=== PATIENT | male | born 1955 | race Caucasian/White ===

== ENCOUNTER 2018-11-26 15:02 | Day surgery (SDC) | payer OTHER ==
[2018-11-26] MEDS ORDERED: LIDOCAINE 1% 20 ML VIAL (10MG/ML) FOR IV START INTRADERMA ONE (16:10)
[2018-11-26] MEDS ORDERED: SODIUM CHLORIDE 0.9% 1,000 ML IV ONE (16:10)
[2018-11-26 16:14] LABS: Glucose,Whole Blood 126 mg/dL (75-99)
[2018-11-26] MEDS ORDERED: ONDANSETRON 4 MG/2 ML VIAL IVP ONE (16:23)
[2018-11-26 17:52] LABS: Anisocytosis Slight; Basophils # (A) 0.1 k/uL (0-0.2); Basophils % (A) 1 %; Eosinophils # (A) 0.4 k/uL (0-0.7); Eosinophils % (A) 6 %; HCT 36.1 % (39.0-53.0); HGB 12.1 gm/dL (13.0-17.5); Lymphocytes # (A) 1.5 k/uL (1.0-4.8); Lymphocytes % (A) 22 %; MCH 29.6 pg (25.0-35.0); MCHC 33.6 g/dL (31.0-37.0); MCV 88.1 fL (80.0-100.0); Mean Platelet Volume 8.1; Monocytes # (A) 0.5 k/uL (0-1.0); Monocytes % (A) 7 %; Neutrophils # (A) 4.5 k/uL (1.3-7.7); Neutrophils % (A) 62 %; Platelet Count 208 k/uL (150-450); RDW 17.6 % (11.5-15.5); WBC 7.1 k/uL (3.8-10.6)
[2018-11-26 18:17] LABS: Glucose,Whole Blood 121 mg/dL (75-99)
[2018-11-26 18:23] LABS: Potassium 4.8 mmol/L (3.5-5.1)
[2018-11-26] MEDS ORDERED: fentaNYL (PF) 50 MCG/ML 2 ML AMP ONE (18:27)
[2018-11-26] MEDS ORDERED: MIDAZOLAM 2 MG/2 ML VIAL ONE (18:27)
[2018-11-26] MEDS ORDERED: PROPOFOL 10 MG/ML 20 ML VIAL IV ONE (18:27)
[2018-11-26] MEDS ORDERED: LIDOCAINE 1% INJ 10MG/ML (20 ML MDV) SQ ONE (18:52)
[2018-11-26] MEDS ORDERED: hydrALAZINE HCL 20 MG/ML 1 ML VIAL IVP ONE (19:55)
--- NOTE | 2018-11-26 20:22 | P.OP ---
Date of Procedure: 11/26/18 Preoperative Diagnosis: Right thumb abscess with osteomyelitis of the distal phalanx Postoperative Diagnosis: Right thumb abscess with osteomyelitis of the distal phalanx Procedure(s) Performed: 1. Incision and drainage of right thumb abscess 2. Irrigation and debridement of the distal phalanx with removal of nail plate Anesthesia: MAC, local Surgeon: Sebas Barragan Estimated Blood Loss (ml): 5 Pathology: other (Culture swabs from medullary space) Condition: stable Disposition: PACU Indications for Procedure: The patient is a 63-year-old male who had a stroke in May this year and was in the ICU for over a month, during which he did develop sepsis. Over the last few weeks, he had progressive pain and swelling in the right thumb. An x-ray was obtained which was consistent with osteomyelitis. Treatment options were discussed with the patient and his and the office and surgical debridement was recommended. Questions were invited and answered. They expressed understanding and were in agreement to proceed with surgery. The operative site was confirmed and marked in the preop holding area. Consent forms were signed. Operative Findings: Gross pus was encountered in the space of the distal phalanx but very little bone remained. The infection had eroded a sinus tract the edge of the hyponychium. Description of Procedure: The patient was positioned supine with the operative limb on an arm board. Monitored anesthesia was administered uneventfully. A tourniquet was placed on the arm. A time-out was performed, confirming the patient, the operative side, site and the procedure to be performed: all team members expressed agreement. Utilizing aseptic technique, lidocaine without epinephrine was injected in a digital block. The right upper extremity was then prepped and draped in standard, sterile fashion. No tourniquet was utilized. Loupe magnification was used throughout the case for optimum visualization. Purulent fluid was expressed from the hyponychium with manual pressure on the nail plate. A Arden elevator was inserted to gently elevate the nail plate. This was removed, cleaned of remaining soft tissue and placed in Betadine for later reinsertion. A small sinus tract was noted at the edge of the hyponychium. There was no other visible damage to the nailbed. A stab incision was made at the tip of the digit and a second along the midaxial line on the radial side of the thumb distal phalanx. A mosquito hemostat was inserted to use. The subcutaneous tissues. Gross pus was immediately encountered. A swab of this fluid was obtained and sent for culture. A curette was inserted and used to gently explore the medullary space. There was only a small amount of bone remaining, essentially only the articular surface and a small volar rim. The subchondral bone was gently probed: This was found to be solid, without apparent extension into the IP joint. The curette was used to mechanically debride the medullary space. The wounds were copiously flushed with normal saline using a syringe and angiocatheter. The sinus tract at the hyponychium was also irrigated and debrided. All instruments were removed. The incisions were left open to drain. There was an expected amount of steady sanguinous drainage from the wounds. The nail plate was removed from the Betadine. Two small holes were placed in the nail plate which was then sutured back into position beneath the eponychial fold with a 4-0 nylon horizontal mattress suture. An additional simple suture was placed at the end of the nail plate to secure it to the tip of the digit. Sterile dressings of Adaptic, 4 x 4's, Vanessa and Coban were applied. All sponge, needle and instrument counts were correct at the end of the case. The patient tolerated the procedure well. He was taken to recovery in stable condition. He will be discharged back to his intermediate facility, resuming empiric treatment with IV vancomycin. Future treatment will be guided by intraoperative cultures.
[2018-11-26 20:46] VITALS: RESP 16; TEMP 98
[2018-11-26] MEDS ORDERED: ACETAMINOPHEN TAB 325 MG TAB PO PRN (21:52)
[2018-11-26 22:32] VITALS: BP 143/81; PULSE 87
--- NOTE | 2018-11-27 07:16 | FL ---
Fluoroscopy History: RT thumb. RT thumb. Dr. Barragan. 9 sec fluoro time. 3 images scanned.
== END 2018-11-26 22:17 ==
LOC: OR 15:02 → 4SSUR 20:23 → OR 22:17
PROVIDERS: ATTEND Orthopaedic Surgery
DX: E11.69 Type 2 diabetes mellitus with other specified complication (principal); M86.141 Other acute osteomyelitis, right hand; L02.511 Cutaneous abscess of right hand; E11.22 Type 2 diabetes mellitus with diabetic chronic kidney disease; N18.9 Chronic kidney disease, unspecified; I50.9 Heart failure, unspecified; I49.9 Cardiac arrhythmia, unspecified; N40.0 Benign prostatic hyperplasia without lower urinary tract symptoms; R56.9 Unspecified convulsions; D64.9 Anemia, unspecified; I13.0 Hypertensive heart and chronic kidney disease with heart failure and stage 1 through stage 4 chronic kidney disease, or unspecified chronic kidney disease; E78.5 Hyperlipidemia, unspecified; I48.91 Unspecified atrial fibrillation; G47.33 Obstructive sleep apnea (adult) (pediatric); S02.5XXA Fracture of tooth (traumatic), initial encounter for closed fracture; Z86.73 Personal history of transient ischemic attack (TIA), and cerebral infarction without residual deficits; Z87.09 Personal history of other diseases of the respiratory system; Z99.2 Dependence on renal dialysis; Z79.899 Other long term (current) drug therapy; Z79.01 Long term (current) use of anticoagulants; X58.XXXA Exposure to other specified factors, initial encounter; F41.9 Anxiety disorder, unspecified; F32.9 Major depressive disorder, single episode, unspecified
CPT/HCPCS: 26010; 11730; 80051; 85025; 87070; 87205; 87075; 73140; J2250; J0360; J2405; J2001; J3010; J2704

== ENCOUNTER 2018-12-30 14:20 | Observation (INO) | payer OTHER ==
--- NOTE | 2018-12-30 15:27 | ED ---
General Adult HPI - General Source: patient, EMS Mode of arrival: EMS Limitations: physical limitation <Cornel Downing - Last Filed: 12/30/18 16:40> <Nabor Cowart - Last Filed: 12/30/18 17:02> - General Chief complaint: Recheck/Abnormal Lab/Rx Stated complaint: ABNORMAL LABS Time Seen by Provider: 12/30/18 15:02 - History of Present Illness Initial comments: Patient is a 63-year-old male with history of acute teenagers presenting to the emergency room with a chief complaint of dialysis proper placement. Patient recently had a stroke and the medications that were administered caused him acute kidney injury which led to placement of a dialysis port. Patient reports currently the kidney function is improving the patient will gradually be tapered off the dialysis. Patient was at [facility] for dialysis and there was a failure of the dialysis port. He was sent here for [facility] for repl acement of the port. (Cornel Downing) - Related Data Home Medications Medication Instructions Recorded Confirmed Acetaminophen [Tylenol Arthritis] 650 mg PO Q6H PRN 08/25/18 12/30/18 Brimonidine Tartrate [Alphagan P 1 drops BOTH EYES BID@1200,2100 08/25/18 12/30/18 0.2% Ophth Soln] Docusate [Colace] 100 mg PO DAILY@1200 PRN 08/25/18 12/30/18 Finasteride [Proscar] 5 mg PO DAILY@1200 08/25/18 12/30/18 Ipratropium-Albuterol Nebulize 3 ml INHALATION RT-Q4H PRN 08/25/18 12/30/18 [Duoneb 0.5 mg-3 mg/3 ml Soln] Ipratropium/Albuterol Sulfate 2 puff INHALATION RT-Q6H PRN 08/25/18 12/30/18 [Combivent Respimat Inhaler] Latanoprost [Xalatan 0.005%] 1 drop BOTH EYES HS@2000 08/25/18 12/30/18 Polyethylene Glycol 3350 [Miralax] 17 gm PO DAILY@1700 PRN 08/25/18 12/30/18 Simethicone 80 mg PO Q6H PRN 08/25/18 12/30/18 Tamsulosin [Flomax] 0.4 mg PO DAILY@1200 08/25/18 12/30/18 diphenhydrAMINE ELIXIR [Benadryl 12.5 mg PO Q4H PRN 08/25/18 12/30/18 Elixir] levETIRAcetam [Keppra] 500 mg PO BID@1200,2100 08/25/18 12/30/18 Insulin Aspart [NovoLOG] See Protocol SQ ACHS 09/04/18 12/30/18 Apixaban [Eliquis] 2.5 mg PO BID@1200,2100 12/30/18 12/30/18 Cholecalciferol (Vitamin D3) 2,000 unit PO DAILY 12/30/18 12/30/18 [Vitamin D3] Furosemide [Lasix] 60 mg PO BID@1200,1730 12/30/18 12/30/18 Melatonin 5 mg PO HS@2100 12/30/18 12/30/18 Ondansetron HCl [Zofran] 8 mg PO Q8H PRN 12/30/18 12/30/18 Pantoprazole Sodium [Protonix] 40 mg PO DIRECTED 12/30/18 12/30/18 Vancomycin 1,250 mg IVPB TUTHSA 12/30/18 12/30/18 Venlafaxine HCl [Effexor XR] 75 mg PO DAILY@1700 12/30/18 12/30/18 guaiFENesin [Mucinex] 1,200 mg PO BID@1200,2100 12/30/18 12/30/18 Previous Rx's Medication Instructions Recorded Metoprolol Succinate (ER) [Toprol 12.5 mg PO DAILY tab.er.24h 09/01/18 XL] traMADol HCl [Ultram] 50 mg PO Q6HR PRN #20 tab 11/26/18 Allergies Allergy/AdvReac Type Severity Reaction Status Date / Time No Known Allergies Allergy Verified 12/30/18 15:09 Review of Systems ROS Other: All systems not noted in ROS Statement are negative. <Cornel Downing - Last Filed: 12/30/18 16:40> ROS Other: All systems not noted in ROS Statement are negative. <Nabor Cowart - Last Filed: 12/30/18 17:02> ROS Statement: Those systems with pertinent positive or pertinent negative responses have been documented in the HPI. Past Medical History Past Medical History: Atrial Fibrillation, Blood Disorder, Heart Failure, CVA/TIA, Diabetes Mellitus, Hyperlipidemia, Hypertension, Pneumonia, Prostate Disorder, Renal Disease, Seizure Disorder Additional Past Medical History / Comment(s): 05/15/18 CVA with L sided weakness/nondominent side treated in [facility], 05/16/18 aspiration pneumonia/respiratory failure/vented, 06/08/18 trached, peg tube, trach removed 07/16/18, pt went into Afib on 07/21/18 and started with episodes of feeling like something is in his throat which then leads to SOB episodes. Pt currently is in [facility] for rehab. He just started standing with assist/gait belt to pivot to wheelchair. 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 Still has peg tube-not removed yet. 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 Past Psychological History: Anxiety Smoking Status: Never smoker Past Alcohol Use History: None Reported Past Drug Use History: None Reported - Past Family History Mother Family Medical History: Cancer Additional Family Medical History / Comment(s): Mother had stomach cancer. Father Family Medical History: COPD, Myocardial Infarction (IA) Additional Family Medical History / Comment(s): Father had a massive IA at the age of 63 yrs. <Cornel Downing - Last Filed: 12/30/18 16:40> General Exam Limitations: physical limitation General appearance: alert, in no apparent distress, obese Head exam: Present: atraumatic, normocephalic, normal inspection Eye exam: Present: normal appearance Pupils: Present: normal accommodation ENT exam: Present: normal exam, normal oropharynx, mucous membranes moist, TM's normal bilaterally, normal external ear exam Neck exam: Present: normal inspection, full ROM Respiratory exam: Present: normal lung sounds bilaterally, other (Port in right sided chest.) Cardiovascular Exam: Present: regular rate, normal rhythm, normal heart sounds Extremities exam: Present: normal inspection, full ROM Back exam: Present: normal inspection, full ROM Neurological exam: Present: alert, oriented X3 Psychiatric exam: Present: normal affect, normal mood Skin exam: Present: warm, intact, normal color <Cornel Downing - Last Filed: 12/30/18 16:40> Course <Nabor Cowart - Last Filed: 12/30/18 17:02> Vital Signs 12/30/18 12/30/18 14:29 15:39 Temperature 97.9 F Pulse Rate 90 Respiratory 18 20 Rate Blood Pressure 132/58 O2 Sat by Pulse 99 Oximetry - Reevaluation(s) Reevaluation #1: 12/30/18 16:45 Patient was reevaluated and reexamined by myself, Dr. Cowart. I do agree with the findings. This includes interpretation to the plan. Case was discussed in detail with Dr. Rivera, who will admit covering for Dr. Alejandre. Consults will be placed with Dr. Reyes with nephrology as well as vascular, Dr. Sorenson. Patient does have a bandage to right thumb secondary to chronic wound/osteomyelitis. Patient needs IV antibiotic's for this as well. 12/30/18 17:02 Case was discussed with vascular surgeon, Dr. Sorenson who will consult. (Nabor Cowart) Medical Decision Making <Cornel Downing - Last Filed: 12/30/18 16:40> - Medical Decision Making Patient is a 63-year-old male with history of a cast presenting to the emergency department with a chief complaint of dialysis port replacement. Patient was sent to the ED from [facility]. There appears to be here in the dialysis port which was noted by the dialysis machine while the patient was undergoing treatment. Patient will be admitted for further medical management and placement of the port. Case discussed with Dr. Cowart. Admitting physician is Dr. Rivera. Vascular surgery and nephrology consulted. (Cornel Downing) Disposition Is patient prescribed a controlled substance at d/c from ED?: No Time of Disposition: 16:43 <Cornel Downing - Last Filed: 12/30/18 16:40> <Nabor Cowart - Last Filed: 12/30/18 17:02> Clinical Impression: Status post dialysis Disposition: ADMITTED IP TO THIS HOSP Condition: Stable Instructions (If sedation given, give patient instructions): End Stage Kidney Disease (ED) Additional Instructions: Patient will be admitted Referrals: Sebas Alejandre MD [Primary Care Provider] - 1-2 days
[2018-12-30] MEDS ORDERED: traMADol 50 MG TAB PO PRN ×2 (16:15→16:36)
[2018-12-30] MEDS ORDERED: ONDANSETRON 4 MG TAB PO PRN (16:15)
[2018-12-30] MEDS ORDERED: IPRATROPIUM-ALBUTEROL 3 ML NEB INHALATION PRN (16:15)
[2018-12-30] MEDS ORDERED: VANCOMYCIN 1,000 MG VIAL IVPB SCH (16:15)
[2018-12-30] MEDS ORDERED: MORPHINE SULFATE 4 MG/ML SYRINGE IV PRN (16:36)
[2018-12-30] MEDS ORDERED: ONDANSETRON 4 MG/2 ML VIAL IVP PRN (16:36)
[2018-12-30] MEDS ORDERED: NALOXONE 0.4 MG/ML 1 ML VIAL IV PRN (16:36)
[2018-12-30] MEDS ORDERED: METOPROLOL SUCCINATE (ER) 25 MG TAB.ER.24H PO STA (17:38)
[2018-12-30 17:54] LABS: Basophils # (A) 0.1 k/uL (0-0.2); Basophils % (A) 1 %; Eosinophils # (A) 0.5 k/uL (0-0.7); Eosinophils % (A) 5 %; HCT 33.2 % (39.0-53.0); HGB 11.1 gm/dL (13.0-17.5); Lymphocytes # (A) 1.2 k/uL (1.0-4.8); Lymphocytes % (A) 14 %; MCH 29.8 pg (25.0-35.0); MCHC 33.5 g/dL (31.0-37.0); Monocytes # (A) 0.4 k/uL (0-1.0); Monocytes % (A) 5 %; Neutrophils # (A) 6.2 k/uL (1.3-7.7); Neutrophils % (A) 74 %; Platelet Count 291 k/uL (150-450); RBC 3.73 m/uL (4.30-5.90); RDW 14.3 % (11.5-15.5); WBC 8.5 k/uL (3.8-10.6)
[2018-12-30] MEDS: SODIUM CHLORIDE 0.9% 1,000 ML IV SCH (18:15)
[2018-12-30 18:17] LABS: Albumin 4.6 g/dL (3.5-5.0); Calcium 9.7 mg/dL (8.4-10.2); Magnesium 2.2 mg/dL (1.6-2.3); Total Bilirubin 0.3 mg/dL (0.2-1.3); Total Protein 8.6 g/dL (6.3-8.2)
[2018-12-30] MEDS ORDERED: PANTOPRAZOLE 40 MG TABLET PO SCH (18:30)
[2018-12-30] MEDS ORDERED: VENLAFAXINE HCL ER 75 MG CAP PO SCH (18:30)
[2018-12-30 18:36] LABS: Potassium 4.1 mmol/L (3.5-5.1)
[2018-12-30] MEDS ORDERED: VANCOMYCIN IV PER PHARMACY 1 EACH MISC MISCELLANE PRN (19:00)
[2018-12-30] MEDS: FUROSEMIDE 20 MG TAB PO SCH (19:04)
[2018-12-30] MEDS ORDERED: diphenhydrAMINE 25 MG CAP PO PRN (20:52)
[2018-12-30] MEDS ORDERED: LATANOPROST 0.005% OPHTH DROPS 2.5 ML BTL BOTH EYES SCH (21:00)
[2018-12-30] MEDS: levETIRAcetam 500 MG TAB PO SCH (21:11)
[2018-12-30] MEDS: BRIMONIDINE TARTRATE 0.2% DROPS 5 ML BTL BOTH EYES SCH (21:12)
[2018-12-30 21:23] VITALS: BMI 33.3
[2018-12-31] MEDS: SODIUM CHLORIDE 0.9% 1,000 ML IV SCH (05:33)
[2018-12-31] MEDS: BRIMONIDINE TARTRATE 0.2% DROPS 5 ML BTL BOTH EYES SCH (08:10)
[2018-12-31 08:55] LABS: Basophils % (A) 1 %; Eosinophils # (A) 0.3 k/uL (0-0.7); Eosinophils % (A) 5 %; HCT 31.5 % (39.0-53.0); HGB 10.6 gm/dL (13.0-17.5); Lymphocytes % (A) 16 %; MCH 30.1 pg (25.0-35.0); MCHC 33.6 g/dL (31.0-37.0); MCV 89.5 fL (80.0-100.0); Mean Platelet Volume 6.1; Monocytes # (A) 0.3 k/uL (0-1.0); Monocytes % (A) 5 %; Neutrophils # (A) 4.2 k/uL (1.3-7.7); Neutrophils % (A) 71 %; Platelet Count 231 k/uL (150-450); RBC 3.52 m/uL (4.30-5.90); RDW 14.3 % (11.5-15.5)
[2018-12-31 09:28] LABS: Calcium 9.2 mg/dL (8.4-10.2); Potassium 3.7 mmol/L (3.5-5.1)
[2018-12-31 11:11] LABS: Vancomycin,Random 15.2 ug/mL
--- NOTE | 2018-12-31 11:25 | P.NPCON ---
History of Present Illness - Reason for Consult acute renal failure - History of Present Illness Reason for consultation: Acute kidney injury History of present illness: Patient is a 63-year-old male seen in renal consultation for acute kidney injury. Patient is currently hemodialysis dependent due to nonrecovered ATN. He is maintained on hemodialysis on Saturday schedule. Patient presented to the hospital due to malfunctioning dialysis catheter. However he was seen currently well undergoing hemodialysis and the catheter seems to be functioning fine although the lines are reversed. Patient denies any chest pain or shortness of breath. No vomiting or diarrhea. Urine output has been about over a liter per day. He is currently at a rehab facility. He is also receiving IV vancomycin for osteomyelitis of his thumb. Otherwise he has no active complaints at this time. Oral intake is good. Vital signs are stable. General: The patient appeared well nourished and normally developed. HEENT: Head exam is unremarkable. Neck is without jugular venous distension. LUNGS: Lungs are clear to auscultation and percussion. Breath sounds decreased. HEART: Rate and Rhythm are regular. First and second heart sounds normal. No murmurs, rubs or gallops. ABDOMEN: Abdominal exam reveals normal bowel sounds. Non-tender and non- distended. No evidence of peritonitis. EXTREMITITES: No clubbing, cyanosis, or edema. Past Medical History Past Medical History: Atrial Fibrillation, Blood Disorder, Heart Failure, CVA/TIA, Diabetes Mellitus, Hyperlipidemia, Hypertension, Pneumonia, Prostate Disorder, Renal Disease, Seizure Disorder Additional Past Medical History / Comment(s): 05/15/18 CVA with L sided weakness/nondominent side treated in [facility], 05/16/18 aspiration pneumonia/respiratory failure/vented, 06/08/18 trached, peg tube, trach removed 07/16/18, pt went into Afib on 07/21/18 and started with episodes of feeling like something is in his throat which then leads to SOB episodes. Pt currently is in [facility] for rehab. He just started standing with assist/gait belt to pivot to wheelchair. 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 Still has peg tube-not removed yet. 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 Past Psychological History: Anxiety Additional Psychological History / Comment(s): [facility] Smoking Status: Never smoker Past Alcohol Use History: None Reported Past Drug Use History: None Reported - Past Family History Mother Family Medical History: Cancer Additional Family Medical History / Comment(s): Mother had stomach cancer. Father Family Medical History: COPD, Myocardial Infarction (NH) Additional Family Medical History / Comment(s): Father had a massive NH at the age of 63 yrs. Medications and Allergies Home Medications Medication Instructions Recorded Confirmed Type Acetaminophen [Tylenol Arthritis] 650 mg PO Q6H PRN 08/25/18 12/30/18 History Brimonidine Tartrate [Alphagan P 1 drops BOTH EYES BID@1200,2100 08/25/18 12/30/18 History 0.2% Ophth Soln] Docusate [Colace] 100 mg PO DAILY@1200 PRN 08/25/18 12/30/18 History Finasteride [Proscar] 5 mg PO DAILY@1200 08/25/18 12/30/18 History Ipratropium-Albuterol Nebulize 3 ml INHALATION RT-Q4H PRN 08/25/18 12/30/18 History [Duoneb 0.5 mg-3 mg/3 ml Soln] Ipratropium/Albuterol Sulfate 2 puff INHALATION RT-Q6H PRN 08/25/18 12/30/18 History [Combivent Respimat Inhaler] Latanoprost [Xalatan 0.005%] 1 drop BOTH EYES HS@199908/25/18 12/30/18 History Polyethylene Glycol 3350 [Miralax] 17 gm PO DAILY@1700 PRN 08/25/18 12/30/18 History Simethicone 80 mg PO Q6H PRN 08/25/18 12/30/18 History Tamsulosin [Flomax] 0.4 mg PO DAILY@1200 08/25/18 12/30/18 History diphenhydrAMINE ELIXIR [Benadryl 12.5 mg PO Q4H PRN 08/25/18 12/30/18 History Elixir] levETIRAcetam [Keppra] 500 mg PO BID@1200,2100 08/25/18 12/30/18 History Metoprolol Succinate (ER) [Toprol 12.5 mg PO DAILY tab.er.24h 09/01/18 12/30/18 Rx XL] Insulin Aspart [NovoLOG] See Protocol SQ ACHS 09/04/18 12/30/18 History traMADol HCl [Ultram] 50 mg PO Q6HR PRN #20 tab 11/26/18 12/30/18 Rx Apixaban [Eliquis] 2.5 mg PO BID@1200,2100 12/30/18 12/30/18 History Cholecalciferol (Vitamin D3) 2,000 unit PO DAILY 12/30/18 12/30/18 History [Vitamin D3] Furosemide [Lasix] 60 mg PO BID@1200,1730 12/30/18 12/30/18 History Melatonin 5 mg PO HS@2100 12/30/18 12/30/18 History Ondansetron HCl [Zofran] 8 mg PO Q8H PRN 12/30/18 12/30/18 History Pantoprazole Sodium [Protonix] 40 mg PO DIRECTED 12/30/18 12/30/18 History Vancomycin 1,250 mg IVPB TUTHSA 12/30/18 12/30/18 History Venlafaxine HCl [Effexor XR] 75 mg PO DAILY@1700 12/30/18 12/30/18 History guaiFENesin [Mucinex] 1,200 mg PO BID@1200,2100 12/30/18 12/30/18 History Allergies Allergy/AdvReac Type Severity Reaction Status Date / Time No Known Allergies Allergy Verified 12/30/18 15:09 Physical Exam Vitals: Vital Signs Temp Pulse Pulse Resp BP BP Pulse Ox 12/31/18 05:00 97.3 F L 85 20 165/83 98 12/30/18 21:00 97.9 F 85 18 153/82 100 12/30/18 19:36 90 18 158/92 100 12/30/18 19:03 92 12/30/18 19:00 93 18 100 12/30/18 18:49 90 12/30/18 17:00 90 16 148/93 99 12/30/18 16:33 93 18 98 12/30/18 15:39 20 12/30/18 14:29 97.9 F 90 18 132/58 99 Intake and Output 12/30/18 12/31/18 12/31/18 22:59 06:59 14:59 Intake Total 240 0 Balance 240 0 Intake: Oral 240 0 Other: Voiding Method Urinal # Voids 0 0 Results - Lab Results Most recent lab results Calcium 9.2 mg/dL (8.4-10.2) 12/31/18 08:40 Magnesium 2.2 mg/dL (1.6-2.3) 12/30/18 17:30 12/31/18 08:40 12/31/18 08:40 Assessment and Plan Plan: Assessment: 1. Acute kidney injury, currently hemodialysis dependent. He is maintained on hemodialysis on Saturday schedule. 2. Malfunctioning permacath outpatient but seems to be working fine at this time. 3. Thumb osteomyelitis maintained on IV vancomycin. 4. History of hemorrhagic CVA. Plan: Currently seen while undergoing hemodialysis. Patient had missed yesterday's treatment. Next treatment tomorrow per his outpatient schedule. Continue to monitor for renal function recovery outpatient. Stable to be discharged from nephrology standpoint. Thank you for the consultation. I will continue to follow the patient with you during his hospital stay.
[2018-12-31] MEDS ORDERED: FINASTERIDE 5 MG TAB PO SCH (12:00)
[2018-12-31] MEDS ORDERED: TAMSULOSIN 0.4 MG CAP.ER.24H PO SCH (12:00)
[2018-12-31] MEDS: METOPROLOL SUCCINATE (ER) 25 MG TAB.ER.24H PO SCH ×2 (12:42→13:16)
[2018-12-31] MEDS: FUROSEMIDE 20 MG TAB PO SCH (12:45)
[2018-12-31] MEDS: levETIRAcetam 500 MG TAB PO SCH (12:45)
[2018-12-31] MEDS ORDERED: VANCOMYCIN 1,250 MG in SODIUM CHLORIDE 0.9% 250 ML IVPB ONE (13:00)
--- NOTE | 2018-12-31 13:10 | P.GSCN ---
History of Present Illness Consult date: 12/31/18 History of present illness: The patient is a 63-year-old male with acute kidney injury from previous stroke and hospitalization requiring dialysis via a tunneled dialysis catheter. He is typically maintained on a Saturday, , Saturday schedule. When he presented to dialysis yesterday they were unable to perform dialysis. He was transferred to our center. His laboratories were normal upon arrival and upon my evaluation this morning he had no complaints Review of Systems 10 point review of systems performed, pertinent positives and negatives per the HPI Past Medical History Past Medical History: Atrial Fibrillation, Blood Disorder, Heart Failure, CVA/TIA, Diabetes Mellitus, Hyperlipidemia, Hypertension, Pneumonia, Prostate Disorder, Renal Disease, Seizure Disorder Additional Past Medical History / Comment(s): 05/15/18 CVA with L sided weakness/nondominent side treated in [facility], 05/16/18 aspiration pneumonia/respiratory failure/vented, 06/08/18 trached, peg tube, trach removed 07/16/18, pt went into Afib on 07/21/18 and started with episodes of feeling like something is in his throat which then leads to SOB episodes. Pt currently is in [facility] for rehab. He just started standing with assist/gait belt to pivot to wheelchair. 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 Still has peg tube-not removed yet. 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 Past Psychological History: Anxiety Additional Psychological History / Comment(s): [facility] Smoking Status: Never smoker Past Alcohol Use History: None Reported Past Drug Use History: None Reported - Past Family History Mother Family Medical History: Cancer Additional Family Medical History / Comment(s): Mother had stomach cancer. Father Family Medical History: COPD, Myocardial Infarction ([place]) Additional Family Medical History / Comment(s): Father had a massive [place] at the age of 63 yrs. Medications and Allergies Home Medications Medication Instructions Recorded Confirmed Type Acetaminophen [Tylenol Arthritis] 650 mg PO Q6H PRN 08/25/18 12/30/18 History Brimonidine Tartrate [Alphagan P 1 drops BOTH EYES BID@1200,209908/25/18 12/30/18 History 0.2% Ophth Soln] Docusate [Colace] 100 mg PO DAILY@1200 PRN 08/25/18 12/30/18 History Finasteride [Proscar] 5 mg PO DAILY@119908/25/18 12/30/18 History Ipratropium-Albuterol Nebulize 3 ml INHALATION RT-Q4H PRN 08/25/18 12/30/18 History [Duoneb 0.5 mg-3 mg/3 ml Soln] Ipratropium/Albuterol Sulfate 2 puff INHALATION RT-Q6H PRN 08/25/18 12/30/18 History [Combivent Respimat Inhaler] Latanoprost [Xalatan 0.005%] 1 drop BOTH EYES HS@199908/25/18 12/30/18 History Polyethylene Glycol 3350 [Miralax] 17 gm PO DAILY@1700 PRN 08/25/18 12/30/18 History Simethicone 80 mg PO Q6H PRN 08/25/18 12/30/18 History Tamsulosin [Flomax] 0.4 mg PO DAILY@119908/25/18 12/30/18 History diphenhydrAMINE ELIXIR [Benadryl 12.5 mg PO Q4H PRN 08/25/18 12/30/18 History Elixir] levETIRAcetam [Keppra] 500 mg PO BID@1200,209908/25/18 12/30/18 History Metoprolol Succinate (ER) [Toprol 12.5 mg PO DAILY tab.er.24h 09/01/18 12/30/18 Rx XL] Insulin Aspart [NovoLOG] See Protocol SQ ACHS 09/04/18 12/30/18 History traMADol HCl [Ultram] 50 mg PO Q6HR PRN #20 tab 11/26/18 12/30/18 Rx Apixaban [Eliquis] 2.5 mg PO BID@1200,2100 12/30/18 12/30/18 History Cholecalciferol (Vitamin D3) 2,000 unit PO DAILY 12/30/18 12/30/18 History [Vitamin D3] Furosemide [Lasix] 60 mg PO BID@1200,1730 12/30/18 12/30/18 History Melatonin 5 mg PO HS@2100 12/30/18 12/30/18 History Ondansetron HCl [Zofran] 8 mg PO Q8H PRN 12/30/18 12/30/18 History Pantoprazole Sodium [Protonix] 40 mg PO DIRECTED 12/30/18 12/30/18 History Vancomycin 1,250 mg IVPB TUTHSA 12/30/18 12/30/18 History Venlafaxine HCl [Effexor XR] 75 mg PO DAILY@1700 12/30/18 12/30/18 History guaiFENesin [Mucinex] 1,200 mg PO BID@1200,2100 12/30/18 12/30/18 History Allergies Allergy/AdvReac Type Severity Reaction Status Date / Time No Known Allergies Allergy Verified 12/30/18 15:09 Surgical - Exam Vital Signs Temp Pulse Resp BP Pulse Ox 97.9 F 90 18 132/58 99 12/30/18 14:29 12/30/18 14:29 12/30/18 14:29 12/30/18 14:29 12/30/18 14:29 Gen. is a pleasant male in no acute distress, resting. HEENT is normocephalic, atraumatic, extraocular motion intact. Heart is regular in rate and rhythm. There is a right chest wall tunneled dialysis catheter. Lungs are clear. Abdomen is soft. Results - Labs 12/31/18 08:40 12/31/18 08:40 Abnormal Lab Results - Last 24 Hours (Table) 12/30/18 12/30/18 12/31/18 Range/Units 17:30 17:30 08:40 RBC 3.73 L (4.30-5.90) m/uL Hgb 11.1 L (13.0-17.5) gm/dL Hct 33.2 L (39.0-53.0) % BUN 52 H 46 H (9-20) mg/dL Creatinine 3.71 H 3.28 H (0.66-1.25) mg/dL Glucose 167 H 138 H (74-99) mg/dL Alkaline Phosphatase 127 H (38-126) U/L Total Protein 8.6 H (6.3-8.2) g/dL 12/31/18 Range/Units 08:40 RBC 3.52 L (4.30-5.90) m/uL Hgb 10.6 L (13.0-17.5) gm/dL Hct 31.5 L (39.0-53.0) % BUN (9-20) mg/dL Creatinine (0.66-1.25) mg/dL Glucose (74-99) mg/dL Alkaline Phosphatase (38-126) U/L Total Protein (6.3-8.2) g/dL Diabetes panel 12/30/18 12/31/18 Range/Units 17:30 08:40 Sodium 140 139 (137-145) mmol/L Potassium 4.1 3.7 (3.5-5.1) mmol/L Chloride 100 101 (98-107) mmol/L Carbon Dioxide 23 27 (22-30) mmol/L BUN 52 H 46 H (9-20) mg/dL Creatinine 3.71 H 3.28 H (0.66-1.25) mg/dL Glucose 167 H 138 H (74-99) mg/dL Calcium 9.7 9.2 (8.4-10.2) mg/dL AST 21 (17-59) U/L ALT 22 (21-72) U/L Alkaline Phosphatase 127 H (38-126) U/L Total Protein 8.6 H (6.3-8.2) g/dL Albumin 4.6 (3.5-5.0) g/dL Calcium panel 12/30/18 12/31/18 Range/Units 17:30 08:40 Calcium 9.7 9.2 (8.4-10.2) mg/dL Albumin 4.6 (3.5-5.0) g/dL Pituitary panel 12/30/18 12/31/18 Range/Units 17:30 08:40 Sodium 140 139 (137-145) mmol/L Potassium 4.1 3.7 (3.5-5.1) mmol/L Chloride 100 101 (98-107) mmol/L Carbon Dioxide 23 27 (22-30) mmol/L BUN 52 H 46 H (9-20) mg/dL Creatinine 3.71 H 3.28 H (0.66-1.25) mg/dL Glucose 167 H 138 H (74-99) mg/dL Calcium 9.7 9.2 (8.4-10.2) mg/dL Adrenal panel 12/30/18 12/31/18 Range/Units 17:30 08:40 Sodium 140 139 (137-145) mmol/L Potassium 4.1 3.7 (3.5-5.1) mmol/L Chloride 100 101 (98-107) mmol/L Carbon Dioxide 23 27 (22-30) mmol/L BUN 52 H 46 H (9-20) mg/dL Creatinine 3.71 H 3.28 H (0.66-1.25) mg/dL Glucose 167 H 138 H (74-99) mg/dL Calcium 9.7 9.2 (8.4-10.2) mg/dL Total Bilirubin 0.3 (0.2-1.3) mg/dL AST 21 (17-59) U/L ALT 22 (21-72) U/L Alkaline Phosphatase 127 H (38-126) U/L Total Protein 8.6 H (6.3-8.2) g/dL Albumin 4.6 (3.5-5.0) g/dL Assessment and Plan Assessment: #1 acute kidney failure, on dialysis, supposedly improving renal function #2 question of malfunctioning tunneled dialysis catheter Plan: At this point I passed the dialysis nurse to investigate further and tried to troubleshoot what errors may have occurred. Upon further discussion the catheter was functioning well without issue. At this time I do not see any need for replacement given we cannot find any issue with the catheter itself. We'll leave further planning to nephrology and the primary team.
--- NOTE | 2018-12-31 13:22 | P.HPIM ---
History of Present Illness H&P Date: 12/31/18 Chief Complaint: Malfunctioning dialysis catheter History of presenting complaint: This is a pleasant 63-year-old patient of Dr. Sebas Alejandre who was transferred here from [facility]. Patient has been on hemodialysis. It is right infraclavicular. Some problems/malfunctioning the same. Hence patient was sent down here for low vascular surgeon opinion for the same. And replace the same if needed. Chronic stable medical conditions include atrial fibrillation, d iabetes, hyperlipidemia, hypertension, prostate disorder, seizure disorder. Patient on on 05/15/2018 had a left-sided stroke affecting the left-sided [place] [place]. Also had aspiration pneumonia in active labor ventilator with the trach. He does have a PEG tube. That was removed on 07/16/2018. Patient also followed by atrial fibrillation. Patient currently [facility] for rehab. Patient has been standing with assistance gait belt too uncomfortable to the wheelchair. Patient able to feed himself with nectar consistency. Patient does been on hemodialysis since his stroke. Recently diagnosed with obstructive sleep apnea uses a BiPAP. Also's diabetic neuropathy, glaucoma BPH. Patient also 2 weeks ago had surgery on the right thumb for osteomyelitis and is on vancomycin being followed by Dr. Perez Social history: No smoking or alcohol. Currently at rehab at [facility] facility. Physical examination: VITAL SIGNS: 97.9, 90, 18, 132/58, 99% on 3 L GENERAL: BMI 33.3, sitting upon a bed awake. EYES: Pupils equal. Conjunctiva normal. HEENT: External appearance of nose and ears normal, oral cavity grossly normal. NECK: JVD not raised; masses not palpable. HEART: First and second heart sounds are normal; no edema. LUNGS: Respiratory rate normal; slightly decreased breath sounds. ABDOMEN: Soft, nontender, liver spleen not palpable, no masses palpable, PEG tube in place. PSYCH: Alert and oriented x3; mood and affect normal. NEUROLOGICAL: [Cranial nerves grossly intact; no facial asymmetry, some left- sided weakness. LYMPHATICS: No lymph nodes palpable in the axilla and neck CHEST wall: Right infra-clavicle dialysis catheter EXTREMITY: Dressing over the right thumb INVESTIGATIONS, reviewed in the clinical context: White count 6 hemoglobin 10.6 potassium 3.7 bun 46 creatinine 3.28 glucose 138 Assessment: -Malfunctioning right dialysis catheter could be simple malpositioning. -Persistent atrial fibrillation -Acute stroke with left-sided weakness -Diabetes mellitus type 2 -Hyperlipidemia -Essential hypertension -BPH -End-stage kidney disease on renal replacement therapy -Stroke on 05/15/2018 affecting the left side -Dysphagia from stroke patient is on nectar consistency diet -PEG tube in place patient not using -Obstructive sleep apnea uses BiPAP -Diabetic peripheral neuropathy both the feet -Bilateral glaucoma -Obesity BMI 33.3 -Anemia of chronic kidney disease Plan: Dr. Sorenson was consulted from vascular surgery. He was not able to have his dialysis yesterday. It was readjusted here and dysfunction on fact patient getting dialyzed as this morning. Nephrology was consulted. Home medications resumed. Patient is getting vancomycin that is being monitored with fluid levels. That'll be continued. Care was discussed with the patient. Patient should be able to return to rehab at dialysis goes good. Past Medical History Past Medical History: Atrial Fibrillation, Blood Disorder, Heart Failure, CVA/TIA, Diabetes Mellitus, Hyperlipidemia, Hypertension, Pneumonia, Prostate Disorder, Renal Disease, Seizure Disorder Additional Past Medical History / Comment(s): 05/15/18 CVA with L sided weakness/nondominent side treated in [facility], 05/16/18 aspiration pneumonia/respiratory failure/vented, 06/08/18 trached, peg tube, trach removed 07/16/18, pt went into Afib on 07/21/18 and started with episodes of feeling like something is in his throat which then leads to SOB episodes. Pt currently is in [facility] for rehab. He just started standing with assist/gait belt to pivot to wheelchair. 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 Still has peg tube-not removed yet. 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 Past Psychological History: Anxiety Additional Psychological History / Comment(s): [facility] Smoking Status: Never smoker Past Alcohol Use History: None Reported Past Drug Use History: None Reported - Past Family History Mother Family Medical History: Cancer Additional Family Medical History / Comment(s): Mother had stomach cancer. Father Family Medical History: COPD, Myocardial Infarction ([place]) Additional Family Medical History / Comment(s): Father had a massive [place] at the age of 63 yrs. Medications and Allergies Home Medications Medication Instructions Recorded Confirmed Type Acetaminophen [Tylenol Arthritis] 650 mg PO Q6H PRN 08/25/18 12/30/18 History Brimonidine Tartrate [Alphagan P 1 drops BOTH EYES BID@1200,209908/25/18 12/30/18 History 0.2% Ophth Soln] Docusate [Colace] 100 mg PO DAILY@1200 PRN 08/25/18 12/30/18 History Finasteride [Proscar] 5 mg PO DAILY@119908/25/18 12/30/18 History Ipratropium-Albuterol Nebulize 3 ml INHALATION RT-Q4H PRN 08/25/18 12/30/18 History [Duoneb 0.5 mg-3 mg/3 ml Soln] Ipratropium/Albuterol Sulfate 2 puff INHALATION RT-Q6H PRN 08/25/18 12/30/18 History [Combivent Respimat Inhaler] Latanoprost [Xalatan 0.005%] 1 drop BOTH EYES HS@199908/25/18 12/30/18 History Polyethylene Glycol 3350 [Miralax] 17 gm PO DAILY@1700 PRN 08/25/18 12/30/18 History Simethicone 80 mg PO Q6H PRN 08/25/18 12/30/18 History Tamsulosin [Flomax] 0.4 mg PO DAILY@1200 08/25/18 12/30/18 History diphenhydrAMINE ELIXIR [Benadryl 12.5 mg PO Q4H PRN 08/25/18 12/30/18 History Elixir] levETIRAcetam [Keppra] 500 mg PO BID@1200,2100 08/25/18 12/30/18 History Metoprolol Succinate (ER) [Toprol 12.5 mg PO DAILY tab.er.24h 09/01/18 12/30/18 Rx XL] Insulin Aspart [NovoLOG] See Protocol SQ ACHS 09/04/18 12/30/18 History traMADol HCl [Ultram] 50 mg PO Q6HR PRN #20 tab 11/26/18 12/30/18 Rx Apixaban [Eliquis] 2.5 mg PO BID@1200,2100 12/30/18 12/30/18 History Cholecalciferol (Vitamin D3) 2,000 unit PO DAILY 12/30/18 12/30/18 History [Vitamin D3] Furosemide [Lasix] 60 mg PO BID@1200,1730 12/30/18 12/30/18 History Melatonin 5 mg PO HS@2100 12/30/18 12/30/18 History Ondansetron HCl [Zofran] 8 mg PO Q8H PRN 12/30/18 12/30/18 History Pantoprazole Sodium [Protonix] 40 mg PO DIRECTED 12/30/18 12/30/18 History Vancomycin 1,250 mg IVPB TUTHSA 12/30/18 12/30/18 History Venlafaxine HCl [Effexor XR] 75 mg PO DAILY@1700 12/30/18 12/30/18 History guaiFENesin [Mucinex] 1,200 mg PO BID@1200,2100 12/30/18 12/30/18 History Allergies Allergy/AdvReac Type Severity Reaction Status Date / Time No Known Allergies Allergy Verified 12/30/18 15:09 Physical Exam Vitals: Vital Signs Temp Pulse Pulse Resp BP BP Pulse Ox 12/31/18 05:00 97.3 F L 85 20 165/83 98 12/30/18 21:00 97.9 F 85 18 153/82 100 12/30/18 19:36 90 18 158/92 100 12/30/18 19:03 92 12/30/18 19:00 93 18 100 12/30/18 18:49 90 12/30/18 17:00 90 16 148/93 99 12/30/18 16:33 93 18 98 12/30/18 15:39 20 12/30/18 14:29 97.9 F 90 18 132/58 99 Intake and Output 12/30/18 12/31/18 12/31/18 22:59 06:59 14:59 Intake Total 240 0 Balance 240 0 Intake: Oral 240 0 Other: Voiding Method Urinal # Voids 0 0 Results CBC & Chem 7: 12/31/18 08:40 12/31/18 08:40 Labs: Abnormal Lab Results - Last 24 Hours (Table) 12/30/18 12/30/18 12/31/18 Range/Units 17:30 17:30 08:40 RBC 3.73 L (4.30-5.90) m/uL Hgb 11.1 L (13.0-17.5) gm/dL Hct 33.2 L (39.0-53.0) % BUN 52 H 46 H (9-20) mg/dL Creatinine 3.71 H 3.28 H (0.66-1.25) mg/dL Glucose 167 H 138 H (74-99) mg/dL Alkaline Phosphatase 127 H (38-126) U/L Total Protein 8.6 H (6.3-8.2) g/dL 12/31/18 Range/Units 08:40 RBC 3.52 L (4.30-5.90) m/uL Hgb 10.6 L (13.0-17.5) gm/dL Hct 31.5 L (39.0-53.0) % BUN (9-20) mg/dL Creatinine (0.66-1.25) mg/dL Glucose (74-99) mg/dL Alkaline Phosphatase (38-126) U/L Total Protein (6.3-8.2) g/dL Thrombosis Risk Factor Assmnt - Choose All That Apply Any of the Below Risk Factors Present?: Yes Each Factor Represents 1 point: Obesity (BMI >25), Swollen legs (current) Each Risk Factor Represents 2 Points: Age 61-74 years Thrombosis Risk Factor Assessment Total Risk Factor Score: 4 Thrombosis Risk Factor Assessment Level: Moderate Risk
--- NOTE | 2018-12-31 13:29 | P.DS ---
Providers Date of admission: 12/30/18 18:06 Expected date of discharge: 12/31/18 Attending physician: Coy Rivera Consults: 12/30/18 16:36 Consult Physician Stat Consulting Provider: Avis Sorenson Consult Reason/Comments: Dialysis port replacement Do you want consulting provider notified?: Yes Consult Physician Stat Consulting Provider: Kan Reyes Consult Reason/Comments: Dialysis port replacement Do you want consulting provider notified?: Yes 12/30/18 20:53 Consult Physician Routine Consulting Provider: Xander Perez Consult Reason/Comments: thumb infection Do you want consulting provider notified?: Yes, Notify in am Primary care physician: Sebas Alejandre [facility] Course: Chief Complaint: Malfunctioning dialysis catheter History of presenting complaint: This is a pleasant 63-year-old patient of Dr. Sebas Alejandre who was transferred here from [facility]. Patient has been on hemodialysis. It is right infraclavicular. Some problems/malfunctioning the same. Hence patient was sent down here for low vascular surgeon opinion for the same. And replace the same if needed. Chronic stable medical conditions include atrial fibrillation, diabetes, hyperlipidemia, hypertension, prostate disorder, seizure disorder. Patient on on 05/15/2018 had a left-sided stroke affecting the left-sided [facility] [place]. Also had aspiration pneumonia in active labor ventilator with the trach. He does have a PEG tube. That was removed on 07/16/2018. Patient also followed by atrial fibrillation. Patient currently [facility] for rehab. Patient has been standing with assistance gait belt too uncomfortable to the wheelchair. Patient able to feed himself with nectar consistency. Patient does been on hemodialysis since his stroke. Recently diagnosed with obstructive sleep apnea uses a BiPAP. Also's diabetic neuropathy, glaucoma BPH. Patient also 2 weeks ago had surgery on the right thumb for osteomyelitis and is on vancomycin being followed by Dr. Perez Dialysis catheter is functioning good. Did get dialyzed today. Seen by Dr. Sorenson from vascular surgery and Dr. Reyes from nephrology. Care was discussed with the patient. Consultation: Dr. Sorenson from vascular surgery Dr. Reyes from nephrology Physical examination: VITAL SIGNS: 97.9, 90, 18, 132/58, 99% on 3 L GENERAL: BMI 33.3, sitting upon a bed awake. EYES: Pupils equal. Conjunctiva normal. HEENT: External appearance of nose and ears normal, oral cavity grossly normal. NECK: JVD not raised; masses not palpable. HEART: First and second heart sounds are normal; no edema. LUNGS: Respiratory rate normal; slightly decreased breath sounds. ABDOMEN: Soft, nontender, liver spleen not palpable, no masses palpable, PEG tube in place. PSYCH: Alert and oriented x3; mood and affect normal. NEUROLOGICAL: [Cranial nerves grossly intact; no facial asymmetry, some left- sided weakness. LYMPHATICS: No lymph nodes palpable in the axilla and neck CHEST wall: Right infra-clavicle dialysis catheter EXTREMITY: Dressing over the right thumb INVESTIGATIONS, reviewed in the clinical context: White count 6 hemoglobin 10.6 potassium 3.7 bun 46 creatinine 3.28 glucose 138 Discharge diagnosis: -Malfunctioning right dialysis catheter could be simple malpositioning. Malfunctioning finding. Was dialyzed today. -Persistent atrial fibrillation -Acute stroke with left-sided weakness -Diabetes mellitus type 2 -Hyperlipidemia -Essential hypertension -BPH -End-stage kidney disease on renal replacement therapy -Stroke on 05/15/2018 affecting the left side -Dysphagia from stroke patient is on nectar consistency diet -PEG tube in place patient not using -Obstructive sleep apnea uses BiPAP -Diabetic peripheral neuropathy both the feet -Bilateral glaucoma -Obesity BMI 33.3 -Anemia of chronic kidney disease Disposition: [facility] Patient Condition at Discharge: Stable Plan - Discharge Summary New Discharge Prescriptions: Continue Polyethylene Glycol 3350 [Miralax] 17 gm PO DAILY@1700 PRN PRN Reason: Constipation Ipratropium-Albuterol Nebulize [Duoneb 0.5 mg-3 mg/3 ml Soln] 3 ml INHALATION RT-Q4H PRN PRN Reason: Shortness Of Breath Or Wheezing diphenhydrAMINE ELIXIR [Benadryl Elixir] 12.5 mg PO Q4H PRN PRN Reason: Itching Docusate [Colace] 100 mg PO DAILY@1200 PRN PRN Reason: Constipation Ipratropium/Albuterol Sulfate [Combivent Respimat Inhaler] 2 puff INHALATION RT-Q6H PRN PRN Reason: Shortness Of Breath Acetaminophen [Tylenol Arthritis] 650 mg PO Q6H PRN PRN Reason: Pain levETIRAcetam [Keppra] 500 mg PO BID@1200,2100 Brimonidine Tartrate [Alphagan P 0.2% Ophth Soln] 1 drops BOTH EYES BID@1200,2100 Tamsulosin [Flomax] 0.4 mg PO DAILY@1200 Latanoprost [Xalatan 0.005%] 1 drop BOTH EYES HS@1999 Finasteride [Proscar] 5 mg PO DAILY@1200 Simethicone 80 mg PO Q6H PRN PRN Reason: GAS Metoprolol Succinate (ER) [Toprol XL] 12.5 mg PO DAILY tab.er.24h Insulin Aspart [NovoLOG] See Protocol SQ ACHS traMADol HCl [Ultram] 50 mg PO Q6HR PRN #20 tab PRN Reason: Pain Venlafaxine HCl [Effexor XR] 75 mg PO DAILY@1700 Melatonin 5 mg PO HS@2099 guaiFENesin [Mucinex] 1,200 mg PO BID@1200,2100 Furosemide [Lasix] 60 mg PO BID@1200,1730 Pantoprazole Sodium [Protonix] 40 mg PO DIRECTED Ondansetron HCl [Zofran] 8 mg PO Q8H PRN PRN Reason: Nausea Apixaban [Eliquis] 2.5 mg PO BID@1200,2100 Vancomycin 1,250 mg IVPB TUTHSA Cholecalciferol (Vitamin D3) [Vitamin D3] 2,000 unit PO DAILY Discharge Medication List Acetaminophen [Tylenol Arthritis] 650 mg PO Q6H PRN 08/25/18 [History] Brimonidine Tartrate [Alphagan P 0.2% Ophth Soln] 1 drops BOTH EYES BID@1200,2100 08/25/18 [History] Docusate [Colace] 100 mg PO DAILY@1200 PRN 08/25/18 [History] Finasteride [Proscar] 5 mg PO DAILY@1200 08/25/18 [History] Ipratropium-Albuterol Nebulize [Duoneb 0.5 mg-3 mg/3 ml Soln] 3 ml INHALATION RT-Q4H PRN 08/25/18 [History] Ipratropium/Albuterol Sulfate [Combivent Respimat Inhaler] 2 puff INHALATION RT- Q6H PRN 08/25/18 [History] Latanoprost [Xalatan 0.005%] 1 drop BOTH EYES HS@199908/25/18 [History] Polyethylene Glycol 3350 [Miralax] 17 gm PO DAILY@1700 PRN 08/25/18 [History] Simethicone 80 mg PO Q6H PRN 08/25/18 [History] Tamsulosin [Flomax] 0.4 mg PO DAILY@1200 08/25/18 [History] diphenhydrAMINE ELIXIR [Benadryl Elixir] 12.5 mg PO Q4H PRN 08/25/18 [History] levETIRAcetam [Keppra] 500 mg PO BID@1200,2100 08/25/18 [History] Metoprolol Succinate (ER) [Toprol XL] 12.5 mg PO DAILY tab.er.24h 09/01/18 [Rx] Insulin Aspart [NovoLOG] See Protocol SQ ACHS 09/04/18 [History] traMADol HCl [Ultram] 50 mg PO Q6HR PRN #20 tab 11/26/18 [Rx] Apixaban [Eliquis] 2.5 mg PO BID@1200,2100 12/30/18 [History] Cholecalciferol (Vitamin D3) [Vitamin D3] 2,000 unit PO DAILY 12/30/18 [History] Furosemide [Lasix] 60 mg PO BID@1200,1730 12/30/18 [History] Melatonin 5 mg PO HS@209912/30/18 [History] Ondansetron HCl [Zofran] 8 mg PO Q8H PRN 12/30/18 [History] Pantoprazole Sodium [Protonix] 40 mg PO DIRECTED 12/30/18 [History] Vancomycin 1,250 mg IVPB TUTHSA 12/30/18 [History] Venlafaxine HCl [Effexor XR] 75 mg PO DAILY@1700 12/30/18 [History] guaiFENesin [Mucinex] 1,200 mg PO BID@1200,2100 12/30/18 [History] Follow up Appointment(s)/Referral(s): Sebas Alejandre MD [Primary Care Provider] - 1-2 Days Xander Perez MD [STAFF PHYSICIAN] - 1 Week Patient Instructions/Handouts: End Stage Kidney Disease (ED)
[2018-12-31] MEDS ORDERED: APIXABAN 2.5 MG TABLET PO SCH (13:30)
[2018-12-31 14:22] VITALS: BP 112/76; PULSE 77; RESP 16; TEMP 98.1
[2019-01-01] MEDS ORDERED: PANTOPRAZOLE 40 MG TABLET PO SCH (05:00)
== END 2018-12-31 16:07 ==
LOC: EC 14:20 → 4MS4W 18:06
PROVIDERS: ADMIT Hospitalist; ATTEND Hospitalist
DX: T82.41XA Breakdown (mechanical) of vascular dialysis catheter, initial encounter (principal); N17.9 Acute kidney failure, unspecified; I13.2 Hypertensive heart and chronic kidney disease with heart failure and with stage 5 chronic kidney disease, or end stage renal disease; N18.6 End stage renal disease; I50.9 Heart failure, unspecified; E11.69 Type 2 diabetes mellitus with other specified complication; M86.641 Other chronic osteomyelitis, right hand; I69.354 Hemiplegia and hemiparesis following cerebral infarction affecting left non-dominant side; N40.0 Benign prostatic hyperplasia without lower urinary tract symptoms; I69.391 Dysphagia following cerebral infarction; D63.1 Anemia in chronic kidney disease; I48.19 Other persistent atrial fibrillation; G40.909 Epilepsy, unspecified, not intractable, without status epilepticus; E78.5 Hyperlipidemia, unspecified; E11.42 Type 2 diabetes mellitus with diabetic polyneuropathy; G47.33 Obstructive sleep apnea (adult) (pediatric); H40.9 Unspecified glaucoma; Z93.1 Gastrostomy status; E66.9 Obesity, unspecified; Z68.33 Body mass index [BMI] 33.0-33.9, adult; F41.9 Anxiety disorder, unspecified; Z99.2 Dependence on renal dialysis; Z79.01 Long term (current) use of anticoagulants; Z79.4 Long term (current) use of insulin; Z79.2 Long term (current) use of antibiotics; Z99.89 Dependence on other enabling machines and devices; Z87.01 Personal history of pneumonia (recurrent); Z79.899 Other long term (current) drug therapy; Z80.0 Family history of malignant neoplasm of digestive organs; Z82.5 Family history of asthma and other chronic lower respiratory diseases; Z82.49 Family history of ischemic heart disease and other diseases of the circulatory system
CPT/HCPCS: 96365; 96366; 99284; 36415; 80053; 80048; 83735; 85025 ×2; 80202; G0378 ×2; G0257; S0138; J3370; 90935

== ENCOUNTER 2019-01-02 10:59 | Day surgery (SDC) | payer OTHER ==
[~2019-01-02 10:59] MED LIST: Pre Op ABX Message 1 EACH MISC MISCELLANE ONE
[2019-01-02 11:26] VITALS: RESP 16; TEMP 97.2
[2019-01-02] MEDS ORDERED: SODIUM CHLORIDE 0.9% 500 ML 500 ML IV ONE (11:49)
[2019-01-02] MEDS ORDERED: LIDOCAINE 1% 20 ML VIAL (10MG/ML) FOR IV START INTRADERMA ONE (11:50)
[2019-01-02 11:53] LABS: Glucose,Whole Blood 132 mg/dL (75-99)
[2019-01-02] MEDS ORDERED: ONDANSETRON 4 MG/2 ML VIAL IVP ONE (11:57)
[2019-01-02] MEDS ORDERED: fentaNYL (PF) 50 MCG/ML 2 ML AMP ONE (12:30)
[2019-01-02] MEDS ORDERED: MIDAZOLAM 2 MG/2 ML VIAL ONE (12:30)
[2019-01-02] MEDS: VANCOMYCIN 1,000 MG VIAL IVPB ONE ×2 (12:51→13:00)
[2019-01-02] MEDS ORDERED: VANCOMYCIN 1,000 MG VIAL IVPB ONE (12:51)
[2019-01-02] MEDS ORDERED: BUPIVACAINE (PF) 0.5% 30 ML VIAL SQ ONE (13:01)
[2019-01-02] MEDS ORDERED: LIDOCAINE 1% INJ 10MG/ML (20 ML MDV) SQ ONE (13:01)
[2019-01-02 14:00] LABS: Glucose,Whole Blood 133 mg/dL (75-99)
[2019-01-02] MEDS ORDERED: traMADol 50 MG TAB PO ONE (14:48)
[2019-01-02 15:15] VITALS: BP 119/76; PULSE 87
[2019-01-02] MEDS ORDERED: HYDROcodone/APAP 5-325MG 1 EACH TAB PO ONE (15:22)
--- NOTE | 2019-01-03 15:04 | P.OP ---
Date of Procedure: 01/02/19 Preoperative Diagnosis: Recurrent right thumb abscess Postoperative Diagnosis: Recurrent right thumb abscess Procedure(s) Performed: Incision and drainage of right thumb abscess Anesthesia: MAC, local Surgeon: Sebas Barragan Estimated Blood Loss (ml): 3 Pathology: other (Wound swab) Condition: stable Disposition: PACU Indications for Procedure: The patient is a pleasant 63-year-old male who previously underwent surgical debridement of his right thumb for an abscess with osteomyelitis the distal phalanx. At postoperative follow-up visit, the thumb showed increased edema, erythema and purulent drainage. Repeat surgical debridement was recommended. Risks and benefits were reviewed including (but not limited to) the risks of bleeding, injury to tendons or neurovascular structures, persistent or recurrent infection, wound healing problems, stiffness and possible need for additional surgery, including partial amputation. The patient expressed understanding, willingness to accept these risks and wished to proceed with surgery. Consent forms were signed. The surgical site was confirmed and marked preoperatively. Operative Findings: Small amount of purulent fluid was expressed from the radial wound. Thickened, white fibrinous exudative tissue curretted from the medullary space. Description of Procedure: The patient was brought to the operating suite by the anesthesia team and was positioned supine. All bony prominences were well-padded. Monitored anesthesia was administered uneventfully. Utilizing aseptic technique, a digital block of the thumb was performed. The operative limb was then prepped and draped in standard, sterile fashion. A time-out was performed, confirming patient identifiers, the operative side, site and the procedure to be performed: all team members expressed agreement. The hand was exsanguinated with an Esmarch which was clamped at the wrist and used as a tourniquet. There was a pre-existing ulcerated, draining wound on the radial aspect of the thumb distal phalanx. A stab incision was made, extending this along the midaxial line. Purulent fluid was immediately encountered and a culture swab was obtained, a similar incision was made with a clean knife on the ulnar side as well as one at the tip of the thumb, at the edge of the hyponychium. Small amount of purulent fluid was expressed with pressure. Curette was inserted to debride the medullary space. A moderate amount of thick, white fibrinous tissue was resected. This had the appearance of thickened exudate, consistent with the previous infection. The surrounding soft tissues were mechanically debrided with a curette. The wounds were copiously irrigated through each incision with normal saline using a syringe and angiocatheter. The nail plate had been previously removed and reattached to facilitate the initial debridement. This was found to be grossly loose. The sutures were cut and the nail plate was removed, cleaned and soaked in Betadine. At the end of the case, the nail was reinserted under the eponychial fold. A horizontal mattress suture was placed through the nail and tied over the eponychium. Another suture was passed through the end of the nail plate and tied distally. A round channel drain selected to prevent premature wound closure. This was cut into 2 pieces: one was placed transversely through the radial and ulnar wounds; the other was passed from the radial wound and out the distal wound. The tourniquet was released after 30 minutes. There was appropriate bleeding from the wounds. The incisions were not closed to permit drainage. Sterile dressings of 4 x 4's, Vanessa and Coban were applied. All sponge, needle and instrument counts were correct at the end of the case. The patient tolerated the procedure well and was taken to recovery in stable condition.
== END 2019-01-02 15:50 ==
LOC: OR 10:59
PROVIDERS: ATTEND Orthopaedic Surgery
DX: L02.511 Cutaneous abscess of right hand (principal); E11.69 Type 2 diabetes mellitus with other specified complication; M86.8X4 Other osteomyelitis, hand; N17.9 Acute kidney failure, unspecified; F41.9 Anxiety disorder, unspecified; F32.9 Major depressive disorder, single episode, unspecified; I48.91 Unspecified atrial fibrillation; I11.0 Hypertensive heart disease with heart failure; I50.9 Heart failure, unspecified; G47.33 Obstructive sleep apnea (adult) (pediatric); I69.354 Hemiplegia and hemiparesis following cerebral infarction affecting left non-dominant side; Z99.2 Dependence on renal dialysis; Z79.01 Long term (current) use of anticoagulants; Z79.4 Long term (current) use of insulin; Z79.899 Other long term (current) drug therapy; Z97.3 Presence of spectacles and contact lenses; Z99.89 Dependence on other enabling machines and devices; Z98.890 Other specified postprocedural states
CPT/HCPCS: 87070; 87205; 87075; 87102; 87077; 87186; 10060; J2250; J3370; J2405; J2001; J3010

== ENCOUNTER → 2019-04-07 | Day surgery (SDC) | payer OTHER ==
[2019-04-02 10:11] VITALS: BMI 30.8
[~2019-04-07] MED LIST changes: +ALBUTEROL NEBULIZED 2.5 MG/3 ML INHALATION ONE; +DEXAMETHASONE SOD PHOSPHATE 10 MG/ML 1 ML VIAL IV ONE; +FUROSEMIDE 40 MG TAB PO STA; +GLYCOPYRROLATE 0.2 MG/ML 2 ML VIAL ONE; +HYDROmorphone 0.5 MG/0.5 ML SYRINGE IVP PRN; +IPRATROPIUM-ALBUTEROL 3 ML NEB INHALATION STA; +LACTATED RINGERS 1,000 ML IV SCH; +LIDOCAINE 1% (10MG/ML) FOR IV START INTRADERMA PRN; +LIDOCAINE 1% INJ 10MG/ML (20 ML MDV) ONE; +LIDOCAINE 1% INJ 10MG/ML (20 ML MDV) SQ ONE; +METOCLOPRAMIDE 5 MG/ML 2 ML VIAL IVP PRN; +MIDAZOLAM 2 MG/2 ML VIAL IVP ONE; +MIDAZOLAM 2 MG/2 ML VIAL ONE; +NEOSTIGMINE 1 MG/ML 10 ML VIAL ONE; +ONDANSETRON 4 MG/2 ML VIAL IVP ONE; +PROPOFOL 10 MG/ML 20 ML VIAL IV ONE; -Pre Op ABX Message 1 EACH MISC MISCELLANE ONE; +ROCURONIUM BROMIDE 10 MG/ML 5 ML VIAL IV ONE; +fentaNYL (PF) 50 MCG/ML 2 ML AMP ONE
[2019-04-07 10:03] LABS: Glucose,Whole Blood 147 mg/dL (75-99)
--- NOTE | 2019-04-07 13:21 | FL ---
EXAMINATION TYPE: FL guidance operating room, XR finger RT DATE OF EXAM: 04/07/2019 CLINICAL HISTORY: Fluoroscopic documentation during right thumb partial amputation TECHNIQUE: Fluoroscopy. COMPARISON: None. FINDINGS: Fluoroscopic guidance was provided during procedure performed by Dr. Barragan. A total of 7 seconds of fluoroscopic time was utilized during the procedure and 4 spot images was acquired. IMPRESSION: As Above.
[2019-04-07 13:25] VITALS: TEMP 97.6
[2019-04-07 13:44] LABS: Glucose,Whole Blood 204 mg/dL (75-99)
[2019-04-07 14:26] LABS: Glucose,Whole Blood 205 mg/dL (75-99)
[2019-04-07 14:28] VITALS: RESP 20
[2019-04-07 14:49] VITALS: BP 150/83; PULSE 96
--- NOTE | 2019-04-09 19:44 | P.OP ---
Date of Procedure: 04/07/19 Preoperative Diagnosis: Persistent abscess of right thumb with osteomyelitis of the proximal and distal phalanges Postoperative Diagnosis: Persistent abscess of right thumb with osteomyelitis of the proximal and distal phalanges Procedure(s) Performed: 1. Irrigation and debridement of right thumb abscess 2. Transphalangeal amputation of the right thumb (through the proximal phalanx) Anesthesia: BERTA, local Surgeon: Sebas Barragan Estimated Blood Loss (ml): 10 Pathology: other (Amputated distal phalanx; intramedullary culture swab) Condition: stable Disposition: PACU Indications for Procedure: The patient is a 63-year-old male who previously underwent irrigation and debridement of a right thumb abscess with osteomyelitis. The infection persisted and progressed, despite repeat debridement and an extended course of IV antibiotics. Further bony destruction was found on follow-up imaging. Surgical debridement and amputation was recommended. Risks and benefits were reviewed in the office with the patient and his , including (but not limited to) the risk of persistent or recurrent infection, wound healing problems and possible need for additional surgery. The patient expressed understanding, willingness to accept these risks and wished to proceed with surgery. Consent forms were signed. The surgical site was confirmed and marked preoperatively. Description of Procedure: The patient was positioned supine with the operative limb on a hand table. Anesthesia was administered uneventfully. A time-out was performed, confirming patient identifiers, the operative side, site and the procedure to be performed: all team members expressed agreement. The hand was exsanguinated with gravity; the Esmarch was wrapped at the wrist, clamped with a hemostat, and used as a tourniquet. Loupe magnification was utilized throughout the case for optimum visualization. The thumb was initially evaluated with intraoperative fluoroscopy. The level of the intended bone cut was confirmed and marked. A fishmouth incision was marked at the mid-aspect of the proximal phalanx. The skin was sharply incised and full-thickness skin flaps were developed. The infection had destroyed nearly the entire head of the proximal phalanx, gadiel g with a portion of the radial metaphysis. Small amount of purulent fluid was identified in the medullary canal and a culture swab was obtained. The neurovascular bundles on both sides of the digit were identified. The nerves were isolated. Gently held taught, they were sharply sectioned, allowing them to retract proximal to the level of the intended bony amputation. The vessels were coagulated with bipolar cautery. The flexor and extensor tendons were divided. The remaining soft tissue attachments were sharply released and the distal phalanx was amputated. The remaining bone of the proximal phalanx had good consistency. The protruding edges were resected with bone-cutting rongeurs and contoured to a smooth surface. The wound was thoroughly irrigated with normal saline. The surrounding soft tissues were mechanically debrided with curettes. The esmarch tourniquet was released (after approximately 60 minutes). Good hemostasis was obtained with manual pressure and bipolar cautery. The skin flap edges were sharply revised and contoured. The skin flaps were closed with simple 4-0 & 5-0 Prolene sutures. The wound closed completely, without tension. Sterile dressings of Adaptic, 4 x 4's, marlene and Coban were applied. All sponge, needle and instrument counts were correct at the end of the case. The patient tolerated the procedure well and was taken to recovery in stable condition.
== END ==
LOC: OR 09:14
PROVIDERS: ATTEND Orthopaedic Surgery
DX: E11.69 Type 2 diabetes mellitus with other specified complication (principal); M86.141 Other acute osteomyelitis, right hand; L02.511 Cutaneous abscess of right hand; M65.341 Trigger finger, right ring finger; I11.0 Hypertensive heart disease with heart failure; I50.9 Heart failure, unspecified; I48.91 Unspecified atrial fibrillation; G47.33 Obstructive sleep apnea (adult) (pediatric); I69.354 Hemiplegia and hemiparesis following cerebral infarction affecting left non-dominant side; F41.9 Anxiety disorder, unspecified; F32.9 Major depressive disorder, single episode, unspecified; E55.9 Vitamin D deficiency, unspecified; E78.5 Hyperlipidemia, unspecified; D64.9 Anemia, unspecified; Z99.89 Dependence on other enabling machines and devices; Z79.4 Long term (current) use of insulin; Z79.899 Other long term (current) drug therapy; Z79.01 Long term (current) use of anticoagulants; Z97.3 Presence of spectacles and contact lenses; Z98.890 Other specified postprocedural states
CPT/HCPCS: 94640; 88304; 87070; 87205; 87075; 87102; 73140; 26952; J2250; J1100; J2710; J2405; J2001; J3010; J2704; 87077; 87186

== ENCOUNTER 2019-05-08 12:36 | Day surgery (SDC) | payer OTHER ==
[2019-05-07 09:23] VITALS: BMI 31.1
[~2019-05-08 12:36] MED LIST changes: -ALBUTEROL NEBULIZED 2.5 MG/3 ML INHALATION ONE; -FUROSEMIDE 40 MG TAB PO STA; -GLYCOPYRROLATE 0.2 MG/ML 2 ML VIAL ONE; -IPRATROPIUM-ALBUTEROL 3 ML NEB INHALATION STA; -LIDOCAINE 1% (10MG/ML) FOR IV START INTRADERMA PRN; -LIDOCAINE 1% INJ 10MG/ML (20 ML MDV) ONE; -LIDOCAINE 1% INJ 10MG/ML (20 ML MDV) SQ ONE; -METOCLOPRAMIDE 5 MG/ML 2 ML VIAL IVP PRN; +MIDAZOLAM 2 MG/2 ML VIAL IV PRN; -MIDAZOLAM 2 MG/2 ML VIAL IVP ONE; -MIDAZOLAM 2 MG/2 ML VIAL ONE; -NEOSTIGMINE 1 MG/ML 10 ML VIAL ONE; -PROPOFOL 10 MG/ML 20 ML VIAL IV ONE; +Pre Op ABX Message 1 EACH MISC MISCELLANE ONE; -ROCURONIUM BROMIDE 10 MG/ML 5 ML VIAL IV ONE; +SCOPOLAMINE 1.5MG/72HR PATCH TRANSDERM ONE; -fentaNYL (PF) 50 MCG/ML 2 ML AMP ONE
[2019-05-08 13:03] VITALS: TEMP 98.9
--- NOTE | 2019-05-08 13:28 | P.PN ---
Progress Note - Text Progress Note Date: 05/08/19 History of Present Illness and Indications for Procedure: The patient is a 64-year-old male who was diagnosed with a ring trigger finger. Treatment options were reviewed and he elected to proceed with surgical release with local anesthetic. In preop, he denied additional questions and wished to proceed with the procedure. Description of Procedure: After informed consent obtained, a time out was performed, confirming patient identifiers, the procedural site and procedure to be performed. All team members expressed agreement. The right hand was prepped with alcohol. Local anesthetic was injected into the palm at the planned surgical site, using 10 mL of 1% lidocaine with epinephrine and 1 mL of sodium bicarbonate. No sedation was administered. The patient tolerated this well, without adverse reaction.
[2019-05-08 13:35] LABS: Glucose,Whole Blood 141 mg/dL (75-99)
[2019-05-08 15:21] VITALS: RESP 16
--- NOTE | 2019-05-08 15:50 | P.OP ---
Date of Procedure: 05/08/19 Preoperative Diagnosis: Right ring trigger finger Postoperative Diagnosis: Right ring trigger finger Procedure(s) Performed: Right ring trigger finger release Anesthesia: local Surgeon: Sebas Barragan Estimated Blood Loss (ml): 2 Disposition: same day Indications for Procedure: The patient is a pleasant 64-year-old male who was diagnosed with a trigger finger of his right ring finger. Treatment options (and associated risks and benefits) were discussed in the office. The patient elected to proceed with surgical release. In preop, the patient denied any additional questions or concerns. Consent forms were signed. The operative site was confirmed and marked. Description of Procedure: After consent was obtained and the site was confirmed, local anesthetic with epinephrine was injected around the planned incision in the preop holding area. After an appropriate interval of time, the patient was brought to the OR and positioned supine with the operative limb on a hand table. A tourniquet was applied but was not utilized in the case. The right upper extremity was prepped and draped in standard, sterile fashion. A timeout was performed, confirming patient identifiers, the operative side, site and procedure to be performed: All team members expressed agreement. A longitudinal incision was marked over the A1 loc of the ring finger. Loupe magnification was utilized throughout the case for optimum visualization. The skin was sharply incised. Blunt, spreading dissection proceeded down flexor sheath, taking care to protect the adjacent neurovascular bundles. The A1 loc was identified. This was quite thickened. The loc was incised longitudinally. The underlying tendons showed no fraying or visible damage. Persistent restriction was noted distally and the sheath was further released up to the distal edge of the A2 loc. The flexor tendons were elevated out of the wound with Ragnell retractors. Palpable release of proximal adhesions was noted. The tendons were released and allowed to retract back to their anatomic positions. Passive motion of the di git demonstrated smooth tendon gliding without appreciable catching, triggering or focal restriction. The patient was then asked to actively flex and extend the digit - no further catching or triggering was appreciated by me or the patient. Good hemostasis was maintained throughout the case without the need for tourniquet. The wound was irrigated with normal saline and the incision was closed with interrupted 4-0 nylon sutures. A soft, sterile dressing was applied. All sponge, needle and instrument counts were correct at the end the case. The patient tolerated the procedure well and was transferred to recovery in stable condition.
[2019-05-08 16:00] VITALS: BP 172/86; PULSE 75
== END 2019-05-08 16:16 ==
LOC: OR 12:36
PROVIDERS: ATTEND Orthopaedic Surgery
DX: M65.341 Trigger finger, right ring finger (principal); I13.0 Hypertensive heart and chronic kidney disease with heart failure and stage 1 through stage 4 chronic kidney disease, or unspecified chronic kidney disease; E11.22 Type 2 diabetes mellitus with diabetic chronic kidney disease; N18.9 Chronic kidney disease, unspecified; I50.9 Heart failure, unspecified; E11.40 Type 2 diabetes mellitus with diabetic neuropathy, unspecified; Z79.4 Long term (current) use of insulin; G47.33 Obstructive sleep apnea (adult) (pediatric); F41.9 Anxiety disorder, unspecified; F32.9 Major depressive disorder, single episode, unspecified; E55.9 Vitamin D deficiency, unspecified; D64.9 Anemia, unspecified; E78.5 Hyperlipidemia, unspecified; I48.91 Unspecified atrial fibrillation; Z89.011 Acquired absence of right thumb; Z79.01 Long term (current) use of anticoagulants; H40.9 Unspecified glaucoma; Z97.3 Presence of spectacles and contact lenses; Z79.891 Long term (current) use of opiate analgesic; Z79.899 Other long term (current) drug therapy; Z86.73 Personal history of transient ischemic attack (TIA), and cerebral infarction without residual deficits; K92.2 Gastrointestinal hemorrhage, unspecified
CPT/HCPCS: 26055; J1100; J2405

== ENCOUNTER 2019-11-20 13:21 | Inpatient (IN) | payer OTHER ==
--- NOTE | 2019-11-20 14:11 | ED ---
General Adult HPI - General Chief complaint: Recheck/Abnormal Lab/Rx Stated complaint: Low Hemoglobin Time Seen by Provider: 11/20/19 14:01 Source: patient, RN notes reviewed, old records reviewed Mode of arrival: wheelchair Limitations: no limitations - History of Present Illness Initial comments: This is a 64-year-old male who presents emergency Department with his he has a history of diabetes, high blood pressure, high cholesterol and atrial f ibrillation. Patient is on eliquis for atrial flutter. Patient comes in today because about a week and a half ago he had labs drawn and someone calledhis kidney function was worse and his hemoglobin was low. Patient used to be on dialysis until late last year but he has been off since. Patient states she's been a little tired but other night he feels fine. Patient denies any headache patient denies numbness weakness per patient denies any lightheadedness dizziness or near syncopal episode. Patient denies any recent fever chills or cough per patient denies any chest pain palpitations difficulty breathing shortness of breath per patient denies any abdominal pain patient denies nausea vomiting diarrhea. Patient denies any recent injury or trauma. Patient denies any dysuria hematuria urinary frequency. - Related Data Home Medications Medication Instructions Recorded Confirmed Brimonidine Tartrate [Alphagan P 1 drops BOTH EYES BID 08/25/18 05/08/19 0.2% Ophth Soln] Docusate [Colace] 100 mg PO DAILY 08/25/18 05/08/19 Finasteride [Proscar] 5 mg PO DAILY 08/25/18 05/08/19 Latanoprost [Xalatan 0.005%] 1 drop BOTH EYES HS 08/25/18 05/08/19 Polyethylene Glycol 3350 [Miralax] 17 gm PO DAILY 08/25/18 05/08/19 Tamsulosin [Flomax] 0.4 mg PO DAILY 08/25/18 05/08/19 levETIRAcetam [Keppra] 500 mg PO BID 08/25/18 05/08/19 Apixaban [Eliquis] 2.5 mg PO BID 12/30/18 05/08/19 Cholecalciferol (Vitamin D3) 2,000 unit PO DAILY 12/30/18 05/08/19 [Vitamin D3] Furosemide [Lasix] 40 mg PO DAILY PRN 10/22/19 02/27/20 Pantoprazole Sodium [Protonix] 40 mg PO AC-BID 12/30/18 05/08/19 Venlafaxine HCl [Effexor XR] 75 mg PO DAILY 12/30/18 05/08/19 guaiFENesin [Mucinex] 1,200 mg PO BID 12/30/18 05/08/19 Calcium Carbonate 500 mg PO BID 04/02/19 05/08/19 Ergocalciferol [Vitamin D2] 50,000 unit PO Q30D 04/02/19 05/07/19 Melatonin 5 mg PO HS 04/02/19 05/08/19 Metoprolol Succinate (ER) [Toprol 50 mg PO DAILY 04/02/19 05/08/19 XL] allopurinoL [Zyloprim] 100 mg PO DAILY 04/02/19 05/08/19 amLODIPine BESYLATE [Norvasc] 2.5 mg PO DAILY 04/02/19 05/08/19 Furosemide [Lasix] 40 mg PO DAILY 05/07/19 05/08/19 Insulin Aspart [NovoLOG] 0 units SQ ACHS 05/07/19 05/08/19 Ipratropium-Albuterol Nebulize 3 ml INHALATION Q4H PRN 05/07/19 05/07/19 [Duoneb 0.5 mg-3 mg/3 ml Soln] Ipratropium/Albuterol Sulfate 2 puff INHALATION Q6H PRN 05/07/19 05/08/19 [Combivent Respimat Inhaler] cefTRIAXone [Rocephin] 2 gm IVPB Q24H 05/07/19 05/08/19 traMADol HCL [Ultram] 50 mg PO Q6HR PRN 05/07/19 05/08/19 Allergies Allergy/AdvReac Type Severity Reaction Status Date / Time No Known Allergies Allergy Verified 11/20/19 13:43 Review of Systems ROS Statement: Those systems with pertinent positive or pertinent negative responses have been documented in the HPI. ROS Other: All systems not noted in ROS Statement are negative. 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 "Beginnings of CHF ." Hx GI Bleed august or September 2018. Pt currently is in [facility]. Stands with assist/gait belt to pivot to wheelchair. 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 PEG Tube removed. Chronic Kidney Disease since CVA with hemodialysis, received last in Jan 2019. "Continues with weak kidneys." Uses Bipap. Hx anemia, neuropathy bilateral feet, glaucoma bilateral eyes, possible seizures, BPH. 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 Debridement right thumb.rt thumb abscess Past Anesthesia/Blood Transfusion Reactions: No Reported Reaction Additional Past Anesthesia/Blood Transfusion Reaction / Comment(s): Pt has received blood transfusion in past without reaction. hx trach with scar tissue- last procedure experienced difficulty swallowing following procedure Past Psychological History: No Psychological Hx Reported Past Alcohol Use History: None Reported Past Drug Use History: None Reported - Past Family History Mother Family Medical History: Cancer Additional Family Medical History / Comment(s): Mother had stomach cancer, . Father Family Medical History: COPD, Myocardial Infarction ([place]) Additional Family Medical History / Comment(s): Father had a massive [place] at the age of 63 yrs. General Exam - General Exam Comments Initial Comments: GENERAL: Patient is well-developed and well-nourished. Patient is nontoxic and well-hydrated and is in mild distress. ENT: Neck is soft and supple. No significant lymphadenopathy is noted. Oropharynx is clear. Moist mucous membranes. Neck has full range of motion without eliciting any pain. There is no thyroid enlargement and no masses were felt. EYES: The sclera were anicteric and conjunctiva were pink and moist. Extraocular movements were intact and pupils were equal round and reactive to light. Eyelids were unremarkable. PULMONARY: Unlabored respirations. Good breath sounds bilaterally. No audible rales rhonchi or wheezing was noted. CARDIOVASCULAR: There is a regular rate and rhythm without any murmurs gallops or rubs. ABDOMEN: Soft and nontender with normal bowel sounds. SKIN: Skin is clear with no lesions or rashes and otherwise unremarkable. NEUROLOGIC: Patient is alert and oriented x3. Cranial nerves II through XII are grossly intact. Motor and sensory are also intact. Normal speech, volume and content. Symmetrical smile. MUSCULOSKELETAL: Normal extremities with adequate strength and full range of motion. LYMPHATICS: No significant lymphadenopathy is noted PSYCHIATRIC: Normal psychiatric evaluation. Limitations: no limitations Course Vital Signs 11/20/19 11/20/19 11/20/19 13:32 14:53 15:02 Temperature 97.9 F Pulse Rate 80 80 80 Respiratory 18 Rate Blood Pressure 157/96 O2 Sat by Pulse 99 Oximetry Medical Decision Making - Medical Decision Making EKG shows sinus rhythm with a first-degree AV block at 77 bpm OK interval is 214 QRS is 110 QT interval 36 QTC is 436. Patient's EKG shows no ST segment elevation or depression I spoke with because he agreed to admit the patient admitted the patient remaining orders I consult Dr. Reyes. - Lab Data Result diagrams: 11/20/19 14:17 11/20/19 14:17 Lab Results 11/20/19 11/20/19 11/20/19 Range/Units 14:17 14:17 14:17 WBC 9.1 (3.8-10.6) k/uL RBC 2.96 L (4.30-5.90) m/uL Hgb 8.9 L (13.0-17.5) gm/dL Hct 27.4 L (39.0-53.0) % MCV 92.4 (80.0-100.0) fL MCH 29.9 (25.0-35.0) pg MCHC 32.4 (31.0-37.0) g/dL RDW 14.9 (11.5-15.5) % Plt Count 297 (150-450) k/uL Neutrophils % 80 % Lymphocytes % 8 % Monocytes % 5 % Eosinophils % 6 % Basophils % 1 % Neutrophils # 7.3 (1.3-7.7) k/uL Lymphocytes # 0.7 L (1.0-4.8) k/uL Monocytes # 0.5 (0-1.0) k/uL Eosinophils # 0.5 (0-0.7) k/uL Basophils # 0.1 (0-0.2) k/uL PT 9.8 (9.0-12.0) sec INR 0.9 (<1.2) APTT 22.8 (22.0-30.0) sec Sodium 135 L (137-145) mmol/L Potassium 4.5 (3.5-5.1) mmol/L Chloride 109 H (98-107) mmol/L Carbon Dioxide 15 L (22-30) mmol/L Anion Gap 11 mmol/L BUN 80 H (9-20) mg/dL Creatinine 3.86 H (0.66-1.25) mg/dL Est GFR (CKD-EPI)AfAm 18 (>60 ml/min/1.73 sqM) Est GFR (CKD-EPI)NonAf 16 (>60 ml/min/1.73 sqM) Glucose 200 H (74-99) mg/dL Calcium 10.7 H (8.4-10.2) mg/dL Magnesium 2.6 H (1.6-2.3) mg/dL Total Bilirubin 0.4 (0.2-1.3) mg/dL AST 22 (17-59) U/L ALT 14 (4-49) U/L Alkaline Phosphatase 89 (38-126) U/L Troponin I (0.000-0.034) ng/mL Total Protein 7.5 (6.3-8.2) g/dL Albumin 4.3 (3.5-5.0) g/dL 11/20/19 Range/Units 14:17 WBC (3.8-10.6) k/uL RBC (4.30-5.90) m/uL Hgb (13.0-17.5) gm/dL Hct (39.0-53.0) % MCV (80.0-100.0) fL MCH (25.0-35.0) pg MCHC (31.0-37.0) g/dL RDW (11.5-15.5) % Plt Count (150-450) k/uL Neutrophils % % Lymphocytes % % Monocytes % % Eosinophils % % Basophils % % Neutrophils # (1.3-7.7) k/uL Lymphocytes # (1.0-4.8) k/uL Monocytes # (0-1.0) k/uL Eosinophils # (0-0.7) k/uL Basophils # (0-0.2) k/uL PT (9.0-12.0) sec INR (<1.2) APTT (22.0-30.0) sec Sodium (137-145) mmol/L Potassium (3.5-5.1) mmol/L Chloride (98-107) mmol/L Carbon Dioxide (22-30) mmol/L Anion Gap mmol/L BUN (9-20) mg/dL Creatinine (0.66-1.25) mg/dL Est GFR (CKD-EPI)AfAm (>60 ml/min/1.73 sqM) Est GFR (CKD-EPI)NonAf (>60 ml/min/1.73 sqM) Glucose (74-99) mg/dL Calcium (8.4-10.2) mg/dL Magnesium (1.6-2.3) mg/dL Total Bilirubin (0.2-1.3) mg/dL AST (17-59) U/L ALT (4-49) U/L Alkaline Phosphatase (38-126) U/L Troponin I <0.012 (0.000-0.034) ng/mL Total Protein (6.3-8.2) g/dL Albumin (3.5-5.0) g/dL Disposition Clinical Impression: Acute on chronic renal failure, Anemia Disposition: ADMITTED IP TO THIS HOSP Referrals: Sebas Alejandre MD [Primary Care Provider] - 1-2 days Time of Disposition: 15:12
[2019-11-20] MEDS ORDERED: IPRATROPIUM-ALBUTEROL 3 ML NEB INHALATION STA (14:27)
[2019-11-20 14:45] LABS: Basophils # (A) 0.1 k/uL (0-0.2); Basophils % (A) 1 %; Eosinophils # (A) 0.5 k/uL (0-0.7); Eosinophils % (A) 6 %; HCT 27.4 % (39.0-53.0); HGB 8.9 gm/dL (13.0-17.5); Lymphocytes # (A) 0.7 k/uL (1.0-4.8); Lymphocytes % (A) 8 %; MCH 29.9 pg (25.0-35.0); MCHC 32.4 g/dL (31.0-37.0); MCV 92.4 fL (80.0-100.0); Mean Platelet Volume 7.6; Monocytes # (A) 0.5 k/uL (0-1.0); Monocytes % (A) 5 %; Neutrophils # (A) 7.3 k/uL (1.3-7.7); Neutrophils % (A) 80 %; Platelet Count 297 k/uL (150-450); RBC 2.96 m/uL (4.30-5.90); RDW 14.9 % (11.5-15.5); WBC 9.1 k/uL (3.8-10.6)
[2019-11-20 14:51] LABS: Albumin 4.3 g/dL (3.5-5.0); Calcium 10.7 mg/dL (8.4-10.2); Magnesium 2.6 mg/dL (1.6-2.3); Potassium 4.5 mmol/L (3.5-5.1); Total Bilirubin 0.4 mg/dL (0.2-1.3); Total Protein 7.5 g/dL (6.3-8.2)
[2019-11-20 15:05] LABS: INR 0.9 (<1.2); Partial Thromboplastin Time 22.8 sec (22.0-30.0); Prothrombin Time 9.8 sec (9.0-12.0)
[2019-11-20] MEDS ORDERED: SODIUM CHLORIDE 0.9% 1,000 ML IV ONE (15:12)
[2019-11-20 16:09] VITALS: RESP 16
--- NOTE | 2019-11-20 16:21 | P.HPIM ---
History of Present Illness 64-year-old pleasant male was sent in because of worsening kidney function. Patient is a serum creatinine today 3.8. Patient the had similar kidney function with similar creatinine in a month of December 2018. Although patient was on urinalysis at the time patient was was discontinued on hemodialysis in month of January 2019. Patient doesn't have any dark stools or blood in the stools and the there was a concern from ER the patient hemoglobin is low. Consider given is 8.9. Patient's previous hemoglobin was around 10.6 in month of December. Patient has normocytic anemia appears to have chronic anemia. Patient doesn't have any evidence of acute GI bleed at this time R any other bleed. Review of Systems REVIEW OF SYSTEMS: CONSTITUTIONAL: No fever, no malaise, no fatigue. HEENT: No recent visual problems or hearing problems. Denied any sore throat. CARDIOVASCULAR: No chest pain, orthopnea, PND, no palpitations, no syncope. PULMONARY: No shortness of breath, no cough, no hemoptysis. GASTROINTESTINAL: No diarrhea, no nausea, no vomiting, no abdominal pain. NEUROLOGICAL: No headaches, no weakness, no numbness. HEMATOLOGICAL: Denies any bleeding or petechiae. GENITOURINARY: Denies any burning micturition, frequency, or urgency. MUSCULOSKELETAL/RHEUMATOLOGICAL: Denies any joint pain, swelling, or any muscle pain. ENDOCRINE: Denies any polyuria or polydipsia. The rest of the 14-point review of systems is negative. 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 "Beginnings of CHF." Hx GI Bleed august or September 2018. Pt currently is in [facility]. Stands with assist/gait belt to pivot to wheelchair. 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 PEG Tube removed. Chronic Kidney Disease since CVA with hemodialysis, received last in Jan 2019. "Continues with weak kidneys." Uses Bipap. Hx anemia, neuropathy bilateral feet, glaucoma bilateral eyes, possible seizures, BPH. 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 Debridement right thumb.rt thumb abscess Past Anesthesia/Blood Transfusion Reactions: No Reported Reaction Additional Past Anesthesia/Blood Transfusion Reaction / Comment(s): Pt has received blood transfusion in past without reaction. hx trach with scar tissue- last procedure experienced difficulty swallowing following procedure Past Psychological History: No Psychological Hx Reported Past Alcohol Use History: None Reported Past Drug Use History: None Reported - Past Family History Mother Family Medical History: Cancer Additional Family Medical History / Comment(s): Mother had stomach cancer, dec eased. Father Family Medical History: COPD, Myocardial Infarction ([place]) Additional Family Medical History / Comment(s): Father had a massive [place] at the age of 63 yrs. Medications and Allergies Home Medications Medication Instructions Recorded Confirmed Type Brimonidine Tartrate [Alphagan P 1 drops BOTH EYES BID 08/25/18 05/08/19 History 0.2% Ophth Soln] Docusate [Colace] 100 mg PO DAILY 08/25/18 05/08/19 History Finasteride [Proscar] 5 mg PO DAILY 08/25/18 05/08/19 History Latanoprost [Xalatan 0.005%] 1 drop BOTH EYES HS 08/25/18 05/08/19 History Polyethylene Glycol 3350 [Miralax] 17 gm PO DAILY 08/25/18 05/08/19 History Tamsulosin [Flomax] 0.4 mg PO DAILY 08/25/18 05/08/19 History levETIRAcetam [Keppra] 500 mg PO BID 08/25/18 05/08/19 History Apixaban [Eliquis] 2.5 mg PO BID 12/30/18 05/08/19 History Cholecalciferol (Vitamin D3) 2,000 unit PO DAILY 12/30/18 05/08/19 History [Vitamin D3] Furosemide [Lasix] 40 mg PO DAILY PRN 12/30/18 05/07/19 History Pantoprazole Sodium [Protonix] 40 mg PO AC-BID 12/30/18 05/08/19 History Venlafaxine HCl [Effexor XR] 75 mg PO DAILY 12/30/18 05/08/19 History guaiFENesin [Mucinex] 1,200 mg PO BID 12/30/18 05/08/19 History Calcium Carbonate 500 mg PO BID 04/02/19 05/08/19 History Ergocalciferol [Vitamin D2] 50,000 unit PO Q30D 04/02/19 05/07/19 History Melatonin 5 mg PO HS 04/02/19 05/08/19 History Metoprolol Succinate (ER) [Toprol 50 mg PO DAILY 04/02/19 05/08/19 History XL] allopurinoL [Zyloprim] 100 mg PO DAILY 04/02/19 05/08/19 History amLODIPine BESYLATE [Norvasc] 2.5 mg PO DAILY 04/02/19 05/08/19 History Furosemide [Lasix] 40 mg PO DAILY 05/07/19 05/08/19 History Insulin Aspart [NovoLOG] 0 units SQ ACHS 05/07/19 05/08/19 History Ipratropium-Albuterol Nebulize 3 ml INHALATION Q4H PRN 05/07/19 05/07/19 History [Duoneb 0.5 mg-3 mg/3 ml Soln] Ipratropium/Albuterol Sulfate 2 puff INHALATION Q6H PRN 05/07/19 05/08/19 History [Combivent Respimat Inhaler] cefTRIAXone [Rocephin] 2 gm IVPB Q24H 05/07/19 05/08/19 History traMADol HCL [Ultram] 50 mg PO Q6HR PRN 05/07/19 05/08/19 History Allergies Allergy/AdvReac Type Severity Reaction Status Date / Time No Known Allergies Allergy Verified 11/20/19 15:55 Physical Exam Vitals: Vital Signs Temp Pulse Pulse Resp BP BP Pulse Ox 11/20/19 16:08 98.2 F 81 16 155/79 98 11/20/19 15:02 80 11/20/19 14:53 80 11/20/19 13:32 97.9 F 80 18 157/96 99 Intake and Output 11/20/19 11/20/19 11/20/19 06:59 14:59 22:59 Other: Weight 98.883 kg PHYSICAL EXAMINATION: GENERAL: The patient is alert and oriented x3, not in any acute distress. Well developed, well nourished. HEENT: Pupils are round and equally reacting to light. EOMI. No scleral icterus. No conjunctival pallor. Normocephalic, atraumatic. No pharyngeal erythema. No thyromegaly. CARDIOVASCULAR: S1 and S2 present. No murmurs, rubs, or gallops. PULMONARY: Chest is clear to auscultation, no wheezing or crackles. ABDOMEN: Soft, nontender, nondistended, normoactive bowel sounds. No palpable organomegaly. MUSCULOSKELETAL: No joint swelling or deformity. EXTREMITIES: No cyanosis, clubbing, or pedal edema. NEUROLOGICAL: Gross neurological examination did not reveal any new focal def icits. She has weakness from his old stroke on the left side about 4/5 strength in left upper and lower extremity SKIN: No rashes. Results CBC & Chem 7: 11/20/19 14:17 11/20/19 14:17 Labs: Abnormal Lab Results - Last 24 Hours (Table) 11/20/19 11/20/19 Range/Units 14:17 14:17 RBC 2.96 L (4.30-5.90) m/uL Hgb 8.9 L (13.0-17.5) gm/dL Hct 27.4 L (39.0-53.0) % Lymphocytes # 0.7 L (1.0-4.8) k/uL Sodium 135 L (137-145) mmol/L Chloride 109 H (98-107) mmol/L Carbon Dioxide 15 L (22-30) mmol/L BUN 80 H (9-20) mg/dL Creatinine 3.86 H (0.66-1.25) mg/dL Glucose 200 H (74-99) mg/dL Calcium 10.7 H (8.4-10.2) mg/dL Magnesium 2.6 H (1.6-2.3) mg/dL Assessment and Plan Plan: -Possibly acute renal failure: I do not have his baseline after hemodialysis nephrology was consulted will discuss with medical appliance maker regarding his baseline . Unsure of the exact etiology of renal failure. Patient also appears to have chronic kidney disease I cannot stage his chronic kidney disease at this time -Anemia appears to be chronic anemia probably anemia of chronic kidney disease since probably patient already has workup as an outpatient for his anemia with iron studies the workup will not be repeated here and there is no evidence of acute GI bleed at this time -Atrial fibrillation patient is presently sinus rhythm rate controlled can you with anti-correlation -CVA or TIA in the past next and-type 2 diabetes mellitus -Hyperlipidemia -Hypertension -Benign prostatic hypertrophy -Sleep apnea For above-mentioned chronic medical problems resumed on appropriate home medications was then verified this migrating medications are not verified yet
[2019-11-20 20:51] LABS: Glucose,Whole Blood 168 mg/dL (75-99)
[2019-11-20] MEDS ORDERED: SIMETHICONE 80 MG CHEWABLE PO PRN (21:07)
[2019-11-20] MEDS ORDERED: diphenhydrAMINE ELIXIR 25 MG/10 ML CUP PO PRN (21:07)
[2019-11-20] MEDS ORDERED: LORATADINE 10 MG TAB PO PRN (21:07)
[2019-11-20] MEDS ORDERED: MAG HYDROX/AL HYDROX/SIMETH 30 ML CUP PO PRN (21:07)
[2019-11-20] MEDS ORDERED: IPRATROPIUM-ALBUTEROL 3 ML NEB INHALATION PRN (21:07)
[2019-11-20] MEDS ORDERED: ACETAMINOPHEN TAB 325 MG TAB PO PRN (21:07)
[2019-11-20] MEDS: levETIRAcetam 500 MG TAB PO SCH (21:50)
[2019-11-20] MEDS: APIXABAN 2.5 MG TABLET PO SCH (21:50)
[2019-11-20] MEDS ORDERED: LATANOPROST 0.005% OPHTH DROPS 2.5 ML BTL BOTH EYES SCH (22:00)
[2019-11-20] MEDS ORDERED: MELATONIN 5 MG TABLET PO SCH (22:00)
[2019-11-21] MEDS: IPRATROPIUM-ALBUTEROL 3 ML NEB INHALATION SCH ×3 (07:06→15:49)
[2019-11-21 07:37] LABS: Glucose,Whole Blood 162 mg/dL (75-99)
[2019-11-21] MEDS: INSULIN ASPART (NovoLOG) 100 UNIT/ML VIAL SQ SCH ×2 (07:48→12:34)
[2019-11-21 08:01] LABS: HCT 27.6 % (39.0-53.0); HGB 8.8 gm/dL (13.0-17.5); Hypochromasia Slight; MCHC 31.7 g/dL (31.0-37.0); MCV 94.4 fL (80.0-100.0); Mean Platelet Volume 7.7; Platelet Count 296 k/uL (150-450); RBC 2.92 m/uL (4.30-5.90); RDW 14.9 % (11.5-15.5); WBC 8.9 k/uL (3.8-10.6)
[2019-11-21 08:14] LABS: Calcium 10.4 mg/dL (8.4-10.2); Potassium 4.2 mmol/L (3.5-5.1); Total Bilirubin 0.4 mg/dL (0.2-1.3)
[2019-11-21] MEDS ORDERED: FLUTICASONE 50MCG/SPRAY NASAL 16GM EA NOSTRIL SCH (09:00)
[2019-11-21] MEDS ORDERED: hydrALAZINE HCL 20 MG/ML 1 ML VIAL IVP PRN (10:10)
--- NOTE | 2019-11-21 10:14 | P.NPCON ---
History of Present Illness - Reason for Consult acute renal failure, chronic renal failure - History of Present Illness reason for consultation: Acute kidney injury on chronic kidney disease History of present illness: Patient is a 64-year-old male seen in consultation for acute kidney injury on chronic kidney disease. Patient has chronic kidney disease stage IV with baseline creatinine near 3.5. Patient had blood work done outpatient and his creatinine was up to 4.5 on 11/13/2019. He was sent to the hospital for acute renal failure. Creatinine on admission was 3.86 and is 4.02 today. Patient d enies any chest pain or shortness of breath. Does admit to pain in his lower back. Denies use of nonsteroidals. He has been voiding. No hematuria or dysuria. He's currently receiving IV fluids. Diuretics are held. patient has been on hemodialysis in the past and was discontinued due to recovering renal function. He is also noted to be acidotic. Bicarb level is improving and is 18 as of this morning. calcium level is noted to be on the higher side as well. He is maintained on Tums. Also on vitamin D supplements. blood pressure stable. No vomiting or diarrhea. Vital signs are stable. General: The patient appeared well nourished and normally developed. HEENT: Head exam is unremarkable. Neck is without jugular venous distension. LUNGS: Breath sounds decreased. HEART: Rate and Rhythm are regular. ABDOMEN: soft, nontender. EXTREMITITES: No clubbing, cyanosis, or edema. 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 "Beginnings of CHF." Hx GI Bleed august or September 2018. Pt currently is in [facility]. Stands with assist/gait belt to pivot to wheelchair. 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 PEG Tube removed. Chronic Kidney Disease since CVA with hemodialysis, received last in Jan 2019. "Continues with weak kidneys." Uses Bipap. Hx anemia, neuropathy bilateral feet, glaucoma bilateral eyes, possible seizures, BPH. 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 Debridement right thumb.rt thumb abscess Past Anesthesia/Blood Transfusion Reactions: No Reported Reaction Additional Past Anesthesia/Blood Transfusion Reaction / Comment(s): Pt has received blood transfusion in past without reaction. hx trach with scar tissue- last procedure experienced difficulty swallowing following procedure Past Psychological History: No Psychological Hx Reported Past Alcohol Use History: None Reported Past Drug Use History: None Reported - Past Family History Mother Family Medical History: Cancer Additional Family Medical History / Comment(s): Mother had stomach cancer, . Father Family Medical History: COPD, Myocardial Infarction ([place]) Additional Family Medical History / Comment(s): Father had a massive [place] at the age of 63 yrs. Medications and Allergies Home Medications Medication Instructions Recorded Confirmed Type Brimonidine Tartrate [Alphagan P 1 drops BOTH EYES BID@1200,209908/25/18 11/20/19 History 0.2% Ophth Soln] Docusate [Colace] 100 mg PO DAILY@119908/25/18 11/20/19 History Finasteride [Proscar] 5 mg PO DAILY@119908/25/18 11/20/19 History Latanoprost [Xalatan 0.005%] 1 drop BOTH EYES DAILY@199908/25/18 11/20/19 History Polyethylene Glycol 3350 [Miralax] 17 gm PO DAILY@1700 08/25/18 11/20/19 History Tamsulosin [Flomax] 0.4 mg PO DAILY@119908/25/18 11/20/19 History levETIRAcetam [Keppra] 500 mg PO BID@1200,209908/25/18 11/20/19 History Apixaban [Eliquis] 2.5 mg PO BID@1200,2100 12/30/18 11/20/19 History Cholecalciferol (Vitamin D3) 2,000 unit PO DAILY@1200 12/30/18 11/20/19 History [Vitamin D3] Pantoprazole Sodium [Protonix] 40 mg PO DAILY@0700 12/30/18 11/20/19 History Venlafaxine HCl [Effexor XR] 75 mg PO DAILY@1700 12/30/18 11/20/19 History guaiFENesin [Mucinex] 1,200 mg PO BID@1200,2100 12/30/18 11/20/19 History Ergocalciferol [Vitamin D2] 50,000 unit PO Q30D 04/02/19 11/20/19 History Melatonin 5 mg PO HS@209904/02/19 11/20/19 History Metoprolol Succinate (ER) [Toprol 50 mg PO DAILY@1200 04/02/19 11/20/19 History XL] allopurinoL [Zyloprim] 200 mg PO DAILY@1200 04/02/19 11/20/19 History Furosemide [Lasix] 40 mg PO DAILY@0700 05/07/19 11/20/19 History Insulin Aspart [NovoLOG] See Protocol SQ ACHS 05/07/19 11/20/19 History Ipratropium-Albuterol Nebulize 3 ml INHALATION Q4H PRN 05/07/19 11/20/19 History [Duoneb 0.5 mg-3 mg/3 ml Soln] Ipratropium/Albuterol Sulfate 2 puff INHALATION RT-Q6H PRN 05/07/19 11/20/19 History [Combivent Respimat Inhaler] Acetaminophen [Tylenol 8 Hour] 650 mg PO Q4H PRN 11/20/19 11/20/19 History Acetaminophen [Tylenol] 650 mg PO Q6H PRN 11/20/19 11/20/19 History Calcium Carbonate [Tums] 500 mg PO BID@1200,1700 11/20/19 11/20/19 History Fluticasone Nasal [place] [Flonase 1 spray EA NOSTRIL DAILY 11/20/19 11/20/19 History Nasal [place]] Ipratropium-Albuterol Nebulize 3 ml INHALATION QID 11/20/19 11/20/19 History [Duoneb 0.5 mg-3 mg/3 ml Soln] Loratadine [Claritin] 10 mg PO Q48H PRN 11/20/19 11/20/19 History Mag Hydrox/Aluminum Hyd/Simeth 10 ml PO Q4H PRN 11/20/19 11/20/19 History [Mylanta Maximum Strength Liq] Ondansetron HCl [Zofran] 8 mg PO Q8H PRN 11/20/19 11/20/19 History Simethicone 80 mg PO Q6H PRN 11/20/19 11/20/19 History Spironolactone 25 mg PO DAILY@199911/20/19 11/20/19 History amLODIPine [Norvasc] 5 mg PO DAILY@119911/20/19 11/20/19 History diphenhydrAMINE ELIXIR [Benadryl 25 mg PO Q8H PRN 11/20/19 11/20/19 History Elixir] Allergies Allergy/AdvReac Type Severity Reaction Status Date / Time No Known Allergies Allergy Verified 11/20/19 15:55 Physical Exam Vitals: Vital Signs Temp Pulse Pulse Resp BP BP Pulse Ox 11/21/19 07:29 98.2 F 79 16 176/94 98 11/20/19 19:53 98.2 F 83 16 166/88 99 11/20/19 16:08 98.2 F 81 16 155/79 98 11/20/19 16:00 81 16 11/20/19 15:02 80 11/20/19 14:53 80 11/20/19 13:32 97.9 F 80 18 157/96 99 Intake and Output 11/20/19 11/21/19 11/21/19 22:59 06:59 14:59 Intake Total 188 700 Output Total 150 400 Balance 38 300 Intake: Intake, IV Titration 75 600 Amount Sodium Chloride 0.9% 1, 75 600 000 ml @ 75 mls/hr IV . [id number] Rx#:[id number] Oral 113 100 Output: Urine 150 400 Other: Voiding Method Urinal Weight 98.883 kg 101.151 kg Results - Lab Results Most recent lab results Calcium 10.4 mg/dL (8.4-10.2) H 11/21/19 06:26 Magnesium 2.6 mg/dL (1.6-2.3) H 11/20/19 14:17 11/21/19 06:26 11/21/19 06:26 Assessment and Plan Plan: assessment: 1. Acute kidney injury secondary to ATN secondary to hypercalcemia and diuresis. Creatinine 4.02 today. 2. Hypercalcemia secondary to Tums and vitamin D supplementation. 3. Metabolic acidosis secondary to acute kidney injury. 4. Chronic kidney disease stage IV with baseline creatinine near 3.5. 5. Hypertension with chronic kidney disease. 6. Anemia of chronic kidney disease. Rule out iron deficiency. plan: Check chest x-ray. Maintain normal saline at 75 mL an hour. Hold diuretics. Discontinue Tums and vitamin D supplementation. check PTH and vitamin D levels. Also check serum and urine immunofixation. Check renal ultrasound. Check bladder scan to rule out urinary retention. check iron studies. Add oral sodium bicarbonate. Repeat electrolytes in the morning. Thank you for the consultation. I will continue to follow the patient with you during his hospital stay.
[2019-11-21] MEDS ORDERED: SODIUM BICARBONATE TAB 650 MG TAB PO SCH (10:15)
[2019-11-21 11:09] LABS: Glucose,Whole Blood 150 mg/dL (75-99)
[2019-11-21] MEDS ORDERED: allopurinoL 100 MG TAB PO SCH (12:00)
[2019-11-21] MEDS ORDERED: CALCIUM CARBONATE 500 MG CHEWABLE PO SCH (12:00)
[2019-11-21] MEDS ORDERED: amLODIPine 5 MG TAB PO SCH (12:00)
[2019-11-21] MEDS ORDERED: FINASTERIDE 5 MG TAB PO SCH (12:00)
[2019-11-21] MEDS ORDERED: guaiFENesin 600 MG TABLET.ER PO SCH (12:00)
[2019-11-21] MEDS ORDERED: TAMSULOSIN 0.4 MG CAP.ER.24H PO SCH (12:00)
[2019-11-21] MEDS ORDERED: DOCUSATE 100 MG CAP PO SCH (12:00)
[2019-11-21] MEDS ORDERED: BRIMONIDINE TARTRATE 0.2% DROPS 5 ML BTL BOTH EYES SCH (12:00)
[2019-11-21] MEDS ORDERED: METOPROLOL SUCCINATE (ER) 50 MG TAB.ER.24H PO SCH (12:00)
[2019-11-21] MEDS ORDERED: CHOLECALCIFEROL 1,000 UNIT TAB PO SCH (12:00)
[2019-11-21] MEDS: levETIRAcetam 500 MG TAB PO SCH (12:34)
[2019-11-21] MEDS: APIXABAN 2.5 MG TABLET PO SCH (12:34)
[2019-11-21 12:59] VITALS: BP 169/78; PULSE 81; TEMP 98.7
--- NOTE | 2019-11-21 13:04 | XR ---
EXAMINATION TYPE: XR chest 1V DATE OF EXAM: 11/21/2019 CLINICAL HISTORY: Shortness of breath TECHNIQUE: Portable upright view of the chest obtained COMPARISON: 09/02/2018 chest radiograph FINDINGS: Low lung volumes likely accentuate the cardiac mediastinal silhouette. Pulmonary vasculatu re is normal. There is no focal air space opacity, pleural effusion, or pneumothorax seen. The osseou s structures are intact. IMPRESSION: Low lung volumes. No acute cardiopulmonary process.
--- NOTE | 2019-11-21 13:10 | US ---
EXAMINATION TYPE: US renals and bladder DATE OF EXAM: 11/21/2019 COMPARISON: NONE CLINICAL HISTORY: GABRIELLA. Portable exam. EXAM MEASUREMENTS: Right Kidney: 11.5 x 6.5 x 5.2 cm Left Kidney: 11.9 x 7.3 x 5.9 cm Right Kidney: 1.4 cm exophytic simple benign cyst of the inferior pole. Otherwise normal. Left Kidney: Somewhat suboptimal visualization due to patient position. Visualized kidney is normal. Bladder: Normal Bilateral Jets seen: no IMPRESSION: 1. No hydronephrosis bilaterally. 2. Normal urinary bladder.
--- NOTE | 2019-11-21 14:36 | P.DS ---
Providers Date of admission: 11/20/19 15:13 Attending physician: Russel Chung Consults: 11/20/19 15:12 Consult Physician Urgent Consulting Provider: Kan Reyes Consult Reason/Comments: Acute on chronic renal failure Do you want consulting provider notified?: Yes Primary care physician: Sebas Alejandre [place] [facility] Course: 64-year-old pleasant male was sent in because of worsening kidney function. Patient is a serum creatinine today 3.8. Patient the had similar kidney function with similar creatinine in a month of December 2018. Although patient was on urinalysis at the time patient was was discontinued on hemodialysis in month of January 2019. Patient doesn't have any dark stools or blood in the stools and the there was a concern from ER the patient hemoglobin is low. Consider given is 8.9. Patient's previous hemoglobin was around 10.6 in month of December. Patient has normocytic anemia appears to have chronic anemia. Patient doesn't have any evidence of acute GI bleed at this time R any other bleed. 11/21/2019 Ruled out any acute GI bleed patient hemoglobin is stable. Patient kidney function remained stable this appeared to be his baseline was evaluated by nephrology no further recommendations from nephrology but patient is mildly hypercalcemic because of which we're discontinuing times and the vitamin D supplementation probably vitamin D need to be rechecked before giving his monthly vitamin D injection. PHYSICAL EXAMINATION: GENERAL: The patient is alert and oriented x3, not in any acute distress. Well developed, well nourished. HEENT: Pupils are round and equally reacting to light. EOMI. No scleral icterus. No conjunctival pallor. Normocephalic, atraumatic. No pharyngeal erythema. No thyromegaly. CARDIOVASCULAR: S1 and S2 present. No murmurs, rubs, or gallops. PULMONARY: Chest is clear to auscultation, no wheezing or crackles. ABDOMEN: Soft, nontender, nondistended, normoactive bowel sounds. No palpable organomegaly. MUSCULOSKELETAL: No joint swelling or deformity. EXTREMITIES: No cyanosis, clubbing, or pedal edema. NEUROLOGICAL: Gross neurological examination did not reveal any new focal deficits. She has weakness from his old stroke on the left side about 4/5 strength in left upper and lower extremity SKIN: No rashes. Assessment and Plan Plan: - renal failure: He appears to be chronic and a nephrology valid to the patient part of the renal failure was believed to be secondary to hypercalcemia times and vitamin D are being discontinued -Mild hypercalcemia: Management as mentioned above -Anemia appears to be chronic anemia probably anemia of chronic kidney disease, no evidence of acute GI bleed her acute blood loss anemia -Atrial fibrillation patient is presently sinus rhythm rate controlled continue with anti-coagulation -CVA or TIA in the past -type 2 diabetes mellitus -Hyperlipidemia -Hypertension -Benign prostatic hypertrophy -Sleep apnea Plan - Discharge Summary New Discharge Prescriptions: Continue Polyethylene Glycol 3350 [Miralax] 17 gm PO DAILY@1700 Docusate [Colace] 100 mg PO DAILY@1200 levETIRAcetam [Keppra] 500 mg PO BID@1200,2100 Brimonidine Tartrate [Alphagan P 0.2% Ophth Soln] 1 drops BOTH EYES BID@1200,2100 Tamsulosin [Flomax] 0.4 mg PO DAILY@1200 Latanoprost [Xalatan 0.005%] 1 drop BOTH EYES DAILY@2000 Finasteride [Proscar] 5 mg PO DAILY@1200 Venlafaxine HCl [Effexor XR] 75 mg PO DAILY@1700 guaiFENesin [Mucinex] 1,200 mg PO BID@1200,2100 Pantoprazole Sodium [Protonix] 40 mg PO DAILY@0700 Apixaban [Eliquis] 2.5 mg PO BID@1200,2100 Metoprolol Succinate (ER) [Toprol XL] 50 mg PO DAILY@1200 allopurinoL [Zyloprim] 200 mg PO DAILY@1200 Melatonin 5 mg PO HS@2100 Furosemide [Lasix] 40 mg PO DAILY@0700 Ipratropium-Albuterol Nebulize [Duoneb 0.5 mg-3 mg/3 ml Soln] 3 ml INHALATION Q4H PRN PRN Reason: Dyspnea Ipratropium/Albuterol Sulfate [Combivent Respimat Inhaler] 2 puff INHALATION RT-Q6H PRN PRN Reason: Dyspnea Insulin Aspart [NovoLOG] See Protocol SQ ACHS diphenhydrAMINE ELIXIR [Benadryl Elixir] 25 mg PO Q8H PRN PRN Reason: Itching Ondansetron HCl [Zofran] 8 mg PO Q8H PRN PRN Reason: Nausea And Vomiting Acetaminophen [Tylenol] 650 mg PO Q6H PRN PRN Reason: Pain Simethicone 80 mg PO Q6H PRN PRN Reason: GAS Mag Hydrox/Aluminum Hyd/Simeth [Mylanta Maximum Strength Liq] 10 ml PO Q4H PRN PRN Reason: Gi Upset Loratadine [Claritin] 10 mg PO Q48H PRN PRN Reason: Allergy Symptoms Acetaminophen [Tylenol 8 Hour] 650 mg PO Q4H PRN PRN Reason: Pain amLODIPine [Norvasc] 5 mg PO DAILY@1200 Spironolactone 25 mg PO DAILY@1999 Fluticasone Nasal [place] [Flonase Nasal [place]] 1 spray EA NOSTRIL DAILY Ipratropium-Albuterol Nebulize [Duoneb 0.5 mg-3 mg/3 ml Soln] 3 ml INHALATION QID Discontinued Cholecalciferol (Vitamin D3) [Vitamin D3] 2,000 unit PO DAILY@1200 Ergocalciferol [Vitamin D2] 50,000 unit PO Q30D Calcium Carbonate [Tums] 500 mg PO BID@1200,1700 Discharge Medication List Brimonidine Tartrate [Alphagan P 0.2% Ophth Soln] 1 drops BOTH EYES BID@1199,209908/25/18 [History] Docusate [Colace] 100 mg PO DAILY@119908/25/18 [History] Finasteride [Proscar] 5 mg PO DAILY@119908/25/18 [History] Latanoprost [Xalatan 0.005%] 1 drop BOTH EYES DAILY@199908/25/18 [History] Polyethylene Glycol 3350 [Miralax] 17 gm PO DAILY@17008/25/18 [History] Tamsulosin [Flomax] 0.4 mg PO DAILY@119908/25/18 [History] levETIRAcetam [Keppra] 500 mg PO BID@1199,209908/25/18 [History] Apixaban [Eliquis] 2.5 mg PO BID@1200,209912/30/18 [History] Pantoprazole Sodium [Protonix] 40 mg PO DAILY@0700 12/30/18 [History] Venlafaxine HCl [Effexor XR] 75 mg PO DAILY@17012/30/18 [History] guaiFENesin [Mucinex] 1,200 mg PO BID@1200,2100 12/30/18 [History] Melatonin 5 mg PO HS@209904/02/19 [History] Metoprolol Succinate (ER) [Toprol XL] 50 mg PO DAILY@1200 04/02/19 [History] allopurinoL [Zyloprim] 200 mg PO DAILY@1200 04/02/19 [History] Furosemide [Lasix] 40 mg PO DAILY@0700 05/07/19 [History] Insulin Aspart [NovoLOG] See Protocol SQ ACHS 05/07/19 [History] Ipratropium-Albuterol Nebulize [Duoneb 0.5 mg-3 mg/3 ml Soln] 3 ml INHALATION Q4H PRN 05/07/19 [History] Ipratropium/Albuterol Sulfate [Combivent Respimat Inhaler] 2 puff INHALATION RT- Q6H PRN 05/07/19 [History] Acetaminophen [Tylenol 8 Hour] 650 mg PO Q4H PRN 11/20/19 [History] Acetaminophen [Tylenol] 650 mg PO Q6H PRN 11/20/19 [History] Fluticasone Nasal [place] [Flonase Nasal [place]] 1 spray EA NOSTRIL DAILY 11/20/19 [History] Ipratropium-Albuterol Nebulize [Duoneb 0.5 mg-3 mg/3 ml Soln] 3 ml INHALATION QID 11/20/19 [History] Loratadine [Claritin] 10 mg PO Q48H PRN 11/20/19 [History] Mag Hydrox/Aluminum Hyd/Simeth [Mylanta Maximum Strength Liq] 10 ml PO Q4H PRN 11/20/19 [History] Ondansetron HCl [Zofran] 8 mg PO Q8H PRN 11/20/19 [History] Simethicone 80 mg PO Q6H PRN 11/20/19 [History] Spironolactone 25 mg PO DAILY@199911/20/19 [History] amLODIPine [Norvasc] 5 mg PO DAILY@119911/20/19 [History] diphenhydrAMINE ELIXIR [Benadryl Elixir] 25 mg PO Q8H PRN 11/20/19 [History] Follow up Appointment(s)/Referral(s): Filipino,Sebas, MD [Primary Care Provider] - 3 Days Kan Reyes DO [STAFF PHYSICIAN] - 1 Week Discharge Disposition: HOME SELF-CARE
[2019-11-21] MEDS ORDERED: VENLAFAXINE HCL ER 75 MG CAP PO SCH (17:00)
[2019-11-21] MEDS ORDERED: polyethylene glycoL 3350 17 GM POWD.PACK PO SCH (17:00)
[2019-11-21 17:39] LABS: % Iron Saturation 26.25 (15.00-50.00)
[2019-11-21 17:48] LABS: Protein, Total 6.7 g/dL (6.2-8.2)
[2019-11-21 18:45] LABS: Ferritin 353.6 ng/mL (22.0-322.0)
[2019-11-22 00:14] LABS: Hemoglobin A1C 6.5 % (4.0-6.0)
[2019-11-23 09:24] LABS: Angiotensin-1 Converting Enz. 31 U/L (8-52)
[2019-11-23 13:13] LABS: Albumin 3.75 g/dL (3.80-4.90); Gamma Globulin 1.14 g/dL (0.70-1.50)
--- NOTE | 2019-11-24 08:22 | CDI ---
Documentation Clarification Form Date: 11/24/19 From: Laura Camp Phone: If you have a question about this query, please contact Juliana Schaefer, First Helper at [phone] between 8am and 5pm. Admit Date: 11/20/19 Discharge Date: 11/21/19 Patient Name: BRINA PEREZ Visit Number: [id number] ATTENTION: The Clinical Documentation Specialists (CDI) and [facility] Coding Staff appreciate your assistance in clarifying documentation. Please respond to the clarification below the line at the bottom and electronically sign. The CDI & [facility] Coding staff will review the response and follow-up if needed. Please note: Queries are made part of the Legal Health Record. If you have any questions, please contact the author of this message via ITS. Dear Dr. Russel Chung, Heart failure is documented under past medical history in ED note, H&P and consult. History/Risk Factors: ATN, HTN w heart failure and CKD 4, DM II w CKD, neuropathy, anemia in CKD, Left hemiplegia following infarction Clinical Indicators: controlled heart failure VS/Pulse OX: T-97.9, P-80, R-18, BP-157/96, O2-99 BNP: none 08/26/18 Echocardiogram Results: Overall left ventricular systolic function is normal with, an EF between 55-60%. Chest X Ray: Low lung volumes likely accentuate the cardiac mediastinal silhouette.Pulmonary vasculature is normal. There is no focal air space opacity, pleural effusion, or pneumothorax seen. The osseous structures are intact. Treatment: Lasix 40 mg po daily In your professional opinion, can you please clarify the type of chronic CHF if known? Systolic Heart Failure Diastolic Heart Failure Systolic & Diastolic Heart Failure Unable to Determine Other, please specify No heart failure indicated in my note and this query is not necessary MTDD
--- NOTE | 2019-11-24 08:28 | CDI ---
Documentation Clarification Form Date: 11/24/19 From: Laura Camp Phone: If you have a question about this query, please contact Juliana Schaefer, [employer]ling [employer] Grader at [phone] between 8am and 5pm. Admit Date: 11/20/19 Discharge Date: 11/21/19 Patient Name: BRINA PEREZ Visit Number: [id number] ATTENTION: The Clinical Documentation Specialists (CDI) and [facility] Coding Staff appreciate your assistance in clarifying documentation. Please respond to the clarification below the line at the bottom and electronically sign. The CDI & [facility] Coding staff will review the response and follow-up if needed. Please note: Queries are made part of the Legal Health Record. If you have any questions, please contact the author of this message via ITS. Dear Dr. Russel Chung, Atrial Fibrillation is documented in the ED note, H&P, consult and DS. History/Risk Factors: ATN, HTN w heart failure and CKD 4, DM II w CKD, neuropathy, anemia in CKD, left hemiplegia following infarction Clinical Indicators: On Eliquis and atrial fib is controlled. EKG/telemetry: sinus rhythm with a first-degree AV block at 77 bpm WA interval is 214 QRS is 110 QT interval 36 QTC is 436. Patient's EKG shows no ST segment elevation or depression Treatment: Eliquis 2.5 mg BID In your professional opinion, can you please clarify the type of Atrial Fibrillation, if known? Chronic Permanent Paroxysmal Persistent, longstanding Persistent, other Persistent, permanent Other, please specify Unable to determine Unable to determine MTDD
[2019-11-25 18:28] LABS: Vitamin D, 1, 25-Dihydroxy 14 pg/mL (20 - 79)
== END 2019-11-21 16:30 | disposition home health service (06) | DRG 683 ==
LOC: EC 13:21 → 6NMEDSUR 15:13
PROVIDERS: ADMIT Internal Medicine; ATTEND Internal Medicine
DX: N17.0 Acute kidney failure with tubular necrosis (principal); I69.354 Hemiplegia and hemiparesis following cerebral infarction affecting left non-dominant side; E87.2 Acidosis; I13.0 Hypertensive heart and chronic kidney disease with heart failure and stage 1 through stage 4 chronic kidney disease, or unspecified chronic kidney disease; D63.1 Anemia in chronic kidney disease; E11.22 Type 2 diabetes mellitus with diabetic chronic kidney disease; E11.40 Type 2 diabetes mellitus with diabetic neuropathy, unspecified; I50.9 Heart failure, unspecified; E11.39 Type 2 diabetes mellitus with other diabetic ophthalmic complication; Z79.4 Long term (current) use of insulin; N18.4 Chronic kidney disease, stage 4 (severe); I48.91 Unspecified atrial fibrillation; R40.2142 Coma scale, eyes open, spontaneous, at arrival to emergency department; R40.2362 Coma scale, best motor response, obeys commands, at arrival to emergency department; R40.2252 Coma scale, best verbal response, oriented, at arrival to emergency department; E83.52 Hypercalcemia; H40.9 Unspecified glaucoma; H42 Glaucoma in diseases classified elsewhere; I44.0 Atrioventricular block, first degree; E78.5 Hyperlipidemia, unspecified; G47.30 Sleep apnea, unspecified; M54.5 Low back pain; N40.0 Benign prostatic hyperplasia without lower urinary tract symptoms; Z79.01 Long term (current) use of anticoagulants; Z79.899 Other long term (current) drug therapy; Z87.01 Personal history of pneumonia (recurrent); Z87.19 Personal history of other diseases of the digestive system; Z87.39 Personal history of other diseases of the musculoskeletal system and connective tissue; Z86.19 Personal history of other infectious and parasitic diseases; Z98.890 Other specified postprocedural states; Z80.0 Family history of malignant neoplasm of digestive organs; Z82.5 Family history of asthma and other chronic lower respiratory diseases; Z82.49 Family history of ischemic heart disease and other diseases of the circulatory system
CPT/HCPCS: 36415; 71045; 76770; 80053; 82164; 82306; 82652; 82728; 83036; 83540; 83550; 83735; 83970; 84165; 84484; 85025; 85027; 85610; 85730; 86334; 86850; 86900; 86901; 93005; 94640; 99285

== ENCOUNTER 2021-07-31 08:26 | Day surgery (SDC) | payer MEDICARE, OTHER ==
[2021-07-28 12:02] VITALS: BMI 27.3
[~2021-07-31 08:26] MED LIST changes: +ACETAMINOPHEN TAB 500 MG TAB PO PRN; -DEXAMETHASONE SOD PHOSPHATE 10 MG/ML 1 ML VIAL IV ONE; +DEXAMETHASONE SOD PHOSPHATE 4 MG/ML 1 ML VIAL IV ONE; +HEPARIN SODIUM,PORCINE/PF 5,000 UNIT/0.5 ML SYRINGE SQ PRN; +LIDOCAINE 1% (10MG/ML) FOR IV START INTRADERMA PRN; -MIDAZOLAM 2 MG/2 ML VIAL IV PRN; -Pre Op ABX Message 1 EACH MISC MISCELLANE ONE; -SCOPOLAMINE 1.5MG/72HR PATCH TRANSDERM ONE
--- NOTE | 2021-07-31 08:55 | P.GSHP ---
History of Present Illness H&P Date: 07/31/21 Chief Complaint: Renal failure, umbilical hernia 66-year-old male last seen in the office February 2020. Patient contacted our office recently to schedule dialysis catheter placement. Patient has a known umbilical hernia. History of previous CVA and was on hemodialysis for some time. Patient has residual weakness on the left-hand side. Mostly using his chair. Patient's kidney function is declining further inpatient requires initiation of dialysis. Patient would like to proceed with peritoneal dialysis placement. Past Medical History Past Medical History: Atrial Fibrillation, Blood Disorder, Heart Failure, CVA/TIA, Eye Disorder, GI Bleed, Hyperlipidemia, Hypertension, Pneumonia, Prostate Disorder, Renal Disease, Seizure Disorder, Sleep Apnea/CPAP/BIPAP Additional Past Medical History / Comment(s): Admitted to [facility] for low sodium of 120,sodium back up to 130 per and expected to be discharged today on 07-28-21,fluid restrictions of 1400cc/day.hx 05/15/18 CVA with L sided weakness/nondominent side treated in [facility], 05/16/18 aspiration pneumonia/respiratory failure/vented, 06/08/18 trached, peg tube, trach removed 07/16/18, pt went into Afib on 07/21/18 and started with episodes of feeling like something is in his throat which then leads to SOB episodes. "Beginnings of CHF." Hx GI Bleed august or September 2018. walks with short distance with jhonny-walker .Chronic Kidney Disease since CVA with hemodialysis- received last in Jan 2019. "Continues with weak kidneys." Uses Bipap. 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 Debridement right thumb.rt thumb abscess,glaucoma hortensia eyes,cataract removal hortensia eyes, rt eye "oil" removed and reinserted beginning of July" Past Anesthesia/Blood Transfusion Reactions: No Reported Reaction Additional Past Anesthesia/Blood Transfusion Reaction / Comment(s): Pt has received blood transfusion in past without reaction. hx trach w/ scar tissue- last procedure after breathing tube removed had feeling like he couldn't breathe-was given Valium with relief-no futher problems Smoking Status: Never smoker - Past Family History Mother Family Medical History: Cancer Additional Family Medical History / Comment(s): Mother had stomach cancer, . Father Family Medical History: COPD, Myocardial Infarction ([place]) Additional Family Medical History / Comment(s): Father had a massive [place] at the age of 63 yrs. Medications and Allergies Home Medications Medication Instructions Recorded Confirmed Type Docusate [Colace] 100 mg PO DAILY@1200 08/25/18 07/28/21 History Finasteride [Proscar] 5 mg PO DAILY@1200 08/25/18 07/28/21 History Polyethylene Glycol 3350 [Miralax] 17 gm PO DAILY@1700 08/25/18 07/28/21 History Tamsulosin [Flomax] 0.4 mg PO DAILY@1200 08/25/18 07/28/21 History levETIRAcetam [Keppra] 500 mg PO BID@1200,209908/25/18 07/28/21 History Apixaban [Eliquis] 2.5 mg PO BID@1200,2100 12/30/18 07/28/21 History Pantoprazole Sodium [Protonix] 40 mg PO DAILY@0700 12/30/18 07/28/21 History Venlafaxine HCl [Effexor XR] 75 mg PO DAILY@1700 12/30/18 07/28/21 History guaiFENesin [Mucinex] 1,200 mg PO BID@1200,2100 12/30/18 07/28/21 History Melatonin 5 mg PO HS@209904/02/19 07/28/21 History Metoprolol Succinate (ER) [Toprol 50 mg PO BID 04/02/19 07/28/21 History XL] allopurinoL [Zyloprim] 200 mg PO DAILY@1200 04/02/19 07/28/21 History Ipratropium/Albuterol Sulfate 2 puff INHALATION RT-Q6H PRN 05/07/19 07/28/21 History [Combivent Respimat Inhaler] Acetaminophen [Tylenol] 650 mg PO Q6H PRN 11/20/19 07/28/21 History Fluticasone Nasal [place] [Flonase 1 spray EA NOSTRIL DAILY PRN 11/20/19 07/28/21 History Nasal [place]] Ipratropium-Albuterol Nebulize 3 ml INHALATION BID 11/20/19 07/28/21 History [Duoneb 0.5 mg-3 mg/3 ml Soln] Spironolactone 12.5 mg PO DAILY@199911/20/19 07/28/21 History amLODIPine [Norvasc] 5 mg PO DAILY@119911/20/19 07/28/21 History Ascorbic Acid [Vitamin C] 500 mg PO DAILY 07/28/21 07/28/21 History Brinzolamide/Brimonidine Tart 1 drop RIGHT EYE TID 07/28/21 07/28/21 History [Simbrinza 1%-0.2% Eye Drops] Ergocalciferol [Vitamin D2 (1250 1,250 mcg PO WE 07/28/21 07/28/21 History Mcg = 48730 Iu)] Ferrous Sulfate [Feosol] 325 mg PO BID 07/28/21 07/28/21 History Latanoprostene Bunod [Vyzulta] 1 drop RIGHT EYE HS 07/28/21 07/28/21 History Sevelamer [Renvela] 800 mg PO AC-TID 07/28/21 07/28/21 History Simvastatin 10 mg PO 1700 07/28/21 07/28/21 History Sodium Bicarbonate Tab 650 mg PO TID 07/28/21 07/28/21 History Timolol [Betimol 0.5% Ophth Soln] 1 drop RIGHT EYE BID 07/28/21 07/28/21 History prednisoLONE ACETATE 1% OPHTH 1 drops RIGHT EYE QID 07/28/21 07/28/21 History [Pred Forte 1%] Allergies Allergy/AdvReac Type Severity Reaction Status Date / Time bandaids Allergy rash, ok Uncoded 07/28/21 11:45 to use papertape Surgical - Exam Physical exam: General: Well-developed, well-nourished HEENT: Normocephalic, sclerae nonicteric Abdomen: Nontender, nondistended, incarcerated umbilical hernia Extremities: No edema Neuro: Alert and oriented Assessment and Plan (1) Renal failure Narrative/Plan: 66-year-old male with renal failure and incarcerated umbilical hernia. We'll proceed with repair incarcerated umbilical hernia with possible mesh and peritoneal dialysis catheter insertion at this time. Risks of bleeding, infection, recurrence, bladder and bowel injury, numbness, nerve injury, catheter malfunction, fluid leak were discussed with the patient. The patient understands and wishes to proceed. Current Visit: Yes Status: Acute Code(s): N19 - UNSPECIFIED KIDNEY FAILURE SNOMED Code(s): 87527022
[2021-07-31 09:19] VITALS: BP 149/65; PULSE 75; RESP 18; TEMP 97
[2021-07-31 09:55] LABS: Glucose,Whole Blood 95 mg/dL (75-99)
[2021-07-31 10:04] LABS: Basophils # (A) 0.1 k/uL (0-0.2); Basophils % (A) 1 %; Eosinophils # (A) 0.5 k/uL (0-0.7); Eosinophils % (A) 6 %; HCT 31.2 % (39.0-53.0); HGB 10.1 gm/dL (13.0-17.5); Lymphocytes # (A) 0.8 k/uL (1.0-4.8); Lymphocytes % (A) 10 %; MCH 30.3 pg (25.0-35.0); MCHC 32.5 g/dL (31.0-37.0); MCV 93.3 fL (80.0-100.0); Mean Platelet Volume 7.5; Monocytes # (A) 0.6 k/uL (0-1.0); Monocytes % (A) 7 %; Neutrophils # (A) 6.2 k/uL (1.3-7.7); Neutrophils % (A) 75 %; Platelet Count 300 k/uL (150-450); RBC 3.35 m/uL (4.30-5.90); RDW 14.4 % (11.5-15.5); WBC 8.4 k/uL (3.8-10.6)
[2021-07-31 10:45] LABS: Albumin 3.7 g/dL (3.5-5.0); Calcium 8.2 mg/dL (8.4-10.2); Total Bilirubin 0.9 mg/dL (0.2-1.3); Total Protein 6.6 g/dL (6.3-8.2)
[2021-07-31 10:46] LABS: Magnesium 2.7 mg/dL (1.6-2.3); Potassium 4.5 mmol/L (3.5-5.1)
== END 2021-07-31 11:36 | disposition home or self-care (01) ==
LOC: OR 08:26
PROVIDERS: ATTEND Surgery
DX: I13.2 Hypertensive heart and chronic kidney disease with heart failure and with stage 5 chronic kidney disease, or end stage renal disease (principal); E11.22 Type 2 diabetes mellitus with diabetic chronic kidney disease; N18.5 Chronic kidney disease, stage 5; I50.9 Heart failure, unspecified; D63.1 Anemia in chronic kidney disease; Z99.2 Dependence on renal dialysis; E11.40 Type 2 diabetes mellitus with diabetic neuropathy, unspecified; Z53.8 Procedure and treatment not carried out for other reasons; K42.9 Umbilical hernia without obstruction or gangrene; I48.91 Unspecified atrial fibrillation; I69.354 Hemiplegia and hemiparesis following cerebral infarction affecting left non-dominant side; D75.9 Disease of blood and blood-forming organs, unspecified; E78.5 Hyperlipidemia, unspecified; Z87.19 Personal history of other diseases of the digestive system; Z87.01 Personal history of pneumonia (recurrent); G40.909 Epilepsy, unspecified, not intractable, without status epilepticus; G47.30 Sleep apnea, unspecified; N40.0 Benign prostatic hyperplasia without lower urinary tract symptoms; Z79.899 Other long term (current) drug therapy; Z98.890 Other specified postprocedural states; Z98.42 Cataract extraction status, left eye; Z98.41 Cataract extraction status, right eye; Z80.0 Family history of malignant neoplasm of digestive organs; Z82.49 Family history of ischemic heart disease and other diseases of the circulatory system; Z83.6 Family history of other diseases of the respiratory system; Z79.01 Long term (current) use of anticoagulants; Z91.09 Other allergy status, other than to drugs and biological substances
CPT/HCPCS: 80053; 83735; 85025; J1100; J2405; J1644

== ENCOUNTER 2021-08-09 15:57 | Inpatient (IN) | payer MEDICARE, OTHER ==
[2021-08-09] MEDS ORDERED: SODIUM CHLORIDE 0.9% 1,000 ML IV STA (20:10)
--- NOTE | 2021-08-09 20:14 | ED ---
Abdominal Pain HPI - General Chief Complaint: Abdominal Pain Stated Complaint: Abnormal Labs Time Seen by Provider: 08/09/21 20:06 Source: patient, RN notes reviewed Mode of arrival: ambulatory Limitations: no limitations - History of Present Illness Initial Comments: This is a pleasant 6 showed male with multiple medical issues as noted in the past medical history. Patient does have a history of heart failure, previous CVA with residual left-sided weakness, end-stage renal disease, needs hemodialysis. Apparently the patient was on hemodialysis in 2019 and then had a rebound and kidney function and was off dialysis up until now. Patient sent in by the surgeon, Dr. Donnelly, for electrolyte correction prior to surgery. Patient has had issues with hyponatremia. Patient is scheduled to have umbilical herniorrhaphy as well as a hemodialysis catheter placement tomorrow. No headache, no fever or chills, no changes in vision or hearing, no sore throat or difficulty with speech, no neck pain, no chest pain or shortness of breath, no nausea or vomiting, no changes in urination or bowel movements, no numbness or tingling, no extremity pain, no skin rashes or lesions. - Related Data Home Medications Medication Instructions Recorded Confirmed Docusate [Colace] 100 mg PO DAILY@1200 08/25/18 08/09/21 Finasteride [Proscar] 5 mg PO DAILY@1200 08/25/18 08/09/21 Polyethylene Glycol 3350 [Miralax] 17 gm PO DAILY@1700 08/25/18 08/09/21 Tamsulosin [Flomax] 0.4 mg PO DAILY@1200 08/25/18 08/09/21 levETIRAcetam [Keppra] 500 mg PO BID@1200,1900 08/25/18 08/09/21 Apixaban [Eliquis] 2.5 mg PO DIRECTED 12/30/18 08/09/21 Pantoprazole Sodium [Protonix] 40 mg PO DAILY@0600 12/30/18 08/09/21 Venlafaxine HCl [Effexor XR] 75 mg PO DAILY@1700 12/30/18 08/09/21 guaiFENesin [Mucinex] 1,200 mg PO BID@1200,1900 12/30/18 08/09/21 Melatonin 5 mg PO HS@1900 04/02/19 08/09/21 Metoprolol Succinate (ER) [Toprol 25 mg PO BID@0600,1900 04/02/19 08/09/21 XL] allopurinoL [Zyloprim] 200 mg PO DAILY@1200 04/02/19 08/09/21 Acetaminophen [Tylenol] 650 mg PO Q6H PRN 11/20/19 08/09/21 Fluticasone Nasal [place] [Flonase 1 spray EA NOSTRIL DAILY@0600 11/20/19 08/09/21 Nasal [place]] Ipratropium-Albuterol Nebulize 3 ml INHALATION RT-Q4H 11/20/19 08/09/21 [Duoneb 0.5 mg-3 mg/3 ml Soln] Spironolactone 12.5 mg PO DAILY@0600 11/20/19 08/09/21 amLODIPine [Norvasc] 5 mg PO BID@1200,1900 11/20/19 08/09/21 Ascorbic Acid [Vitamin C] 500 mg PO DAILY@0607/28/21 08/09/21 Brinzolamide/Brimonidine Tart 1 drop RIGHT EYE TID@10,15,07/28/21 08/09/21 [Simbrinza 1%-0.2% Eye Drops] Ergocalciferol [Vitamin D2 (1250 1,250 mcg PO WE 07/28/21 08/09/21 Mcg = 39990 Iu)] Latanoprostene Bunod [Vyzulta] 1 drop RIGHT EYE HS@19007/28/21 08/09/21 Sevelamer [Renvela] 800 mg PO TID-W/MEALS 07/28/21 08/09/21 Simvastatin 10 mg PO DAILY@1700 07/28/21 08/09/21 Sodium Bicarbonate Tab 650 mg PO TID@0600,1200,0 07/28/21 08/09/21 Timolol [Betimol 0.5% Ophth Soln] 1 drop RIGHT EYE BID@1000,0 07/28/21 08/09/21 prednisoLONE ACETATE 1% OPHTH 1 drops RIGHT EYE QID@06,10,15,19 07/28/21 08/09/21 [Pred Forte 1%] Furosemide [Lasix] 60 mg PO DAILY@0600 08/09/21 08/09/21 Furosemide [Lasix] 60 mg PO Q48H 08/09/21 08/09/21 Previous Rx's Medication Instructions Recorded traMADol HCl [Ultram] 50 mg PO Q6H PRN #10 tab 07/31/21 Allergies Allergy/AdvReac Type Severity Reaction Status Date / Time torsemide Allergy Headache, Verified 08/09/21 21:47 coughing, urinary retention bandaids Allergy rash, ok Uncoded 07/28/21 11:45 to use papertape Review of Systems ROS Statement: Those systems with pertinent positive or pertinent negative responses have been documented in the HPI. ROS Other: All systems not noted in ROS Statement are negative. Past Medical History Past Medical History: Atrial Fibrillation, Blood Disorder, Heart Failure, CVA/TIA, Eye Disorder, GI Bleed, Hyperlipidemia, Hypertension, Pneumonia, Prostate Disorder, Renal Disease, Seizure Disorder, Sleep Apnea/CPAP/BIPAP Additional Past Medical History / Comment(s): Admitted to [facility] for low sodium of 120,sodium back up to 130 per and expected to be discharged today on 07-28-21,fluid restrictions of 1400cc/day.hx 05/15/18 CVA with L sided weakness/nondominent side treated in [facility], 05/16/18 aspiration pneumonia/respiratory failure/vented, 06/08/18 trached, peg tube, trach removed 07/16/18, pt went into Afib on 07/21/18 and started with episodes of feeling like something is in his throat which then leads to SOB episodes. "Beginnings of CHF." Hx GI Bleed august or September 2018. walks with short distance with jhonny-walker .Chronic Kidney Disease since CVA with hemodialysis- received last in Jan 2019. "Continues with weak kidneys." Uses Bipap. 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 Debridement right thumb.rt thumb abscess,glaucoma hortensia eyes,cataract removal hortensia eyes, rt eye "oil" removed and reinserted beginning of July" Past Anesthesia/Blood Transfusion Reactions: No Reported Reaction Additional Past Anesthesia/Blood Transfusion Reaction / Comment(s): Pt has received blood transfusion in past without reaction. hx trach w/ scar tissue- last procedure after breathing tube removed had feeling like he couldn't berenice athe-was given Valium with relief-no futher problems Past Psychological History: No Psychological Hx Reported Smoking Status: Never smoker Past Alcohol Use History: None Reported Past Drug Use History: None Reported - Past Family History Mother Family Medical History: Cancer Additional Family Medical History / Comment(s): Mother had stomach cancer, . Father Family Medical History: COPD, Myocardial Infarction ([place]) Additional Family Medical History / Comment(s): Father had a massive [place] at the age of 63 yrs. General Exam - General Exam Comments Initial Comments: Deconditioned appearing 66-year-old male presents in minimal distress. Vital signs stable, patient afebrile Limitations: no limitations General appearance: alert, in no apparent distress Head exam: Present: atraumatic, normocephalic, normal inspection Eye exam: Present: normal appearance, PERRL, EOMI. Absent: scleral icterus, conjunctival injection, periorbital swelling ENT exam: Present: normal exam, mucous membranes moist Neck exam: Present: normal inspection. Absent: tenderness, meningismus, lymphadenopathy Respiratory exam: Present: normal lung sounds bilaterally. Absent: respiratory distress, wheezes, rales, rhonchi, stridor Cardiovascular Exam: Present: regular rate, normal rhythm, normal heart sounds. Absent: systolic murmur, diastolic murmur, rubs, gallop, clicks GI/Abdominal exam: Present: soft, normal bowel sounds. Absent: distended, tenderness, guarding, rebound, rigid Extremities exam: Present: normal inspection, full ROM, normal capillary refill. Absent: tenderness, pedal edema, joint swelling, calf tenderness Back exam: Present: normal inspection Neurological exam: Present: alert, oriented X3, CN II-XII intact Psychiatric exam: Present: normal affect, normal mood Skin exam: Present: warm, dry, intact, normal color. Absent: rash Course Vital Signs 08/09/21 08/09/21 08/10/21 16:09 21:08 01:32 Temperature 97.9 F Pulse Rate 67 66 Pulse Rate [ 66 Pulse Oximetery ] Respiratory 20 14 18 Rate Blood Pressure 116/50 154/75 Blood Pressure 140/74 [Right Arm] O2 Sat by Pulse 99 99 96 Oximetry - Reevaluation(s) Reevaluation #1: 08/09/21 22:11 Medical record is reviewed Symptoms are improved here in the emergency department Patient is informed of results and questions answered Patient in no distress Medical Decision Making - Medical Decision Making Patient with history of hypernatremia apparently had a sodium of 128 on last check. Sent by the surgeon to be admitted prior to having hemodialysis catheter placed tomorrow as well as an umbilical herniorrhaphy. Case discussed with Dr. Rivera who had such admission of the patient. This discussed with Dr. Salinas who wants her potassium rechecked at 11, she wants a 250 mL bolus in addition to his received then 70 mL per hour. The case was discussed in detail with ED attending physician. Presentation, findings, treatment plan discussed in detail. Supervising physicians Dr. Knapp - Lab Data Result diagrams: 08/09/21 23:00 08/09/21 20:52 Lab Results 08/09/21 08/09/21 08/09/21 Range/Units 20:52 20:52 23:00 WBC 5.4 (3.8-10.6) k/uL RBC 3.17 L (4.30-5.90) m/uL Hgb 9.8 L (13.0-17.5) gm/dL Hct 30.3 L (39.0-53.0) % MCV 95.5 (80.0-100.0) fL MCH 30.8 (25.0-35.0) pg MCHC 32.2 (31.0-37.0) g/dL RDW 15.8 H (11.5-15.5) % Plt Count 318 (150-450) k/uL MPV 7.7 Neutrophils % 72 % Lymphocytes % 11 % Monocytes % 7 % Eosinophils % 6 % Basophils % 1 % Neutrophils # 3.9 (1.3-7.7) k/uL Lymphocytes # 0.6 L (1.0-4.8) k/uL Monocytes # 0.4 (0-1.0) k/uL Eosinophils # 0.4 (0-0.7) k/uL Basophils # 0.1 (0-0.2) k/uL Sodium 124 L (137-145) mmol/L Potassium 4.3 (3.5-5.1) mmol/L Chloride 88 L (98-107) mmol/L Carbon Dioxide 24 (22-30) mmol/L Anion Gap 12 mmol/L BUN 65 H (9-20) mg/dL Creatinine 5.42 H (0.66-1.25) mg/dL Est GFR (CKD-EPI)AfAm 12 (>60 ml/min/1.73 sqM) Est GFR (CKD-EPI)NonAf 10 (>60 ml/min/1.73 sqM) Glucose 103 H (74-99) mg/dL Plasma Lactic Acid Raj 0.7 (0.7-2.0) mmol/L Calcium 8.4 (8.4-10.2) mg/dL Phosphorus 5.9 H (2.5-4.5) mg/dL Magnesium 3.1 H (1.6-2.3) mg/dL Total Bilirubin 0.7 (0.2-1.3) mg/dL AST 13 L (17-59) U/L ALT 8 (4-49) U/L Alkaline Phosphatase 111 (38-126) U/L Total Protein 6.3 (6.3-8.2) g/dL Albumin 3.6 (3.5-5.0) g/dL Lipase 102 (23-300) U/L - EKG Data EKG Comments: EKG done at 22 3600 by the ED attending physician reveals sinus rhythm with a first-degree AV block. Left axis deviation. Incomplete right bundle-branch block. No acute ST or T changes. Baseline artifact noted Disposition Clinical Impression: Hyponatremia, Umbilical hernia, End stage liver disease Disposition: ADMITTED IP TO THIS HOSP Condition: Fair Time of Disposition: 22:11
[2021-08-09 21:26] LABS: Albumin 3.6 g/dL (3.5-5.0); Calcium 8.4 mg/dL (8.4-10.2); Magnesium 3.1 mg/dL (1.6-2.3); Phosphorus 5.9 mg/dL (2.5-4.5); Potassium 4.3 mmol/L (3.5-5.1); Total Bilirubin 0.7 mg/dL (0.2-1.3); Total Protein 6.3 g/dL (6.3-8.2)
--- NOTE | 2021-08-09 22:30 | XR ---
EXAMINATION TYPE: XR abdomen acute w cxr DATE OF EXAM: 08/09/2021 COMPARISON: Chest x-ray 11/21/2019 HISTORY: Short of breath. Abdominal pain TECHNIQUE: 4 views FINDINGS: There is no sign of intestinal obstruction or pneumoperitoneum. Fecal pattern is normal. He art size is normal. There are no hilar masses. No heart failure seen. Costophrenic angles are clear. There are no pathologic calcifications over the kidneys. IMPRESSION: Nonacute abdomen. No active cardiopulmonary disease. Chest unchanged compared to old exam .
[2021-08-09] MEDS ORDERED: MORPHINE SULFATE 4 MG/ML SYRINGE IV PRN (22:48)
[2021-08-09] MEDS ORDERED: NALOXONE 0.4 MG/ML 1 ML VIAL IV PRN (22:48)
[2021-08-09] MEDS ORDERED: ONDANSETRON 4 MG/2 ML VIAL IVP PRN (22:48)
[2021-08-09] MEDS ORDERED: SODIUM CHLORIDE 0.9% 500 ML 250 ML IV ONE (22:53)
[2021-08-09 23:13] LABS: Basophils # (A) 0.1 k/uL (0-0.2); Basophils % (A) 1 %; Eosinophils # (A) 0.4 k/uL (0-0.7); Eosinophils % (A) 6 %; HCT 30.3 % (39.0-53.0); HGB 9.8 gm/dL (13.0-17.5); Lymphocytes # (A) 0.6 k/uL (1.0-4.8); Lymphocytes % (A) 11 %; MCH 30.8 pg (25.0-35.0); MCHC 32.2 g/dL (31.0-37.0); MCV 95.5 fL (80.0-100.0); Mean Platelet Volume 7.7; Monocytes # (A) 0.4 k/uL (0-1.0); Monocytes % (A) 7 %; Neutrophils # (A) 3.9 k/uL (1.3-7.7); Neutrophils % (A) 72 %; Platelet Count 318 k/uL (150-450); RBC 3.17 m/uL (4.30-5.90); RDW 15.8 % (11.5-15.5); WBC 5.4 k/uL (3.8-10.6)
[2021-08-09] MEDS: PANTOPRAZOLE 40 MG/10 ML VIAL IV SCH (23:55)
[2021-08-10] MEDS: SODIUM CHLORIDE 0.9% 1,000 ML IV SCH ×2 (00:59→15:28)
[2021-08-10 01:40] LABS: Glucose,Whole Blood 115 mg/dL (75-99)
[2021-08-10 07:04] LABS: Glucose,Whole Blood 110 mg/dL (75-99)
[2021-08-10 08:07] LABS: Potassium 4.3 mmol/L (3.5-5.1)
[2021-08-10 08:09] LABS: Calcium 8.4 mg/dL (8.4-10.2); Magnesium 3.1 mg/dL (1.6-2.3)
[2021-08-10] MEDS: DOCUSATE 100 MG CAP PO SCH (08:11)
[2021-08-10] MEDS: FINASTERIDE 5 MG TAB PO SCH (08:11)
[2021-08-10] MEDS: amLODIPine 5 MG TAB PO SCH ×2 (08:12→21:00)
[2021-08-10] MEDS: allopurinoL 100 MG TAB PO SCH (08:12)
[2021-08-10] MEDS: TAMSULOSIN 0.4 MG CAP.ER.24H PO SCH (08:12)
[2021-08-10] MEDS: DORZOLAMIDE HCL 2% DROPS 10 ML BTL RIGHT EYE SCH ×3 (08:13→21:01)
[2021-08-10] MEDS: BRIMONIDINE TARTRATE 0.2% DROPS 5 ML BTL RIGHT EYE SCH ×3 (08:13→21:02)
[2021-08-10] MEDS: TIMOLOL 0.5% OPHTH DROPS 5 ML BTL RIGHT EYE SCH ×2 (08:14→21:02)
[2021-08-10] MEDS: FLUTICASONE 50MCG/SPRAY NASAL 16GM EA NOSTRIL SCH (08:14)
[2021-08-10] MEDS: SEVELAMER 800 MG TAB PO SCH ×3 (08:18→17:16)
[2021-08-10] MEDS: levETIRAcetam 500 MG TAB PO SCH ×2 (08:20→21:00)
[2021-08-10] MEDS: SPIRONOLACTONE 25 MG TAB PO SCH (09:19)
[2021-08-10] MEDS: PANTOPRAZOLE 40 MG/10 ML VIAL IV SCH (09:19)
[2021-08-10 09:48] LABS: Appearance,Urine Clear (Clear); Bilirubin,Urine Negative (Negative); Blood,Urine Negative (Negative); Color,Urine Colorless; Glucose,Urine (UA) Negative (Negative); Ketones,Urine Negative (Negative); Leukocyte Esterase,Urine Negative (Negative); Nitrite,Urine Negative (Negative); Protein,Urine 1+ (Negative); RBC,Urine 1 /hpf (0-5); Specific Gravity,Urine 1.007 (1.001-1.035); Squamous Epithelial Cell,Urine <1 /hpf (0-4); Urobilinogen,Urine <2.0 mg/dL (<2.0); WBC,Urine 3 /hpf (0-5)
--- NOTE | 2021-08-10 11:30 | P.GSCN ---
History of Present Illness Consult date: 08/10/21 History of present illness: CHIEF COMPLAINT: Hyponatremia HISTORY OF PRESENT ILLNESS: This is a 66-year-old male who was initially scheduled in the outpatient setting for incarcerated umbilical hernia repair and peritoneal dialysis catheter placement. However, he has been having hyponatremia and required to be admitted to the hospital for correction of the hyponatremia before proceeding with surgery. Patient did have a sodium level of 124 and has been corrected to 130. Patient's reports that he had recently had increase in his Lasix in the outpatient setting. Patient has been eating. He is on fluid restrictions. He has a history of chronic kidney disease and had required hemodialysis in 2019 and kidney function improved and the patient has no longer required any hemodialysis. However, patient's kidney function is Again beginning to worsen. He is followed by nephrology. And they're planning to proceed with peritoneal dialysis. Patient denies any abdominal pain. Denies any nausea vomiting. Reports having bowel movements. PAST MEDICAL HISTORY: CVA with residual left-sided weakness, atrial fibrillation, congestive heart failure, chronic kidney disease, sleep apnea, seizure disorder PAST SURGICAL HISTORY: See list. MEDICATIONS: See list. ALLERGIES: See list. SOCIAL HISTORY: No illicit drug use. REVIEW OF SYSTEMS: CONSTITUTIONAL: Denies fever or chills. HEENT: Denies blurred vision, vision changes, or eye pain. Denies hemoptysis CARDIOVASCULAR: Denies chest pain or pressure. RESPIRATORY: No shortness of breath. GASTROINTESTINAL: See HPI for pertinent findings HEMATOLOGIC: Denies bleeding disorders. GENITOURINARY: Denies any blood in urine or increased urinary frequency. SKIN: Denies pruitis. Denies rash. PHYSICAL EXAM: VITAL SIGNS: Reviewed GENERAL: Well-developed in no acute distress. HEENT: No sclera icterus. Extraocular movements grossly intact. Moist buccal mucosa. Head is atraumatic, normocephalic. No nasal drainage. ABDOMEN: Soft. Nondistended. Umbilical hernia soft. Not reducible NEUROLOGIC: Alert and oriented. Cranial nerves II through XII grossly intact. LABORATORY DATA: WBC 5.4 hemoglobin 9.8 platelets 318 Sodium 124 up to 130 potassium 4.3 creatinine 5.41 magnesium 3.1 phosphorus is 6 Total bilirubin 0.7 AST 13 ALT 8 IMAGING: Acute abdominal series nonacute abdomen. No active cardiopulmonary disease. ASSESSMENT: 1. Incarcerated umbilical hernia 2. Chronic kidney disease requiring dialysis and placement of peritoneal dialysis catheter PLAN: -Patient scheduled for umbilical hernia repair today and placement of peritoneal dialysis catheter with Dr. Donnelly -Keep patient nothing by mouth -Hyponatremia management per nephrology Physician Loom Inspector note has been reviewed by physician. Signing provider agrees with the documented findings, assessment, and plan of care. I have personally seen and examined the patient, reviewed the MACHINE BUFFER /PAs history, exam and MDM and agree with the assessment and plan as written. Based on total visit time, I have performed more than 50% of the visit. As above: Patient with renal failure. Recent hyponatremia. Sodium is up to 1 :30 at this time. We'll proceed with repair incarcerated umbilical hernia and peritoneal dialysis catheter placement. Past Medical History Past Medical History: Atrial Fibrillation, Blood Disorder, Heart Failure, CVA/TIA, Eye Disorder, GI Bleed, Hyperlipidemia, Hypertension, Pneumonia, Prostate Disorder, Renal Disease, Seizure Disorder, Sleep Apnea/CPAP/BIPAP Additional Past Medical History / Comment(s): Admitted to [facility] for low sodium of 120,sodium back up to 130 per and expected to be discharged today on 07-28-21,fluid restrictions of 1400cc/day.hx 05/15/18 CVA with L sided weakness/nondominent side treated in [facility], 05/16/18 aspiration pneumonia/respiratory failure/vented, 06/08/18 trached, peg tube, trach removed 07/16/18, pt went into Afib on 07/21/18 and started with episodes of feeling like something is in his throat which then leads to SOB episodes. "Beginnings of CHF." Hx GI Bleed august or September 2018. walks with short distance with jhonny-walker .Chronic Kidney Disease since CVA with hemodialysis- received last in Jan 2019. "Continues with weak kidneys." Uses Bipap. 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 Debridement right thumb.rt thumb abs cess,glaucoma hortensia eyes,cataract removal hortensia eyes, rt eye "oil" removed and reinserted beginning of July" Past Anesthesia/Blood Transfusion Reactions: No Reported Reaction Additional Past Anesthesia/Blood Transfusion Reaction / Comm: Pt has received bl ood transfusion in past without reaction. hx trach w/ scar tissue-last procedure after breathing tube removed had feeling like he couldn't breathe-was given Valium with relief-no futher problems Past Psychological History: No Psychological Hx Reported Smoking Status: Never smoker Past Alcohol Use History: None Reported Past Drug Use History: None Reported - Past Family History Mother Family Medical History: Cancer Additional Family Medical History / Comment(s): Mother had stomach cancer, . Father Family Medical History: COPD, Myocardial Infarction ([place]) Additional Family Medical History / Comment(s): Father had a massive [place] at the age of 63 yrs. Medications and Allergies Home Medications Medication Instructions Recorded Confirmed Type Docusate [Colace] 100 mg PO DAILY@1200 08/25/18 08/09/21 History Finasteride [Proscar] 5 mg PO DAILY@1200 08/25/18 08/09/21 History Polyethylene Glycol 3350 [Miralax] 17 gm PO DAILY@1700 08/25/18 08/09/21 History Tamsulosin [Flomax] 0.4 mg PO DAILY@1200 08/25/18 08/09/21 History levETIRAcetam [Keppra] 500 mg PO BID@1200,1900 08/25/18 08/09/21 History Apixaban [Eliquis] 2.5 mg PO BID 12/30/18 08/10/21 History Pantoprazole Sodium [Protonix] 40 mg PO DAILY@0600 12/30/18 08/09/21 History Venlafaxine HCl [Effexor XR] 75 mg PO DAILY@1700 12/30/18 08/09/21 History guaiFENesin [Mucinex] 1,200 mg PO BID@1200,1900 12/30/18 08/09/21 History Melatonin 5 mg PO HS@1900 04/02/19 08/09/21 History Metoprolol Succinate (ER) [Toprol 25 mg PO BID@0600,1900 04/02/19 08/09/21 History XL] allopurinoL [Zyloprim] 200 mg PO DAILY@1200 04/02/19 08/09/21 History Acetaminophen [Tylenol] 650 mg PO Q6H PRN 11/20/19 08/09/21 History Fluticasone Nasal [place] [Flonase 1 spray EA NOSTRIL DAILY@0600 11/20/19 08/09/21 History Nasal [place]] Ipratropium-Albuterol Nebulize 3 ml INHALATION RT-Q4H 11/20/19 08/09/21 History [Duoneb 0.5 mg-3 mg/3 ml Soln] Spironolactone 12.5 mg PO DAILY@0600 11/20/19 08/09/21 History amLODIPine [Norvasc] 5 mg PO BID@1200,1900 11/20/19 08/09/21 History Ascorbic Acid [Vitamin C] 500 mg PO DAILY@0600 07/28/21 08/09/21 History Brinzolamide/Brimonidine Tart 1 drop RIGHT EYE TID@10,15,07/28/21 08/09/21 History [Simbrinza 1%-0.2% Eye Drops] Ergocalciferol [Vitamin D2 (1250 1,250 mcg PO WE 07/28/21 08/09/21 History Mcg = 99789 Iu)] Latanoprostene Bunod [Vyzulta] 1 drop RIGHT EYE HS@1900 07/28/21 08/09/21 History Sevelamer [Renvela] 800 mg PO TID-W/MEALS 07/28/21 08/09/21 History Simvastatin 10 mg PO DAILY@1700 07/28/21 08/09/21 History Sodium Bicarbonate Tab 650 mg PO TID@0600,1200,1900 07/28/21 08/09/21 History Timolol [Betimol 0.5% Ophth Soln] 1 drop RIGHT EYE BID@1000,1900 07/28/21 08/09/21 History prednisoLONE ACETATE 1% OPHTH 1 drops RIGHT EYE QID@06,10,15,19 07/28/21 08/09/21 History [Pred Forte 1%] traMADol HCl [Ultram] 50 mg PO Q6H PRN #10 tab 07/31/21 08/09/21 Rx Furosemide [Lasix] 60 mg PO DAILY@0600 08/09/21 08/09/21 History Furosemide [Lasix] 60 mg PO Q48H 08/09/21 08/09/21 History Allergies Allergy/AdvReac Type Severity Reaction Status Date / Time torsemide Allergy Headache, Verified 08/09/21 21:47 coughing, urinary retention bandaids Allergy rash, ok Uncoded 07/28/21 11:45 to use papertape Surgical - Exam Vital Signs Temp Pulse Resp BP Pulse Ox 97.9 F 67 20 116/50 99 08/09/21 16:09 08/09/21 16:09 08/09/21 16:09 08/09/21 16:09 08/09/21 16:09 Results - Labs 08/09/21 23:00 08/10/21 05:38 Abnormal Lab Results - Last 24 Hours (Table) 08/09/21 08/09/21 08/09/21 Range/Units 20:52 20:52 23:00 RBC 3.17 L (4.30-5.90) m/uL Hgb 9.8 L (13.0-17.5) gm/dL Hct 30.3 L (39.0-53.0) % RDW 15.8 H (11.5-15.5) % Lymphocytes # 0.6 L (1.0-4.8) k/uL Sodium 124 L (137-145) mmol/L Chloride 88 L (98-107) mmol/L BUN 65 H (9-20) mg/dL Creatinine 5.42 H (0.66-1.25) mg/dL Glucose 103 H (74-99) mg/dL POC Glucose (mg/dL) (75-99) mg/dL Phosphorus 5.9 H (2.5-4.5) mg/dL Magnesium 3.1 H (1.6-2.3) mg/dL AST 13 L (17-59) U/L Urine Protein 1+ H (Negative) 08/10/21 08/10/21 08/10/21 Range/Units 01:36 05:38 07:02 RBC (4.30-5.90) m/uL Hgb (13.0-17.5) gm/dL Hct (39.0-53.0) % RDW (11.5-15.5) % Lymphocytes # (1.0-4.8) k/uL Sodium 130 L (137-145) mmol/L Chloride 92 L (98-107) mmol/L BUN 62 H (9-20) mg/dL Creatinine 5.41 H (0.66-1.25) mg/dL Glucose (74-99) mg/dL POC Glucose (mg/dL) 115 H 110 H (75-99) mg/dL Phosphorus 6.0 H (2.5-4.5) mg/dL Magnesium 3.1 H (1.6-2.3) mg/dL AST (17-59) U/L Urine Protein (Negative) Diabetes panel 08/09/21 08/10/21 Range/Units 20:52 05:38 Sodium 124 L 130 L (137-145) mmol/L Potassium 4.3 4.3 (3.5-5.1) mmol/L Chloride 88 L 92 L (98-107) mmol/L Carbon Dioxide 24 22 (22-30) mmol/L BUN 65 H 62 H (9-20) mg/dL Creatinine 5.42 H 5.41 H (0.66-1.25) mg/dL Glucose 103 H 75 (74-99) mg/dL Calcium 8.4 8.4 (8.4-10.2) mg/dL AST 13 L (17-59) U/L ALT 8 (4-49) U/L Alkaline Phosphatase 111 (38-126) U/L Total Protein 6.3 (6.3-8.2) g/dL Albumin 3.6 (3.5-5.0) g/dL Calcium panel 08/09/21 08/10/21 Range/Units 20:52 05:38 Calcium 8.4 8.4 (8.4-10.2) mg/dL Phosphorus 5.9 H 6.0 H (2.5-4.5) mg/dL Albumin 3.6 (3.5-5.0) g/dL Pituitary panel 08/09/21 08/10/21 Range/Units 20:52 05:38 Sodium 124 L 130 L (137-145) mmol/L Potassium 4.3 4.3 (3.5-5.1) mmol/L Chloride 88 L 92 L (98-107) mmol/L Carbon Dioxide 24 22 (22-30) mmol/L BUN 65 H 62 H (9-20) mg/dL Creatinine 5.42 H 5.41 H (0.66-1.25) mg/dL Glucose 103 H 75 (74-99) mg/dL Calcium 8.4 8.4 (8.4-10.2) mg/dL Adrenal panel 08/09/21 08/10/21 Range/Units 20:52 05:38 Sodium 124 L 130 L (137-145) mmol/L Potassium 4.3 4.3 (3.5-5.1) mmol/L Chloride 88 L 92 L (98-107) mmol/L Carbon Dioxide 24 22 (22-30) mmol/L BUN 65 H 62 H (9-20) mg/dL Creatinine 5.42 H 5.41 H (0.66-1.25) mg/dL Glucose 103 H 75 (74-99) mg/dL Calcium 8.4 8.4 (8.4-10.2) mg/dL Total Bilirubin 0.7 (0.2-1.3) mg/dL AST 13 L (17-59) U/L ALT 8 (4-49) U/L Alkaline Phosphatase 111 (38-126) U/L Total Protein 6.3 (6.3-8.2) g/dL Albumin 3.6 (3.5-5.0) g/dL
--- NOTE | 2021-08-10 11:35 | P.NPCON ---
History of Present Illness - Reason for Consult chronic renal failure, hyponatremia - History of Present Illness Patient is a 66-year-old male with CK D stage 5 and history of hyponatremia. He scheduled to have a PD catheter placed today. Patient is maintained on loop diuretics for volume overload as outpatient and has had episodes of hyponatremia which is easily corrected with saline. Serum sodium was 124 yesterday. Lasix is currently on hold and patient was started on saline and his sodium is improved to 130. No complaints of nausea vomiting abdominal pain or diarrhea Review of Systems As per HPI other systems negative. Past Medical History Past Medical History: Atrial Fibrillation, Blood Disorder, Heart Failure, CVA/TIA, Eye Disorder, GI Bleed, Hyperlipidemia, Hypertension, Pneumonia, Prostate Disorder, Renal Disease, Seizure Disorder, Sleep Apnea/CPAP/BIPAP Additional Past Medical History / Comment(s): Admitted to [facility] for low sodium of 120,sodium back up to 130 per and expected to be discharged today on 07-28-21,fluid restrictions of 1400cc/day.hx 05/15/18 CVA with L sided weakness/nondominent side treated in [facility], 05/16/18 aspiration pneumonia/respiratory failure/vented, 06/08/18 trached, peg tube, trach removed 07/16/18, pt went into Afib on 07/21/18 and started with episodes of feeling like something is in his throat which then leads to SOB episodes. "Beginnings of CHF." Hx GI Bleed august or September 2018. walks with short distance with jhonny-walker .Chronic Kidney Disease since CVA with hemodialysis- received last in Jan 2019. "Continues with weak kidneys." Uses Bipap. 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 Debridement right thumb.rt thumb abscess,glaucoma hortensia eyes,cataract removal hortensia eyes, rt eye "oil" removed and reinserted beginning of July" Past Anesthesia/Blood Transfusion Reactions: No Reported Reaction Additional Past Anesthesia/Blood Transfusion Reaction / Comment(s): Pt has received blood transfusion in past without reaction. hx trach w/ scar tissue- last procedure after breathing tube removed had feeling like he couldn't breathe-was given Valium with relief-no futher problems Past Psychological History: No Psychological Hx Reported Smoking Status: Never smoker Past Alcohol Use History: None Reported Past Drug Use History: None Reported - Past Family History Mother Family Medical History: Cancer Additional Family Medical History / Comment(s): Mother had stomach cancer, . Father Family Medical History: COPD, Myocardial Infarction (RI) Additional Family Medical History / Comment(s): Father had a massive RI at the age of 63 yrs. Medications and Allergies Home Medications Medication Instructions Recorded Confirmed Type Docusate [Colace] 100 mg PO DAILY@1200 08/25/18 08/09/21 History Finasteride [Proscar] 5 mg PO DAILY@1200 08/25/18 08/09/21 History Polyethylene Glycol 3350 [Miralax] 17 gm PO DAILY@1700 08/25/18 08/09/21 History Tamsulosin [Flomax] 0.4 mg PO DAILY@1200 08/25/18 08/09/21 History levETIRAcetam [Keppra] 500 mg PO BID@1200,1900 08/25/18 08/09/21 History Apixaban [Eliquis] 2.5 mg PO BID 12/30/18 08/10/21 History Pantoprazole Sodium [Protonix] 40 mg PO DAILY@0600 12/30/18 08/09/21 History Venlafaxine HCl [Effexor XR] 75 mg PO DAILY@1700 12/30/18 08/09/21 History guaiFENesin [Mucinex] 1,200 mg PO BID@1200,1900 12/30/18 08/09/21 History Melatonin 5 mg PO HS@19004/02/19 08/09/21 History Metoprolol Succinate (ER) [Toprol 25 mg PO BID@0600,1900 04/02/19 08/09/21 History XL] allopurinoL [Zyloprim] 200 mg PO DAILY@1200 04/02/19 08/09/21 History Acetaminophen [Tylenol] 650 mg PO Q6H PRN 11/20/19 08/09/21 History Fluticasone Nasal [place] [Flonase 1 spray EA NOSTRIL DAILY@0600 11/20/19 08/09/21 History Nasal [place]] Ipratropium-Albuterol Nebulize 3 ml INHALATION RT-Q4H 11/20/19 08/09/21 History [Duoneb 0.5 mg-3 mg/3 ml Soln] Spironolactone 12.5 mg PO DAILY@0600 11/20/19 08/09/21 History amLODIPine [Norvasc] 5 mg PO BID@1200,1900 11/20/19 08/09/21 History Ascorbic Acid [Vitamin C] 500 mg PO DAILY@0607/28/21 08/09/21 History Brinzolamide/Brimonidine Tart 1 drop RIGHT EYE TID@10,15,07/28/21 08/09/21 History [Simbrinza 1%-0.2% Eye Drops] Ergocalciferol [Vitamin D2 (1250 1,250 mcg PO WE 07/28/21 08/09/21 History Mcg = 50313 Iu)] Latanoprostene Bunod [Vyzulta] 1 drop RIGHT EYE HS@1900 07/28/21 08/09/21 History Sevelamer [Renvela] 800 mg PO TID-W/MEALS 07/28/21 08/09/21 History Simvastatin 10 mg PO DAILY@1700 07/28/21 08/09/21 History Sodium Bicarbonate Tab 650 mg PO TID@0600,1200,1900 07/28/21 08/09/21 History Timolol [Betimol 0.5% Ophth Soln] 1 drop RIGHT EYE BID@1000,1900 07/28/21 08/09/21 History prednisoLONE ACETATE 1% OPHTH 1 drops RIGHT EYE QID@06,10,15,07/28/21 08/09/21 History [Pred Forte 1%] traMADol HCl [Ultram] 50 mg PO Q6H PRN #10 tab 07/31/21 08/09/21 Rx Furosemide [Lasix] 60 mg PO DAILY@0600 08/09/21 08/09/21 History Furosemide [Lasix] 60 mg PO Q48H 08/09/21 08/09/21 History Allergies Allergy/AdvReac Type Severity Reaction Status Date / Time torsemide Allergy Headache, Verified 08/09/21 21:47 coughing, urinary retention bandaids Allergy rash, ok Uncoded 07/28/21 11:45 to use papertape Physical Exam Vitals: Vital Signs Temp Pulse Pulse Resp BP BP Pulse Ox 08/10/21 08:00 97.7 F 60 16 136/74 96 08/10/21 06:22 97.9 F 61 16 147/79 100 08/10/21 01:32 66 18 140/74 96 08/09/21 21:08 66 14 154/75 99 08/09/21 16:09 97.9 F 67 20 116/50 99 Intake and Output 08/09/21 08/10/21 08/10/21 22:59 06:59 14:59 Output Total 175 Balance -175 Output: Urine 175 Other: Weight 81.647 kg 81.647 kg Patient is comfortable, sleeping but arousable Examination of the heart S1 and S2 Examination of the lungs bilateral breath sounds are heard Abdomen is soft nontender Examination of the lower extremities shows ankle edema 1+ bilaterally [employer] exam grossly intact Results - Lab Results Most recent lab results Calcium 8.4 mg/dL (8.4-10.2) 08/10/21 05:38 Phosphorus 6.0 mg/dL (2.5-4.5) H 08/10/21 05:38 Magnesium 3.1 mg/dL (1.6-2.3) H 08/10/21 05:38 08/09/21 23:00 08/10/21 05:38 Assessment and Plan Assessment: 1. CK D stage IV secondary to nephrosclerosis. Renal function at baseline. Schedule for PD catheter placement today. 2. Hyponatremia, hypovolemic and improved with saline 3. CK D mineral bone disorder 4. History of recent CVA with some residual left-sided weakness 5. Umbilicus hernia scheduled for umbilical herniorrhaphy and PD catheter placement today Plan: Continue with saline Hold off on loop diuretics for now Monitor labs frequently as outpatient Monitor potassium closely with initiation of Aldactone given the advanced renal failure. Repeat labs in a.m.
[2021-08-10 11:53] LABS: Glucose,Whole Blood 91 mg/dL (75-99)
[2021-08-10] MEDS ORDERED: SODIUM CHLORIDE 0.9% 1,000 ML IV ONE (13:17)
[2021-08-10] MEDS ORDERED: NEOSTIGMINE 1 MG/ML 10 ML VIAL ONE (13:34)
[2021-08-10] MEDS ORDERED: GLYCOPYRROLATE 0.2 MG/ML 2 ML VIAL ONE (13:34)
[2021-08-10] MEDS ORDERED: LIDOCAINE 2% INJ 20 MG/ML (2 ML VIAL) ONE (13:34)
[2021-08-10] MEDS ORDERED: fentaNYL (PF) 50 MCG/ML 2 ML AMP ONE (13:34)
[2021-08-10] MEDS ORDERED: PROPOFOL 10 MG/ML 20 ML VIAL IV ONE (13:34)
[2021-08-10] MEDS ORDERED: ROCURONIUM 10 MG/ML (5 ML VIAL) IV ONE (13:34)
[2021-08-10] MEDS ORDERED: MINERAL OIL 1 APPLIC/ML OIL MISCELLANE ONE (13:39)
[2021-08-10] MEDS ORDERED: BUPIVACAINE (PF) 0.25% 30 ML VIAL SQ ONE (13:39)
[2021-08-10] MEDS ORDERED: ceFAZolin 1,000 MG VIAL IVPB ONE (14:05)
[2021-08-10] MEDS ORDERED: ALBUTEROL NEBULIZED 2.5 MG/3 ML INHALATION ONE (15:37)
[2021-08-10] MEDS ORDERED: HYDROcodone/APAP 5-325MG 1 EACH TAB PO PRN (15:43)
[2021-08-10] MEDS ORDERED: HYDROmorphone 0.5 MG/0.5 ML SYRINGE IVP PRN (15:44)
[2021-08-10] MEDS ORDERED: RACEPINEPHRINE 2.25% NEB 0.5 ML NEBU INHALATION ONE (15:46)
--- NOTE | 2021-08-10 15:49 | P.OP ---
Date of Procedure: 08/10/21 Procedure(s) Performed: PREOPERATIVE DIAGNOSIS: Renal failure, incarcerated umbilical hernia POSTOPERATIVE DIAGNOSIS: Same, suspected urinary retention PROCEDURE: Peritoneal dialysis catheter insertion, repair incarcerated umbilical hernia with mesh, diagnostic laparoscopy SURGEON: Cony EBL: Minimal ANESTHESIA: Sedation plus local COMPLICATIONS: None OPERATIVE PROCEDURE: The patient was placed in the operative table in the supine position. The abdomen was prepped and draped in usual sterile fashion. A curvilinear left-sided periumbilical incision was made using the scalpel. The patient's hernia sac was dissected down to the level of the fascia where it was excised. The omentum was reduced back into the perineal cavity. The preperitoneal space was dissected using electrocautery. The 4.3 cm ventral X mesh was placed beneath the fascia and sutured to the fascia using trans-fascial 0 Ethibond sutures. The overlying defect was closed horizontally using interrupted horizontal mattress 0 Ethibond sutures. The folding edge was sutured down using 0 Ethibond sutures as well. The umbilicus was sutured down using a 3-0 Vicryl suture. The subcutaneous tissues were closed using 3-0 Vicryl sutures. The skin was closed using a running 4-0 Monocryl stitch. We then proceeded with the dialysis catheter placement. A small vertical incision was made in the right midabdomen location. Dissection down through the subcutaneous tissues took place using electrocautery. The anterior rectus was divided vertically using the scalpel. The rectus was bluntly. The posterior rectus was visualized. An 0 Vicryl pursestring was placed. A small opening in the posterior rectus fascia and peritoneum took place using a Metzenbaum scissors. There were no adhesions to the suture that was placed. The pigtail catheter was advanced into the abdomen. After traveling about 4 cm inferiorly some resistance was met. The patient had no prior surgeries there to explain adhesions. As I was palpating with the Russians forceps I was palpating some fullness there. I decided to place a 10 mm trocar through our defect in the peritoneum and proceed with laparoscopy. Insufflation took place up to 15 mmHg. The patient was placed in Trendelenburg. The patient had what appeared to represent a significantly dilated bladder. I was able to advance the catheter posterior to the preperitoneal fullness/suspected distended bladder. The inner cuff was sutured to the fascia using an 0 Vicryl pursestring suture. The catheter was tunneled to a separate incision in the right lateral lower quadrant. The catheter was connected to a 1 L bag of saline and approximated 800 mL of saline was easily introduced into the peritoneal cavity. The fluid was then allowed to evacuate. The majority of the fluid was returned. The anterior rectus fascia was then reapproximated using a running 0 Vicryl stitch. The subcutaneous tissues reprepped using 3-0 Vicryl sutures and the skin using 4-0 Monocryl sutures. The outpatient dialysis adapter was applied to the end of the catheter. Sterile dressings were then applied after skin glue was placed over the incision. DISPOSITION: Stable to recovery room
[2021-08-10 15:57] LABS: Glucose,Whole Blood 113 mg/dL (75-99)
[2021-08-10 17:02] LABS: Glucose,Whole Blood 117 mg/dL (75-99)
[2021-08-10] MEDS: ACETAMINOPHEN TAB 325 MG TAB PO PRN (17:12)
[2021-08-10] MEDS ORDERED: traMADol 50 MG TAB PO PRN ×2 (18:16→19:36)
--- NOTE | 2021-08-10 19:39 | P.HPIM ---
History of Present Illness H&P Date: 08/10/21 Chief Complaint: Abnormal labs This is a 66-year-old patient who follows with Dr. Sebas Alejandre. Extensive medical history with chronic medical conditions including atrial fibrillation, CHF, hypertension, hyperlipidemia, kidney disease, seizure disorder, sleep apnea, stroke with some left-sided weakness, did receive hemodialysis in 2019. Uses BiPAP. Peripheral neuropathy does use a walker. Patient was sent in by Dr. Rosales from general surgery as per was supposed to padilla ve a dialysis catheter placed. His electrolytes were off. Patient did undergo today. On his dialysis catheter insertion, with repair of incarcerated umbilical hernia with mesh by Dr. Rosales. Postprocedure patient rather sleepy. Not able to give much of a history. Review of systems: Cannot obtain patient other sleepy after surgery. Past medical history to include: Atrial fibrillation, blood disorder, CHF, stroke, GI bleed, hypertension, hyperlipidemia, prostate disorder, seizure disorder, sleep apnea, BiPAP, does use a hemiwalker. Social history No smoking or alcohol. At [facility]. Family history: Mother had stomach cancer Physical examination: VITAL SIGNS: Afebrile, 70, 16, 139 with 77, 90% GENERAL: BMI 26.6, laying in bed sleepy. EYES: Pupils equal. Conjunctiva normal. HEENT: External appearance of nose and ears normal, oral cavity grossly normal. NECK: JVD not raised; masses not palpable. HEART: First and second heart sounds are normal; no edema. LUNGS: Respiratory rate normal; clear to auscultation. ABDOMEN: Soft, dressing over PD catheter, nontender, liver spleen not palpable, no masses palpable. PSYCH: [Unable to assess patient's sleepy MUSCULOSKELETAL:No Clubbing/cyanosis;muscles-grossly intact NEUROLOGICAL: Cranial nerves grossly intact; no facial asymmetry, power and sensation grossly intact. LYMPHATICS: No lymph nodes palpable in the axilla and neck INVESTIGATIONS, reviewed in the clinical context: White count 5.4 hemoglobin 9.8 platelets 318 sodium 1:30 potassium 4.3 BUN 62 creatinine 5.41 phosphorus 6 EKG tracing personally reviewed by me-normal sinus rhythm Assessment and plan: -Incarcerated umbilical hernia Repair with mesh by Dr. Rosales -Peritoneal dialysis catheter insertion -CK D stage III for secondary to nephrosclerosis. PD catheter placed -Hyponatremia, hypovolemic Saline -CK D minimal bone disease Vitamin D2. Renvela -Mild left hemiparesis from stroke Fall precautions -Depression Fracture on XL 75 mg a day -BPH Flomax 0.4 mg a day Proscar 5 mg a day -Hyperlipidemia Simvastatin 10 mg a day -GERD Protonix 40 mg a day -Essential hypertension Toprol-XL 25 mg twice a day. Amlodipine 5 mg twice a day -Seizure disorder Keppra 500 mg twice a day Home medications to be resumed. Hold eliquis until okay with surgery. Postop orders per Dr. Rosales. Follow with nephrology. Given the complexity and severity of patient's condition expect the patient to be in the hospital at least for 2 overnights Past Medical History Past Medical History: Atrial Fibrillation, Blood Disorder, Heart Failure, CVA/TIA, Eye Disorder, GI Bleed, Hyperlipidemia, Hypertension, Pneumonia, Prostate Disorder, Renal Disease, Seizure Disorder, Sleep Apnea/CPAP/BIPAP Additional Past Medical History / Comment(s): Admitted to [facility] for low sodium of 120,sodium back up to 130 per and expected to be discharged today on 07-28-21,fluid restrictions of 1400cc/day.hx 05/15/18 CVA with L sided weakness/nondominent side treated in [facility], 05/16/18 aspiration pneumonia/respiratory failure/vented, 06/08/18 trached, peg tube, trach removed 07/16/18, pt went into Afib on 07/21/18 and started with episodes of feeling like something is in his throat which then leads to SOB episodes. "Beginnings of CHF." Hx GI Bleed august or September 2018. walks with short distance with jhonny-walker .Chronic Kidney Disease since CVA with hemodialysis- received last in Jan 2019. "Continues with weak kidneys." Uses Bipap. 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 Debridement right thumb.rt thumb abscess,glaucoma hortensia eyes,cataract removal hortensia eyes, rt eye "oil" removed and reinserted beginning of July" Past Anesthesia/Blood Transfusion Reactions: No Reported Reaction Additional Past Anesthesia/Blood Transfusion Reaction / Comment(s): Pt has received blood transfusion in past without reaction. hx trach w/ scar tissue- last procedure after breathing tube removed had feeling like he couldn't breathe-was given Valium with relief-no futher problems Past Psychological History: No Psychological Hx Reported Smoking Status: Never smoker Past Alcohol Use History: None Reported Past Drug Use History: None Reported - Past Family History Mother Family Medical History: Cancer Additional Family Medical History / Comment(s): Mother had stomach cancer, . Father Family Medical History: COPD, Myocardial Infarction ([place]) Additional Family Medical History / Comment(s): Father had a massive [place] at the age of 63 yrs. Medications and Allergies Home Medications Medication Instructions Recorded Confirmed Type Docusate [Colace] 100 mg PO DAILY@1200 08/25/18 08/09/21 History Finasteride [Proscar] 5 mg PO DAILY@1200 08/25/18 08/09/21 History Polyethylene Glycol 3350 [Miralax] 17 gm PO DAILY@1700 08/25/18 08/09/21 History Tamsulosin [Flomax] 0.4 mg PO DAILY@1200 08/25/18 08/09/21 History levETIRAcetam [Keppra] 500 mg PO BID@1200,1900 08/25/18 08/09/21 History Apixaban [Eliquis] 2.5 mg PO BID 12/30/18 08/10/21 History Pantoprazole Sodium [Protonix] 40 mg PO DAILY@0600 12/30/18 08/09/21 History Venlafaxine HCl [Effexor XR] 75 mg PO DAILY@1700 12/30/18 08/09/21 History guaiFENesin [Mucinex] 1,200 mg PO BID@1200,1900 12/30/18 08/09/21 History Melatonin 5 mg PO HS@1900 04/02/19 08/09/21 History Metoprolol Succinate (ER) [Toprol 25 mg PO BID@0600,1900 04/02/19 08/09/21 History XL] allopurinoL [Zyloprim] 200 mg PO DAILY@1200 04/02/19 08/09/21 History Acetaminophen [Tylenol] 650 mg PO Q6H PRN 11/20/19 08/09/21 History Fluticasone Nasal [place] [Flonase 1 spray EA NOSTRIL DAILY@0611/20/19 08/09/21 History Nasal [place]] Ipratropium-Albuterol Nebulize 3 ml INHALATION RT-Q4H 11/20/19 08/09/21 History [Duoneb 0.5 mg-3 mg/3 ml Soln] Spironolactone 12.5 mg PO DAILY@0611/20/19 08/09/21 History amLODIPine [Norvasc] 5 mg PO BID@1200,1900 11/20/19 08/09/21 History Ascorbic Acid [Vitamin C] 500 mg PO DAILY@59907/28/21 08/09/21 History Brinzolamide/Brimonidine Tart 1 drop RIGHT EYE TID@10,15,07/28/21 08/09/21 History [Simbrinza 1%-0.2% Eye Drops] Ergocalciferol [Vitamin D2 (1250 1,250 mcg PO WE 07/28/21 08/09/21 History Mcg = 73741 Iu)] Latanoprostene Bunod [Vyzulta] 1 drop RIGHT EYE HS@189907/28/21 08/09/21 History Sevelamer [Renvela] 800 mg PO TID-W/MEALS 07/28/21 08/09/21 History Simvastatin 10 mg PO DAILY@1700 07/28/21 08/09/21 History Sodium Bicarbonate Tab 650 mg PO TID@0600,1200,1900 07/28/21 08/09/21 History Timolol [Betimol 0.5% Ophth Soln] 1 drop RIGHT EYE BID@1000,0 07/28/21 08/09/21 History prednisoLONE ACETATE 1% OPHTH 1 drops RIGHT EYE QID@06,10,15,19 07/28/21 08/09/21 History [Pred Forte 1%] traMADol HCl [Ultram] 50 mg PO Q6H PRN #10 tab 07/31/21 08/09/21 Rx Furosemide [Lasix] 60 mg PO DAILY@0600 08/09/21 08/09/21 History Furosemide [Lasix] 60 mg PO Q48H 08/09/21 08/09/21 History Allergies Allergy/AdvReac Type Severity Reaction Status Date / Time torsemide Allergy Headache, Verified 08/09/21 21:47 coughing, urinary retention bandaids Allergy rash, ok Uncoded 07/28/21 11:45 to use papertape Physical Exam Vitals: Vital Signs Temp Pulse Pulse Resp BP BP Pulse Ox 08/10/21 08:00 97.7 F 60 16 136/74 96 08/10/21 06:22 97.9 F 61 16 147/79 100 08/10/21 01:32 66 18 140/74 96 08/09/21 21:08 66 14 154/75 99 08/09/21 16:09 97.9 F 67 20 116/50 99 Intake and Output 08/09/21 08/10/21 08/10/21 22:59 06:59 14:59 Output Total 175 Balance -175 Output: Urine 175 Other: Weight 81.647 kg 81.647 kg Results CBC & Chem 7: 08/09/21 23:00 08/10/21 05:38 Labs: Abnormal Lab Results - Last 24 Hours (Table) 08/09/21 08/09/21 08/09/21 Range/Units 20:52 20:52 23:00 RBC 3.17 L (4.30-5.90) m/uL Hgb 9.8 L (13.0-17.5) gm/dL Hct 30.3 L (39.0-53.0) % RDW 15.8 H (11.5-15.5) % Lymphocytes # 0.6 L (1.0-4.8) k/uL Sodium 124 L (137-145) mmol/L Chloride 88 L (98-107) mmol/L BUN 65 H (9-20) mg/dL Creatinine 5.42 H (0.66-1.25) mg/dL Glucose 103 H (74-99) mg/dL POC Glucose (mg/dL) (75-99) mg/dL Phosphorus 5.9 H (2.5-4.5) mg/dL Magnesium 3.1 H (1.6-2.3) mg/dL AST 13 L (17-59) U/L Urine Protein 1+ H (Negative) 08/10/21 08/10/21 08/10/21 Range/Units 01:36 05:38 07:02 RBC (4.30-5.90) m/uL Hgb (13.0-17.5) gm/dL Hct (39.0-53.0) % RDW (11.5-15.5) % Lymphocytes # (1.0-4.8) k/uL Sodium 130 L (137-145) mmol/L Chloride 92 L (98-107) mmol/L BUN 62 H (9-20) mg/dL Creatinine 5.41 H (0.66-1.25) mg/dL Glucose (74-99) mg/dL POC Glucose (mg/dL) 115 H 110 H (75-99) mg/dL Phosphorus 6.0 H (2.5-4.5) mg/dL Magnesium 3.1 H (1.6-2.3) mg/dL AST (17-59) U/L Urine Protein (Negative)
[2021-08-10 19:42] VITALS: RESP 17
--- NOTE | 2021-08-10 20:44 | XR ---
EXAMINATION TYPE: XR chest 1V portable DATE OF EXAM: 08/10/2021 8:02 PM COMPARISON: Multiple radiographs, with the most recent on 11/21/2019. TECHNIQUE: XR chest 1V portable Frontal view of the chest. CLINICAL INDICATION:Male, 66 years old with history of Chest pain; FINDINGS: Lungs/Pleura: There is no evidence of pleural effusion, focal consolidation, or pneumothorax. Pulmonary vascularity: Pulmonary vascular congestion. Heart/mediastinum: Cardiomediastinal silhouette is enlarged and stable. Musculoskeletal: No acute osseous pathology. IMPRESSION: Pulmonary vascular congestion most pronounced on the right, correlate for congestive heart failure.
[2021-08-10 20:45] LABS: Glucose,Whole Blood 101 mg/dL (75-99)
[2021-08-10] MEDS ORDERED: ATORVASTATIN 10 MG TAB PO SCH (21:00)
[2021-08-10] MEDS ORDERED: VENLAFAXINE HCL ER 75 MG CAP PO SCH (21:00)
[2021-08-10] MEDS: METOPROLOL SUCCINATE (ER) 25 MG TAB.ER.24H PO SCH (21:00)
[2021-08-10] MEDS: IPRATROPIUM-ALBUTEROL 3 ML NEB INHALATION SCH (21:14)
[2021-08-11] MEDS: IPRATROPIUM-ALBUTEROL 3 ML NEB INHALATION SCH ×5 (01:00→16:14)
[2021-08-11 03:44] LABS: Glucose,Whole Blood 94 mg/dL (75-99)
[2021-08-11] MEDS: ACETAMINOPHEN TAB 325 MG TAB PO PRN ×2 (03:48→11:43)
[2021-08-11] MEDS: SODIUM BICARBONATE TAB 650 MG TAB PO SCH ×2 (05:29→12:28)
[2021-08-11] MEDS: METOPROLOL SUCCINATE (ER) 25 MG TAB.ER.24H PO SCH (05:29)
[2021-08-11] MEDS: prednisoLONE ACETATE 1% OPHTH DROPS 5 ML BTL RIGHT EYE SCH ×3 (05:32→16:06)
[2021-08-11] MEDS ORDERED: PANTOPRAZOLE 40 MG TABLET PO SCH (06:00)
[2021-08-11] MEDS ORDERED: ASCORBIC ACID 500 MG TAB PO SCH (06:00)
[2021-08-11] MEDS: SODIUM CHLORIDE 0.9% 1,000 ML IV SCH (06:58)
[2021-08-11 07:20] LABS: Glucose,Whole Blood 91 mg/dL (75-99)
[2021-08-11] MEDS: DOCUSATE 100 MG CAP PO SCH (07:23)
[2021-08-11] MEDS: allopurinoL 100 MG TAB PO SCH (07:23)
[2021-08-11] MEDS: TAMSULOSIN 0.4 MG CAP.ER.24H PO SCH (07:24)
[2021-08-11] MEDS: SPIRONOLACTONE 25 MG TAB PO SCH (07:24)
[2021-08-11] MEDS: amLODIPine 5 MG TAB PO SCH (07:24)
[2021-08-11] MEDS: FINASTERIDE 5 MG TAB PO SCH (07:24)
[2021-08-11] MEDS: SEVELAMER 800 MG TAB PO SCH ×2 (07:25→12:28)
[2021-08-11] MEDS: levETIRAcetam 500 MG TAB PO SCH (07:25)
[2021-08-11] MEDS: TIMOLOL 0.5% OPHTH DROPS 5 ML BTL RIGHT EYE SCH (07:27)
[2021-08-11] MEDS: DORZOLAMIDE HCL 2% DROPS 10 ML BTL RIGHT EYE SCH (07:27)
[2021-08-11] MEDS: BRIMONIDINE TARTRATE 0.2% DROPS 5 ML BTL RIGHT EYE SCH (07:28)
[2021-08-11] MEDS: FLUTICASONE 50MCG/SPRAY NASAL 16GM EA NOSTRIL SCH (07:28)
--- NOTE | 2021-08-11 10:35 | P.PN ---
Subjective Patient is seen for follow-up for CK D stage V Patient is status post peritoneal dialysis catheter insertion, repair of incarcerated umbilical hernia with mesh and diagnostic laparoscopy. This morning he is comfortable, complaining of mild abdominal pain Maintained on IV fluids. Labs are pending from today Objective - Vital Signs Vital signs: Vital Signs Temp 98.3 F 08/11/21 07:54 Pulse 69 08/11/21 07:54 Resp 17 08/11/21 07:25 BP 165/83 08/11/21 07:54 Pulse Ox 98 08/11/21 07:54 FiO2 Intake & Output 08/10/21 08/11/21 08/11/21 18:59 06:59 18:59 Intake Total 500 Output Total 230 1200 Balance 270 -1200 Intake: IV 500 Output: Urine 225 1200 Estimated Blood Loss 5 Other: Voiding Method Urinal Indwelling Catheter Indwelling Catheter - Exam Awake, comfortable, not in any acute distress Examination of the heart S1 and S2 Examination lungs bilateral breath sounds are heard Abdomen is soft mild tenderness noted Examination lower extremity shows no significant edema RIBBON WINDER exam grossly intact - Labs CBC & Chem 7: 08/09/21 23:00 08/10/21 05:38 Labs: Abnormal Lab Results - Last 24 Hours (Table) 08/10/21 08/10/21 08/10/21 Range/Units 15:55 17:01 20:43 POC Glucose (mg/dL) 113 H 117 H 101 H (75-99) mg/dL Assessment and Plan Assessment: 1. CK D stage IV secondary to nephrosclerosis. Renal function at baseline. Status post PD catheter placement yesterday on 08/11/2019 to 2. Hyponatremia, hypovolemic and improved with saline 3. CK D mineral bone disorder 4. History of recent CVA with some residual left-sided weakness 5. Umbilicus hernia status post repair of incarcerated umbilical hernia with mesh on 08/11/2019 to Plan: Check labs today May continue with the saline until patient is eating.
[2021-08-11 11:37] LABS: Glucose,Whole Blood 139 mg/dL (75-99)
[2021-08-11] MEDS ORDERED: guaiFENesin 600 MG TABLET.ER PO SCH (12:15)
[2021-08-11 12:18] LABS: African American GFR (CKD) 13 (>60 ml/min/1.73 sqM); Anion Gap 14 mmol/L; Blood Urea Nitrogen 56 mg/dL (9-20); Calcium 8.5 mg/dL (8.4-10.2); Carbon Dioxide 19 mmol/L (22-30); Chloride 99 mmol/L (98-107); Glucose 113 mg/dL (74-99); Non-African American GFR(CKD) 11 (>60 ml/min/1.73 sqM); Potassium 4.5 mmol/L (3.5-5.1); Sodium 132 mmol/L (137-145)
--- NOTE | 2021-08-11 12:58 | P.PN ---
Subjective Progress Note Date: 08/11/21 CHIEF COMPLAINT: Renal failure, incarcerated umbilical hernia and suspected urinary retention HISTORY OF PRESENT ILLNESS: Patient is postop day #1 status post peritoneal dialysis catheter insertion, repair of incarcerated umbilical hernia with mesh, diagnostic laparoscopy. Patient lying in bed comfortably. He has his CPAP on. He denies any abdominal pain. Denies any nausea or vomiting. No flatus. Has Sorenson catheter in place with good urine output and light yellow in color. Afebrile. Sodium is 132 potassium is 4.5 creatinine is down from 5.41-5.04. Chest x-ray showing pulmonary vascular congestion most pronounced on the right, correlate for congestive heart failure. Patient is followed by cardiology service PHYSICAL EXAM: VITAL SIGNS: Reviewed. GENERAL: Well-developed in no acute distress. HEENT: No sclera icterus. Extraocular movements grossly intact. Moist buccal mucosa. Head is atraumatic, normocephalic. ABDOMEN: Soft. Nondistended. Nontender. Dressing with some mild saturation in the lower heart of the dressing and on the right side of the dressing NEUROLOGIC: Alert and oriented. Cranial nerves II through XII grossly intact. ASSESSMENT: 1. Incarcerated umbilical hernia 2. Renal failure 3. Suspected urinary retention 4. Hyponatremia improving PLAN: -Continue renal diet -Continue supportive care -Continue pain medication as needed -Okay to resume Eliquis tomorrow, 08/12/21 from surgical standpoint Physician Structures Engineer note has been reviewed by physician. Signing provider agrees with the documented findings, assessment, and plan of care. I have personally seen and examined the patient, reviewed the LIBRARY ACQUISITIONS TECHNICIAN /PAs history, exam and MDM and agree with the assessment and plan as written. Based on total visit time, I have performed more than 50% of the visit. As above: Patient doing well today. No significant pain. Dressing with small amount of strikethrough. Nontender. May discharge from our standpoint. Decision regarding Sorenson catheter for urinary retention per nephrology. Objective - Vital Signs Vital signs: Vital Signs Temp 98.3 F 08/11/21 07:54 Pulse 78 08/11/21 11:30 Resp 17 08/11/21 07:25 BP 165/83 08/11/21 07:54 Pulse Ox 98 08/11/21 07:54 FiO2 Intake & Output 08/10/21 08/11/21 08/11/21 18:59 06:59 18:59 Intake Total 500 Output Total 230 1200 Balance 270 -1200 Intake: IV 500 Output: Urine 225 1200 Estimated Blood Loss 5 Other: Voiding Method Urinal Indwelling Catheter Indwelling Catheter - Labs CBC & Chem 7: 08/09/21 23:00 08/11/21 11:31 Labs: Abnormal Lab Results - Last 24 Hours (Table) 08/10/21 08/10/21 08/10/21 Range/Units 15:55 17:01 20:43 Sodium (137-145) mmol/L Carbon Dioxide (22-30) mmol/L BUN (9-20) mg/dL Creatinine (0.66-1.25) mg/dL Glucose (74-99) mg/dL POC Glucose (mg/dL) 113 H 117 H 101 H (75-99) mg/dL 08/11/21 08/11/21 Range/Units 11:31 11:35 Sodium 132 L (137-145) mmol/L Carbon Dioxide 19 L (22-30) mmol/L BUN 56 H (9-20) mg/dL Creatinine 5.04 H (0.66-1.25) mg/dL Glucose 113 H (74-99) mg/dL POC Glucose (mg/dL) 139 H (75-99) mg/dL
--- NOTE | 2021-08-11 13:15 | P.CRDCN ---
History of Present Illness Consult date: 08/11/21 History of present illness: HISTORY OF PRESENT ILLNESS: This is a 66-year-old male with a past medical history significant for paroxysmal atrial fibrillation, hypertension, and hyperlipidemia. Patient follows in the office with Dr. Etienne. We have been asked to see the patient in consultation for chest pain. Patient examined at the bedside. Patient is status post peritoneal dialysis catheter insertion, repair of incarcerated umbilical hernia with mesh, and diagnostic laparoscopy. Patient denies having any chest pain last night or this morning. He denies SOB. He reports he is feeling well today. His Eliquis remains on hold. * EKG reveals sinus mechanism with left axis deviation * Chest xray pulmonary vascular congestion most pronounced on the right * Laboratory data: W BC 5.4. Hemoglobin 9.8. Platelet count 318. Sodium 132. Potassium 4.5. BUN 56. Creatinine 5.04. * Current home cardiac medications include Eliquis 2.5 mg twice a day, Lasix 60 mg daily and 60 mg every 48 hours, spironolactone 12.5 mg daily, simvastatin 10 mg daily, metoprolol succinate 25 mg twice a day, Norvasc 5 mg twice a day * Most recent echocardiogram obtained in the office in November 2020 revealed normal ejection fraction, mild AR, mild MR REVIEW OF SYSTEMS: At the time of my exam: CONSTITUTIONAL: Denies fever or chills. HEENT: Denies blurred vision, vision changes, or eye pain. Denies hemoptysis CARDIOVASCULAR: Denies chest pain. Denies orthopnea. Denies PND. Denies palpitations RESPIRATORY: Denies shortness of breath. GASTROINTESTINAL: Denies abdominal pain. Denies nausea or vomiting. HEMATOLOGIC: Denies bleeding disorders. GENITOURINARY: Denies any blood in urine. SKIN: Denies pruitis. Denies rash. PHYSICAL EXAM: VITAL SIGNS: Reviewed. GENERAL: Well-developed in no acute distress. HEENT: Head is normocephalic. Pupils are equal, round. Sclerae anicteric. Mucous membranes of the mouth are moist. Neck supple. No JVD or thyromegaly LUNGS: Respirations even and unlabored. Lungs essentially clear to auscultation bilaterally. HEART: Regular rate and rhythm. S1 and S2 heard. ABDOMEN: Soft. Nondistended. Nontender. EXTREMITIES: Normal range of motion. No clubbing or cyanosis. Peripheral pulses intact. No lower extremity edema NEUROLOGIC: Awake and alert. Oriented x 3. ASSESSMENT: Incarcerated umbilical hernia, status post surgical repair Status post peritoneal dialysis catheter insertion Chest pain, ruled out, patient denies ever having any chest pain Paroxysmal atrial fibrillation Hypertension Hyperlipidemia PLAN: Patient without any complaints of chest pain or pressure We will obtain 2D echo to assess cardiac structure and function Patient to resume Eliquis tomorrow per surgical services No further inpatient recommendations from a cardiac standpoint Nurse practitioner note has been reviewed by physician. Signing provider agrees with the documented findings, assessment, and plan of care. 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 "Beginnings of CHF." Hx GI Bleed august or September 2018. walks with short distance with jhonny-walker .Chronic Kidney Disease since CVA with hemodialysis- received last in Jan 2019. "Continues with weak kidneys." Uses Bipap. 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 Debridement right thumb.rt thumb abscess,glaucoma hortensia eyes,cataract removal hortensia eyes, rt eye "oil" removed and reinserted beginning of July" Past Anesthesia/Blood Transfusion Reactions: No Reported Reaction Additional Past Anesthesia/Blood Transfusion Reaction / Comment(s): Pt has received blood transfusion in past without reaction. hx trach w/ scar tissue- last procedure after breathing tube removed had feeling like he couldn't breathe-was given Valium with relief-no futher problems Past Psychological History: No Psychological Hx Reported Smoking Status: Never smoker Past Alcohol Use History: None Reported Past Drug Use History: None Reported - Past Family History Mother Family Medical History: Cancer Additional Family Medical History / Comment(s): Mother had stomach cancer, . Father Family Medical History: COPD, Myocardial Infarction (NM) Additional Family Medical History / Comment(s): Father had a massive NM at the age of 63 yrs. Medications and Allergies Home Medications Medication Instructions Recorded Confirmed Type Docusate [Colace] 100 mg PO DAILY@1200 08/25/18 08/09/21 History Finasteride [Proscar] 5 mg PO DAILY@1200 08/25/18 08/09/21 History Polyethylene Glycol 3350 [Miralax] 17 gm PO DAILY@1700 08/25/18 08/09/21 History Tamsulosin [Flomax] 0.4 mg PO DAILY@1200 08/25/18 08/09/21 History levETIRAcetam [Keppra] 500 mg PO BID@1200,1900 08/25/18 08/09/21 History Apixaban [Eliquis] 2.5 mg PO BID 12/30/18 08/10/21 History Pantoprazole Sodium [Protonix] 40 mg PO DAILY@0600 12/30/18 08/09/21 History Venlafaxine HCl [Effexor XR] 75 mg PO DAILY@1700 12/30/18 08/09/21 History guaiFENesin [Mucinex] 1,200 mg PO BID@1200,1900 12/30/18 08/09/21 History Melatonin 5 mg PO HS@189904/02/19 08/09/21 History Metoprolol Succinate (ER) [Toprol 25 mg PO BID@0600,1900 04/02/19 08/09/21 History XL] allopurinoL [Zyloprim] 200 mg PO DAILY@1200 04/02/19 08/09/21 History Acetaminophen [Tylenol] 650 mg PO Q6H PRN 11/20/19 08/09/21 History Fluticasone Nasal [place] [Flonase 1 spray EA NOSTRIL DAILY@0611/20/19 08/09/21 History Nasal [place]] Ipratropium-Albuterol Nebulize 3 ml INHALATION RT-Q4H 11/20/19 08/09/21 History [Duoneb 0.5 mg-3 mg/3 ml Soln] Spironolactone 12.5 mg PO DAILY@0611/20/19 08/09/21 History amLODIPine [Norvasc] 5 mg PO BID@1200,1900 11/20/19 08/09/21 History Ascorbic Acid [Vitamin C] 500 mg PO DAILY@0607/28/21 08/09/21 History Brinzolamide/Brimonidine Tart 1 drop RIGHT EYE TID@10,15,07/28/21 08/09/21 History [Simbrinza 1%-0.2% Eye Drops] Ergocalciferol [Vitamin D2 (1250 1,250 mcg PO WE 07/28/21 08/09/21 History Mcg = 03602 Iu)] Latanoprostene Bunod [Vyzulta] 1 drop RIGHT EYE HS@1900 07/28/21 08/09/21 History Sevelamer [Renvela] 800 mg PO TID-W/MEALS 07/28/21 08/09/21 History Simvastatin 10 mg PO DAILY@1700 07/28/21 08/09/21 History Sodium Bicarbonate Tab 650 mg PO TID@0600,1200,1900 07/28/21 08/09/21 History Timolol [Betimol 0.5% Ophth Soln] 1 drop RIGHT EYE BID@1000,1900 07/28/21 08/09/21 History prednisoLONE ACETATE 1% OPHTH 1 drops RIGHT EYE QID@06,10,15,07/28/21 08/09/21 History [Pred Forte 1%] traMADol HCl [Ultram] 50 mg PO Q6H PRN #10 tab 07/31/21 08/09/21 Rx Furosemide [Lasix] 60 mg PO DAILY@0600 08/09/21 08/09/21 History Furosemide [Lasix] 60 mg PO Q48H 08/09/21 08/09/21 History Allergies Allergy/AdvReac Type Severity Reaction Status Date / Time torsemide Allergy Headache, Verified 08/09/21 21:47 coughing, urinary retention bandaids Allergy rash, ok Uncoded 07/28/21 11:45 to use papertape Physical Exam Vitals: Vital Signs Temp Pulse Pulse Pulse Resp BP Pulse Ox 08/11/21 11:30 78 08/11/21 11:18 77 08/11/21 07:54 98.3 F 69 165/83 98 08/11/21 07:25 74 69 17 08/11/21 02:00 97.5 F L 68 17 149/80 97 08/10/21 19:41 97.3 F L 74 17 135/73 92 L 08/10/21 18:15 70 139/77 90 L 08/10/21 18:00 69 144/76 91 L 08/10/21 17:45 69 133/70 89 L 08/10/21 17:30 66 128/65 89 L 08/10/21 17:15 66 149/79 93 L 08/10/21 17:00 98 F 68 18 154/75 98 08/10/21 16:31 68 16 142/75 100 08/10/21 16:16 67 16 135/72 100 08/10/21 16:02 70 16 134/72 100 08/10/21 15:45 72 16 136/72 100 08/10/21 15:35 98.0 F 64 16 132/63 86 L 08/10/21 13:20 97.6 F 71 18 150/72 95 Intake and Output 08/10/21 08/11/21 08/11/21 22:59 06:59 14:59 Output Total 55 1200 Balance -55 -1200 Output: Urine 50 1200 Estimated Blood Loss 5 Other: Voiding Method Indwelling Catheter Indwelling Catheter Results 08/09/21 23:00 08/11/21 11:31 Comprehensive Metabolic Panel 08/11/21 Range/Units 11:31 Sodium 132 L (137-145) mmol/L Potassium 4.5 (3.5-5.1) mmol/L Chloride 99 (98-107) mmol/L Carbon Dioxide 19 L (22-30) mmol/L BUN 56 H (9-20) mg/dL Creatinine 5.04 H (0.66-1.25) mg/dL Glucose 113 H (74-99) mg/dL Calcium 8.5 (8.4-10.2) mg/dL Current Medications Generic Name Dose Route Start Last Admin Trade Name Freq PRN Reason Stop Dose Admin Acetaminophen 650 mg 08/09/21 23:25 08/11/21 11:43 Acetaminophen Tab 325 Mg Tab PO 650 mg Q6H PRN Administration Pain Hydrocodone Bitart/Acetaminophen 1 each 08/10/21 15:43 Hydrocodone/Apap 5-325mg 1 Each Tab PO Q4HR PRN Pain Albuterol/Ipratropium 3 ml 08/10/21 20:00 08/11/21 11:18 Ipratropium-Albuterol 3 Ml Neb INHALATION 3 ml RT-Q4H BG Administration Allopurinol 200 mg 08/10/21 09:00 08/11/21 07:23 Allopurinol 100 Mg Tab PO 200 mg DAILY BG Administration Amlodipine Besylate 5 mg 08/10/21 09:00 08/11/21 07:24 Amlodipine 5 Mg Tab PO 5 mg BID BG Administration Ascorbic Acid 500 mg 08/11/21 06:00 08/11/21 05:29 Ascorbic Acid 500 Mg Tab PO 500 mg DAILY@0600 BG Administration Atorvastatin Calcium 10 mg 08/10/21 21:00 08/10/21 21:00 Atorvastatin 10 Mg Tab PO 10 mg HS BG Administration Brimonidine Tartrate 1 drops 08/10/21 09:00 08/11/21 07:28 Brimonidine Tartrate 0.2% Drops 5 Ml Btl RIGHT EYE 1 drops TID BG Administration Docusate Sodium 100 mg 08/10/21 09:00 08/11/21 07:23 Docusate 100 Mg Cap PO 100 mg DAILY BG Administration Dorzolamide HCl 1 drops 08/10/21 09:00 08/11/21 07:27 Dorzolamide Hcl 2% Drops 10 Ml Btl RIGHT EYE 1 drops TID BG Administration Ergocalciferol 1,250 mcg 08/16/21 09:00 Ergocalciferol 1,250 Mcg (50,000 Iu) Capsule PO WE BG Finasteride 5 mg 08/10/21 09:00 08/11/21 07:24 Finasteride 5 Mg Tab PO 5 mg DAILY BG Administration Fluticasone Propionate 1 spray 08/10/21 09:00 08/11/21 07:28 Fluticasone 50mcg/[place] Nasal 16gm EA NOSTRIL 1 spray DAILY [facility] Administration Guaifenesin 1,200 mg 08/11/21 12:15 08/11/21 12:21 Guaifenesin 600 Mg Tablet.Er PO 1,200 mg Q12HR BG Administration Hydromorphone HCl 0.5 mg 08/10/21 15:44 08/10/21 18:19 Hydromorphone 0.5 Mg/0.5 Ml Syringe IVP 0.5 mg Q3HR PRN Administration Pain Sodium Chloride 1,000 mls @ 70 mls/hr 08/09/21 23:00 08/11/21 06:58 Saline 0.9% IV Not Given .[id number] [facility] Levetiracetam 500 mg 08/10/21 09:00 08/11/21 07:25 Levetiracetam 500 Mg Tab PO 500 mg BID [facility] Administration Melatonin 5 mg 08/11/21 19:00 Melatonin 5 Mg Tablet PO HS@1900 [facility] Metoprolol Succinate 25 mg 08/10/21 19:36 08/11/21 05:29 Metoprolol Succinate (Er) 25 Mg Tab.Er.24h PO 25 mg BID@0600,1900 [facility] Administration Morphine Sulfate 4 mg 08/09/21 22:48 Morphine Sulfate 4 Mg/Ml Syringe IV Q4HR PRN Severe Pain Naloxone HCl 0.2 mg 08/09/21 22:48 Naloxone 0.4 Mg/Ml 1 Ml Vial IV Q2M PRN Opioid Reversal Ondansetron HCl 4 mg 08/09/21 22:48 Ondansetron 4 Mg/2 Ml Vial IVP Q8HR PRN Nausea And Vomiting Pantoprazole Sodium 40 mg 08/11/21 06:00 08/11/21 05:29 Pantoprazole 40 Mg Tablet PO 40 mg DAILY@0600 [facility] Administration Polyethylene Glycol 17 gm 08/11/21 17:00 Polyethylene Glycol 3350 17 Gm Powd.Pack PO DAILY@1700 [facility] Prednisolone Acetate 1 drops 08/11/21 06:00 08/11/21 07:26 Prednisolone Acetate 1% Ophth Drops 5 Ml Btl RIGHT EYE 1 drops QID@06,10,15,19 [facility] Administration Sevelamer Carbonate 800 mg 08/10/21 07:30 08/11/21 12:28 Sevelamer 800 Mg Tab PO 800 mg TID-W/MEALS BG Administration Sodium Bicarbonate 650 mg 08/11/21 06:00 08/11/21 12:28 Sodium Bicarbonate Tab 650 Mg Tab PO 650 mg TID@0600,1200,1900 BG Administration Spironolactone 12.5 mg 08/10/21 09:00 08/11/21 07:24 Spironolactone 25 Mg Tab PO 12.5 mg DAILY BG Administration Tamsulosin HCl 0.4 mg 08/10/21 09:00 08/11/21 07:24 Tamsulosin 0.4 Mg Cap.Er.24h PO 0.4 mg DAILY BG Administration Timolol Maleate 1 drops 08/10/21 09:00 08/11/21 07:27 Timolol 0.5% Ophth Drops 5 Ml Btl RIGHT EYE 1 drops BID BG Administration Tramadol HCl 50 mg 08/10/21 19:36 08/11/21 05:32 Tramadol 50 Mg Tab PO 50 mg Q6H PRN Administration Pain Venlafaxine HCl 75 mg 08/10/21 21:00 08/10/21 21:00 Venlafaxine Hcl Er 75 Mg Cap PO 75 mg HS BG Administration Intake and Output 08/10/21 08/11/21 08/11/21 22:59 06:59 14:59 Output Total 55 1200 Balance -55 -1200 Output: Urine 50 1200 Estimated Blood Loss 5 Other: Voiding Method Indwelling Catheter Indwelling Catheter 08/09/21 23:00 08/11/21 11:31
--- NOTE | 2021-08-11 13:16 | CA ---
Transthoracic Echo Report Name: Leopoldo Montana Age: 66 Gender: M : 1955 Exam Date: 08/11/2021 09:54 Exam Location: [place] [facility] Ht (in): 69 Wt (lb): 180 Ordering Physician: Donna Ray Attending/Referring Phys: Niko Donnelly MD Land Clearer Cary Jauregui RDCS Procedure CPT: Indications: LV function Cardiac Hx: Technical Quality: Fair Contrast 1: Total Dose (mL): Contrast 2: Total Dose (mL): MEASUREMENTS (Male / Female) Normal Values 2D ECHO LV Diastolic Diameter PLAX 4.5 cm 4.2 - 5.9 / 3.9 - 5.3 cm LV Systolic Diameter PLAX 2.8 cm IVS Diastolic Thickness 1.6 cm 0.6 - 1.0 / 0.6 - 0.9 cm LVPW Diastolic Thickness 1.7 cm 0.6 - 1.0 / 0.6 - 0.9 cm LV Relative Wall Thickness 0.7 RV Internal Dim ED PLAX 3.7 cm LA Volume 73.5 cm??? 18 - 58 / 22 - 52 cm??? M-MODE Aortic Root Diameter MM 3.4 cm LA Systolic Diameter MM 3.9 cm LA Ao Ratio MM 1.1 AV Cusp Separation MM 1.8 cm DOPPLER AV Peak Velocity 138.4 cm/s AV Peak Gradient 7.7 mmHg AI Peak Velocity 398.9 cm/s AI Peak Gradient 63.7 mmHg AI Pressure Half Time 312.4 ms LVOT Peak Velocity 108.7 cm/s LVOT Peak Gradient 4.7 mmHg MV Area PHT 4.0 cm??? Mitral E Point Velocity 138.9 cm/s Mitral A Point Velocity 89.4 cm/s Mitral E to A Ratio 1.6 MV Deceleration Time 189.2 ms MV E' Velocity 5.7 cm/s Mitral E to MV E' Ratio 24.5 TR Peak Velocity 224.6 cm/s TR Peak Gradient 20.2 mmHg Right Ventricular Systolic Press 25.2 mmHg FINDINGS Left Ventricle Moderately increased left ventricular wall thickness. Normal left ventricular systolic function with no obvious regional wall motion abnormalities. Abnormal left ventricular diastolic filling pattern. Right Ventricle Mild right ventricular dilatation. Right ventricular systolic pressure within normal limits. Right Atrium Normal right atrial size. Left Atrium Moderately increased left atrial volume. No evidence for an atrial septal defect. Mitral Valve Structurally normal mitral valve. [id number] mitral regurgitation. Aortic Valve Aortic valve sclerosis. Trace to mild aortic regurgitation. Tricuspid Valve Structurally normal tricuspid valve. Mild tricuspid regurgitation. Pulmonic Valve Structurally normal pulmonic valve. Trace pulmonic regurgitation. Pericardium No pericardial effusion. Aorta Normal size aortic root and proximal ascending aorta. CONCLUSIONS Moderate LVH Normal left ventricular ejection fraction 55-60% Moderately dilated left atrium Mild to moderate mitral regurgitation Mild tricuspid regurgitation No pericardial effusion Previewed by: Dr. Mario Vogt DO (Electronically Signed) Final Date: 11 August 2021 13:14
[2021-08-11 13:45] VITALS: BP 155/85; TEMP 98.4
[2021-08-11 16:26] VITALS: PULSE 91
[2021-08-11] MEDS ORDERED: polyethylene glycoL 3350 17 GM POWD.PACK PO SCH (17:00)
--- NOTE | 2021-08-11 18:21 | P.DS ---
Providers Date of admission: 08/09/21 23:56 Expected date of discharge: 08/11/21 Attending physician: Coy Rivera Consults: 08/09/21 22:48 Consult Physician Stat Consulting Provider: Massiel Salinas Consult Reason/Comments: I pronate anemia, end-stage renal disease Do you want consulting provider notified?: Already Contacted 08/09/21 22:55 Consult Physician Urgent Consulting Provider: Niko Donnelly Consult Reason/Comments: Umbilical hernia Do you want consulting provider notified?: Yes, Notify in am Primary care physician: Sebas Alejandre [facility] Course: Chief Complaint: Abnormal labs This is a 66-year-old patient who follows with Dr. Sebas Alejandre. Extensive medical history with chronic medical conditions including atrial fibrillation, CHF, hypertension, hyperlipidemia, kidney disease, seizure disorder, sleep apnea, stroke with some left-sided weakness, did receive hemodialysis in 2019. Uses BiPAP. Peripheral neuropathy does use a walker. Patient was sent in by Dr. Rosales from general surgery as per was supposed to have a dialysis catheter placed. His electrolytes were off. Patient did undergo today. On his dialysis catheter insertion, with repair of incarcerated umbilical hernia with mesh by Dr. Rosales. Postprocedure patient rather sleepy. Not able to give much of a history. August 11: Patient and very keen to go home. He'll follow-up with nephrology outpatient. Cleared by nephrology and surgery. Discussed with patient and . Discussion and discharge planning more than 35 minutes Past medical history to include: Atrial fibrillation, blood disorder, CHF, stroke, GI bleed, hypertension, hyperlipidemia, prostate disorder, seizure disorder, sleep apnea, BiPAP, does use a hemiwalker. Social history No smoking or alcohol. At [facility]. Family history: Mother had stomach cancer Physical examination: VITAL SIGNS: 98.4, 95, 16, 1 5585, 94% room air GENERAL: Laying in bed, awake, comfortable. EYES: Pupils equal. Conjunctiva normal. HEENT: External appearance of nose and ears normal, oral cavity grossly normal. NECK: JVD not raised; masses not palpable. HEART: First and second heart sounds are normal; no edema. LUNGS: Respiratory rate normal; clear to auscultation. ABDOMEN: Soft, dressing over PD catheter, nontender, liver spleen not palpable, no masses palpable. PSYCH: [Unable to assess patient's sleepy MUSCULOSKELETAL:No Clubbing/cyanosis;muscles-grossly intact NEUROLOGICAL: Cranial nerves grossly intact; no facial asymmetry, left arm and leg weakness power 3/5 INVESTIGATIONS, reviewed in the clinical context: 2-D echocardiogram: Normal left ventricular function. LVH. White count 5.4 hemoglobin 9.8 platelets 318 sodium 1:30 potassium 4.3 BUN 62 creatinine 5.41 phosphorus 6 EKG tracing personally reviewed by me-normal sinus rhythm Assessment and plan: -Incarcerated umbilical hernia Repair with mesh by Dr. Rosales -Peritoneal dialysis catheter insertion -CK D stage III for secondary to nephrosclerosis. PD catheter placed -Hyponatremia, hypovolemic Saline -CK D minimal bone disease Vitamin D2. Renvela - left hemiparesis from prior stroke Fall precautions -Depression effexor XL 75 mg a day -BPH Flomax 0.4 mg a day Proscar 5 mg a day -Hyperlipidemia Simvastatin 10 mg a day -GERD Protonix 40 mg a day -Essential hypertension Toprol-XL 25 mg twice a day. Amlodipine 5 mg twice a day -Seizure disorder Keppra 500 mg twice a day Disposition: Home Patient Condition at Discharge: Fair Plan - Discharge Summary New Discharge Prescriptions: Continue Polyethylene Glycol 3350 [Miralax] 17 gm PO DAILY@1700 Docusate [Colace] 100 mg PO DAILY@1200 levETIRAcetam [Keppra] 500 mg PO BID@1200,1900 Tamsulosin [Flomax] 0.4 mg PO DAILY@1200 Finasteride [Proscar] 5 mg PO DAILY@1200 Venlafaxine HCl [Effexor XR] 75 mg PO DAILY@1700 guaiFENesin [Mucinex] 1,200 mg PO BID@1200,1900 Pantoprazole Sodium [Protonix] 40 mg PO DAILY@0600 Apixaban [Eliquis] 2.5 mg PO BID Metoprolol Succinate (ER) [Toprol XL] 25 mg PO BID@0600,1900 allopurinoL [Zyloprim] 200 mg PO DAILY@1200 Melatonin 5 mg PO HS@1900 Acetaminophen [Tylenol] 650 mg PO Q6H PRN PRN Reason: Pain amLODIPine [Norvasc] 5 mg PO BID@1200,1900 Spironolactone 12.5 mg PO DAILY@0600 Fluticasone Nasal [place] [Flonase Nasal [place]] 1 spray EA NOSTRIL DAILY@0600 Ipratropium-Albuterol Nebulize [Duoneb 0.5 mg-3 mg/3 ml Soln] 3 ml INHALATION RT-Q4H Sodium Bicarbonate Tab 650 mg PO TID@0600,1200,1900 Latanoprostene Bunod [Vyzulta] 1 drop RIGHT EYE HS@1900 traMADol HCl [Ultram] 50 mg PO Q6H PRN #10 tab PRN Reason: Pain Furosemide [Lasix] 60 mg PO DAILY@0600 Simvastatin 10 mg PO DAILY@1700 Sevelamer [Renvela] 800 mg PO TID-W/MEALS Ergocalciferol [Vitamin D2 (1250 Mcg = 83183 Iu)] 1,250 mcg PO WE Ascorbic Acid [Vitamin C] 500 mg PO DAILY@0600 prednisoLONE ACETATE 1% OPHTH [Pred Forte 1%] 1 drops RIGHT EYE QID@06,,,19 Brinzolamide/Brimonidine Tart [Simbrinza 1%-0.2% Eye Drops] 1 drop RIGHT EYE TID@,,19 Timolol [Betimol 0.5% Ophth Soln] 1 drop RIGHT EYE BID@1000,1900 Furosemide [Lasix] 60 mg PO Q48H Discharge Medication List Docusate [Colace] 100 mg PO DAILY@1200 08/25/18 [History] Finasteride [Proscar] 5 mg PO DAILY@1200 08/25/18 [History] Polyethylene Glycol 3350 [Miralax] 17 gm PO DAILY@1700 08/25/18 [History] Tamsulosin [Flomax] 0.4 mg PO DAILY@1200 08/25/18 [History] levETIRAcetam [Keppra] 500 mg PO BID@1200,1900 08/25/18 [History] Apixaban [Eliquis] 2.5 mg PO BID 12/30/18 [History] Pantoprazole Sodium [Protonix] 40 mg PO DAILY@0600 12/30/18 [History] Venlafaxine HCl [Effexor XR] 75 mg PO DAILY@1700 12/30/18 [History] guaiFENesin [Mucinex] 1,200 mg PO BID@1200,1900 12/30/18 [History] Melatonin 5 mg PO HS@189904/02/19 [History] Metoprolol Succinate (ER) [Toprol XL] 25 mg PO BID@0600,1900 04/02/19 [History] allopurinoL [Zyloprim] 200 mg PO DAILY@1200 04/02/19 [History] Acetaminophen [Tylenol] 650 mg PO Q6H PRN 11/20/19 [History] Fluticasone Nasal [place] [Flonase Nasal [place]] 1 spray EA NOSTRIL DAILY@0611/20/19 [History] Ipratropium-Albuterol Nebulize [Duoneb 0.5 mg-3 mg/3 ml Soln] 3 ml INHALATION RT-Q4H 11/20/19 [History] Spironolactone 12.5 mg PO DAILY@0611/20/19 [History] amLODIPine [Norvasc] 5 mg PO BID@1200,19011/20/19 [History] Ascorbic Acid [Vitamin C] 500 mg PO DAILY@0607/28/21 [History] Brinzolamide/Brimonidine Tart [Simbrinza 1%-0.2% Eye Drops] 1 drop RIGHT EYE TID@10,15,07/28/21 [History] Ergocalciferol [Vitamin D2 (1250 Mcg = 35325 Iu)] 1,250 mcg PO WE 07/28/21 [History] Latanoprostene Bunod [Vyzulta] 1 drop RIGHT EYE HS@189907/28/21 [History] Sevelamer [Renvela] 800 mg PO TID-W/MEALS 07/28/21 [History] Simvastatin 10 mg PO DAILY@17007/28/21 [History] Sodium Bicarbonate Tab 650 mg PO TID@0600,1200,19007/28/21 [History] Timolol [Betimol 0.5% Ophth Soln] 1 drop RIGHT EYE BID@1000,189907/28/21 [History] prednisoLONE ACETATE 1% OPHTH [Pred Forte 1%] 1 drops RIGHT EYE QID@06,10,15,19 07/28/21 [History] traMADol HCl [Ultram] 50 mg PO Q6H PRN #10 tab 05/23/22 [Rx] Furosemide [Lasix] 60 mg PO DAILY@0600 08/09/21 [History] Furosemide [Lasix] 60 mg PO Q48H 08/09/21 [History] Follow up Appointment(s)/Referral(s): Niko Donnelly MD [Medical Doctor] - 08/16/21 1:45 pm John Berry MD [STAFF PHYSICIAN] - 1 Week Sebas Alejandre MD [Primary Care Provider] - 08/14/21 1:00 pm Kan Reyes DO [STAFF PHYSICIAN] - 1 Week Patient Instructions/Handouts: Dialysis Diet (DC), Umbilical Hernia (DC), Peritoneal Dialysis Catheter Care (DC), End Stage Kidney Disease (DC), Peritonitis (DC), Peritoneal Dialysis (DC) Activity/Diet/Wound Care/Special Instructions: Amor Sesay [facility]: #[phone] Discharge Disposition: HOME SELF-CARE
[2021-08-11] MEDS ORDERED: MELATONIN 5 MG TABLET PO SCH (19:00)
[2021-08-16] MEDS ORDERED: ERGOCALCIFEROL 1,250 MCG (50,000 IU) CAPSULE PO SCH (09:00)
== END 2021-08-11 16:51 | disposition home or self-care (01) | DRG 981 ==
LOC: EC 15:57 → 4SSUR 23:56
PROVIDERS: ADMIT Hospitalist; ATTEND Hospitalist
PROC: 0WUF0JZ Supplement Abdominal Wall with Synthetic Substitute, Open Approach (ICD-10-PCS; principal; 2021-08-10 14:55)
PROC: 0WHG43Z Insertion of Infusion Device into Peritoneal Cavity, Percutaneous Endoscopic Approach (ICD-10-PCS; 2021-08-10 14:55)
DX: E87.1 Hypo-osmolality and hyponatremia (principal); N18.6 End stage renal disease; I13.2 Hypertensive heart and chronic kidney disease with heart failure and with stage 5 chronic kidney disease, or end stage renal disease; I69.354 Hemiplegia and hemiparesis following cerebral infarction affecting left non-dominant side; K42.0 Umbilical hernia with obstruction, without gangrene; I50.9 Heart failure, unspecified; D64.9 Anemia, unspecified; E78.5 Hyperlipidemia, unspecified; E86.1 Hypovolemia; F32.A Depression, unspecified; G40.909 Epilepsy, unspecified, not intractable, without status epilepticus; G47.30 Sleep apnea, unspecified; G62.9 Polyneuropathy, unspecified; I48.0 Paroxysmal atrial fibrillation; K21.9 Gastro-esophageal reflux disease without esophagitis; I45.10 Unspecified right bundle-branch block; K72.10 Chronic hepatic failure without coma; M89.9 Disorder of bone, unspecified; I08.1 Rheumatic disorders of both mitral and tricuspid valves; N99.89 Other postprocedural complications and disorders of genitourinary system; R33.8 Other retention of urine; N40.0 Benign prostatic hyperplasia without lower urinary tract symptoms; Z79.01 Long term (current) use of anticoagulants; Z79.899 Other long term (current) drug therapy; Z80.0 Family history of malignant neoplasm of digestive organs; Z82.49 Family history of ischemic heart disease and other diseases of the circulatory system; Z82.5 Family history of asthma and other chronic lower respiratory diseases; Z99.2 Dependence on renal dialysis; Z88.8 Allergy status to other drugs, medicaments and biological substances; Z91.048 Other nonmedicinal substance allergy status; Z87.19 Personal history of other diseases of the digestive system; Z98.42 Cataract extraction status, left eye; Z98.41 Cataract extraction status, right eye
CPT/HCPCS: 36415; 71045; 74022; 80048; 80053; 81001; 83605; 83690; 83735; 84100; 85025; 88302; 93005; 93306; 94640; 96361; 96374; 99285

== ENCOUNTER 2023-03-21 16:44 | Inpatient (IN) | payer MEDICARE, OTHER ==
[2023-03-21 18:26] LABS: Basophils # (A) 0.1 k/uL (0-0.2); Basophils % (A) 0 %; Eosinophils # (A) 0.4 k/uL (0-0.7); Eosinophils % (A) 3 %; HCT 30.7 % (39.0-53.0); HGB 10.4 gm/dL (13.0-17.5); Lymphocytes # (A) 0.9 k/uL (1.0-4.8); Lymphocytes % (A) 7 %; MCH 30.9 pg (25.0-35.0); MCHC 34.1 g/dL (31.0-37.0); MCV 90.8 fL (80.0-100.0); Mean Platelet Volume 7.7; Monocytes # (A) 0.7 k/uL (0-1.0); Monocytes % (A) 5 %; Neutrophils # (A) 11.2 k/uL (1.3-7.7); Neutrophils % (A) 84 %; Platelet Count 268 k/uL (150-450); RBC 3.38 m/uL (4.30-5.90); RDW 13.8 % (11.5-15.5); WBC 13.4 k/uL (3.8-10.6)
[2023-03-21 18:37] LABS: INR 0.9 (<1.2); Partial Thromboplastin Time 30.2 sec (22.0-30.0); Prothrombin Time 10.1 sec (10.0-12.5)
[2023-03-21 18:46] LABS: ALT 16 U/L (4-49); AST 21 U/L (17-59); African American GFR (CKD) 15 (>60 ml/min/1.73 sqM); Albumin 3.3 g/dL (3.5-5.0); Alkaline Phosphatase 128 U/L (38-126); Anion Gap 14 mmol/L; Blood Urea Nitrogen 33 mg/dL (9-20); Calcium 8.3 mg/dL (8.4-10.2); Carbon Dioxide 23 mmol/L (22-30); Chloride 92 mmol/L (98-107); Glucose 165 mg/dL (74-99); Magnesium 2.1 mg/dL (1.6-2.3); Non-African American GFR(CKD) 13 (>60 ml/min/1.73 sqM); Phosphorus 3.8 mg/dL (2.5-4.5); Potassium 3.7 mmol/L (3.5-5.1); Sodium 129 mmol/L (137-145); Total Bilirubin 0.8 mg/dL (0.2-1.3); Total Protein 6.3 g/dL (6.3-8.2)
--- NOTE | 2023-03-21 19:43 | ED ---
General Adult HPI - General Source: patient, family Mode of arrival: wheelchair Limitations: no limitations <Lauro Pereyra - Last Filed: 03/21/23 19:43> <Leopoldo Chavez - Last Filed: 03/21/23 21:06> - General Chief complaint: Recheck/Abnormal Lab/Rx Stated complaint: Port removal - History of Present Illness Initial comments: 67-year-old male with a past medical history significant for chronic kidney disease on peritoneal dialysis presents to the ED with chief complaint of abnormal labs. Per patient and received peritoneal dialysis earlier in the week. Cultures were done of this fluid which were found to be positive. Maribell kelley was advised to present to the ED for further evaluation. Also advised to come in to have a port placed for hemodialysis. (Lauro Pereyra) This 67-year-old male presents with with a complaint of likely subacute bacterial peritonitis. The patient apparently was diagnosed with peritonitis approximately one month ago. He does peritoneal dialysis regularly. He was treated initially was some IV antibiotics through the rehab center. He also was treated with some intraperitoneal antibiotics. He apparently had his fluid analyzed 2 days ago and was called today to come to the emergency department as his culture was positive for unknown organism. The patient overall has been feeling well. He is denying any abdominal pain, fevers, chills, or weakness. He has been eating well and voiding well. It is essentially been doing peritoneal dialysis for the last 4 years. He was sent in by his layout operator and relates that he is to have his peritoneal catheter removed and he will need a hemo-peritoneal dialysis catheter placed. Patient denies any other complaints or modifying factors. (Leopoldo Chavez) - Related Data Home Medications Medication Instructions Recorded Confirmed Docusate [Colace] 100 mg PO DAILY@1200 08/25/18 04/25/22 Finasteride [Proscar] 5 mg PO DAILY@0600 08/25/18 04/25/22 Tamsulosin [Flomax] 0.4 mg PO 0600 08/25/18 04/25/22 levETIRAcetam [Keppra] 500 mg PO BID@1200,1900 08/25/18 04/25/22 polyethylene glycoL 3350 [Miralax] 17 gm PO DAILY@1700 08/25/18 04/25/22 Apixaban [Eliquis] 2.5 mg PO BID 12/30/18 04/25/22 Pantoprazole Sodium [Protonix] 40 mg PO DAILY@0600 12/30/18 04/25/22 Venlafaxine HCl [Effexor XR] 75 mg PO DAILY@17012/30/18 04/25/22 guaiFENesin [Mucinex] 1,200 mg PO 0600,1900 12/30/18 04/25/22 Melatonin 5 mg PO HS@189904/02/19 04/25/22 Metoprolol Succinate (ER) [Toprol 25 mg PO BID@0600,19004/02/19 04/25/22 XL] allopurinoL [Zyloprim] 200 mg PO DAILY@1200 04/02/19 04/25/22 Acetaminophen [Tylenol] 325 mg PO Q6H PRN 11/20/19 04/25/22 Fluticasone Nasal [place] [Flonase 1 spray EA NOSTRIL DAILY@0600 PRN 11/20/19 04/25/22 Nasal [place]] Ipratropium-Albuterol Nebulize 3 ml INHALATION RT-Q4H PRN 11/20/19 04/25/22 [Duoneb 0.5 mg-3 mg/3 ml Soln] Spironolactone 12.5 mg PO DAILY@0600 11/20/19 04/25/22 amLODIPine [Norvasc] 5 mg PO BID@1200,0 11/20/19 04/25/22 Brinzolamide/Brimonidine Tart 1 drop LEFT EYE TID@0600,1900 07/28/21 04/25/22 [Simbrinza 1%-0.2% Eye Drops] Sevelamer [Renvela] 1,600 mg PO TID-W/MEALS 07/28/21 04/25/22 Simvastatin 10 mg PO DAILY@17007/28/21 04/25/22 Sodium Bicarbonate Tab 650 mg PO 0600 07/28/21 04/25/22 prednisoLONE ACETATE 1% OPHTH 1 drops RIGHT EYE BID 07/28/21 04/25/22 [Pred Forte 1%] Furosemide [Lasix] 40 mg PO Q48H 08/09/21 04/25/22 Furosemide [Lasix] 60 mg PO Q48H 08/09/21 04/25/22 Tamsulosin HCl [Flomax] 0.4 mg PO Q48H 04/24/22 04/25/22 Allergies Allergy/AdvReac Type Severity Reaction Status Date / Time torsemide Allergy urinary Verified 04/25/22 10:02 retention bandaids Allergy rash, ok Uncoded 04/25/22 10:02 to use papertape Review of Systems ROS Other: All systems not noted in ROS Statement are negative. <Lauro Pereyra - Last Filed: 03/21/23 19:43> ROS Other: All systems not noted in ROS Statement are negative. <Leopoldo Chavez - Last Filed: 03/21/23 21:06> ROS Statement: Those systems with pertinent positive or pertinent negative responses have been documented in the HPI. Past Medical History Past Medical History: Atrial Fibrillation, Blood Disorder, Heart Failure, CVA/TIA, Dialysis, Eye Disorder, GI Bleed, Hyperlipidemia, Hypertension, Prostate Disorder, Renal Disease, Seizure Disorder, Sleep Apnea/CPAP/BIPAP Additional Past Medical History / Comment(s): Admitted to [facility] for low sodium of 120,sodium back up to 130 per and expected to be discharged today on 07-28-21,fluid restrictions of 1800cc/day.hx 05/15/18 CVA with L sided weakness/nondominent side treated in [facility], 05/16/18 aspiration pneumonia/respiratory failure/vented, 06/08/18 trached, , trach removed 07/16/18, pt went into Afib on 07/21/18 and started with episodes of feeling like something is in his throat which then leads to SOB episodes.- no further episodes "Beginnings of CHF." Hx GI Bleed august or September 2018. walks with short distance with wheeled-walker .Chronic Kidney Disease since CVA with now on peritoneal dialysis dailyl "Continues with weak kidneys." Uses Bipap. Hx anemia,hx luda ropathy bilateral feet improved, glaucoma bilateral eyes, had seizure 2020- unresponsive stare for 30-40 seconds, BPH.mild heart valve leakage,,no current episodes/recent of CHF (?) pt 's states special education tutor states no CHF ,diabetes-no longer medically treated diet controlled. 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 Debridement right thumb.rt thumb abscess,glaucoma hortensia eyes,cataract removal hortensia eyes, rt eye "oil" removed and reinserted beginning of July" .Has port for peritoneal dialysis. umbilical hernia Past Anesthesia/Blood Transfusion Reactions: No Reported Reaction Additional Past Anesthesia/Blood Transfusion Reaction / Comment(s): Pt has received blood transfusion in past without reaction. hx trach w/ scar tissue- last procedure after breathing tube removed had feeling like he couldn't breathe-was given Valium with relief-no futher problems Past Psychological History: No Psychological Hx Reported Smoking Status: Never smoker - Past Family History Mother Family Medical History: Cancer Additional Family Medical History / Comment(s): Mother had stomach cancer, . Father Family Medical History: COPD, Myocardial Infarction (CT) Additional Family Medical History / Comment(s): Father had a massive CT at the age of 63 yrs. <Lauro Pereyra - Last Filed: 03/21/23 19:43> General Exam Limitations: no limitations <Lauro Pereyra - Last Filed: 03/21/23 19:43> <Leopoldo Chavez - Last Filed: 03/21/23 21:06> - General Exam Comments Initial Comments: Visual Physical Exam Vital signs reviewed General: Well-appearing, nontoxic, no acute distress. Head: Normocephalic, atraumatic Eyes: PERRLA, EOMI ENT: Airway patent Chest: Nonlabored breathing Skin: No visual rash, normal skin tone Neuro: Alert and oriented 3 Musculoskeletal: No gross abnormalities (Lauro Pereyra) GENERAL: The patient is well nourished and well hydrated. VITAL SIGNS: Heart rate, blood pressure, respiratory rate reviewed as recorded in nurse's notes. EYES: Pupils are round and reactive. Extraocular movements are intact. No conjun ctival / lid redness or swelling. ENT: No external evidence of injury, swelling, or ecchymosis. Airway is patent. Throat is clear. NECK: Nontender. No swelling or evidence of injury. No subcutaneous emphysema. Trachea is midline. No thyroid mass. HEART: Regular rate and rhythm. Good peripheral pulses. LUNGS/CHEST: Breath sounds clear and equal bilaterally. No rales, rhonchi, or wheezes. No ecchymosis, subcutaneous emphysema, or tenderness. ABDOMEN: Abdomen soft without tenderness. No palpable masses or organomegaly. No peritoneal signs. No abdominal wall swelling or ecchymosis. Peritoneal dialysis catheter placed right lower abdomen. EXTREMITIES: No extremity tenderness. Normal muscle tone and function. No thoracolumbar tenderness. NEUROLOGIC: Sensation is grossly intact. Cranial nerve exam reveals face is symmetrical, tongue is midline, speech is clear. SKIN: No abrasions or ecchymosis is noted. No induration or masses noted. PSYCHIATRIC: Alert and oriented. Appropriate behavior and judgment. (Leopoldo Chavez) Course Vital Signs 03/21/23 17:19 Temperature 98.7 F Pulse Rate 85 Respiratory 16 Rate Blood Pressure 196/71 O2 Sat by Pulse 98 Oximetry Medical Decision Making - Lab Data Result diagrams: 03/21/23 18:19 03/21/23 18:19 <Lauro Pereyra - Last Filed: 03/21/23 19:43> - Lab Data Result diagrams: 03/21/23 18:19 03/21/23 18:19 <Leopoldo Chavez - Last Filed: 03/21/23 21:06> - Medical Decision Making Quicknote portion performed. Signed Lauro Pereyra PA-C (Lauro Pereyra) The patient was seen and examined. All diagnostics are reviewed. IV is established. The laboratory does show evidence of chronic renal failure with creatinine at 4.4. Patient is hyponatremic at 129. Mild anemia also is noted. Mild hypocalcemia also is noted. Case is discussed with Dr. Salinas from nephrology and she would like patient to start vancomycin 1 g intravenously. She also would like Dr. Sorenson consulted for hemodialysis catheter placement. She also would like Dr. Donnelly consult at for removal of her to now dialysis catheter. She also relates that peritoneal dialysis is not necessary this evening. Patient will be admitted to the hospital for further treatment. Patient and are agreeable with this plan and he is in no distress on recheck. Was pt. sent in by a medical professional or institution (, PA, FERN CUTTER, urgent care, hospital, or fdc...) When possible be specific @ -Patient was sent in by nephrology team. Did you speak to anyone other than the patient for history (EMS, parent, family, police, friend...)? What history was obtained from this source @ - gives most of history. Did you review nursing and triage notes (agree or disagree)? Why? @ -I reviewed and agree with nursing and triage notes Were old charts reviewed (outside hosp., previous admission, EMS record, old EKG, old radiological studies, urgent care reports/EKG's, fdc records)? Report findings @ -Old charts were reviewed and an additional past medical history is obtained. It does appear as though Dr. Sorenson has seen the patient in the past for previous hemodialysis catheter placement on a temporary basis. Differential Diagnosis (chest pain, altered mental status, abdominal pain women, abdominal pain men, vaginal bleeding, weakness, fever, dyspnea, syncope, headache, dizziness, GI bleed, back pain, seizure, CVA, palpatations, mental health, musculoskeletal)? @ -Peritonitis, subacute bacterial peritonitis, end-stage renal failure, peritoneal dialysis, a loculated abnormalities. EKG interpreted by me (3pts min.). @ -None completed X-rays interpreted by me (1pt min.). @ -None done CT interpreted by me (1pt min.). @ -None done U/S interpreted by me (1pt. min.). @ -None done What testing was considered but not performed or refused? (CT, X-rays, U/S, labs)? Why? @ -None What meds were considered but not given or refused? Why? @ -None Did you discuss the management of the patient with other professionals (professionals i.e. , PA, FERN CUTTER, lab, RT, psych nurse, social work specialist, television station manager, teacher, licensing officer, case packer)? Give summary @ -Case is discussed with layout operator as well as internal medicine physician Was smoking cessation discussed for >3mins.? @ -[o]Was critical care preformed (if so, how long)? @ -[o]Were there social determinants of health that impacted care today? How? ( Homelessness, low income, unemployed, alcoholism, drug addiction, transportation, low edu. Level, literacy, decrease access to med. care, halfway, rehab)? @ -[o]Was there de-escalation of care discussed even if they declined (Discuss DNR or withdrawal of care, Hospice)? DNR status @ -[o]What co-morbidities impacted this encounter? (DM, HTN, Smoking, COPD, CAD, Cancer, CVA, ARF, Chemo, Hep., AIDS, mental health diagnosis, sleep apnea, morbid obesity)? @ -[End-stage renal failure, history of CVA. Was patient admitted / discharged? Hospital course, mention meds given and route, prescriptions, significant lab abnormalities, going to OR and other pertinent info. @ -[Patient was admitted to the hospital, please see above.Undiagnosed new problem with uncertain prognosis? @ -[o]Drug Therapy requiring intensive monitoring for toxicity (Heparin, Nitro, Insulin, Cardizem)? @ -[o]Were any procedures done? @ -[o]Diagnosis/symptom? @ -[Peritonitis, history of peritoneal dialysis, electrolyte abnormalities, anemia, chronic debility. Acute, or Chronic, or Acute on Chronic? @ -[Acute Uncomplicated (without systemic symptoms) or Complicated (systemic symptoms)? @ -[Uncomplicated Side effects of treatment? @ -[o]Exacerbation, Progression, or Severe Exacerbation? @ -[o]Poses a threat to life or bodily function? How? (Chest pain, USA, CT, pneumonia, PE, COPD, DKA, ARF, appy, cholecystitis, CVA, Diverticulitis, Homicidal, Suicidal, threat to staff... and all critical care pts) @ -[o] (Leopoldo Chavez) - Lab Data Lab Results 03/21/23 03/21/23 03/21/23 Range/Units 18:19 18:19 18:19 WBC 13.4 H (3.8-10.6) k/uL RBC 3.38 L (4.30-5.90) m/uL Hgb 10.4 L (13.0-17.5) gm/dL Hct 30.7 L (39.0-53.0) % MCV 90.8 (80.0-100.0) fL MCH 30.9 (25.0-35.0) pg MCHC 34.1 (31.0-37.0) g/dL RDW 13.8 (11.5-15.5) % Plt Count 268 (150-450) k/uL MPV 7.7 Neutrophils % 84 % Lymphocytes % 7 % Monocytes % 5 % Eosinophils % 3 % Basophils % 0 % Neutrophils # 11.2 H (1.3-7.7) k/uL Lymphocytes # 0.9 L (1.0-4.8) k/uL Monocytes # 0.7 (0-1.0) k/uL Eosinophils # 0.4 (0-0.7) k/uL Basophils # 0.1 (0-0.2) k/uL PT 10.1 (10.0-12.5) sec INR 0.9 (<1.2) APTT 30.2 H (22.0-30.0) sec Sodium 129 L (137-145) mmol/L Potassium 3.7 (3.5-5.1) mmol/L Chloride 92 L (98-107) mmol/L Carbon Dioxide 23 (22-30) mmol/L Anion Gap 14 mmol/L BUN 33 H (9-20) mg/dL Creatinine 4.47 H (0.66-1.25) mg/dL Est GFR (CKD-EPI)AfAm 15 (>60 ml/min/1.73 sqM) Est GFR (CKD-EPI)NonAf 13 (>60 ml/min/1.73 sqM) Glucose 165 H (74-99) mg/dL Plasma Lactic Acid Raj (0.7-2.0) mmol/L Calcium 8.3 L (8.4-10.2) mg/dL Phosphorus 3.8 (2.5-4.5) mg/dL Magnesium 2.1 (1.6-2.3) mg/dL Total Bilirubin 0.8 (0.2-1.3) mg/dL AST 21 (17-59) U/L ALT 16 (4-49) U/L Alkaline Phosphatase 128 H (38-126) U/L Total Protein 6.3 (6.3-8.2) g/dL Albumin 3.3 L (3.5-5.0) g/dL 03/21/23 Range/Units 18:19 WBC (3.8-10.6) k/uL RBC (4.30-5.90) m/uL Hgb (13.0-17.5) gm/dL Hct (39.0-53.0) % MCV (80.0-100.0) fL MCH (25.0-35.0) pg MCHC (31.0-37.0) g/dL RDW (11.5-15.5) % Plt Count (150-450) k/uL MPV Neutrophils % % Lymphocytes % % Monocytes % % Eosinophils % % Basophils % % Neutrophils # (1.3-7.7) k/uL Lymphocytes # (1.0-4.8) k/uL Monocytes # (0-1.0) k/uL Eosinophils # (0-0.7) k/uL Basophils # (0-0.2) k/uL PT (10.0-12.5) sec INR (<1.2) APTT (22.0-30.0) sec Sodium (137-145) mmol/L Potassium (3.5-5.1) mmol/L Chloride (98-107) mmol/L Carbon Dioxide (22-30) mmol/L Anion Gap mmol/L BUN (9-20) mg/dL Creatinine (0.66-1.25) mg/dL Est GFR (CKD-EPI)AfAm (>60 ml/min/1.73 sqM) Est GFR (CKD-EPI)NonAf (>60 ml/min/1.73 sqM) Glucose (74-99) mg/dL Plasma Lactic Acid Raj 1.0 (0.7-2.0) mmol/L Calcium (8.4-10.2) mg/dL Phosphorus (2.5-4.5) mg/dL Magnesium (1.6-2.3) mg/dL Total Bilirubin (0.2-1.3) mg/dL AST (17-59) U/L ALT (4-49) U/L Alkaline Phosphatase (38-126) U/L Total Protein (6.3-8.2) g/dL Albumin (3.5-5.0) g/dL Disposition <Lauro Pereyra - Last Filed: 03/21/23 19:43> Is patient prescribed a controlled substance at d/c from ED?: No Time of Disposition: 21:06 Decision Date: 03/21/23 Decision Time: 21:06 <Leopoldo Chavez - Last Filed: 03/21/23 21:06> Clinical Impression: Peritonitis, ESRF (end stage renal failure), History of peritoneal dialysis, Leukocytosis, Hyponatremia, Anemia, Hypochloremia, Hypocalcemia Disposition: ADMITTED IP TO THIS HOSP Condition: Fair
[2023-03-21] MEDS ORDERED: IPRATROPIUM-ALBUTEROL 3 ML NEB INHALATION STA (21:00)
[2023-03-21] MEDS ORDERED: VANCOMYCIN 1,000 MG in SODIUM CHLORIDE 0.9% 250 ML IVPB STA (21:07)
[2023-03-21] MEDS ORDERED: ACETAMINOPHEN TAB 325 MG TAB PO PRN (21:07)
[2023-03-21] MEDS ORDERED: ONDANSETRON 4 MG/2 ML VIAL IVP PRN (21:07)
[2023-03-21] MEDS ORDERED: NALOXONE 0.4 MG/ML 1 ML VIAL IV PRN (21:07)
[2023-03-21] MEDS ORDERED: VANCOMYCIN 1,500 MG in SODIUM CHLORIDE 0.9% 500 ML 500 ML IVPB STA (21:08)
[2023-03-21] MEDS ORDERED: VANCOMYCIN IV PER PHARMACY 1 EACH MISC MISCELLANE PRN (21:09)
[2023-03-21] MEDS ORDERED: IPRATROPIUM-ALBUTEROL 3 ML NEB INHALATION PRN (22:59)
[2023-03-21] MEDS ORDERED: NON FORMULARY DRUG (Albuterol Inhaler 90 MCG Puff) INHALATION PRN (22:59)
[2023-03-21] MEDS ORDERED: FLUTICASONE 50MCG/SPRAY NASAL 16GM EA NOSTRIL PRN (22:59)
[2023-03-22] MEDS: SEVELAMER 800 MG TAB PO SCH ×3 (05:52→17:55)
[2023-03-22] MEDS: BRIMONIDINE TARTRATE 0.2% DROPS 5 ML BTL BOTH EYES SCH ×2 (05:57→08:30)
[2023-03-22 07:07] LABS: Basophils % (A) 0 %; Eosinophils # (A) 0.4 k/uL (0-0.7); Eosinophils % (A) 3 %; HCT 29.5 % (39.0-53.0); HGB 9.9 gm/dL (13.0-17.5); Lymphocytes % (A) 9 %; MCH 31.3 pg (25.0-35.0); MCHC 33.7 g/dL (31.0-37.0); MCV 92.8 fL (80.0-100.0); Monocytes # (A) 0.6 k/uL (0-1.0); Monocytes % (A) 5 %; Neutrophils # (A) 9.2 k/uL (1.3-7.7); Neutrophils % (A) 81 %; Platelet Count 261 k/uL (150-450); RBC 3.18 m/uL (4.30-5.90); WBC 11.4 k/uL (3.8-10.6)
[2023-03-22 07:14] LABS: African American GFR (CKD) 14 (>60 ml/min/1.73 sqM); Anion Gap 13 mmol/L; Blood Urea Nitrogen 35 mg/dL (9-20); Calcium 8.2 mg/dL (8.4-10.2); Carbon Dioxide 23 mmol/L (22-30); Chloride 94 mmol/L (98-107); Glucose 119 mg/dL (74-99); Magnesium 2.1 mg/dL (1.6-2.3); Non-African American GFR(CKD) 12 (>60 ml/min/1.73 sqM); Phosphorus 4.1 mg/dL (2.5-4.5); Potassium 3.3 mmol/L (3.5-5.1); Sodium 130 mmol/L (137-145)
[2023-03-22] MEDS: guaiFENesin 600 MG TABLET.ER PO SCH ×2 (08:29→22:40)
[2023-03-22] MEDS ORDERED: APIXABAN 2.5 MG TABLET PO SCH (09:00)
[2023-03-22] MEDS ORDERED: DORZOLAMIDE HCL 2% DROPS 10 ML BTL BOTH EYES SCH (09:00)
[2023-03-22] MEDS ORDERED: POTASSIUM CHLORIDE ER 20 MEQ TAB.ER PO STA (09:53)
[2023-03-22] MEDS: levETIRAcetam 500 MG TAB PO SCH ×2 (10:05→22:40)
[2023-03-22] MEDS: amLODIPine 5 MG TAB PO SCH ×2 (10:05→22:40)
[2023-03-22] MEDS: METOPROLOL SUCCINATE (ER) 25 MG TAB.ER.24H PO SCH ×3 (10:05→22:40)
[2023-03-22] MEDS: FUROSEMIDE 20 MG TAB PO SCH (10:05)
[2023-03-22] MEDS: FINASTERIDE 5 MG TAB PO SCH (10:05)
[2023-03-22] MEDS: TAMSULOSIN 0.4 MG CAP.ER.24H PO SCH (10:06)
[2023-03-22] MEDS: FOLIC ACID-VIT B COMPLEX-VIT C 1 CAP PO SCH (10:07)
[2023-03-22] MEDS: SPIRONOLACTONE 25 MG TAB PO SCH (10:18)
--- NOTE | 2023-03-22 10:23 | P.GSCN ---
History of Present Illness Consult date: 03/22/23 Reason for Consult: Hemodialysis catheter placement Requesting physician: Leopoldo Chavez History of present illness: This is a 67-year-old male with a history of end-stage renal disease on peritoneal dialysis for the last 1-2 years duration who was sent in by his commercial lending vice president for concern for positive culture on peritoneal fluid. Patient is currently resting with CPAP machine. He has a past medical history including diabetes mellitus, end-stage renal disease on peritoneal dialysis, chronic atrial fibrillation on anticoagulation, sleep apnea on CPAP, history of CVA with residual left-sided weakness, hypertension, hyperlipidemia, seizure disorder, glaucoma, peripheral neuropathy, and chronic anemia. Fluid culture was sent to the dialysis lab, unclear what is growing at this time. He did have blood cultures taken in the emergency department which are currently pending. No abdominal pain, chest pain, shortness of breath, fevers or chills. He apparently was diagnosed and treated with peritonitis back in February with IV antibiotics both peripheral as well as through peritoneal catheter. Vascular surgery was consulted for Hemodialysis catheter Placement. Today's labs WBC 11.4 hemoglobin 9.9 platelet count 261,000 sodium 1:30 potassium 3.3 BUN 35 creatinine 4.7 Review of Systems A 14 point review systems was completed all pertinent positives and negatives as stated in the HPI. Past Medical History Past Medical History: Atrial Fibrillation, Blood Disorder, Heart Failure, CVA/TIA, Dialysis, Eye Disorder, GI Bleed, Hyperlipidemia, Hypertension, Prostate Disorder, Renal Disease, Seizure Disorder, Sleep Apnea/CPAP/BIPAP Additional Past Medical History / Comment(s): Admitted to [facility] for low sodium of 120,sodium back up to 130 per and expected to be discharged today on 07-28-21,fluid restrictions of 1800cc/day.hx 05/15/18 CVA with L sided weakness/nondominent side treated in [facility], 05/16/18 aspiration pneumonia/respiratory failure/vented, 06/08/18 trached, , trach removed 07/16/18, pt went into Afib on 07/21/18 and started with episodes of feeling like something is in his throat which then leads to SOB episodes.- no further episodes "Beginnings of CHF." Hx GI Bleed august or September 2018. walks with short distance with wheeled-walker .Chronic Kidney Disease since CVA with now on peritoneal dialysis dailyl "Continues with weak kidneys." Uses Bipap. Hx anemia,hx neuropathy bilateral feet improved, glaucoma bilateral eyes, had seizure 2020-unresponsive stare for 30-40 seconds, BPH.mild heart valve leakage,,no current episodes/recent of CHF (?) pt 's states otm consultant states no CHF ,diabetes-no longer medically treated diet controlled. 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 Debridement right thumb.rt thumb abscess,glaucoma hortensia eyes,cataract removal hortensia eyes, rt eye "oil" removed and reinserted beginning of July" .Has port for peritoneal dialysis. umbilical hernia Past Anesthesia/Blood Transfusion Reactions: No Reported Reaction Additional Past Anesthesia/Blood Transfusion Reaction / Comm: Pt has received blood transfusion in past without reaction. hx trach w/ scar tissue-last procedure after breathing tube removed had feeling like he couldn't breathe-was given Valium with relief-no futher problems Past Psychological History: No Psychological Hx Reported Additional Psychological History / Comment(s): [facility] Smoking Status: Never smoker Past Alcohol Use History: None Reported Past Drug Use History: None Reported - Past Family History Mother Family Medical History: Cancer Additional Family Medical History / Comment(s): Mother had stomach cancer, . Father Family Medical History: COPD, Myocardial Infarction ([place]) Additional Family Medical History / Comment(s): Father had a massive [place] at the age of 63 yrs. Medications and Allergies Home Medications Medication Instructions Recorded Confirmed Type Docusate [Colace] 100 mg PO DAILY@1200 08/25/18 03/21/23 History Finasteride [Proscar] 5 mg PO DAILY@0600 08/25/18 03/21/23 History Tamsulosin [Flomax] 0.4 mg PO DAILY@0600 08/25/18 03/21/23 History levETIRAcetam [Keppra] 500 mg PO BID@1200,1800 08/25/18 03/21/23 History polyethylene glycoL 3350 [Miralax] 17 gm PO DAILY@1800 08/25/18 03/21/23 History Apixaban [Eliquis] 2.5 mg PO BID@0600,1800 12/30/18 03/21/23 History Venlafaxine HCl [Effexor XR] 75 mg PO DAILY@1700 12/30/18 03/21/23 History guaiFENesin [Mucinex] 1,200 mg PO BID@0600,1800 12/30/18 03/21/23 History Melatonin 5 mg PO HS@1800 04/02/19 03/21/23 History Metoprolol Succinate (ER) [Toprol 25 mg PO TID@0600,1200,1800 04/02/19 03/21/23 History XL] allopurinoL [Zyloprim] 100 mg PO Q48H 04/02/19 03/21/23 History Fluticasone Nasal [place] [Flonase 1 spray EA NOSTRIL DAILY PRN 11/20/19 03/21/23 History Nasal Fred] Ipratropium-Albuterol Nebulize 3 ml INHALATION RT-BID 11/20/19 03/21/23 History [Duoneb 0.5 mg-3 mg/3 ml Soln] Spironolactone 12.5 mg PO DAILY@0600 11/20/19 03/21/23 History amLODIPine [Norvasc] 5 mg PO BID@1200,1800 11/20/19 03/21/23 History Brinzolamide/Brimonidine Tart 1 drop BOTH EYES BID@0600,1800 07/28/21 03/21/23 History [Simbrinza 1%-0.2% Eye Drops] Sevelamer [Renvela] 1,600 mg PO TID-W/MEALS 07/28/21 03/21/23 History Simvastatin 10 mg PO DAILY@1800 07/28/21 03/21/23 History Furosemide [Lasix] 60 mg PO DAILY@0600 08/09/21 03/21/23 History Albuterol Inhaler [Ventolin Hfa 1 - 2 puff INHALATION RT-Q6H PRN 03/21/23 03/21/23 History Inhaler] Ergocalciferol (Vitamin D2) 1,250 mcg PO Q30D 03/21/23 03/21/23 History [Drisdol (50,000 Iu)] Folic Acid/Vit B Complex and C 0.8 mg PO DAILY@1200 03/21/23 03/21/23 History [Nephro-Michael Tablet] Gentamicin Sulfate [Gentamicin 1 applic TOPICAL DAILY 03/21/23 03/21/23 History Sulfate 0.1%] Ipratropium-Albuterol Nebulize 3 ml INHALATION RT-Q6H PRN 03/21/23 03/21/23 History [Duoneb 0.5 mg-3 mg/3 ml Soln] Latanoprostene Bunod [Vyzulta] 1 drop BOTH EYES DAILY@1800 03/21/23 03/21/23 History Mircera (Unknown Dose) 1 dose INJ Q30D 03/21/23 03/21/23 History Allergies Allergy/AdvReac Type Severity Reaction Status Date / Time torsemide Allergy urinary Verified 03/21/23 21:17 retention bandaids Allergy rash, ok Uncoded 04/25/22 10:02 to use papertape Surgical - Exam Vital Signs Temp Pulse Resp BP Pulse Ox 98.7 F 85 16 196/71 98 03/21/23 17:19 03/21/23 17:19 03/21/23 17:19 03/21/23 17:19 03/21/23 17:19 General appearance: The patient is resting, oriented, appears in no acute distress. Obese. CPAP currently on. HET: Head is normocephalic and atraumatic. Neck: Supple. Heart: Regular. Lungs: Equal expansion, normal respiratory effort. Abdomen: Soft, nontender, nondistended. Right side of abdomen with PD catheter in place without any surrounding erythema or drainage. Extremities: Normal skin color and turgor. Neurological: Left-sided weakness. Results - Labs 03/22/23 06:27 03/22/23 06:27 Abnormal Lab Results - Last 24 Hours (Table) 03/21/23 03/21/23 03/21/23 Range/Units 18:19 18:19 18:19 WBC 13.4 H (3.8-10.6) k/uL RBC 3.38 L (4.30-5.90) m/uL Hgb 10.4 L (13.0-17.5) gm/dL Hct 30.7 L (39.0-53.0) % Neutrophils # 11.2 H (1.3-7.7) k/uL Lymphocytes # 0.9 L (1.0-4.8) k/uL APTT 30.2 H (22.0-30.0) sec Sodium 129 L (137-145) mmol/L Potassium (3.5-5.1) mmol/L Chloride 92 L (98-107) mmol/L BUN 33 H (9-20) mg/dL Creatinine 4.47 H (0.66-1.25) mg/dL Glucose 165 H (74-99) mg/dL Calcium 8.3 L (8.4-10.2) mg/dL Alkaline Phosphatase 128 H (38-126) U/L Albumin 3.3 L (3.5-5.0) g/dL 03/22/23 03/22/23 Range/Units 06:27 06:27 WBC 11.4 H (3.8-10.6) k/uL RBC 3.18 L (4.30-5.90) m/uL Hgb 9.9 L (13.0-17.5) gm/dL Hct 29.5 L (39.0-53.0) % Neutrophils # 9.2 H (1.3-7.7) k/uL Lymphocytes # (1.0-4.8) k/uL APTT (22.0-30.0) sec Sodium 130 L (137-145) mmol/L Potassium 3.3 L (3.5-5.1) mmol/L Chloride 94 L (98-107) mmol/L BUN 35 H (9-20) mg/dL Creatinine 4.70 H (0.66-1.25) mg/dL Glucose 119 H (74-99) mg/dL Calcium 8.2 L (8.4-10.2) mg/dL Alkaline Phosphatase (38-126) U/L Albumin (3.5-5.0) g/dL Diabetes panel 03/21/23 03/22/23 Range/Units 18:19 06:27 Sodium 129 L 130 L (137-145) mmol/L Potassium 3.7 3.3 L (3.5-5.1) mmol/L Chloride 92 L 94 L (98-107) mmol/L Carbon Dioxide 23 23 (22-30) mmol/L BUN 33 H 35 H (9-20) mg/dL Creatinine 4.47 H 4.70 H (0.66-1.25) mg/dL Glucose 165 H 119 H (74-99) mg/dL Calcium 8.3 L 8.2 L (8.4-10.2) mg/dL AST 21 (17-59) U/L ALT 16 (4-49) U/L Alkaline Phosphatase 128 H (38-126) U/L Total Protein 6.3 (6.3-8.2) g/dL Albumin 3.3 L (3.5-5.0) g/dL Calcium panel 03/21/23 03/22/23 Range/Units 18:19 06:27 Calcium 8.3 L 8.2 L (8.4-10.2) mg/dL Phosphorus 3.8 4.1 (2.5-4.5) mg/dL Albumin 3.3 L (3.5-5.0) g/dL Pituitary panel 03/21/23 03/22/23 Range/Units 18:19 06:27 Sodium 129 L 130 L (137-145) mmol/L Potassium 3.7 3.3 L (3.5-5.1) mmol/L Chloride 92 L 94 L (98-107) mmol/L Carbon Dioxide 23 23 (22-30) mmol/L BUN 33 H 35 H (9-20) mg/dL Creatinine 4.47 H 4.70 H (0.66-1.25) mg/dL Glucose 165 H 119 H (74-99) mg/dL Calcium 8.3 L 8.2 L (8.4-10.2) mg/dL Adrenal panel 03/21/23 03/22/23 Range/Units 18:19 06:27 Sodium 129 L 130 L (137-145) mmol/L Potassium 3.7 3.3 L (3.5-5.1) mmol/L Chloride 92 L 94 L (98-107) mmol/L Carbon Dioxide 23 23 (22-30) mmol/L BUN 33 H 35 H (9-20) mg/dL Creatinine 4.47 H 4.70 H (0.66-1.25) mg/dL Glucose 165 H 119 H (74-99) mg/dL Calcium 8.3 L 8.2 L (8.4-10.2) mg/dL Total Bilirubin 0.8 (0.2-1.3) mg/dL AST 21 (17-59) U/L ALT 16 (4-49) U/L Alkaline Phosphatase 128 H (38-126) U/L Total Protein 6.3 (6.3-8.2) g/dL Albumin 3.3 L (3.5-5.0) g/dL Assessment and Plan Assessment: 1. Peritonitis 2. End-stage renal disease on peritoneal dialysis 3. End-stage renal disease requiring hemodialysis acces4 4. Atrial fibrillation on anticoagulation, currently on hold Plan: 1. Await blood culture results 2. Patient may have low sodium diet 3. Hold Eliquis 4. Await further recommendations from nephrology 5. Continue current antibiotics as ordered 6. Please obtain fluid culture results from outside lab 7. Discussed patient plan of care with nephrology. Patient will continue dialysis with peritoneal dialysis for the next couple days patient has been on Eliquis. We'll also wait for blood culture results. Tentative plan is for peritoneal catheter removal and tunneled hemodialysis catheter placement Saturday. Thank you for this consultation, we will continue to follow. The impression and plan of care has been dictated as directed. I performed a history and examination of this patient, discussed the same with the dictator. I agree with the dictator's note ,documented as a scribe. Any additional findings or plans will be noted.
[2023-03-22] MEDS: IPRATROPIUM-ALBUTEROL 3 ML NEB INHALATION SCH ×2 (12:02→21:21)
[2023-03-22] MEDS ORDERED: DIALYSIS (PERIT 2.5%) 2,000 ML 50 G/2,000 ML BAG INTRAPERIT SCH (12:45)
--- NOTE | 2023-03-22 12:46 | P.NPCON ---
History of Present Illness - Reason for Consult end stage renal disease - History of Present Illness Patient is a 67-year-old male with end-stage renal disease maintained on peritoneal dialysis. Patient is admitted to the hospital for removal of PD catheter due to repeated episodes of peritonitis over the last 4-6 weeks. Fluid culture on 03/18/2023 grew gram-positive organisms. Patient has received antibiotics intraperitoneally as outpatient. No complaints of abdominal pain Vascular surgery is on consult and since patient was on eliquis was surgery for removal of PD catheter and placement of tunneled hemodialysis catheter is postponed until after the weekend. No complaints of nausea vomiting abdominal pain or diarrhea Review of Systems As per HPI Past Medical History Past Medical History: Atrial Fibrillation, Blood Disorder, Heart Failure, CVA/TIA, Dialysis, Eye Disorder, GI Bleed, Hyperlipidemia, Hypertension, Prostate Disorder, Renal Disease, Seizure Disorder, Sleep Apnea/CPAP/BIPAP Additional Past Medical History / Comment(s): Admitted to [facility] for low sodium of 120,sodium back up to 130 per and expected to be discharged today on 07-28-21,fluid restrictions of 1800cc/day.hx 05/15/18 CVA with L sided weakness/nondominent side treated in [facility], 05/16/18 aspiration pne umonia/respiratory failure/vented, 06/08/18 trached, , trach removed 07/16/18, pt went into Afib on 07/21/18 and started with episodes of feeling like something is in his throat which then leads to SOB episodes.- no further episodes "Beginnings of CHF." Hx GI Bleed august or September 2018. walks with short distance with wheeled-walker .Chronic Kidney Disease since CVA with now on peritoneal dialysis dailyl "Continues with weak kidneys." Uses Bipap. Hx anemia,hx neuropathy bilateral feet improved, glaucoma bilateral eyes, had seizure 2020- unresponsive stare for 30-40 seconds, BPH.mild heart valve leakage,,no current episodes/recent of CHF (?) pt 's states structural technician states no CHF ,diabetes-no longer medically treated diet controlled. 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 Debridement right thumb.rt thumb abscess,glaucoma hortensia eyes,cataract removal hortensia eyes, rt eye "oil" removed and reinserted beginning of July" .Has port for peritoneal dialysis. umbilical hernia Past Anesthesia/Blood Transfusion Reactions: No Reported Reaction Additional Past Anesthesia/Blood Transfusion Reaction / Comment(s): Pt has received blood transfusion in past without reaction. hx trach w/ scar tissue- last procedure after breathing tube removed had feeling like he couldn't breathe-was given Valium with relief-no futher problems Past Psychological History: No Psychological Hx Reported Additional Psychological History / Comment(s): [facility] Smoking Status: Never smoker Past Alcohol Use History: None Reported Past Drug Use History: None Reported - Past Family History Mother Family Medical History: Cancer Additional Family Medical History / Comment(s): Mother had stomach cancer, . Father Family Medical History: COPD, Myocardial Infarction ([place]) Additional Family Medical History / Comment(s): Father had a massive [place] at the age of 63 yrs. Medications and Allergies Home Medications Medication Instructions Recorded Confirmed Type Docusate [Colace] 100 mg PO DAILY@1200 08/25/18 03/21/23 History Finasteride [Proscar] 5 mg PO DAILY@0600 08/25/18 03/21/23 History Tamsulosin [Flomax] 0.4 mg PO DAILY@0600 08/25/18 03/21/23 History levETIRAcetam [Keppra] 500 mg PO BID@1200,1800 08/25/18 03/21/23 History polyethylene glycoL 3350 [Miralax] 17 gm PO DAILY@1800 08/25/18 03/21/23 History Apixaban [Eliquis] 2.5 mg PO BID@0600,1800 12/30/18 03/21/23 History Venlafaxine HCl [Effexor XR] 75 mg PO DAILY@1700 12/30/18 03/21/23 History guaiFENesin [Mucinex] 1,200 mg PO BID@0600,1800 12/30/18 03/21/23 History Melatonin 5 mg PO HS@1800 04/02/19 03/21/23 History Metoprolol Succinate (ER) [Toprol 25 mg PO TID@0600,1200,1800 04/02/19 03/21/23 History XL] allopurinoL [Zyloprim] 100 mg PO Q48H 04/02/19 03/21/23 History Fluticasone Nasal [place] [Flonase 1 spray EA NOSTRIL DAILY PRN 11/20/19 03/21/23 History Nasal [place]] Ipratropium-Albuterol Nebulize 3 ml INHALATION RT-BID 11/20/19 03/21/23 History [Duoneb 0.5 mg-3 mg/3 ml Soln] Spironolactone 12.5 mg PO DAILY@0600 11/20/19 03/21/23 History amLODIPine [Norvasc] 5 mg PO BID@1200,1800 11/20/19 03/21/23 History Brinzolamide/Brimonidine Tart 1 drop BOTH EYES BID@0600,1800 07/28/21 03/21/23 History [Simbrinza 1%-0.2% Eye Drops] Sevelamer [Renvela] 1,600 mg PO TID-W/MEALS 07/28/21 03/21/23 History Simvastatin 10 mg PO DAILY@1800 07/28/21 03/21/23 History Furosemide [Lasix] 60 mg PO DAILY@0600 08/09/21 03/21/23 History Albuterol Inhaler [Ventolin Hfa 1 - 2 puff INHALATION RT-Q6H PRN 03/21/23 03/21/23 History Inhaler] Ergocalciferol (Vitamin D2) 1,250 mcg PO Q30D 03/21/23 03/21/23 History [Drisdol (50,000 Iu)] Folic Acid/Vit B Complex and C 0.8 mg PO DAILY@1200 03/21/23 03/21/23 History [Nephro-Michael Tablet] Gentamicin Sulfate [Gentamicin 1 applic TOPICAL DAILY 03/21/23 03/21/23 History Sulfate 0.1%] Ipratropium-Albuterol Nebulize 3 ml INHALATION RT-Q6H PRN 03/21/23 03/21/23 History [Duoneb 0.5 mg-3 mg/3 ml Soln] Latanoprostene Bunod [Vyzulta] 1 drop BOTH EYES DAILY@1800 03/21/23 03/21/23 His tory Mircera (Unknown Dose) 1 dose INJ Q30D 03/21/23 03/21/23 History Allergies Allergy/AdvReac Type Severity Reaction Status Date / Time torsemide Allergy urinary Verified 03/21/23 21:17 retention bandaids Allergy rash, ok Uncoded 04/25/22 10:02 to use papertape Physical Exam Vitals: Vital Signs Temp Pulse Pulse Resp BP BP Pulse Ox 03/22/23 12:17 72 03/22/23 12:02 68 03/22/23 08:00 98.2 F 60 17 132/75 98 03/22/23 02:00 97.3 F L 70 130/77 99 03/21/23 23:26 97.9 F 73 18 147/78 98 03/21/23 22:00 88 20 158/87 99 03/21/23 21:21 81 03/21/23 21:10 81 03/21/23 21:00 162/99 99 03/21/23 17:19 98.7 F 85 16 196/71 98 Intake and Output 03/21/23 03/22/23 03/22/23 22:59 06:59 14:59 Other: Weight 94.801 kg 71.5 kg Patient is awake, comfortable, no acute distress Examination of the heart S1 and S2 Examination of the lungs bilateral breath sounds are heard Abdomen is soft nontender, no drainage noted at the PD catheter site Examination of lower extremities shows edema 1+ bilaterally [employer]IG[employer] 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 End-stage renal disease maintained on peritoneal dialysis 2. Relapsing peritonitis scheduled for removal of PD catheter on 03/25/2023 3. Hypokalemia secondary to PD and decreased oral intake 4. Mild volume overload 5. CK D mineral bone disorder Plan: Replace potassium Continue with peritoneal dialysis until removal of catheter on 03/25/2023 [place] Switch to hemodialysis after tunneled catheter placement on 03/25/2023 Vancomycin IV 1 Send PD fluid for Gram stain cell count and culture. Thank you for the consultation. We will continue to follow the patient with you during his hospitalization.
--- NOTE | 2023-03-22 12:57 | P.HPIM ---
History of Present Illness H&P Date: 03/22/23 Chief Complaint: Peritoneal catheter infection This is a 67-year-old patient who follows with Dr. Sebas Alejandre. Extensive medical history with chronic medical conditions including atrial fibrillation, CHF, hypertension, hyperlipidemia, kidney disease, seizure disorder, sleep apnea, stroke with some left-sided weakness, did receive hemodialysis in 2019. Uses BiPAP. Peripheral neuropathy does use a walker. She does undergo peritoneal dialysis. Follows with [facility] [employer] [facility] Dr. Reyes. Patient can only see shadows from the right eye. Patient was sent into the ER after patient's peritoneal fluid showed gram- positive cocci and a white count of 32. On March 18. Plan is to have the peritoneal catheter removed and temporary dialysis catheter placed. Patient denies any fever and chills. Appetite is fair. at the bedside. Patient dialysis fluid otherwise has been clear. Patient recently finished a course of antibiotic with vancomycin and cefepime. 4 peritonitis. Patient has slight fluid overload. Review of systems: GEN.: [ Tired] EYES: [Can only see shadows from the right eye] HEENT: [None] NECK: [None] RESPIRATORY: [None] CARDIOVASCULAR: [None] GASTROINTESTINAL: [Abdominal distention.] GENITOURINARY: [None] MUSCULOSKELETAL: [None] LYMPHATICS: [None] HEMATOLOGICAL: [None] PSYCHIATRY: [None] NEUROLOGICAL: [This is a hemiwalker] Past medical history to include: Atrial fibrillation, blood disorder, CHF, stroke, GI bleed, hypertension, hyperlipidemia, prostate disorder, seizure disorder, sleep apnea, BiPAP, does use a hemiwalker. End-stage kidney disease on peritoneal dialysis Social history No smoking or alcohol. Physical examination: VITAL SIGNS: 98.2, 16, 17, 1 32 x 75, 98% room air GENERAL: Laying in bed, awake, tired. EYES: Pupils equal. Conjunctiva normal. HEENT: External appearance of nose and ears normal, oral cavity grossly normal. NECK: JVD not raised; masses not palpable. HEART: First and second heart sounds are normal; some edema present LUNGS: Respiratory rate normal; clear to auscultation. ABDOMEN: Soft, distended. PD catheter, nontender, liver spleen not palpable, no masses palpable. PSYCH: Answering questions appropriately. MUSCULOSKELETAL:No Clubbing/cyanosis;muscles-grossly intact NEUROLOGICAL: Cranial nerves grossly intact; no facial asymmetry, left arm and leg weakness power 3/5. Right eye vision decreased to only shadows INVESTIGATIONS, reviewed in the clinical context: 03/22/2023: White count 11.4 hemoglobin 9.9 platelets 261 sodium 1:30 potassium 3.3 BUN 35 creatinine 4.70 Peritoneal fluid catheter from [] from Dr. Reyes's office showing gram-positive cocci. Assessment and plan: -Infected peritoneal dialysis catheter. Cultures from 03/18/2023 showing gram-positive cocci. Vascular surgery consulted for removal of catheter. And temporary dialysis catheter to be placed. IV vancomycin -End-stage kidney disease on peritoneal dialysis. Follows with Dr. Reyes. -Hyponatremia, hyervolemic Dialysis -CK D minimal bone disease Vitamin D2. Renvela - left hemiparesis from prior stroke Fall precautions -Depression effexor XL 75 mg a day -BPH Flomax 0.4 mg a day Proscar 5 mg a day -Hyperlipidemia Simvastatin 10 mg a day -Hyperuricemia Allopurinol -GERD Protonix 40 mg a day -Essential hypertension Toprol-XL 25 mg 3 times a day. Amlodipine 5 mg twice a day. Norvasc 5 mg twice a day -Seizure disorder Keppra 500 mg twice a day -Full code Given the complexity and severity of patient's condition expect the patient to be in the hospital at least for 2 overnights Past Medical History Past Medical History: Atrial Fibrillation, Blood Disorder, Heart Failure, CVA/TIA, Dialysis, Eye Disorder, GI Bleed, Hyperlipidemia, Hypertension, Prostate Disorder, Renal Disease, Seizure Disorder, Sleep Apnea/CPAP/BIPAP Additional Past Medical History / Comment(s): Admitted to [facility] for low sodium of 120,sodium back up to 130 per and expected to be discharged today on 07-28-21,fluid restrictions of 1800cc/day.hx 05/15/18 CVA with L sided weakness/nondominent side treated in [facility], 05/16/18 aspiration pneumonia/respiratory failure/vented, 06/08/18 trached, , trach removed 07/16/18, pt went into [facility] on 07/21/18 and started with episodes of feeling like something is in his throat which then leads to SOB episodes.- no further episodes "Beginnings of CHF." Hx GI Bleed august or September 2018. walks with short distance with wheeled-walker .Chronic Kidney Disease since CVA with now on peritoneal dialysis dailyl "Continues with weak kidneys." Uses Bipap. 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 Debridement right thumb.rt thumb abscess,glaucoma hortensia eyes,cataract removal hortensia eyes, rt eye "oil" removed and reinserted beginning of July" .Has port for peritoneal dialysis. umbilical hernia Past Anesthesia/Blood Transfusion Reactions: No Reported Reaction Additional Past Anesthesia/Blood Transfusion Reaction / Comment(s): Pt has received blood transfusion in past without reaction. hx trach w/ scar tissue- last procedure after breathing tube removed had feeling like he couldn't breathe-was given Valium with relief-no futher problems Past Psychological History: No Psychological Hx Reported Additional Psychological History / Comment(s): [facility] Smoking Status: Never smoker Past Alcohol Use History: None Reported Past Drug Use History: None Reported - Past Family History Mother Family Medical History: Cancer Additional Family Medical History / Comment(s): Mother had stomach cancer, . Father Family Medical History: COPD, Myocardial Infarction (PA) Additional Family Medical History / Comment(s): Father had a massive PA at the age of 63 yrs. Medications and Allergies Home Medications Medication Instructions Recorded Confirmed Type Docusate [Colace] 100 mg PO DAILY@1200 08/25/18 03/21/23 History Finasteride [Proscar] 5 mg PO DAILY@0600 08/25/18 03/21/23 History Tamsulosin [Flomax] 0.4 mg PO DAILY@0600 08/25/18 03/21/23 History levETIRAcetam [Keppra] 500 mg PO BID@1200,1800 08/25/18 03/21/23 History polyethylene glycoL 3350 [Miralax] 17 gm PO DAILY@1800 08/25/18 03/21/23 History Apixaban [Eliquis] 2.5 mg PO BID@0600,1800 12/30/18 03/21/23 History Venlafaxine HCl [Effexor XR] 75 mg PO DAILY@1700 12/30/18 03/21/23 History guaiFENesin [Mucinex] 1,200 mg PO BID@0600,1800 12/30/18 03/21/23 History Melatonin 5 mg PO HS@1800 04/02/19 03/21/23 History Metoprolol Succinate (ER) [Toprol 25 mg PO TID@0600,1200,1800 04/02/19 03/21/23 History XL] allopurinoL [Zyloprim] 100 mg PO Q48H 04/02/19 03/21/23 History Fluticasone Nasal [place] [Flonase 1 spray EA NOSTRIL DAILY PRN 11/20/19 03/21/23 History Nasal [place]] Ipratropium-Albuterol Nebulize 3 ml INHALATION RT-BID 11/20/19 03/21/23 History [Duoneb 0.5 mg-3 mg/3 ml Soln] Spironolactone 12.5 mg PO DAILY@0600 11/20/19 03/21/23 History amLODIPine [Norvasc] 5 mg PO BID@1200,1800 11/20/19 03/21/23 History Brinzolamide/Brimonidine Tart 1 drop BOTH EYES BID@0600,1800 07/28/21 03/21/23 History [Simbrinza 1%-0.2% Eye Drops] Sevelamer [Renvela] 1,600 mg PO TID-W/MEALS 07/28/21 03/21/23 History Simvastatin 10 mg PO DAILY@1800 07/28/21 03/21/23 History Furosemide [Lasix] 60 mg PO DAILY@0600 08/09/21 03/21/23 History Albuterol Inhaler [Ventolin Hfa 1 - 2 puff INHALATION RT-Q6H PRN 03/21/23 03/21/23 History Inhaler] Ergocalciferol (Vitamin D2) 1,250 mcg PO Q30D 03/21/23 03/21/23 History [Drisdol (50,000 Iu)] Folic Acid/Vit B Complex and C 0.8 mg PO DAILY@1200 03/21/23 03/21/23 History [Nephro-Michael Tablet] Gentamicin Sulfate [Gentamicin 1 applic TOPICAL DAILY 03/21/23 03/21/23 History Sulfate 0.1%] Ipratropium-Albuterol Nebulize 3 ml INHALATION RT-Q6H PRN 03/21/23 03/21/23 History [Duoneb 0.5 mg-3 mg/3 ml Soln] Latanoprostene Bunod [Vyzulta] 1 drop BOTH EYES DAILY@1800 03/21/23 03/21/23 History Mircera (Unknown Dose) 1 dose INJ Q30D 03/21/23 03/21/23 History Allergies Allergy/AdvReac Type Severity Reaction Status Date / Time torsemide Allergy urinary Verified 03/21/23 21:17 retention bandaids Allergy rash, ok Uncoded 04/25/22 10:02 to use papertape Physical Exam Vitals: Vital Signs Temp Pulse Pulse Resp BP BP Pulse Ox 03/22/23 08:00 98.2 F 60 17 132/75 98 03/22/23 02:00 97.3 F L 70 130/77 99 03/21/23 23:26 97.9 F 73 18 147/78 98 03/21/23 22:00 88 20 158/87 99 03/21/23 21:21 81 03/21/23 21:10 81 03/21/23 21:00 162/99 99 03/21/23 17:19 98.7 F 85 16 196/71 98 Intake and Output 03/21/23 03/22/23 03/22/23 22:59 06:59 14:59 Other: Weight 94.801 kg 71.5 kg Results CBC & Chem 7: 03/22/23 06:27 03/22/23 06:27 Labs: Abnormal Lab Results - Last 24 Hours (Table) 03/21/23 03/21/23 03/21/23 Range/Units 18:19 18:19 18:19 WBC 13.4 H (3.8-10.6) k/uL RBC 3.38 L (4.30-5.90) m/uL Hgb 10.4 L (13.0-17.5) gm/dL Hct 30.7 L (39.0-53.0) % Neutrophils # 11.2 H (1.3-7.7) k/uL Lymphocytes # 0.9 L (1.0-4.8) k/uL APTT 30.2 H (22.0-30.0) sec Sodium 129 L (137-145) mmol/L Potassium (3.5-5.1) mmol/L Chloride 92 L (98-107) mmol/L BUN 33 H (9-20) mg/dL Creatinine 4.47 H (0.66-1.25) mg/dL Glucose 165 H (74-99) mg/dL Calcium 8.3 L (8.4-10.2) mg/dL Alkaline Phosphatase 128 H (38-126) U/L Albumin 3.3 L (3.5-5.0) g/dL 03/22/23 03/22/23 Range/Units 06:27 06:27 WBC 11.4 H (3.8-10.6) k/uL RBC 3.18 L (4.30-5.90) m/uL Hgb 9.9 L (13.0-17.5) gm/dL Hct 29.5 L (39.0-53.0) % Neutrophils # 9.2 H (1.3-7.7) k/uL Lymphocytes # (1.0-4.8) k/uL APTT (22.0-30.0) sec Sodium 130 L (137-145) mmol/L Potassium 3.3 L (3.5-5.1) mmol/L Chloride 94 L (98-107) mmol/L BUN 35 H (9-20) mg/dL Creatinine 4.70 H (0.66-1.25) mg/dL Glucose 119 H (74-99) mg/dL Calcium 8.2 L (8.4-10.2) mg/dL Alkaline Phosphatase (38-126) U/L Albumin (3.5-5.0) g/dL Thrombosis Risk Factor Assmnt - Choose All That Apply Any of the Below Risk Factors Present?: Yes Each Factor Represents 1 point: Obesity (BMI >25) Other Risk Factors: Yes Each Risk Factor Represents 2 Points: Age 61-74 years Thrombosis Risk Factor Assessment Total Risk Factor Score: 3 Thrombosis Risk Factor Assessment Level: Moderate Risk
[2023-03-22] MEDS: DOCUSATE 100 MG CAP PO SCH (13:22)
[2023-03-22] MEDS: GENTAMICIN 0.1% CREAM 15 GM TUBE TOPICAL SCH (14:19)
[2023-03-22] MEDS: SIMBRINZA BOTH EYES SCH ×2 (15:05→22:41)
[2023-03-22] MEDS: polyethylene glycoL 3350 17 GM POWD.PACK PO SCH (17:56)
[2023-03-22] MEDS ORDERED: DIALYSIS (PERIT 1.5%) 2,000 ML 30 G/2,000 ML BAG INTRAPERIT SCH (18:00)
[2023-03-22] MEDS: LATANOPROSTENE BUNOD BOTH EYES SCH (18:01)
[2023-03-22] MEDS ORDERED: VANCOMYCIN 1,500 MG in SODIUM CHLORIDE 0.9% 500 ML 500 ML IVPB ONE (21:00)
[2023-03-22] MEDS: ATORVASTATIN 10 MG TAB PO SCH (22:40)
[2023-03-22] MEDS: VENLAFAXINE HCL ER 75 MG CAP PO SCH (22:40)
[2023-03-22] MEDS: MELATONIN 5 MG TABLET PO SCH (22:40)
[2023-03-23] MEDS ORDERED: DIALYSIS (PERIT 1.5%) 2,000 ML 30 G/2,000 ML BAG INTRAPERIT SCH
[2023-03-23] MEDS ORDERED: DIALYSIS (PERIT 2.5%) 2,000 ML 50 G/2,000 ML BAG INTRAPERIT SCH (06:00)
[2023-03-23] MEDS: IPRATROPIUM-ALBUTEROL 3 ML NEB INHALATION SCH ×2 (08:19→21:53)
[2023-03-23] MEDS: allopurinoL 100 MG TAB PO SCH (08:48)
[2023-03-23] MEDS: METOPROLOL SUCCINATE (ER) 25 MG TAB.ER.24H PO SCH ×3 (08:48→21:41)
[2023-03-23] MEDS: FUROSEMIDE 20 MG TAB PO SCH (08:48)
[2023-03-23] MEDS: FINASTERIDE 5 MG TAB PO SCH (08:49)
[2023-03-23] MEDS: guaiFENesin 600 MG TABLET.ER PO SCH ×2 (08:50→21:41)
[2023-03-23] MEDS: SEVELAMER 800 MG TAB PO SCH ×3 (08:51→16:56)
[2023-03-23] MEDS: levETIRAcetam 500 MG TAB PO SCH ×2 (08:52→21:41)
[2023-03-23] MEDS: FOLIC ACID-VIT B COMPLEX-VIT C 1 CAP PO SCH (08:52)
[2023-03-23] MEDS: TAMSULOSIN 0.4 MG CAP.ER.24H PO SCH (08:52)
[2023-03-23] MEDS: amLODIPine 5 MG TAB PO SCH ×2 (08:52→21:41)
[2023-03-23] MEDS: SPIRONOLACTONE 25 MG TAB PO SCH (08:55)
[2023-03-23] MEDS: GENTAMICIN 0.1% CREAM 15 GM TUBE TOPICAL SCH (10:47)
--- NOTE | 2023-03-23 10:49 | P.PN ---
Subjective Patient is seen for follow-up for end-stage renal disease. Schedule for removal of Catheter and placement of hemodialysis catheter on 03/25/2023. Currently maintained on peritoneal dialysis. Patient is tolerating the exchanges fairly well. No significant UF noted. No complaints today Objective - Vital Signs Vital signs: Vital Signs Temp 97.5 F L 03/23/23 07:29 Pulse 71 03/23/23 07:29 Resp 18 03/23/23 07:29 BP 150/67 03/23/23 07:29 Pulse Ox 97 03/23/23 07:29 FiO2 Intake & Output 03/22/23 03/23/23 03/23/23 18:59 06:59 18:59 Output Total 1150 Balance -1150 Weight 72 kg Output: Urine 1150 Other: Voiding Method Urinal - Exam Patient is awake, comfortable, no acute distress Examination of the heart S1 and S2 Examination of the lungs bilateral breath sounds are heard Abdomen is soft nontender, no drainage noted at the PD catheter site Examination of lower extremities shows edema 1+ bilaterally 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 End-stage renal disease maintained on peritoneal dialysis 2. Relapsing peritonitis scheduled for removal of PD catheter on 03/25/2023 3. Hypokalemia secondary to PD and decreased oral intake 4. Mild volume overload 5. CK D mineral bone disorder Plan: Change PD exchanges to 2.5% solution every 6 hours. Follow-up on PD fluid cultures
[2023-03-23] MEDS: DIALYSIS (PERIT 2.5%) 2,000 ML 50 G/2,000 ML BAG INTRAPERIT SCH ×2 (11:33→18:19)
[2023-03-23] MEDS: DOCUSATE 100 MG CAP PO SCH (12:26)
[2023-03-23] MEDS: SIMBRINZA BOTH EYES SCH ×2 (12:29→21:42)
--- NOTE | 2023-03-23 14:38 | P.PN ---
Subjective Progress Note Date: 03/23/23 * 67-year-old patient who follows with Dr. Sebas Alejandre. Extensive medical history with chronic medical conditions including atrial fibrillation, CHF, hypertension, hyperlipidemia, kidney disease, seizure disorder, sleep apnea, stroke with some left-sided weakness, did receive hemodialysis in 2019. Uses BiPAP. Peripheral neuropathy does use a walker. She does undergo peritoneal dialysis. Follows with hris coordinator Dr. Reyes. Patient can only see shadows from the right eye. * Patient was sent into the ER after patient's peritoneal fluid showed gram- positive cocci and a white count of 32. On March 18. Plan is to have the peritoneal catheter removed and temporary dialysis catheter placed. Patient denies any fever and chills. Appetite is fair. at the bedside. Patient dialysis fluid otherwise has been clear. Patient recently finished a course of antibiotic with vancomycin and cefepime. 4 peritonitis. Patient has slight fluid overload. * 03/23/2023: Patient seen and evaluated bedside, potassium replacement ordered nephrology following, patient receiving peritoneal dialysis. Patient has infected peritoneal dialysis catheter which will be removed, infectious disease consulted continue on IV vancomycin. Continue to monitor on electrolyte panel. Follow-up on electrolyte panel for tomorrow PHYSICAL EXAMINATION: GENERAL: The patient is alert and oriented x3 ill appearance pale appearance HEENT: Pupils are round and equally reacting to light. EOMI. CARDIOVASCULAR: S1 and S2 present. Lower extremity edema noted PULMONARY: Chest is clear to auscultation, no wheezing or crackles. ABDOMEN: Soft, nontender, nondistended, normoactive bowel sounds. No palpable organomegaly. MUSCULOSKELETAL: No joint swelling or deformity. EXTREMITIES: Lower extremity edema noted NEUROLOGICAL: Gross neurological examination did not reveal any focal deficits. Left arm and left leg chronically weak Objective - Vital Signs Vital signs: Vital Signs Temp 97.6 F 03/23/23 11:35 Pulse 70 03/23/23 11:35 Resp 18 03/23/23 07:29 BP 155/82 03/23/23 11:35 Pulse Ox 97 03/23/23 07:29 FiO2 Intake & Output 03/22/23 03/23/23 03/23/23 18:59 06:59 18:59 Output Total 1150 Balance -1150 Weight 72 kg Output: Urine 1150 Other: Voiding Method Urinal - Labs CBC & Chem 7: 03/22/23 06:27 03/22/23 06:27 Labs: Microbiology - Last 24 Hours (Table) 03/21/23 21:40 Blood Culture - Preliminary Blood 03/21/23 21:48 Blood Culture - Preliminary Blood Assessment and Plan Assessment: Assessment and plan * Infected peritoneal dialysis catheter with fluid positive for gram-positive cocci once A * History renal disease on by toenail dialysis * Hypovolemic hyponatremia * History of CVA with left-sided hemiparesis * History of BPH * Hyperlipidemia * Hyperuricemia * Essential hypertension * History of seizure disorder * In regards to end-stage renal disease, continue dialysis per nephrology, vascular surgery consulted for hemodialysis catheter placement. And removal of infected peritoneal dialysis catheter * In regards to peritonitis, infectious disease consulted continue patient on IV vancomycin * In regards to history of CVA continue current medical regimen * In regards to history of depression continue Effexor * In regards to hypertension continue amlodipine, Aldactone, Lasix, metoprolol
--- NOTE | 2023-03-23 15:42 | P.PN ---
Subjective Progress Note Date: 03/23/23 Pt s/e. resting comfortably family at the bedside. No complaints. Objective - Vital Signs Vital signs: Vital Signs Temp 97.8 F 03/23/23 14:05 Pulse 61 03/23/23 14:05 Resp 19 03/23/23 14:05 BP 116/73 03/23/23 14:05 Pulse Ox 97 03/23/23 14:05 FiO2 Intake & Output 03/22/23 03/23/23 03/23/23 18:59 06:59 18:59 Output Total 1150 Balance -1150 Weight 72 kg Output: Urine 1150 Other: Voiding Method Urinal - Exam General appearance: The patient is resting, oriented, appears in no acute distress. Obese. HET: Head is normocephalic and atraumatic. Neck: Supple. Heart: Regular. Lungs: Equal expansion, normal respiratory effort. Abdomen: Soft, nontender, nondistended. Right side of abdomen with PD catheter in place without any surrounding erythema or drainage. Extremities: Normal skin color and turgor. Neurological: Left-sided weakness. - Labs CBC & Chem 7: 03/22/23 06:27 03/22/23 06:27 Labs: Microbiology - Last 24 Hours (Table) 03/21/23 21:40 Blood Culture - Preliminary Blood 03/21/23 21:48 Blood Culture - Preliminary Blood Assessment and Plan Assessment: 1. Peritonitis 2. End-stage renal disease on peritoneal dialysis 3. End-stage renal disease requiring hemodialysis access 4. Atrial fibrillation on anticoagulation, currently on hold Plan: Blood culture results negative to date. Await plan intervention Saturday due to anticoagulation blood cultures. We'll plan for removal of peritoneal dialysis catheter and tentative placement of tunneled dialysis catheter pending cultures.
[2023-03-23] MEDS: LATANOPROSTENE BUNOD BOTH EYES SCH (17:02)
[2023-03-23] MEDS: polyethylene glycoL 3350 17 GM POWD.PACK PO SCH (17:02)
[2023-03-23 17:45] LABS: Appearance,BF Clear (Clear)
[2023-03-23] MEDS: VENLAFAXINE HCL ER 75 MG CAP PO SCH (21:41)
[2023-03-23] MEDS: MELATONIN 5 MG TABLET PO SCH (21:41)
[2023-03-23] MEDS: ATORVASTATIN 10 MG TAB PO SCH (21:41)
--- NOTE | 2023-03-23 23:19 | P.CONS ---
History of Present Illness - Reason for Consult Consult date: 03/23/23 Peritonitis Requesting physician: Jonathon Montano - Chief Complaint Abdominal pain x few days - History of Present Illness Patient is a 67-year-old male with a past medical history of clinical hypertension hyperlipidemia seizure disorder did have end-stage renal disease on peritoneal dialysis apparently the patient seem to have a problem with the PD catheter associated peritonitis over the last 4 to 6 weeks secondary to gram- positive culture has been done in the outpatient setting and not available in the [facility] system the patient has been treated with vancomycin and Fortaz through the dialysalte however the patient did have persistent symptoms for the patient has been admitted to hospital for removal of the PD catheter and placement of the hemodialysis catheter. Patient on presentation to the hospital has been afebrile and no fever have recorded subsequently patient not tachycardic hypotensive or hypoxic patient did have a white count of 13.4 with a left shift creatinine is 4.47 liver enzymes are normal he did have a PD fluid analysis with tissues a white count of 38 vancomycin random is 32.7, patient denies having any fever or any chills denies any headache or URI symptoms no chest pain shortness of breath or cough has been complaining of abdominal pain mostly dull aching mild to moderate intensity denies having any drainage around the PD catheter site no diarrhea Review of Systems Positive point and negatives has been mentioned in the HPI, complete review of systems was performed and all other systems are negative All systems: negative Constitutional: Denies chills, Denies fever Eyes: denies blurred vision, denies pain Ears, nose, mouth and throat: Denies headache, Denies sore throat Cardiovascular: Denies chest pain, Denies shortness of breath Respiratory: Denies cough Gastrointestinal: Denies abdominal pain, Denies diarrhea, Denies nausea, Denies vomiting Musculoskeletal: Denies myalgias Integumentary: Denies pruritus, Denies rash Neurological: Denies numbness, Denies weakness Psychiatric: Denies anxiety, Denies depression Endocrine: Denies fatigue, Denies weight change Past Medical History Past Medical History: Atrial Fibrillation, Blood Disorder, Heart Failure, CVA/TIA, Dialysis, Eye Disorder, GI Bleed, Hyperlipidemia, Hypertension, Prostate Disorder, Renal Disease, Seizure Disorder, Sleep Apnea/CPAP/BIPAP Additional Past Medical History / Comment(s): Admitted to [facility] for low sodium of 120,sodium back up to 130 per and expected to be discharged today on 07-28-21,fluid restrictions of 1800cc/day.hx 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 walks with short distance with wheeled- walker .Chronic Kidney Disease since CVA with now on peritoneal dialysis dailyl "Continues with weak kidneys." Uses Bipap. 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 Debridement right thumb.rt thumb abscess,glaucoma hortensia eyes,cataract removal hortensia eyes, rt eye "oil" removed and reinserted beginning of July" .Has port for peritoneal dialysis. umbilical hernia Past Anesthesia/Blood Transfusion Reactions: No Reported Reaction Additional Past Anesthesia/Blood Transfusion Reaction / Comm: Pt has received blood transfusion in past without reaction. hx trach w/ scar tissue-last procedure after breathing tube removed had feeling like he couldn't breathe-was given Valium with relief-no futher problems Past Psychological History: No Psychological Hx Reported Additional Psychological History / Comment(s): [facility] Smoking Status: Never smoker Past Alcohol Use History: None Reported Past Drug Use History: None Reported - Past Family History Mother Family Medical History: Cancer Additional Family Medical History / Comment(s): Mother had stomach cancer, . Father Family Medical History: COPD, Myocardial Infarction (NH) Additional Family Medical History / Comment(s): Father had a massive NH at the age of 63 yrs. Medications and Allergies Home Medications Medication Instructions Recorded Confirmed Type Docusate [Colace] 100 mg PO DAILY@1200 08/25/18 03/21/23 History Finasteride [Proscar] 5 mg PO DAILY@0600 08/25/18 03/21/23 History Tamsulosin [Flomax] 0.4 mg PO DAILY@0600 08/25/18 03/21/23 History levETIRAcetam [Keppra] 500 mg PO BID@1200,1800 08/25/18 03/21/23 History polyethylene glycoL 3350 [Miralax] 17 gm PO DAILY@1800 08/25/18 03/21/23 History Apixaban [Eliquis] 2.5 mg PO BID@0600,1800 12/30/18 03/21/23 History Venlafaxine HCl [Effexor XR] 75 mg PO DAILY@1700 12/30/18 03/21/23 History guaiFENesin [Mucinex] 1,200 mg PO BID@0600,1800 12/30/18 03/21/23 History Melatonin 5 mg PO HS@1800 04/02/19 03/21/23 History Metoprolol Succinate (ER) [Toprol 25 mg PO TID@0600,1200,1800 04/02/19 03/21/23 History XL] allopurinoL [Zyloprim] 100 mg PO Q48H 04/02/19 03/21/23 History Fluticasone Nasal [place] [Flonase 1 spray EA NOSTRIL DAILY PRN 11/20/19 03/21/23 History Nasal [place]] Ipratropium-Albuterol Nebulize 3 ml INHALATION RT-BID 11/20/19 03/21/23 History [Duoneb 0.5 mg-3 mg/3 ml Soln] Spironolactone 12.5 mg PO DAILY@0600 11/20/19 03/21/23 History amLODIPine [Norvasc] 5 mg PO BID@1200,1800 11/20/19 03/21/23 History Brinzolamide/Brimonidine Tart 1 drop BOTH EYES BID@0600,1800 07/28/21 03/21/23 History [Simbrinza 1%-0.2% Eye Drops] Sevelamer [Renvela] 1,600 mg PO TID-W/MEALS 07/28/21 03/21/23 History Simvastatin 10 mg PO DAILY@1800 07/28/21 03/21/23 History Furosemide [Lasix] 60 mg PO DAILY@0600 08/09/21 03/21/23 History Albuterol Inhaler [Ventolin Hfa 1 - 2 puff INHALATION RT-Q6H PRN 03/21/23 03/21/23 History Inhaler] Ergocalciferol (Vitamin D2) 1,250 mcg PO Q30D 03/21/23 03/21/23 History [Drisdol (50,000 Iu)] Folic Acid/Vit B Complex and C 0.8 mg PO DAILY@1200 03/21/23 03/21/23 History [Nephro-Michael Tablet] Gentamicin Sulfate [Gentamicin 1 applic TOPICAL DAILY 03/21/23 03/21/23 History Sulfate 0.1%] Ipratropium-Albuterol Nebulize 3 ml INHALATION RT-Q6H PRN 03/21/23 03/21/23 History [Duoneb 0.5 mg-3 mg/3 ml Soln] Latanoprostene Bunod [Vyzulta] 1 drop BOTH EYES DAILY@1800 03/21/23 03/21/23 History Mircera (Unknown Dose) 1 dose INJ Q30D 03/21/23 03/21/23 History Allergies Allergy/AdvReac Type Severity Reaction Status Date / Time torsemide Allergy urinary Verified 03/21/23 21:17 retention bandaids Allergy rash, ok Uncoded 04/25/22 10:02 to use papertape Physical Exam Vitals: Vital Signs Temp Pulse Pulse Resp BP BP BP 03/23/23 07:29 97.5 F L 71 18 150/67 03/23/23 05:53 97.6 F 69 16 163/62 03/23/23 02:00 98.7 F 69 17 142/76 03/23/23 01:10 98.3 F 94 16 137/73 03/22/23 23:38 98.3 F 94 16 137/73 03/22/23 18:26 98.3 F 94 137/73 03/22/23 16:56 94 157/83 03/22/23 16:54 98.3 F 94 180/85 03/22/23 16:37 98.1 F 94 16 148/79 03/22/23 14:43 98.1 F 94 16 148/79 03/22/23 12:17 72 Pulse Ox 03/23/23 07:29 97 03/23/23 05:53 96 03/23/23 02:00 96 03/23/23 01:10 97 03/22/23 23:38 97 03/22/23 18:26 97 03/22/23 16:56 03/22/23 16:54 97 03/22/23 16:37 97 03/22/23 14:43 97 03/22/23 12:17 Intake and Output 03/22/23 03/23/23 03/23/23 22:59 06:59 14:59 Output Total 1150 Balance -1150 Output: Urine 1150 Other: Voiding Method Urinal Weight 72 kg GENERAL DESCRIPTION: Elderly male lying in bed, no distress. No tachypnea or accessory muscle of respiration use. HEENT: Shows Pallor , no scleral icterus. Oral mucous membrane is dry. No pharyngeal erythema or thrush NECK: Trachea central, no thyromegaly. LUNGS: Unlabored breathing. Clear to auscultation anteriorly. No wheeze or crackle. HEART: S1, S2, regular rate and rhythm. No loud murmur ABDOMEN: Soft, no tenderness , EXTREMITIES: No edema of feet. SKIN: No rash, no masses palpable. NEUROLOGICAL: The patient is awake, alert, oriented x3, mood and affect normal. Results CBC & Chem 7: 03/22/23 06:27 03/22/23 06:27 Labs: Microbiology - Last 24 Hours (Table) 03/21/23 21:40 Blood Culture - Preliminary Blood 03/21/23 21:48 Blood Culture - Preliminary Blood Assessment and Plan (1) Leukocytosis Current Visit: Yes Status: Acute Code(s): D72.829 - ELEVATED WHITE BLOOD CELL COUNT, UNSPECIFIED SNOMED Code(s): 153325877 (2) Peritonitis Current Visit: Yes Status: Acute Code(s): K65.9 - PERITONITIS, UNSPECIFIED SNOMED Code(s): 84309510 Plan: 1patient presented to hospital abdominal pain in this patient seem to have a problem with the PD catheter associated peritonitis that has been treated with vancomycin and Fortaz without improvement subsequently admitted to hospital for removal of the dialysis catheter and did have elevated white count but no fever 2-patient to continue the vancomycin pharmacy to dose target of 15 3-await removal of the dialysis catheter which apparently was delayed because the patient was on Eliquis We will follow on clinical condition and cultures to further adjust medication if needed Thank you for this consultation we will follow the patient along with you Dictation was produced using [employer] dictation software. please excuse any grammatical, word or spelling errors. Time with Patient: Greater than 30
[2023-03-24] MEDS: DIALYSIS (PERIT 2.5%) 2,000 ML 50 G/2,000 ML BAG INTRAPERIT SCH ×4 (00:31→17:37)
[2023-03-24] MEDS: SEVELAMER 800 MG TAB PO SCH ×3 (06:56→17:38)
[2023-03-24 08:05] LABS: African American GFR (CKD) 14 (>60 ml/min/1.73 sqM); Anion Gap 11 mmol/L; Blood Urea Nitrogen 36 mg/dL (9-20); Calcium 8.3 mg/dL (8.4-10.2); Carbon Dioxide 25 mmol/L (22-30); Chloride 97 mmol/L (98-107); Glucose 144 mg/dL (74-99); Non-African American GFR(CKD) 12 (>60 ml/min/1.73 sqM); Potassium 3.3 mmol/L (3.5-5.1); Sodium 133 mmol/L (137-145)
[2023-03-24 08:11] LABS: Vancomycin,Random 29.2 ug/mL
[2023-03-24] MEDS: IPRATROPIUM-ALBUTEROL 3 ML NEB INHALATION SCH ×2 (08:20→18:16)
[2023-03-24] MEDS: guaiFENesin 600 MG TABLET.ER PO SCH ×2 (08:58→20:42)
[2023-03-24] MEDS: FOLIC ACID-VIT B COMPLEX-VIT C 1 CAP PO SCH (08:58)
[2023-03-24] MEDS: FINASTERIDE 5 MG TAB PO SCH (08:58)
[2023-03-24] MEDS: levETIRAcetam 500 MG TAB PO SCH ×2 (08:58→20:42)
[2023-03-24] MEDS: METOPROLOL SUCCINATE (ER) 25 MG TAB.ER.24H PO SCH ×3 (08:59→20:42)
[2023-03-24] MEDS: FUROSEMIDE 20 MG TAB PO SCH (08:59)
[2023-03-24] MEDS: SPIRONOLACTONE 25 MG TAB PO SCH (08:59)
[2023-03-24] MEDS: amLODIPine 5 MG TAB PO SCH ×2 (08:59→20:42)
[2023-03-24] MEDS: TAMSULOSIN 0.4 MG CAP.ER.24H PO SCH (08:59)
[2023-03-24] MEDS: SIMBRINZA BOTH EYES SCH ×2 (09:00→20:42)
[2023-03-24] MEDS: GENTAMICIN 0.1% CREAM 15 GM TUBE TOPICAL SCH (09:44)
[2023-03-24 10:12] LABS: HCT 28.7 % (39.6-50.0); HGB 9.4 g/dL (13.0-17.0); MCH 30.3 pg (27.0-32.0); MCHC 32.8 g/dL (32.0-37.0); MCV 92.6 FL (80.0-97.0); Mean Platelet Volume 10.4 FL (9.5-12.2); NRBC Per 100 WBC 0 X 10*3/uL (0.00-0.01); Platelet Count 272 X 10*3/uL (140-440); RDW 13.6 % (11.5-14.5); WBC 11.57 X 10*3/uL (4.50-10.00)
--- NOTE | 2023-03-24 11:34 | P.PN ---
Subjective Patient is seen for follow-up for end-stage renal disease. Schedule for removal of PD Catheter and placement of hemodialysis catheter on 03/25/2023. Currently maintained on peritoneal dialysis. Patient is tolerating the exchanges fairly well. No significant UF noted. Exchanges changed to 2.5% solutions yesterday and patient remains with no UF and in fact retaining about 200 mL with each change. No complaints today. Objective - Vital Signs Vital signs: Vital Signs Temp 98.0 F 03/24/23 07:46 Pulse 62 03/24/23 07:46 Resp 23 03/24/23 08:55 BP 145/77 03/24/23 07:46 Pulse Ox 97 03/24/23 07:46 FiO2 Intake & Output 03/23/23 03/24/23 03/24/23 18:59 06:59 18:59 Intake Total 240 Output Total 200 Balance 40 Weight 66 kg Intake: Oral 240 Output: Urine 200 Other: # Bowel Movements 1 - Exam Patient is awake, comfortable, no acute distress Examination of the heart S1 and S2 Examination of the lungs bilateral breath sounds are heard Abdomen is soft nontender, no drainage noted at the PD catheter site Examination of lower extremities shows edema 1+ bilaterally ASW/ASUW [employer]ICAL [employer]OLLER exam grossly intact - Labs CBC & Chem 7: 03/24/23 06:11 03/24/23 06:11 Labs: Abnormal Lab Results - Last 24 Hours (Table) 03/24/23 03/24/23 Range/Units 06:11 06:11 WBC 11.57 H (4.50-10.00) X 10*3/uL RBC 3.10 L (4.40-5.60) X 10*6/uL Hgb 9.4 L (13.0-17.0) g/dL Hct 28.7 L (39.6-50.0) % Sodium 133 L (137-145) mmol/L Potassium 3.3 L (3.5-5.1) mmol/L Chloride 97 L (98-107) mmol/L BUN 36 H (9-20) mg/dL Creatinine 4.71 H (0.66-1.25) mg/dL Glucose 144 H (74-99) mg/dL Calcium 8.3 L (8.4-10.2) mg/dL Microbiology - Last 24 Hours (Table) 03/23/23 01:11 Gram Stain - Preliminary Dialysate Body Fluid Culture - Preliminary 03/21/23 21:40 Blood Culture - Preliminary Blood 03/21/23 21:48 Blood Culture - Preliminary Blood Assessment and Plan Assessment: 1. End-stage renal disease maintained on peritoneal dialysis 2. Relapsing peritonitis scheduled for removal of PD catheter on 03/25/2023. PD fluid cell count at 38 3. Hypokalemia secondary to PD and decreased oral intake 4. Mild volume overload 5. CK D mineral bone disorder Plan: Continue current PD exchanges Change diet to regular as potassium is low and phosphorus is not elevated. Hemodialysis in a.m.
[2023-03-24] MEDS: DOCUSATE 100 MG CAP PO SCH (13:08)
--- NOTE | 2023-03-24 14:02 | P.PN ---
Subjective Progress Note Date: 03/24/23 * 67-year-old patient who follows with Dr. Sebas Alejandre. Extensive medical history with chronic medical conditions including atrial fibrillation, CHF, hypertension, hyperlipidemia, kidney disease, seizure disorder, sleep apnea, stroke with some left-sided weakness, did receive hemodialysis in 2019. Uses BiPAP. Peripheral neuropathy does use a walker. She does undergo peritoneal dialysis. Follows with forensic toxicologist Dr. Reyes. Patient can only see shadows from the right eye. * Patient was sent into the ER after patient's peritoneal fluid showed gram- positive cocci and a white count of 32. On March 18. Plan is to have the peritoneal catheter removed and temporary dialysis catheter placed. Patient denies any fever and chills. Appetite is fair. at the bedside. Patient dialysis fluid otherwise has been clear. Patient recently finished a course of antibiotic with vancomycin and cefepime. 4 peritonitis. Patient has slight fluid overload. * 03/23/2023: Patient seen and evaluated bedside, potassium replacement ordered nephrology following, patient receiving peritoneal dialysis. Patient has infected peritoneal dialysis catheter which will be removed, infectious disease consulted continue on IV vancomycin. Continue to monitor on electrolyte panel. Follow-up on electrolyte panel for tomorrow * 03/24/2023: Patient seen and evaluated bedside patient is sleeping easily arousable, blood work reviewed CBC remained stable, electrolyte panel shows sodium 133 potassium 3.3 blood glucose 144 patient receiving paratonia dialysis. Patient did complain of episode of shortness of breath chest x-ray ordered year-old coordinate with nursing staff. Requested nephrology to evaluate for adjustment of diuresis PHYSICAL EXAMINATION: GENERAL: The patient is alert and oriented x3 ill appearance pale appearance HEENT: Pupils are round and equally reacting to light. EOMI. CARDIOVASCULAR: S1 and S2 present. Lower extremity edema noted PULMONARY: Chest is clear to auscultation, no wheezing or crackles. ABDOMEN: Soft, nontender, nondistended, normoactive bowel sounds. No palpable organomegaly. MUSCULOSKELETAL: No joint swelling or deformity. EXTREMITIES: Lower extremity edema noted NEUROLOGICAL: Gross neurological examination did not reveal any focal deficits. Left arm and left leg chronically weak Objective - Vital Signs Vital signs: Vital Signs Temp 98.0 F 03/24/23 07:46 Pulse 62 03/24/23 07:46 Resp 23 03/24/23 08:55 BP 145/77 03/24/23 07:46 Pulse Ox 97 03/24/23 07:46 FiO2 Intake & Output 03/23/23 03/24/23 03/24/23 18:59 06:59 18:59 Intake Total 240 Output Total 200 Balance 40 Weight 66 kg Intake: Oral 240 Output: Urine 200 Other: # Bowel Movements 1 - Labs CBC & Chem 7: 03/24/23 06:11 03/24/23 06:11 Labs: Abnormal Lab Results - Last 24 Hours (Table) 03/24/23 03/24/23 Range/Units 06:11 06:11 WBC 11.57 H (4.50-10.00) X 10*3/uL RBC 3.10 L (4.40-5.60) X 10*6/uL Hgb 9.4 L (13.0-17.0) g/dL Hct 28.7 L (39.6-50.0) % Sodium 133 L (137-145) mmol/L Potassium 3.3 L (3.5-5.1) mmol/L Chloride 97 L (98-107) mmol/L BUN 36 H (9-20) mg/dL Creatinine 4.71 H (0.66-1.25) mg/dL Glucose 144 H (74-99) mg/dL Calcium 8.3 L (8.4-10.2) mg/dL Microbiology - Last 24 Hours (Table) 03/23/23 01:11 Gram Stain - Preliminary Dialysate Body Fluid Culture - Preliminary 03/21/23 21:40 Blood Culture - Preliminary Blood 03/21/23 21:48 Blood Culture - Preliminary Blood Assessment and Plan Assessment: Assessment and plan * Infected peritoneal dialysis catheter with fluid positive for gram-positive cocci once A/24 * History renal disease on by toenail dialysis * Hypervolemic hyponatremia * History of CVA with left-sided hemiparesis * History of BPH * Hyperlipidemia * Hyperuricemia * Essential hypertension * History of seizure disorder * In regards to end-stage renal disease, continue dialysis per nephrology, vascular surgery consulted for hemodialysis catheter placement. And removal of infected peritoneal dialysis catheter * In regards to peritonitis, infectious disease consulted continue patient on IV vancomycin * In regards to history of CVA continue current medical regimen * In regards to history of depression continue Effexor * In regards to incisions the fluid overload, continue patient on diuresis * In regards to hypertension continue amlodipine, Aldactone, Lasix, metoprolol
--- NOTE | 2023-03-24 17:01 | P.PN ---
Subjective Progress Note Date: 03/24/23 Principal diagnosis: Reason for follow up is PD catheter associated peritonitis Patient is a 67-year-old male with a past medical history of clinical hypertension hyperlipidemia seizure disorder did have end-stage renal disease on peritoneal dialysis apparently the patient seem to have a problem with the PD catheter associated peritonitis over the last 4 to 6 weeks secondary to gram- positive culture, admit to the hospital for removal of the dialysis catheter and start the patient on hemodialysis. On today's evaluation that is 03/24/2023, the patient remains to be afebrile, the patient is breathing comfortably on room air however mention did have a problem with shortness of breath per the at the bedside the patient denies chest pain or any cough , patient denies any nausea/vomiting abdominal pain is currently controlled and no diarrhea. Patient white count of 11.57, creatinine is 4.71 ditosylate and blood cultures pending Objective - Vital Signs Vital signs: Vital Signs Temp 98.2 F 03/24/23 14:00 Pulse 72 03/24/23 14:44 Resp 21 03/24/23 14:00 BP 163/77 03/24/23 14:00 Pulse Ox 97 03/24/23 14:00 FiO2 Intake & Output 03/23/23 03/24/23 03/24/23 18:59 06:59 18:59 Intake Total 240 Output Total 200 Balance 40 Weight 66 kg Intake: Oral 240 Output: Urine 200 Other: # Bowel Movements 1 - Exam GENERAL DESCRIPTION: An elderly male lying in bed in no distress RESPIRATORY SYSTEM: Unlabored breathing , decreased breath sounds at bases HEART: S1 S2 regular rate and rhythm , ABDOMEN: Soft , no tenderness EXTREMITIES: No edema feet - Labs CBC & Chem 7: 03/24/23 06:11 03/24/23 06:11 Labs: Abnormal Lab Results - Last 24 Hours (Table) 03/24/23 03/24/23 Range/Units 06:11 06:11 WBC 11.57 H (4.50-10.00) X 10*3/uL RBC 3.10 L (4.40-5.60) X 10*6/uL Hgb 9.4 L (13.0-17.0) g/dL Hct 28.7 L (39.6-50.0) % Sodium 133 L (137-145) mmol/L Potassium 3.3 L (3.5-5.1) mmol/L Chloride 97 L (98-107) mmol/L BUN 36 H (9-20) mg/dL Creatinine 4.71 H (0.66-1.25) mg/dL Glucose 144 H (74-99) mg/dL Calcium 8.3 L (8.4-10.2) mg/dL Microbiology - Last 24 Hours (Table) 03/23/23 01:11 Gram Stain - Preliminary Dialysate Body Fluid Culture - Preliminary 03/21/23 21:40 Blood Culture - Preliminary Blood 03/21/23 21:48 Blood Culture - Preliminary Blood Assessment and Plan (1) Leukocytosis Current Visit: Yes Status: Acute Code(s): D72.829 - ELEVATED WHITE BLOOD CELL COUNT, UNSPECIFIED SNOMED Code(s): 292743772 (2) Peritonitis Current Visit: Yes Status: Acute Code(s): K65.9 - PERITONITIS, UNSPECIFIED SNOMED Code(s): 92331200 Plan: 1patient presented to hospital abdominal pain in this patient seem to have a problem with the PD catheter associated peritonitis that has been treated with vancomycin and Fortaz without improvement subsequently admitted to hospital for removal of the dialysis catheter and did have elevated white count but no fever 2--await removal of the dialysis catheter which apparently was delayed because the patient was on Eliquis 3-blood and peritoneal fluid cultures are currently pending 4-patient to continue vancomycin pharmacy to dose and monitor clinical course closely Dictation was produced using [employer] dictation software. please excuse any grammatical, word or spelling errors. Time with Patient: Less than 30
[2023-03-24] MEDS: polyethylene glycoL 3350 17 GM POWD.PACK PO SCH (17:37)
[2023-03-24] MEDS: LATANOPROSTENE BUNOD BOTH EYES SCH (17:38)
--- NOTE | 2023-03-24 18:37 | XR ---
EXAM: XR chest 1V portable CLINICAL INDICATION:Male, 67 years old with history of Shortness of breath; [facility] COMPARISON: 08/10/2021 TECHNIQUE: Chest single view. FINDINGS: Lines/tubes/devices: None. Cardiomediastinum: Cardiac silhouette appears mildly enlarged. Mediastinal contours are well-defined and the mediastinum is somewhat broadened. There is probably an element of mediastinal lipomatosis. Tracheal air column at the base of the neck appears patent. Just above the clavicles, there is a narr owed appearance of the tracheal air column with the lumen possibly reduced to 4-5 mm. Tracheobronchia l air column then appears unremarkable from the level of the clavicles inferiorly. Vasculature: No increased pulmonary vasculature. Lungs/pleura: Lungs appear better aerated than before. There is no consolidation, sizable effusion, or pneumothorax demonstrated. Bones/soft tissues: Bony thorax appears grossly intact as seen. Degenerative changes of the shoulders and spine with levo scoliosis suggested. Regional soft tissues appear unremarkable. IMPRESSION: 1. 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 2. No acute cardiopulmonary abnormality. 3. Possible tracheal stenosis.
[2023-03-24] MEDS: MELATONIN 5 MG TABLET PO SCH (20:42)
[2023-03-24] MEDS: ATORVASTATIN 10 MG TAB PO SCH (20:42)
[2023-03-24] MEDS: VENLAFAXINE HCL ER 75 MG CAP PO SCH (20:42)
[2023-03-25] MEDS: DIALYSIS (PERIT 2.5%) 2,000 ML 50 G/2,000 ML BAG INTRAPERIT SCH ×5 (00:54→22:39)
[2023-03-25] MEDS: SEVELAMER 800 MG TAB PO SCH ×3 (07:03→20:39)
[2023-03-25] MEDS: METOPROLOL SUCCINATE (ER) 25 MG TAB.ER.24H PO SCH ×3 (08:01→20:41)
[2023-03-25] MEDS: levETIRAcetam 500 MG TAB PO SCH ×2 (08:01→20:40)
[2023-03-25] MEDS: amLODIPine 5 MG TAB PO SCH ×2 (09:18→20:40)
[2023-03-25] MEDS: FOLIC ACID-VIT B COMPLEX-VIT C 1 CAP PO SCH (09:18)
[2023-03-25] MEDS: FUROSEMIDE 20 MG TAB PO SCH (09:18)
[2023-03-25] MEDS: guaiFENesin 600 MG TABLET.ER PO SCH ×2 (09:18→20:40)
[2023-03-25] MEDS: allopurinoL 100 MG TAB PO SCH (09:18)
[2023-03-25] MEDS: FINASTERIDE 5 MG TAB PO SCH (09:18)
[2023-03-25] MEDS: GENTAMICIN 0.1% CREAM 15 GM TUBE TOPICAL SCH (09:18)
[2023-03-25] MEDS: SPIRONOLACTONE 25 MG TAB PO SCH (09:19)
[2023-03-25] MEDS: TAMSULOSIN 0.4 MG CAP.ER.24H PO SCH (09:19)
[2023-03-25] MEDS: IPRATROPIUM-ALBUTEROL 3 ML NEB INHALATION SCH ×2 (09:27→20:28)
[2023-03-25] MEDS: SIMBRINZA BOTH EYES SCH ×2 (10:25→22:38)
[2023-03-25 11:10] LABS: HCT 29.5 % (39.6-50.0); HGB 9.6 g/dL (13.0-17.0); MCH 30.2 pg (27.0-32.0); MCHC 32.5 g/dL (32.0-37.0); MCV 92.8 FL (80.0-97.0); Mean Platelet Volume 10.4 FL (9.5-12.2); NRBC Per 100 WBC 0 X 10*3/uL (0.00-0.01); Platelet Count 260 X 10*3/uL (140-440); RBC 3.18 X 10*6/uL (4.40-5.60); RDW 13.5 % (11.5-14.5); WBC 13.18 X 10*3/uL (4.50-10.00)
[2023-03-25 11:21] LABS: African American GFR (CKD) 15 (>60 ml/min/1.73 sqM); Anion Gap 11 mmol/L; Blood Urea Nitrogen 34 mg/dL (9-20); Calcium 8.6 mg/dL (8.4-10.2); Carbon Dioxide 22 mmol/L (22-30); Chloride 102 mmol/L (98-107); Glucose 182 mg/dL (74-99); Non-African American GFR(CKD) 13 (>60 ml/min/1.73 sqM); Potassium 3.3 mmol/L (3.5-5.1); Sodium 135 mmol/L (137-145)
[2023-03-25] MEDS: DOCUSATE 100 MG CAP PO SCH (12:14)
--- NOTE | 2023-03-25 13:19 | P.PN ---
Subjective Progress Note Date: 03/25/23 * 67-year-old patient who follows with Dr. Sebas Alejandre. Extensive medical history with chronic medical conditions including atrial fibrillation, CHF, hypertension, hyperlipidemia, kidney disease, seizure disorder, sleep apnea, stroke with some left-sided weakness, did receive hemodialysis in 2019. Uses BiPAP. Peripheral neuropathy does use a walker. She does undergo peritoneal dialysis. Follows with supervisor wet room Dr. Reyes. Patient can only see shadows from the right eye. * Patient was sent into the ER after patient's peritoneal fluid showed gram- positive cocci and a white count of 32. On March 18. Plan is to have the peritoneal catheter removed and temporary dialysis catheter placed. Patient denies any fever and chills. Appetite is fair. at the bedside. Patient dialysis fluid otherwise has been clear. Patient recently finished a course of antibiotic with vancomycin and cefepime. 4 peritonitis. Patient has slight fluid overload. * 03/23/2023: Patient seen and evaluated bedside, potassium replacement ordered nephrology following, patient receiving peritoneal dialysis. Patient has infected peritoneal dialysis catheter which will be removed, infectious disease consulted continue on IV vancomycin. Continue to monitor on electrolyte panel. Follow-up on electrolyte panel for tomorrow * 03/24/2023: Patient seen and evaluated bedside patient is sleeping easily arousable, blood work reviewed CBC remained stable, electrolyte panel shows sodium 133 potassium 3.3 blood glucose 144 patient receiving paratonia dialysis. Patient did complain of episode of shortness of breath chest x-ray ordered year-old coordinate with nursing staff. Requested nephrology to evaluate for adjustment of diuresis * 03/25/2023: Patient seen and evaluated bedside, patient does complain of shor tness of breath, per family patient does have history of predicted trach, chest x-ray does show concern for tracheal stenosis we will consult pulmonary medicine as well plan is. PD catheter removal today. Nephrology following PHYSICAL EXAMINATION: GENERAL: The patient is alert and oriented x3 ill appearance pale appearance HEENT: Pupils are round and equally reacting to light. EOMI. CARDIOVASCULAR: S1 and S2 present. Lower extremity edema noted PULMONARY: Decreased breath sounds bilaterally, rhonchi audible ABDOMEN: Soft, nontender, nondistended, normoactive bowel sounds. No palpable organomegaly. MUSCULOSKELETAL: No joint swelling or deformity. EXTREMITIES: Lower extremity edema noted NEUROLOGICAL: Gross neurological examination did not reveal any new focal deficit Left arm and left leg chronically weak Objective - Vital Signs Vital signs: Vital Signs Temp 97.9 F 03/25/23 07:31 Pulse 72 03/25/23 09:38 Resp 15 03/25/23 07:31 BP 157/85 03/25/23 07:31 Pulse Ox 97 03/25/23 07:31 FiO2 Intake & Output 03/24/23 03/25/23 03/25/23 18:59 06:59 18:59 Output Total 1300 300 Balance -1300 -300 Weight 74 kg Output: Urine 1300 300 - Labs CBC & Chem 7: 03/25/23 08:31 03/25/23 08:31 Labs: Abnormal Lab Results - Last 24 Hours (Table) 03/25/23 03/25/23 Range/Units 08:31 08:31 WBC 13.18 H (4.50-10.00) X 10*3/uL RBC 3.18 L (4.40-5.60) X 10*6/uL Hgb 9.6 L (13.0-17.0) g/dL Hct 29.5 L (39.6-50.0) % Sodium 135 L (137-145) mmol/L Potassium 3.3 L (3.5-5.1) mmol/L BUN 34 H (9-20) mg/dL Creatinine 4.50 H (0.66-1.25) mg/dL Glucose 182 H (74-99) mg/dL Microbiology - Last 24 Hours (Table) 03/23/23 01:11 Gram Stain - Preliminary Dialysate Body Fluid Culture - Preliminary 03/21/23 21:40 Blood Culture - Preliminary Blood 03/21/23 21:48 Blood Culture - Preliminary Blood Assessment and Plan Assessment: Assessment and plan * Infected peritoneal dialysis catheter with fluid positive for gram-positive cocci * History of end-stage renal disease on PD * Hypervolemic hyponatremia * Tracheal stenosis with previous history of tracheostomy * History of CVA with left-sided hemiparesis * History of BPH * Hyperlipidemia * Hyperuricemia * Essential hypertension * History of seizure disorder * In regards to end-stage renal disease, continue dialysis per nephrology, vascular surgery consulted for hemodialysis catheter placement. And removal of infected peritoneal dialysis catheter * In regards to peritonitis, infectious disease consulted continue patient on IV vancomycin * In regards to history of CVA continue current medical regimen * In regards to history of depression continue Effexor * In regards to fluid overload, continue patient on diuresis * In regards to hypertension continue amlodipine, Aldactone, Lasix, metoprolol * In regards to new finding of tracheal stenosis and difficulty in breathing we'll consult pulmonary medicine for evaluation Time with Patient: Greater than 30
[2023-03-25] MEDS ORDERED: POTASSIUM CHLORIDE ER 20 MEQ TAB.ER PO STA (15:24)
--- NOTE | 2023-03-25 15:25 | P.PN ---
Subjective Patient is seen in follow-up for end-stage renal disease. PD catheter scheduled to be removed today and permacath to be inserted. Resting in bed. No active complaints. present at bedside. Vital signs are stable. General: No acute distress. HEENT: Head exam is unremarkable. LUNGS: No audible rhonchi or wheezes. HEART: Rate and Rhythm are regular. ABDOMEN: Nontender. EXTREMITITES: No edema. Objective - Vital Signs Vital signs: Vital Signs Temp 97.8 F 03/25/23 13:08 Pulse 70 03/25/23 13:08 Resp 18 03/25/23 13:08 BP 147/72 03/25/23 13:08 Pulse Ox 98 03/25/23 13:08 FiO2 Intake & Output 03/24/23 03/25/23 03/25/23 18:59 06:59 18:59 Output Total 1300 300 150 Balance -1300 -300 -150 Weight 74 kg Output: Urine 1300 300 150 - Labs CBC & Chem 7: 03/25/23 08:31 03/25/23 08:31 Labs: Abnormal Lab Results - Last 24 Hours (Table) 03/25/23 03/25/23 Range/Units 08:31 08:31 WBC 13.18 H (4.50-10.00) X 10*3/uL RBC 3.18 L (4.40-5.60) X 10*6/uL Hgb 9.6 L (13.0-17.0) g/dL Hct 29.5 L (39.6-50.0) % Sodium 135 L (137-145) mmol/L Potassium 3.3 L (3.5-5.1) mmol/L BUN 34 H (9-20) mg/dL Creatinine 4.50 H (0.66-1.25) mg/dL Glucose 182 H (74-99) mg/dL Microbiology - Last 24 Hours (Table) 03/23/23 01:11 Gram Stain - Preliminary Dialysate Body Fluid Culture - Preliminary 03/21/23 21:40 Blood Culture - Preliminary Blood 03/21/23 21:48 Blood Culture - Preliminary Blood Assessment and Plan Plan: Assessment: 1. End-stage renal disease maintained on peritoneal dialysis. 2. Recurrent peritonitis scheduled for PD catheter removal today. 3. Hypokalemia from PD losses and diuretics. 4. Anemia of chronic kidney disease. 5. Hypertension with chronic kidney disease. 6. Chronic kidney disease mineral bone disease. On Renvela. Phosphorus level IV.1 dated 03/22/2023. Plan: PD catheter to be removed today. Plan for a short treatment of hemodialysis tomorrow. He will then be maintained on Saturday schedule outpatient. Replace potassium. Add Aranesp. Antibiotics per infectious disease. Monitor vancomycin levels. Dose to be adjusted for renal function.
[2023-03-25] MEDS ORDERED: HYDROmorphone 0.5 MG/0.5 ML SYRINGE IVP PRN (15:59)
[2023-03-25] MEDS ORDERED: ONDANSETRON 4 MG/2 ML VIAL IVP ONE (15:59)
[2023-03-25] MEDS ORDERED: DEXAMETHASONE SOD PHOSPHATE 4 MG/ML 1 ML VIAL IV ONE (15:59)
[2023-03-25] MEDS ORDERED: MIDAZOLAM 2 MG/2 ML VIAL IV PRN (15:59)
[2023-03-25] MEDS ORDERED: DARBEPOETIN ALFA 40 MCG/0.4 ML SYRINGE SQ SCH (16:00)
[2023-03-25] MEDS ORDERED: SODIUM CHLORIDE 0.9% 500 ML 500 ML IV ONE ×2 (16:12→19:39)
[2023-03-25] MEDS ORDERED: SODIUM CHLORIDE 0.9% 100 ML BAG ONE (16:35)
[2023-03-25] MEDS ORDERED: PHENYLEPHRINE 10 MG/ML VIAL ONE (16:35)
[2023-03-25] MEDS ORDERED: LIDOCAINE 1% INJ 10MG/ML (20 ML MDV) ONE (16:35)
[2023-03-25] MEDS ORDERED: MIDAZOLAM 2 MG/2 ML VIAL ONE (16:35)
[2023-03-25] MEDS ORDERED: fentaNYL (PF) 50 MCG/ML 2 ML AMP ONE (16:35)
[2023-03-25] MEDS ORDERED: PROPOFOL 10 MG/ML 20 ML VIAL IV ONE (16:35)
[2023-03-25] MEDS ORDERED: ceFAZolin 1,000 MG VIAL ONE (16:35)
[2023-03-25] MEDS ORDERED: SUCCINYLCHOLINE CHLORIDE 200 MG/10 ML VIAL IV ONE (16:35)
--- NOTE | 2023-03-25 18:03 | FL ---
EXAMINATION TYPE: FL guided central line placemt Intraoperative/procedural fluoroscopic services were provided. Total fluoroscopy time is 17 seconds with a total of 3 submitted images to PACS. Please se e the operative/procedural note for further details. DAP: 2.3976 Gycm2
[2023-03-25] MEDS ORDERED: ALBUTEROL NEBULIZED 2.5 MG/3 ML INHALATION ONE ×2 (18:10)
[2023-03-25 18:21] LABS: Hepatitis B Surface Antigen Nonreactive
--- NOTE | 2023-03-25 18:23 | P.OP ---
Date of Procedure: 03/25/23 Description of Procedure: DATE OF PROCEDURE: 03/25/2023 PREOPERATIVE DIAGNOSIS:, Peritonitis, previous. No dialysis, continued [Need for dialysis] PROCEDURE: 1. Ultrasound-guided [right] internal jugular vein access. 2. Placement of a [23] cm tunneled dialysis catheter with fluoroscopic assistance. 3. Removal of peritoneal dialysis catheter PROCEDURE: The patient was brought to the OR placed in supine position. The bilateral necks and abdomen were prepped and draped in usual sterile fashion. A preprocedure timeout was performed, all parties were in agreement. Using ultrasound the [right] internal jugular was identified. The site overlying the vein was accessed and the vein was accessed with return of dark venous, nonpulsatile blood. Seldinger technique was used and a wire was placed. Attention was then turned towards the tunnel. A small jovita and the skin was made and the previously flushed catheter was tunneled through the anticipated location. Using Seldinger technique and fluoroscopic assistance, the 35 Glidewire was placed and the tract was serially dilated. The final tear-away sheath was left in place. The inner cannula and wire were removed. The catheter was placed in the tear-away sheath was removed in standard fashion. The catheter showed good positioning was final resting place in the cavoatrial junction. The catheter aspirated and flushed freely. The incision at the neck was reapproximated with interrupted sutures of 4-0 Vicryl. The catheter was sut ured in place with 3-0 nylon. Dressings were placed. Attention was then turned towards the abdomen. An incision was made vertically in the previous site of incision. Carried down through subcutaneous tissue to the level of the catheter. The catheter was identified and gentle traction was utilized in the subcutaneous tissue surrounding were dissected free. The area fascia was identified and it was enlarged. The catheter was transected free from its surroundings and removed. The catheter was transected and the distal portion was removed from its subcu tissues and removed out of the external port of the body. At this point all catheter was removed. The fascia was reapproximated with [id number] sutures of 0 Vicryl. The area was then copiously irrigated. The deep tissues were reapproximated with interrupted sutures of 3-0 Vicryl. The skin was reprepped with running 4-0 Monocryl. A dressing was placed. The patient was allowed to awaken from anesthesia and transferred to recovery in stable condition having tolerated the procedure well. A post procedure chest x-ray is pending
[2023-03-25] MEDS ORDERED: NALOXONE 0.4 MG/ML 10 ML VIAL IVP ONE (18:27)
[2023-03-25] MEDS ORDERED: EPINEPHRINE 1 MG/ML INHALATION ONE ×2 (18:29→18:35)
[2023-03-25] MEDS ORDERED: IPRATROPIUM 0.5 MG/2.5 ML NEBU INHALATION ONE (18:45)
--- NOTE | 2023-03-25 18:58 | XR ---
EXAMINATION TYPE: XR chest 1V portable DATE OF EXAM: 03/25/2023 6:44 PM CLINICAL INDICATION:Male, 67 years old with history of tunneled catheter placement verification; [facility] COMPARISON: Chest radiographs from 03/24/2023 TECHNIQUE: XR chest 1V portable Frontal view of the chest. FINDINGS: Lungs/Pleura: There is no evidence of pleural effusion, focal consolidation, or pneumothorax. Pulmonary vascularity: Unremarkable. Heart/mediastinum: Cardiomediastinal silhouette is unremarkable. Musculoskeletal: No acute osseous pathology. Other findings: None Lines/Tubes: Right internal jugular central venous catheter with distal tip at the right atrium. IMPRESSION: No acute cardiopulmonary disease/process.
[2023-03-25] MEDS ORDERED: DEXAMETHASONE SOD PHOSPHATE 10 MG/ML 1 ML VIAL IVP PRN (19:07)
[2023-03-25] MEDS ORDERED: DEXAMETHASONE SOD PHOSPHATE 10 MG/ML 1 ML VIAL IVP ONE (19:14)
[2023-03-25 19:15] LABS: ABG Base Excess 0.1 mmol/L; ABG HCO3 26 mmol/L (21-25); ABG Oxygen Saturation 98.9 % (94-97); ABG PCO2 45 mmHg (35-45); ABG PH 7.36 (7.35-7.45); ABG PO2 121 mmHg (83-108); ABG TCO2 27 mmol/L (19-24); Allen Test Performed? Yes
--- NOTE | 2023-03-25 19:20 | P.CNPUL ---
History of Present Illness Consult date: 03/25/23 Reason for consult: dyspnea Chief complaint: Stridor History of present illness: 67-year-old male patient is being seen in recovery after his ICU transfer as the patient was extubated and the patient had difficulties in breathing postextubation and he was having active stridor. At that point, he was being considered for intubation. He was given a trial of BiPAP and he gradually improved and his stridor has subsided this point in time. The patient is more awake and alert and communicating. He is currently on a BiPAP at a pressure of 12 was 6 with an FiO2 of 60%. Is exchanging at least 450 mL of tidal volume on the BiPAP machine. He does have a tracheostomy. I noted that the patient had a previous history of tracheostomy tube insertion following a CVA and as part of post CVA treatment, the patient required a tracheostomy and PEG tube insertion and he was in a extended care facility for long period of time. He was ultimately be cannulated. I was also able to review a CAT scan of the chest that was done this patient on 08/26/2018. I noted that there is some narrowing in the subglottic trachea, probably a broken cartilage causing some narrowing following insertion and removal of a previously inserted tracheostomy tube. The patient also admits to have obstructive sleep apnea and he has been maintained on CPAP therapy on an outpatient basis. His current procedure was 2 removal a peritoneal catheter and inserted a hemodialysis catheter. This was done successfully and his respiratory issues started following the extubation process. The patient currently has a permacath in his right IJ. Note that he has history of chronic A. fib, CHF, hypertension, hyperlipidemia, end-stage renal disease, seizure disorder, previous history of CVA and he does have some residual left-sided weakness. As also peripheral neuropathy. He does use a walker for mobility. He was undergoing peritoneal dialysis. He developed peritonitis. Was told that his peritoneal dialysis catheter was infected. Based on that, the catheter was removed and the patient was given a hemodialysis catheter. The cultures from the peritoneal fluid is still pending. Told by the anesthesiologist of intubation process was not traumatic. In fact, this was an easy intubation according to him. He was given a 7.5 ETT Review of Systems ROS unobtainable: due to mental status Past Medical History Past Medical History: Atrial Fibrillation, Blood Disorder, Heart Failure, CVA/TIA, Dialysis, Eye Disorder, GI Bleed, Hyperlipidemia, Hypertension, Prostate Disorder, Renal Disease, Seizure Disorder, Sleep Apnea/CPAP/BIPAP Additional Past Medical History / Comment(s): Admitted to [facility] for low sodium of 120,sodium back up to 130 per and expected to be discharged today on 07-28-21,fluid restrictions of 1800cc/day.hx 05/15/18 CVA with L sided weakness/nondominent side treated in [facility], 05/16/18 aspiration pneumonia/respiratory failure/vented, 06/08/18 trached, , trach removed 07/16/18, pt went into [facility] on 07/21/18 and started with episodes of feeling like something is in his throat which then leads to SOB episodes.- no further episodes "Beginnings of CHF." Hx GI Bleed august or September 2018. walks with short distance with wheeled-walker .Chronic Kidney Disease since CVA with now on peritoneal dialysis dailyl "Continues with weak kidneys." Uses Bipap. 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 Debridement right thumb.rt thumb ab scess,glaucoma hortensia eyes,cataract removal hortensia eyes, rt eye "oil" removed and reinserted beginning of July" .Has port for peritoneal dialysis. umbilical hernia Past Anesthesia/Blood Transfusion Reactions: No Reported Reaction Additional Past Anesthesia/Blood Transfusion Reaction / Comment(s): Pt has received blood transfusion in past without reaction. hx trach w/ scar tissue- last procedure after breathing tube removed had feeling like he couldn't breathe-was given Valium with relief-no futher problems Past Psychological History: No Psychological Hx Reported Additional Psychological History / Comment(s): [facility] Smoking Status: Never smoker Past Alcohol Use History: None Reported Past Drug Use History: None Reported - Past Family History Mother Family Medical History: Cancer Additional Family Medical History / Comment(s): Mother had stomach cancer, . Father Family Medical History: COPD, Myocardial Infarction ([place]) Additional Family Medical History / Comment(s): Father had a massive [place] at the age of 63 yrs. Medications and Allergies Home Medications Medication Instructions Recorded Confirmed Type Docusate [Colace] 100 mg PO DAILY@1200 08/25/18 03/21/23 History Finasteride [Proscar] 5 mg PO DAILY@0600 08/25/18 03/21/23 History Tamsulosin [Flomax] 0.4 mg PO DAILY@0600 08/25/18 03/21/23 History levETIRAcetam [Keppra] 500 mg PO BID@1200,1800 08/25/18 03/21/23 History polyethylene glycoL 3350 [Miralax] 17 gm PO DAILY@1800 08/25/18 03/21/23 History Apixaban [Eliquis] 2.5 mg PO BID@0600,1800 12/30/18 03/21/23 History Venlafaxine HCl [Effexor XR] 75 mg PO DAILY@1700 12/30/18 03/21/23 History guaiFENesin [Mucinex] 1,200 mg PO BID@0600,1800 12/30/18 03/21/23 History Melatonin 5 mg PO HS@1800 04/02/19 03/21/23 History Metoprolol Succinate (ER) [Toprol 25 mg PO TID@0600,1200,1800 04/02/19 03/21/23 History XL] allopurinoL [Zyloprim] 100 mg PO Q48H 04/02/19 03/21/23 History Fluticasone Nasal [place] [Flonase 1 spray EA NOSTRIL DAILY PRN 11/20/19 03/21/23 History Nasal [place]] Ipratropium-Albuterol Nebulize 3 ml INHALATION RT-BID 11/20/19 03/21/23 History [Duoneb 0.5 mg-3 mg/3 ml Soln] Spironolactone 12.5 mg PO DAILY@0600 11/20/19 03/21/23 History amLODIPine [Norvasc] 5 mg PO BID@1200,1800 11/20/19 03/21/23 History Brinzolamide/Brimonidine Tart 1 drop BOTH EYES BID@0600,1800 07/28/21 03/21/23 History [Simbrinza 1%-0.2% Eye Drops] Sevelamer [Renvela] 1,600 mg PO TID-W/MEALS 07/28/21 03/21/23 History Simvastatin 10 mg PO DAILY@1800 07/28/21 03/21/23 History Furosemide [Lasix] 60 mg PO DAILY@0600 08/09/21 03/21/23 History Albuterol Inhaler [Ventolin Hfa 1 - 2 puff INHALATION RT-Q6H PRN 03/21/23 03/21/23 History Inhaler] Ergocalciferol (Vitamin D2) 1,250 mcg PO Q30D 03/21/23 03/21/23 History [Drisdol (50,000 Iu)] Folic Acid/Vit B Complex and C 0.8 mg PO DAILY@1200 03/21/23 03/21/23 History [Nephro-Michael Tablet] Gentamicin Sulfate [Gentamicin 1 applic TOPICAL DAILY 03/21/23 03/21/23 History Sulfate 0.1%] Ipratropium-Albuterol Nebulize 3 ml INHALATION RT-Q6H PRN 03/21/23 03/21/23 History [Duoneb 0.5 mg-3 mg/3 ml Soln] Latanoprostene Bunod [Vyzulta] 1 drop BOTH EYES DAILY@1800 03/21/23 03/21/23 History Mircera (Unknown Dose) 1 dose INJ Q30D 03/21/23 03/21/23 History Allergies Allergy/AdvReac Type Severity Reaction Status Date / Time torsemide Allergy urinary Verified 03/25/23 15:59 retention bandaids Allergy rash, ok Uncoded 03/25/23 15:59 to use papertape Physical Exam Vitals: Vital Signs Temp Pulse Pulse Resp BP Pulse Ox 03/25/23 18:45 97 12 179/83 100 03/25/23 18:30 97 15 194/94 94 L 03/25/23 18:05 97 F L 72 35 H 161/76 95 03/25/23 16:01 98.5 F 73 16 182/83 95 03/25/23 13:08 97.8 F 70 18 147/72 98 03/25/23 09:38 72 03/25/23 09:27 68 03/25/23 07:31 97.9 F 71 15 157/85 97 03/25/23 02:00 98.2 F 71 16 147/77 99 Intake and Output 03/25/23 03/25/23 03/25/23 06:59 14:59 22:59 Intake Total 50 400 Output Total 300 150 5 Balance -300 -100 395 Intake: IV 50 400 Output: Urine 300 150 Estimated Blood Loss 5 Other: Weight 74 kg GENERAL: The patient is alert and oriented x3, as is recovering from his anesthetics. At the same time, the patient is able to communicate. His tolerating a full face BiPAP mask at a pressure of 12/6 with an FiO2 of 60%. Able to move all 4 extremities. Obvious weakness in the left which is a chronic in nature. HEENT: Pupils are round and equally reacting to light. EOMI. Neck examination shows a scar of a previous tracheostomy over the anterior neck area. No active stridor was appreciated. He has significant cardiovascular posterior oropharynx and he has a Mallampati class IV. CARDIOVASCULAR: Cardiac exam revealed the PMI to be normally situated and sized. The rhythm was regular and no extrasystoles were noted during several minutes of auscultation. The first and second heart sounds were normal and physiologic splitting of the second heart sound was noted. There were no murmurs, rubs, clicks, or gallops. PULMONARY: Decreased breath sounds bilaterally, rhonchi audible ABDOMEN: Soft, nontender, nondistended, normoactive bowel sounds. No palpable organomegaly. The peritoneal dialysis catheter has been removed MUSCULOSKELETAL: No joint swelling or deformity. EXTREMITIES: Lower extremity edema noted NEUROLOGICAL: Gross neurological examination did not reveal any new focal deficit Left arm and left leg chronically weak Skin examination reveals a permacath over the right anterior chest area exit sites. Results - Laboratory Findings CBC and BMP: 03/25/23 08:31 03/25/23 08:31 PT/INR, D-dimer PT 10.1 sec (10.0-12.5) 03/21/23 18:19 INR 0.9 (<1.2) 03/21/23 18:19 Abnormal lab findings: Abnormal Labs 03/21/23 03/21/23 03/21/23 18:19 18:19 18:19 WBC 13.4 H RBC 3.38 L Hgb 10.4 L Hct 30.7 L Neutrophils # 11.2 H Lymphocytes # 0.9 L APTT 30.2 H Sodium 129 L Potassium Chloride 92 L BUN 33 H Creatinine 4.47 H Glucose 165 H Calcium 8.3 L Alkaline Phosphatase 128 H Albumin 3.3 L 03/22/23 03/22/23 03/24/23 06:27 06:27 06:11 WBC 11.4 H RBC 3.18 L Hgb 9.9 L Hct 29.5 L Neutrophils # 9.2 H Lymphocytes # APTT Sodium 130 L 133 L Potassium 3.3 L 3.3 L Chloride 94 L 97 L BUN 35 H 36 H Creatinine 4.70 H 4.71 H Glucose 119 H 144 H Calcium 8.2 L 8.3 L Alkaline Phosphatase Albumin 03/24/23 03/25/23 03/25/23 06:11 08:31 08:31 WBC 11.57 H 13.18 H RBC 3.10 L 3.18 L Hgb 9.4 L 9.6 L Hct 28.7 L 29.5 L Neutrophils # Lymphocytes # APTT Sodium 135 L Potassium 3.3 L Chloride BUN 34 H Creatinine 4.50 H Glucose 182 H Calcium Alkaline Phosphatase Albumin - Diagnostic Findings Chest x-ray: image reviewed Assessment and Plan Plan: Acute respiratory distress/stridor postextubation. The patient most likely has a narrowed subglottic trachea probably related to her previous insertion and removal of the tracheostomy tube. He does have a broken cartilage based on a CAT scan of the chest that was done back in 2019 which is causing some narrowing/dynamic collapsibility of the upper airway. In addition, he has obstructive sleep apnea and has been maintained on BiPAP on outpatient basis. Post extubation, he did encounter stridor and currently is on a BiPAP and is tolerating the BiPAP reasonably well exchanging adequate volumes. No signs of any CO2 narcosis and the patient is gradually regaining his level of alertness. Awaiting follow-up blood gas. Chest x-ray shows no acute abnormality History of tracheal stenosis probably related to tracheostomy tube insertion and subsequent removal Altered mentation, probably related to a combination of use of anesthetics and CO2 narcosis, awaiting follow-up blood gas. Mental status as improved considerably on a BiPAP End-stage renal disease on peritoneal dialysis. The PD catheter was removed due to concern of an infection and the patient was given a permacath Previous history of CVA and residual left-sided weakness Previous history of tracheostomy tube and a PEG tube insertion post CVA and subsequently both of those catheters were removed as the patient recovered from his underlying stroke Obstructive sleep apnea maintained on a VPAP auto with an EPAP minimum of 6 and a maximum pressure of 15 and a pressure support of 4 Hyperlipidemia Hypertension Seizure disorder Anemia of chronic disease Plan Keep the patient on a BiPAP overnight The intubation process was essentially atraumatic. However, if possible and the patient was further compromised by upper airway edema post intubation. Suspect underlying dynamic collapsibility of airways related to obstructive sleep apnea in addition to tracheal stenosis related to previous tracheostomy tube insertion. As such, the patient will be treated with BiPAP and the patient will be also given Decadron 6 g IV every 6 hours. The patient was given racemic e pinephrine. The patient will be kept on DuoNeb updrafts 4 times a day around the clock. Patient on the chest into the intensive care unit Patient will be kept on Decadron Keep nothing by mouth overnight Hemodynamically stable Patient received IV vancomycin regarding gram-positive cocci in the peritoneal fluid Possible hemodialysis today. This will be coordinated with nephrology Condition is significantly and the patient is improving. Awaiting follow-up blood gas. Postop chest x-ray was reviewed. We'll continue to follow. Critical care evaluation
[2023-03-25 19:58] LABS: Glucose,Whole Blood 163 mg/dL (70-110)
[2023-03-25] MEDS: polyethylene glycoL 3350 17 GM POWD.PACK PO SCH (20:40)
[2023-03-25] MEDS: MELATONIN 5 MG TABLET PO SCH (20:40)
[2023-03-25] MEDS: ATORVASTATIN 10 MG TAB PO SCH (20:40)
[2023-03-25] MEDS: VENLAFAXINE HCL ER 75 MG CAP PO SCH (20:41)
--- NOTE | 2023-03-25 21:53 | P.PN ---
Subjective Progress Note Date: 03/25/23 Principal diagnosis: Reason for follow up is PD catheter associated peritonitis Patient is a 67-year-old male with a past medical history of clinical hypertension hyperlipidemia seizure disorder did have end-stage renal disease on peritoneal dialysis apparently the patient seem to have a problem with the PD catheter associated peritonitis over the last 4 to 6 weeks secondary to gram- positive culture, admit to the hospital for removal of the dialysis catheter and start the patient on hemodialysis. On today's evaluation that is 03/25/2023, the patient continues to be afebrile patient is breathing comfortably on room air without need for supplemental oxygen the patient denies chest pain while complaining of some shortness of breath this morning seem to have improved denies any nausea vomiting, the patient did have a peritoneal dialysis fluid and some discomfort from it and no diarrhea. Patient did have a white count of 13.18, creatinine is 4.50 Objective - Vital Signs Vital signs: Vital Signs Temp 97.8 F 03/25/23 13:08 Pulse 70 03/25/23 13:08 Resp 18 03/25/23 13:08 BP 147/72 03/25/23 13:08 Pulse Ox 98 03/25/23 13:08 FiO2 Intake & Output 03/24/23 03/25/23 03/25/23 18:59 06:59 18:59 Output Total 1300 300 150 Balance -1300 -300 -150 Weight 74 kg Output: Urine 1300 300 150 - Exam GENERAL DESCRIPTION: An elderly male lying in bed in no distress RESPIRATORY SYSTEM: Unlabored breathing , decreased breath sounds at bases HEART: S1 S2 regular rate and rhythm , ABDOMEN: Soft , no tenderness EXTREMITIES: No edema feet - Labs CBC & Chem 7: 03/25/23 08:31 03/25/23 08:31 Labs: Abnormal Lab Results - Last 24 Hours (Table) 03/25/23 03/25/23 Range/Units 08:31 08:31 WBC 13.18 H (4.50-10.00) X 10*3/uL RBC 3.18 L (4.40-5.60) X 10*6/uL Hgb 9.6 L (13.0-17.0) g/dL Hct 29.5 L (39.6-50.0) % Sodium 135 L (137-145) mmol/L Potassium 3.3 L (3.5-5.1) mmol/L BUN 34 H (9-20) mg/dL Creatinine 4.50 H (0.66-1.25) mg/dL Glucose 182 H (74-99) mg/dL Microbiology - Last 24 Hours (Table) 03/23/23 01:11 Gram Stain - Preliminary Dialysate Body Fluid Culture - Preliminary 03/21/23 21:40 Blood Culture - Preliminary Blood 03/21/23 21:48 Blood Culture - Preliminary Blood Assessment and Plan (1) Leukocytosis Current Visit: Yes Status: Acute Code(s): D72.829 - ELEVATED WHITE BLOOD CELL COUNT, UNSPECIFIED SNOMED Code(s): 153025711 (2) Peritonitis Current Visit: Yes Status: Acute Code(s): K65.9 - PERITONITIS, UNSPECIFIED SNOMED Code(s): 74016947 Plan: 1patient presented to hospital abdominal pain in this patient seem to have a problem with the PD catheter associated peritonitis that has been treated with vancomycin and Fortaz without improvement subsequently admitted to hospital for removal of the dialysis catheter and did have elevated white count but no fever 2--patient is scheduled for removal of the dialysis catheter and placement of hemodialysis catheter this afternoon 3-blood and peritoneal fluid cultures are currently pending 4-patient to continue vancomycin pharmacy to dose while waiting for the culture to finalize Dictation was produced using [employer] dictation software. please excuse any grammatical, word or spelling errors. Time with Patient: Less than 30
[2023-03-25] MEDS: LATANOPROSTENE BUNOD BOTH EYES SCH (22:37)
[2023-03-25 23:52] LABS: Hepatitis B Surface AB- Quant 3.5 mIU/mL
[2023-03-26] MEDS ORDERED: DIALYSIS (PERIT 2.5%) 2,000 ML 50 G/2,000 ML BAG INTRAPERIT SCH
[2023-03-26] MEDS: DIALYSIS (PERIT 2.5%) 2,500 ML 50 G/2,000 ML BAG INTRAPERIT SCH (05:19)
[2023-03-26 07:13] LABS: HCT 27.6 % (39.0-53.0); HGB 9.3 gm/dL (13.0-17.5); MCH 31.7 pg (25.0-35.0); MCHC 33.9 g/dL (31.0-37.0); MCV 93.5 fL (80.0-100.0); Mean Platelet Volume 7.5; Platelet Count 223 k/uL (150-450); RBC 2.95 m/uL (4.30-5.90); WBC 16.4 k/uL (3.8-10.6)
[2023-03-26 07:20] LABS: INR 0.9 (<1.2); Partial Thromboplastin Time 25.3 sec (22.0-30.0); Prothrombin Time 10.4 sec (10.0-12.5)
[2023-03-26 07:39] LABS: African American GFR (CKD) 22 (>60 ml/min/1.73 sqM); Anion Gap 5 mmol/L; Blood Urea Nitrogen 20 mg/dL (9-20); C Reactive Protein 1.5 mg/dL (<1.0); Calcium 8.1 mg/dL (8.4-10.2); Carbon Dioxide 26 mmol/L (22-30); Chloride 104 mmol/L (98-107); Glucose 129 mg/dL (74-99); Non-African American GFR(CKD) 19 (>60 ml/min/1.73 sqM); Potassium 3.7 mmol/L (3.5-5.1); Sodium 135 mmol/L (137-145)
[2023-03-26 07:41] LABS: Vancomycin,Random 20.9 ug/mL
[2023-03-26] MEDS: guaiFENesin 600 MG TABLET.ER PO SCH ×2 (08:06→21:43)
[2023-03-26] MEDS: SEVELAMER 800 MG TAB PO SCH ×3 (08:06→16:45)
[2023-03-26] MEDS: TAMSULOSIN 0.4 MG CAP.ER.24H PO SCH (08:07)
[2023-03-26] MEDS: amLODIPine 5 MG TAB PO SCH ×2 (08:07→21:42)
[2023-03-26] MEDS: levETIRAcetam 500 MG TAB PO SCH ×2 (08:07→21:43)
[2023-03-26] MEDS: FINASTERIDE 5 MG TAB PO SCH (08:07)
[2023-03-26] MEDS: METOPROLOL SUCCINATE (ER) 25 MG TAB.ER.24H PO SCH ×3 (08:07→21:41)
[2023-03-26] MEDS: FUROSEMIDE 20 MG TAB PO SCH (08:07)
[2023-03-26] MEDS: FOLIC ACID-VIT B COMPLEX-VIT C 1 CAP PO SCH (08:08)
[2023-03-26] MEDS: SPIRONOLACTONE 25 MG TAB PO SCH (08:09)
[2023-03-26] MEDS: SIMBRINZA BOTH EYES SCH ×2 (08:09→20:15)
[2023-03-26] MEDS: GENTAMICIN 0.1% CREAM 15 GM TUBE TOPICAL SCH (08:10)
[2023-03-26] MEDS: IPRATROPIUM-ALBUTEROL 3 ML NEB INHALATION SCH ×2 (08:22→20:17)
--- NOTE | 2023-03-26 08:36 | P.PN ---
Subjective Progress Note Date: 03/26/23 67-year-old male patient is being seen in recovery after his ICU transfer as the patient was extubated and the patient had difficulties in breathing postextubation and he was having active stridor. At that point, he was being considered for intubation. He was given a trial of BiPAP and he gradually imp roved and his stridor has subsided this point in time. The patient is more awake and alert and communicating. He is currently on a BiPAP at a pressure of 12 was 6 with an FiO2 of 60%. Is exchanging at least 450 mL of tidal volume on the BiPAP machine. He does have a tracheostomy. I noted that the patient had a previous history of tracheostomy tube insertion following a CVA and as part of post CVA treatment, the patient required a tracheostomy and PEG tube insertion and he was in a extended care facility for long period of time. He was ultimately be cannulated. I was also able to review a CAT scan of the chest that was done this patient on 08/26/2018. I noted that there is some narrowing in the subglottic trachea, probably a broken cartilage causing some narrowing following insertion and removal of a previously inserted tracheostomy tube. The patient also admits to have obstructive sleep apnea and he has been maintained on CPAP therapy on an outpatient basis. His current procedure was 2 removal a peritoneal catheter and inserted a hemodialysis catheter. This was done succes sfully and his respiratory issues started following the extubation process. The patient currently has a permacath in his right IJ. Note that he has history of chronic A. fib, CHF, hypertension, hyperlipidemia, end-stage renal disease, seizure disorder, previous history of CVA and he does have some residual left- sided weakness. As also peripheral neuropathy. He does use a walker for mobility. He was undergoing peritoneal dialysis. He developed peritonitis. Was told that his peritoneal dialysis catheter was infected. Based on that, the catheter was removed and the patient was given a hemodialysis catheter. The cultures from the peritoneal fluid is still pending. Told by the anesthesi ologist of intubation process was not traumatic. In fact, this was an easy intubation according to him. He was given a 7.5 ETT On today's evaluation of 03/26/2023, the patient is being seen for a follow-up. I saw this patient in consultation yesterday. There was concern of a stridor and compromise of his upper airway. The patient as mentioned may have an underlying tracheal stenosis related to a previous tracheostomy tube insertion. He also has obstructive sleep apnea. He did encounter some respiratory difficulties postextubation. Based on that, he was treated with a BiPAP and he was treated with Decadron and bronchodilators and he was also given racemic epinephrine. He stated on BiPAP at a pressure of 12/6 the night and this morning he is on room air oxygen. No active stridor. Is able to speak. AsI is of any respiratory distress. Blood gas was done yesterday while on the BiPAP and the patient had no significant hypercapnic respiratory failure and his pH was at 7.36 with a pCO2 of 45 and a pO2 of 121. He also underwent hemodialysis yesterday with ultrafiltration of 1100 mL of fluid. He remains hemodynamically stable. Peritoneal catheter has been removed. The lymph node and 16.4 with a hemoglobin of 9.3. Sodium is at 135, BUN is at 20 with a creatinine of 3.1. No other significant issues overnight. The peritoneal fluid is showing no microbial growth at this point. The patient remains on vancomycin. Objective - Vital Signs Vital signs: Vital Signs Temp 97.9 F 03/26/23 04:00 Pulse 84 03/26/23 08:22 Resp 12 03/26/23 07:00 BP 128/66 03/26/23 07:00 Pulse Ox 99 03/26/23 07:00 FiO2 30 03/26/23 04:44 Intake & Output 03/25/23 03/26/23 03/26/23 18:59 06:59 18:59 Intake Total 500 520 20 Output Total 155 2000 325 Balance 345 -1480 -305 Weight 112.3 kg Intake: IV 500 Intake, IV Titration 120 20 Amount Lactated Ringers 1,000 ml 120 20 @ 20 mls/hr IV .Q24H [facility] Rx#:[id number] Hemodialysis 400 Output: Urine 150 500 325 Hemodialysis 1500 Estimated Blood Loss 5 Other: Voiding Method Urinal # Voids 0 0 - Exam GENERAL: The patient is alert and oriented x3, patient is currently on room air oxygen. No active stridor. HEENT: Pupils are round and equally reacting to light. EOMI. Neck examination shows a scar of a previous tracheostomy over the anterior neck area. No active stridor was appreciated. He has significant cardiovascular posterior oropharynx and he has a Mallampati class IV. CARDIOVASCULAR: Cardiac exam revealed the PMI to be normally situated and sized. The rhythm was regular and no extrasystoles were noted during several minutes of auscultation. The first and second heart sounds were normal and physiologic splitting of the second heart sound was noted. There were no murmurs, rubs, clicks, or gallops. PULMONARY: Decreased breath sounds bilaterally, rhonchi audible ABDOMEN: Soft, nontender, nondistended, normoactive bowel sounds. No palpable organomegaly. The peritoneal dialysis catheter has been removed MUSCULOSKELETAL: No joint swelling or deformity. EXTREMITIES: Lower extremity edema noted NEUROLOGICAL: Gross neurological examination did not reveal any new focal deficit Left arm and left leg chronically weak Skin examination reveals a permacath over the right anterior chest area exit sites. - Labs CBC & Chem 7: 03/26/23 06:52 03/26/23 06:52 Labs: Abnormal Lab Results - Last 24 Hours (Table) 03/25/23 03/25/23 03/25/23 Range/Units 08:31 08:31 19:13 WBC 13.18 H (4.50-10.00) X 10*3/uL RBC 3.18 L (4.40-5.60) X 10*6/uL Hgb 9.6 L (13.0-17.0) g/dL Hct 29.5 L (39.6-50.0) % ABG pO2 121 H (83-108) mmHg ABG HCO3 26 H (21-25) mmol/L ABG Total CO2 27 H (19-24) mmol/L ABG O2 Saturation 98.9 H (94-97) % Sodium 135 L (137-145) mmol/L Potassium 3.3 L (3.5-5.1) mmol/L BUN 34 H (9-20) mg/dL Creatinine 4.50 H (0.66-1.25) mg/dL Glucose 182 H (74-99) mg/dL POC Glucose (mg/dL) (70-110) mg/dL Calcium (8.4-10.2) mg/dL C-Reactive Protein (<1.0) mg/dL 03/25/23 03/26/23 03/26/23 Range/Units 19:55 06:52 06:52 WBC 16.4 H (4.50-10.00) X 10*3/uL RBC 2.95 L (4.40-5.60) X 10*6/uL Hgb 9.3 L (13.0-17.0) g/dL Hct 27.6 L (39.6-50.0) % ABG pO2 (83-108) mmHg ABG HCO3 (21-25) mmol/L ABG Total CO2 (19-24) mmol/L ABG O2 Saturation (94-97) % Sodium 135 L (137-145) mmol/L Potassium (3.5-5.1) mmol/L BUN (9-20) mg/dL Creatinine 3.17 H (0.66-1.25) mg/dL Glucose 129 H (74-99) mg/dL POC Glucose (mg/dL) 163 H (70-110) mg/dL Calcium 8.1 L (8.4-10.2) mg/dL C-Reactive Protein 1.5 H (<1.0) mg/dL Microbiology - Last 24 Hours (Table) 03/23/23 01:11 Gram Stain - Preliminary Dialysate Body Fluid Culture - Preliminary 03/21/23 21:40 Blood Culture - Preliminary Blood 03/21/23 21:48 Blood Culture - Preliminary Blood Assessment and Plan Plan: Acute respiratory distress/stridor postextubation. The patient most likely has a narrowed subglottic trachea probably related to her previous insertion and removal of the tracheostomy tube. He does have a broken cartilage based on a CAT scan of the chest that was done back in 2019 which is causing some narrowing/dynamic collapsibility of the upper airway. In addition, he has obstructive sleep apnea and has been maintained on BiPAP on outpatient basis. Post extubation, he did encounter stridor and currently is on a BiPAP and is tolerating the BiPAP reasonably well exchanging adequate volumes. No signs of any CO2 narcosis and the patient is gradually regaining his level of alertness. The patient was treated with a BiPAP throughout the night and this morning the patient was taken off the BiPAP and is currently on room air oxygen. No active stridor. Is able to vocalize and communicate. No signs of any respiratory distress. No altered mentation. 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 The PD catheter was removed due to concern of an infection and the patient was given a permacath, underwent hemodialysis yesterday Previous history of CVA and residual left-sided weakness Previous history of tracheostomy tube and a PEG tube insertion post CVA and subsequently both of those catheters were removed as the patient recovered from his underlying stroke Obstructive sleep apnea maintained on a VPAP auto with an EPAP minimum of 6 and a maximum pressure of 15 and a pressure support of 4 Hyperlipidemia Hypertension Seizure disorder Anemia of chronic disease Plan Discontinue the BiPAP during the day and utilizes only at nighttime Continue Decadron for another 24 hours Continue the bronchodilators Dialysis per nephrology Continue supportive care and monitor his fluid status May ultimately need a bronchoscopy for inspection of the upper airway checking for tracheal stenosis. I suspect the patient is a broken cartilage which is causing some compromise a subglottic trachea related to his previous tracheostomy tube insertion/removal. Offer diet today Hemodynamically stable Patient received IV vancomycin regarding gram-positive cocci in the peritoneal fluid Condition is significantly and the patient is improving. Postop chest x-ray was reviewed. We'll continue to follow. Critical care evaluation
--- NOTE | 2023-03-26 10:01 | P.PN ---
Subjective Progress Note Date: 03/26/23 Principal diagnosis: Peritonitis, end-stage renal disease Patient is seen and examined today as a follow-up. He is in the ICU. Yesterday he underwent removal of peritoneal dialysis catheter and placement of right IJ tunneled catheter for hemodialysis. Yesterday after he was extubated patient had some respiratory distress and was started on BiPAP and admitted to the ICU. This morning he is currently on room air and saturation is 96% and he is breathing comfortably. He is without any complaints at this time. Objective - Vital Signs Vital signs: Vital Signs Temp 97.9 F 03/26/23 04:00 Pulse 75 03/26/23 07:00 Resp 12 03/26/23 07:00 BP 128/66 03/26/23 07:00 Pulse Ox 99 03/26/23 07:00 FiO2 30 03/26/23 04:44 Intake & Output 03/25/23 03/26/23 03/26/23 18:59 06:59 18:59 Intake Total 500 520 20 Output Total 155 2000 325 Balance 345 -1480 -305 Weight 112.3 kg Intake: IV 500 Intake, IV Titration 120 20 Amount Lactated Ringers 1,000 ml 120 20 @ 20 mls/hr IV .Q24H [facility] Rx#:[id number] Hemodialysis 400 Output: Urine 150 500 325 Hemodialysis 1500 Estimated Blood Loss 5 Other: Voiding Method Urinal # Voids 0 0 - Exam General appearance: The patient is alert, oriented, appears in no acute distress. Obese. HET: Head is normocephalic and atraumatic. Pupils are equal and reactive. Neck: Supple. Right IJ tunneled catheter intact with dressing clean dry and intact. Heart: Regular. Lungs: Equal expansion, normal respiratory effort. Abdomen: Soft, nontender, nondistended. Dressing on right abdomen clean dry and intact. Extremities: Normal skin color and turgor. Neurological: No focal deficits. Strength and sensation are grossly intact. - Labs CBC & Chem 7: 03/26/23 06:52 03/26/23 06:52 Labs: Abnormal Lab Results - Last 24 Hours (Table) 03/25/23 03/25/23 03/25/23 Range/Units 08:31 08:31 19:13 WBC 13.18 H (4.50-10.00) X 10*3/uL RBC 3.18 L (4.40-5.60) X 10*6/uL Hgb 9.6 L (13.0-17.0) g/dL Hct 29.5 L (39.6-50.0) % ABG pO2 121 H (83-108) mmHg ABG HCO3 26 H (21-25) mmol/L ABG Total CO2 27 H (19-24) mmol/L ABG O2 Saturation 98.9 H (94-97) % Sodium 135 L (137-145) mmol/L Potassium 3.3 L (3.5-5.1) mmol/L BUN 34 H (9-20) mg/dL Creatinine 4.50 H (0.66-1.25) mg/dL Glucose 182 H (74-99) mg/dL POC Glucose (mg/dL) (70-110) mg/dL Calcium (8.4-10.2) mg/dL C-Reactive Protein (<1.0) mg/dL 03/25/23 03/26/23 03/26/23 Range/Units 19:55 06:52 06:52 WBC 16.4 H (4.50-10.00) X 10*3/uL RBC 2.95 L (4.40-5.60) X 10*6/uL Hgb 9.3 L (13.0-17.0) g/dL Hct 27.6 L (39.6-50.0) % ABG pO2 (83-108) mmHg ABG HCO3 (21-25) mmol/L ABG Total CO2 (19-24) mmol/L ABG O2 Saturation (94-97) % Sodium 135 L (137-145) mmol/L Potassium (3.5-5.1) mmol/L BUN (9-20) mg/dL Creatinine 3.17 H (0.66-1.25) mg/dL Glucose 129 H (74-99) mg/dL POC Glucose (mg/dL) 163 H (70-110) mg/dL Calcium 8.1 L (8.4-10.2) mg/dL C-Reactive Protein 1.5 H (<1.0) mg/dL Microbiology - Last 24 Hours (Table) 03/23/23 01:11 Gram Stain - Preliminary Dialysate Body Fluid Culture - Preliminary 03/21/23 21:40 Blood Culture - Preliminary Blood 03/21/23 21:48 Blood Culture - Preliminary Blood Assessment and Plan Assessment: 1. Peritonitis status post removal of peritoneal dialysis catheter 2. End-stage renal disease on peritoneal dialysis 3. End-stage renal disease requiring hemodialysis access status post placement of tunneled hemodialysis catheter 4. Atrial fibrillation on anticoagulation, currently on hold 5. Acute respiratory distress post extubation Plan: 1. Patient is status post removal of peritoneal dialysis and placement of right IJ tunneled dialysis catheter 2. May resume Eliquis 3. Dialysis per nephrology 4. Antibiotics per infectious disease 5. Rest of medical management per primary medical team and ICU eye surgeon Thank you for this consultation, we will sign off at this time. The impression and plan of care has been dictated as directed. I performed a history and examination of this patient, discussed the same with the dictator. I agree with the dictator's note ,documented as a scribe. Any additional findings or plans will be noted.
--- NOTE | 2023-03-26 11:19 | P.PN ---
Subjective Patient is seen in follow-up for end-stage renal disease. PD catheter removed and permacath inserted 03/25/2023. Developed stridor after the procedure and is currently in the ICU on BiPAP. Vital signs are stable. General: No acute distress. HEENT: Head exam is unremarkable. On BiPAP. LUNGS: No audible rhonchi or wheezes. HEART: Rate and Rhythm are regular. ABDOMEN: Nontender. EXTREMITITES: No edema. Objective - Vital Signs Vital signs: Vital Signs Temp 98.6 F 03/26/23 08:00 Pulse 88 03/26/23 08:36 Resp 19 03/26/23 08:00 BP 163/77 03/26/23 08:00 Pulse Ox 99 03/26/23 08:00 FiO2 30 03/26/23 08:00 Intake & Output 03/25/23 03/26/23 03/26/23 18:59 06:59 18:59 Intake Total 500 520 20 Output Total 155 2000 325 Balance 345 -1480 -305 Weight 112.3 kg Intake: IV 500 Intake, IV Titration 120 20 Amount Lactated Ringers 1,000 ml 120 20 @ 20 mls/hr IV .Q24H [facility] Rx#:[id number] Hemodialysis 400 Output: Urine 150 500 325 Hemodialysis 1500 Estimated Blood Loss 5 Other: Voiding Method Urinal Urinal # Voids 0 0 - Labs CBC & Chem 7: 03/26/23 06:52 03/26/23 06:52 Labs: Abnormal Lab Results - Last 24 Hours (Table) 03/25/23 03/25/23 03/25/23 Range/Units 08:31 19:13 19:55 WBC (3.8-10.6) k/uL RBC (4.30-5.90) m/uL Hgb (13.0-17.5) gm/dL Hct (39.0-53.0) % ABG pO2 121 H (83-108) mmHg ABG HCO3 26 H (21-25) mmol/L ABG Total CO2 27 H (19-24) mmol/L ABG O2 Saturation 98.9 H (94-97) % Sodium 135 L (137-145) mmol/L Potassium 3.3 L (3.5-5.1) mmol/L BUN 34 H (9-20) mg/dL Creatinine 4.50 H (0.66-1.25) mg/dL Glucose 182 H (74-99) mg/dL POC Glucose (mg/dL) 163 H (70-110) mg/dL Calcium (8.4-10.2) mg/dL C-Reactive Protein (<1.0) mg/dL 03/26/23 03/26/23 Range/Units 06:52 06:52 WBC 16.4 H (3.8-10.6) k/uL RBC 2.95 L (4.30-5.90) m/uL Hgb 9.3 L (13.0-17.5) gm/dL Hct 27.6 L (39.0-53.0) % ABG pO2 (83-108) mmHg ABG HCO3 (21-25) mmol/L ABG Total CO2 (19-24) mmol/L ABG O2 Saturation (94-97) % Sodium 135 L (137-145) mmol/L Potassium (3.5-5.1) mmol/L BUN (9-20) mg/dL Creatinine 3.17 H (0.66-1.25) mg/dL Glucose 129 H (74-99) mg/dL POC Glucose (mg/dL) (70-110) mg/dL Calcium 8.1 L (8.4-10.2) mg/dL C-Reactive Protein 1.5 H (<1.0) mg/dL Microbiology - Last 24 Hours (Table) 03/23/23 01:11 Gram Stain - Preliminary Dialysate Body Fluid Culture - Preliminary Assessment and Plan Plan: Assessment: 1. End-stage renal disease maintained on peritoneal dialysis. 2. Recurrent peritonitis status post PD catheter removal 03/25/2023. 3. Hypokalemia from PD losses and diuretics. Replaced. Better. 4. Anemia of chronic kidney disease. On Aranesp. 5. Hypertension with chronic kidney disease. 6. Chronic kidney disease mineral bone disease. On Renvela. Phosphorus level 4.1 dated 03/22/2023. Plan: Hemodialysis tomorrow. He will be maintained on Saturday schedule outpatient. Antibiotics per infectious disease. Monitor vancomycin levels. Dose to be adjusted for renal function.
[2023-03-26] MEDS: LACTATED RINGERS 1,000 ML IV SCH ×2 (11:39)
[2023-03-26] MEDS: APIXABAN 2.5 MG TABLET PO SCH ×2 (11:59→21:42)
[2023-03-26] MEDS: DOCUSATE 100 MG CAP PO SCH (11:59)
--- NOTE | 2023-03-26 12:19 | P.PN ---
Subjective Progress Note Date: 03/26/23 * 67-year-old patient who follows with Dr. Sebas Alejandre. Extensive medical history with chronic medical conditions including atrial fibrillation, CHF, hypertension, hyperlipidemia, kidney disease, seizure disorder, sleep apnea, stroke with some left-sided weakness, did receive hemodialysis in 2019. Uses BiPAP. Peripheral neuropathy does use a walker. She does undergo peritoneal dialysis. Follows with appliance assembler Dr. Reyes. Patient can only see shadows from the right eye. * Patient was sent into the ER after patient's peritoneal fluid showed gram- positive cocci and a white count of 32. On March 18. Plan is to have the peritoneal catheter removed and temporary dialysis catheter placed. Patient denies any fever and chills. Appetite is fair. at the bedside. Patient dialysis fluid otherwise has been clear. Patient recently finished a course of antibiotic with vancomycin and cefepime. 4 peritonitis. Patient has slight fluid overload. * 03/23/2023: Patient seen and evaluated bedside, potassium replacement ordered nephrology following, patient receiving peritoneal dialysis. Patient has infected peritoneal dialysis catheter which will be removed, infectious disease consulted continue on IV vancomycin. Continue to monitor on electrolyte panel. Follow-up on electrolyte panel for tomorrow * 03/24/2023: Patient seen and evaluated bedside patient is sleeping easily arousable, blood work reviewed CBC remained stable, electrolyte panel shows sodium 133 potassium 3.3 blood glucose 144 patient receiving paratonia dialysis. Patient did complain of episode of shortness of breath chest x-ray ordered year-old coordinate with nursing staff. Requested nephrology to evaluate for adjustment of diuresis * 03/25/2023: Patient seen and evaluated bedside, patient does complain of shor tness of breath, per family patient does have history of predicted trach, chest x-ray does show concern for tracheal stenosis we will consult pulmonary medicine as well plan is. PD catheter removal today. Nephrology following * 03/26/2023: Patient seen and evaluated bedside, patient is alert and oriented person, on BiPAP, at bedside, followed by pulmonary medicine, receiving dexamethasone. Nephrology following hemodialysis catheter in place PHYSICAL EXAMINATION: GENERAL: The patient is alert and oriented x3 ill appearance pale appearance HEENT: Pupils are round and equally reacting to light. EOMI. CARDIOVASCULAR: S1 and S2 present. Lower extremity edema noted PULMONARY: Decreased breath sounds bilaterally, rhonchi audible ABDOMEN: Soft, nontender, nondistended, normoactive bowel sounds. No palpable organomegaly. MUSCULOSKELETAL: No joint swelling or deformity. EXTREMITIES: Lower extremity edema noted NEUROLOGICAL: Gross neurological examination did not reveal any new focal deficit Left arm and left leg chronically weak Objective - Vital Signs Vital signs: Vital Signs Temp 98.2 F 03/26/23 12:00 Pulse 75 03/26/23 12:00 Resp 13 03/26/23 12:00 BP 141/69 03/26/23 12:00 Pulse Ox 97 03/26/23 12:00 FiO2 30 03/26/23 11:47 Intake & Output 03/25/23 03/26/23 03/26/23 18:59 06:59 18:59 Intake Total 500 520 20 Output Total 155 2000 325 Balance 345 -1480 -305 Weight 112.3 kg Intake: IV 500 Intake, IV Titration 120 20 Amount Lactated Ringers 1,000 ml 120 20 @ 20 mls/hr IV .Q24H [facility] Rx#:[id number] Hemodialysis 400 Output: Urine 150 500 325 Hemodialysis 1500 Estimated Blood Loss 5 Other: Voiding Method Urinal Urinal # Voids 0 0 - Labs CBC & Chem 7: 03/26/23 06:52 03/26/23 06:52 Labs: Abnormal Lab Results - Last 24 Hours (Table) 03/25/23 03/25/23 03/26/23 Range/Units 19:13 19:55 06:52 WBC (3.8-10.6) k/uL RBC (4.30-5.90) m/uL Hgb (13.0-17.5) gm/dL Hct (39.0-53.0) % ABG pO2 121 H (83-108) mmHg ABG HCO3 26 H (21-25) mmol/L ABG Total CO2 27 H (19-24) mmol/L ABG O2 Saturation 98.9 H (94-97) % Sodium 135 L (137-145) mmol/L Creatinine 3.17 H (0.66-1.25) mg/dL Glucose 129 H (74-99) mg/dL POC Glucose (mg/dL) 163 H (70-110) mg/dL Calcium 8.1 L (8.4-10.2) mg/dL C-Reactive Protein 1.5 H (<1.0) mg/dL 03/26/23 Range/Units 06:52 WBC 16.4 H (3.8-10.6) k/uL RBC 2.95 L (4.30-5.90) m/uL Hgb 9.3 L (13.0-17.5) gm/dL Hct 27.6 L (39.0-53.0) % ABG pO2 (83-108) mmHg ABG HCO3 (21-25) mmol/L ABG Total CO2 (19-24) mmol/L ABG O2 Saturation (94-97) % Sodium (137-145) mmol/L Creatinine (0.66-1.25) mg/dL Glucose (74-99) mg/dL POC Glucose (mg/dL) (70-110) mg/dL Calcium (8.4-10.2) mg/dL C-Reactive Protein (<1.0) mg/dL Microbiology - Last 24 Hours (Table) 03/23/23 01:11 Gram Stain - Preliminary Dialysate Body Fluid Culture - Preliminary Assessment and Plan Assessment: Assessment and plan * Infected peritoneal dialysis catheter with fluid positive for gram-positive cocci * History of end-stage renal disease on PD * Hypervolemic hyponatremia * Tracheal stenosis with previous history of tracheostomy * History of CVA with left-sided hemiparesis * History of BPH * Hyperlipidemia * Hyperuricemia * Essential hypertension * History of seizure disorder * In regards to end-stage renal disease, continue dialysis per nephrology, vascular surgery consulted hemodialysis catheter placement. removal of infected peritoneal dialysis catheter * In regards to peritonitis, infectious disease consulted continue patient on IV vancomycin * In regards to history of CVA continue current medical regimen * In regards to history of depression continue Effexor * In regards to fluid overload, continue patient on diuresis * In regards to hypertension continue amlodipine, Aldactone, Lasix, metoprolol * In regards to new finding of tracheal stenosis and difficulty in breathing , continue steroids, appreciate input from pulmonary medicine Time with Patient: Greater than 30
[2023-03-26 14:12] VITALS: BMI 36.6
--- NOTE | 2023-03-26 15:24 | P.PN ---
Subjective Progress Note Date: 03/26/23 Principal diagnosis: Reason for follow up is PD catheter associated peritonitis Patient is a 67-year-old male with a past medical history of clinical hypertension hyperlipidemia seizure disorder did have end-stage renal disease on peritoneal dialysis apparently the patient seem to have a problem with the PD catheter associated peritonitis over the last 4 to 6 weeks secondary to gram- positive culture, admit to the hospital for removal of the dialysis catheter and start the patient on hemodialysis. Patient is status post dialysis catheter removal and hemodialysis catheter placement on 03/25/2023 On today's evaluation that is 03/26/2023, the patient did got admitted to the ICU as he did have a difficulty breathing for surgery yesterday and required BiPAP however currently on nasal cannula oxygen patient remains to be afebrile patient denies having any chest pain occasional cough some nausea but no vomiting abdominal pain decreased intensity no diarrhea Patient did have a white count of 16.4, creatinine 3.17 on current admission 20.9 Objective - Vital Signs Vital signs: Vital Signs Temp 98.2 F 03/26/23 12:00 Pulse 82 03/26/23 14:00 Resp 16 03/26/23 14:00 BP 176/86 03/26/23 14:00 Pulse Ox 97 03/26/23 14:00 FiO2 30 03/26/23 11:47 Intake & Output 03/25/23 03/26/23 03/26/23 18:59 06:59 18:59 Intake Total 500 520 20 Output Total 155 2000 325 Balance 345 -1480 -305 Weight 112.3 kg 112.3 kg Intake: IV 500 Intake, IV Titration 120 20 Amount Lactated Ringers 1,000 ml 120 20 @ 20 mls/hr IV .Q24H [facility] Rx#:[id number] Hemodialysis 400 Output: Urine 150 500 325 Hemodialysis 1500 Estimated Blood Loss 5 Other: Voiding Method Urinal Urinal # Voids 0 0 # Bowel Movements 1 - Exam GENERAL DESCRIPTION: An elderly male lying in bed in no distress RESPIRATORY SYSTEM: Unlabored breathing , decreased breath sounds at bases HEART: S1 S2 regular rate and rhythm , ABDOMEN: Soft , no tenderness EXTREMITIES: No edema feet - Labs CBC & Chem 7: 03/26/23 06:52 03/26/23 06:52 Labs: Abnormal Lab Results - Last 24 Hours (Table) 03/25/23 03/25/23 03/26/23 Range/Units 19:13 19:55 06:52 WBC (3.8-10.6) k/uL RBC (4.30-5.90) m/uL Hgb (13.0-17.5) gm/dL Hct (39.0-53.0) % ABG pO2 121 H (83-108) mmHg ABG HCO3 26 H (21-25) mmol/L ABG Total CO2 27 H (19-24) mmol/L ABG O2 Saturation 98.9 H (94-97) % Sodium 135 L (137-145) mmol/L Creatinine 3.17 H (0.66-1.25) mg/dL Glucose 129 H (74-99) mg/dL POC Glucose (mg/dL) 163 H (70-110) mg/dL Calcium 8.1 L (8.4-10.2) mg/dL C-Reactive Protein 1.5 H (<1.0) mg/dL 03/26/23 Range/Units 06:52 WBC 16.4 H (3.8-10.6) k/uL RBC 2.95 L (4.30-5.90) m/uL Hgb 9.3 L (13.0-17.5) gm/dL Hct 27.6 L (39.0-53.0) % ABG pO2 (83-108) mmHg ABG HCO3 (21-25) mmol/L ABG Total CO2 (19-24) mmol/L ABG O2 Saturation (94-97) % Sodium (137-145) mmol/L Creatinine (0.66-1.25) mg/dL Glucose (74-99) mg/dL POC Glucose (mg/dL) (70-110) mg/dL Calcium (8.4-10.2) mg/dL C-Reactive Protein (<1.0) mg/dL Assessment and Plan (1) Leukocytosis Current Visit: Yes Status: Acute Code(s): D72.829 - ELEVATED WHITE BLOOD CELL COUNT, UNSPECIFIED SNOMED Code(s): 403552274 (2) Peritonitis Current Visit: Yes Status: Acute Code(s): K65.9 - PERITONITIS, UNSPECIFIED SNOMED Code(s): 29255235 Plan: 1patient presented to hospital abdominal pain in this patient seem to have a problem with the PD catheter associated peritonitis that has been treated with vancomycin and Fortaz without improvement subsequently admitted to hospital for removal of the dialysis catheter and did have elevated white count but no fever 2--patient is s/p removal of the dialysis catheter and placement of hemodialysis catheter completed on 03/25/2023 3-blood and peritoneal fluid cultures are currently pending 4-patient to continue vancomycin pharmacy to dose and monitor his clinical course closely Dictation was produced using [employer] dictation software. please excuse any grammatical, word or spelling errors. Time with Patient: Less than 30
[2023-03-26] MEDS: polyethylene glycoL 3350 17 GM POWD.PACK PO SCH (16:41)
[2023-03-26] MEDS: LATANOPROSTENE BUNOD BOTH EYES SCH ×2 (16:41→21:44)
[2023-03-26] MEDS ORDERED: VANCOMYCIN 1,500 MG in SODIUM CHLORIDE 0.9% 500 ML 500 ML IVPB ONE (18:00)
[2023-03-26] MEDS: MELATONIN 5 MG TABLET PO SCH (21:41)
[2023-03-26] MEDS: ATORVASTATIN 10 MG TAB PO SCH (21:42)
[2023-03-26] MEDS: VENLAFAXINE HCL ER 75 MG CAP PO SCH (21:43)
[2023-03-27] MEDS: DEXAMETHASONE SOD PHOSPHATE 4 MG/ML 1 ML VIAL IVP SCH ×2 (00:47→06:11)
[2023-03-27 04:31] LABS: HCT 29.9 % (39.0-53.0); HGB 10.1 gm/dL (13.0-17.5); MCH 31.4 pg (25.0-35.0); MCHC 33.7 g/dL (31.0-37.0); MCV 93.1 fL (80.0-100.0); Mean Platelet Volume 8.9; Platelet Count 194 k/uL (150-450); RBC 3.22 m/uL (4.30-5.90); RDW 14.5 % (11.5-15.5); WBC 12.6 k/uL (3.8-10.6)
[2023-03-27 05:12] LABS: African American GFR (CKD) 19 (>60 ml/min/1.73 sqM); Anion Gap 5 mmol/L; Blood Urea Nitrogen 30 mg/dL (9-20); Calcium 8.8 mg/dL (8.4-10.2); Carbon Dioxide 23 mmol/L (22-30); Chloride 108 mmol/L (98-107); Glucose 175 mg/dL (74-99); Non-African American GFR(CKD) 16 (>60 ml/min/1.73 sqM); Sodium 136 mmol/L (137-145)
[2023-03-27 05:13] LABS: Potassium 4.6 mmol/L (3.5-5.1)
[2023-03-27] MEDS: SEVELAMER 800 MG TAB PO SCH ×3 (06:38→16:21)
--- NOTE | 2023-03-27 09:17 | P.PN ---
Subjective Progress Note Date: 03/27/23 67-year-old male patient is being seen in recovery after his ICU transfer as the patient was extubated and the patient had difficulties in breathing postextubation and he was having active stridor. At that point, he was being considered for intubation. He was given a trial of BiPAP and he gradually imp roved and his stridor has subsided this point in time. The patient is more awake and alert and communicating. He is currently on a BiPAP at a pressure of 12 was 6 with an FiO2 of 60%. Is exchanging at least 450 mL of tidal volume on the BiPAP machine. He does have a tracheostomy. I noted that the patient had a previous history of tracheostomy tube insertion following a CVA and as part of post CVA treatment, the patient required a tracheostomy and PEG tube insertion and he was in a extended care facility for long period of time. He was ultimately be cannulated. I was also able to review a CAT scan of the chest that was done this patient on 08/26/2018. I noted that there is some narrowing in the subglottic trachea, probably a broken cartilage causing some narrowing following insertion and removal of a previously inserted tracheostomy tube. The patient also admits to have obstructive sleep apnea and he has been maintained on CPAP therapy on an outpatient basis. His current procedure was 2 removal a peritoneal catheter and inserted a hemodialysis catheter. This was done succes sfully and his respiratory issues started following the extubation process. The patient currently has a permacath in his right IJ. Note that he has history of chronic A. fib, CHF, hypertension, hyperlipidemia, end-stage renal disease, seizure disorder, previous history of CVA and he does have some residual left- sided weakness. As also peripheral neuropathy. He does use a walker for mobility. He was undergoing peritoneal dialysis. He developed peritonitis. Was told that his peritoneal dialysis catheter was infected. Based on that, the catheter was removed and the patient was given a hemodialysis catheter. The cultures from the peritoneal fluid is still pending. Told by the anesthesi ologist of intubation process was not traumatic. In fact, this was an easy intubation according to him. He was given a 7.5 ETT On today's evaluation of 03/26/2023, the patient is being seen for a follow-up. I saw this patient in consultation yesterday. There was concern of a stridor and compromise of his upper airway. The patient as mentioned may have an underlying tracheal stenosis related to a previous tracheostomy tube insertion. He also has obstructive sleep apnea. He did encounter some respiratory difficulties postextubation. Based on that, he was treated with a BiPAP and he was treated with Decadron and bronchodilators and he was also given racemic epinephrine. He stated on BiPAP at a pressure of 12/6 the night and this morning he is on room air oxygen. No active stridor. Is able to speak. AsI is of any respiratory distress. Blood gas was done yesterday while on the BiPAP and the patient had no significant hypercapnic respiratory failure and his pH was at 7.36 with a pCO2 of 45 and a pO2 of 121. He also underwent hemodialysis yesterday with ultrafiltration of 1100 mL of fluid. He remains hemodynamically stable. Peritoneal catheter has been removed. The lymph node and 16.4 with a hemoglobin of 9.3. Sodium is at 135, BUN is at 20 with a creatinine of 3.1. No other significant issues overnight. The peritoneal fluid is showing no microbial growth at this point. The patient remains on vancomycin. On 03/27/2023, the patient is awake and alert and is undergoing dialysis. He was on BiPAP throughout the night and I took him off the BiPAP this morning and put him on a nasal cannula. He does have some minimal end inspiratory stridor probably related to tracheal stenosis. His breathing is nonlabored. On 2 L of oxygen, his pulse ox is 99%. He is undergoing hemodialysis. He will be ALSO treated for a total of 1.8 L. His BUN is at 30 with a creatinine of 3.6. Sodiums of 136. Denies having any significant respiratory distress. Is able to speak. Is able to swallow. He is afebrile. He is still covered with vancomycin. Peritoneal catheter has been removed and the patient has a permacath in his right IJ. His most recent chest x-ray was from yesterday and it was showing cardiomegaly and mild pulmonary vascular congestion. Hemodynamically stable. In fact is slightly hypertensive. He is on amlodipine 5 mg by mouth twice a day and metoprolol 25 mg 3 times a day. He remains on anticoagulation with Eliquis 2.5 mg twice a day. I switched him to oral Lasix 60 mg by mouth daily. Urine output is quite diminished at this point in time. Objective - Vital Signs Vital signs: Vital Signs Temp 98.2 F 03/27/23 05:00 Pulse 67 03/27/23 07:00 Resp 12 03/27/23 07:00 BP 165/81 03/27/23 07:00 Pulse Ox 97 03/27/23 07:00 FiO2 50 03/27/23 07:58 Intake & Output 03/26/23 03/27/23 03/27/23 18:59 06:59 18:59 Intake Total 760 90 Output Total 875 400 Balance -115 -310 Weight 112.3 kg 109.8 kg Intake: IV 40 Lactated Ringers 1,000 ml 40 @ 20 mls/hr IV .Q24H [facility] Rx#:[id number] Intake, IV Titration 520 Amount Lactated Ringers 1,000 ml 20 @ 20 mls/hr IV .Q24H [facility] Rx#:[id number] Vancomycin 1,500 mg In 500 Sodium Chloride 0.9% 500 ml 500 ml @ 167 mls/hr IVPB ONCE ONE Rx#: [id number] Oral 240 50 Output: Urine 875 400 Other: Voiding Method Urinal Urinal # Bowel Movements 1 - Exam GENERAL: The patient is alert and oriented x3, patient is currently on room air oxygen. minimal stridor. HEENT: Pupils are round and equally reacting to light. EOMI. Neck examination shows a scar of a previous tracheostomy over the anterior neck area. No active stridor was appreciated. He has significant cardiovascular posterior oropharynx and he has a Mallampati class IV. CARDIOVASCULAR: Cardiac exam revealed the PMI to be normally situated and sized. The rhythm was regular and no extrasystoles were noted during several minutes of auscultation. The first and second heart sounds were normal and physiologic splitting of the second heart sound was noted. There were no murmurs, rubs, clicks, or gallops. PULMONARY: Decreased breath sounds bilaterally, rhonchi audible ABDOMEN: Soft, nontender, nondistended, normoactive bowel sounds. No palpable organomegaly. The peritoneal dialysis catheter has been removed MUSCULOSKELETAL: No joint swelling or deformity. EXTREMITIES: Lower extremity edema noted NEUROLOGICAL: Gross neurological examination did not reveal any new focal deficit Left arm and left leg chronically weak Skin examination reveals a permacath over the right anterior chest area exit sites. - Labs CBC & Chem 7: 03/27/23 03:06 03/27/23 04:39 Labs: Abnormal Lab Results - Last 24 Hours (Table) 03/27/23 03/27/23 Range/Units 03:06 04:39 WBC 12.6 H (3.8-10.6) k/uL RBC 3.22 L (4.30-5.90) m/uL Hgb 10.1 L (13.0-17.5) gm/dL Hct 29.9 L (39.0-53.0) % Sodium 136 L (137-145) mmol/L Chloride 108 H (98-107) mmol/L BUN 30 H (9-20) mg/dL Creatinine 3.64 H (0.66-1.25) mg/dL Glucose 175 H (74-99) mg/dL Microbiology - Last 24 Hours (Table) 03/21/23 21:40 Blood Culture - Final Blood 03/21/23 21:48 Blood Culture - Final Blood Assessment and Plan Plan: Acute respiratory distress/stridor postextubation. The patient most likely has a narrowed subglottic trachea probably related to her previous insertion and removal of the tracheostomy tube. He does have a broken cartilage based on a CAT scan of the chest that was done back in 2018 which is causing some narrowing/dynamic collapsibility of the upper airway. In addition, he has obstructive sleep apnea and has been maintained on BiPAP on outpatient basis. Post extubation, he did encounter stridor and currently is on a BiPAP and is tolerating the BiPAP reasonably well exchanging adequate volumes. Today's evaluation of 03/27/2023, the patient was taken off the BiPAP. Some minimal end inspiratory stridor related to has tracheal stenosis. Nevertheless, no signs of any respiratory distress. 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 The PD catheter was removed due to concern of an infection and the patient was given a permacath, underwent hemodialysis yesterday Previous history of CVA and residual left-sided weakness Previous history of tracheostomy tube and a PEG tube insertion post CVA and subsequently both of those catheters were removed as the patient recovered from his underlying stroke Obstructive sleep apnea maintained on a VPAP auto with an EPAP minimum of 6 and a maximum pressure of 15 and a pressure support of 4 Hyperlipidemia Hypertension Seizure disorder Anemia of chronic disease Plan Discontinue the BiPAP during the day and utilizes only at nighttime Discontinue Decadron I think is tracheal stenosis is not related to swelling or soft tissue edema. I think he does have a anatomic problem either related to a broken cartilage causing tracheal stenosis or circumferential stenosis related to scar tissue. Continue the bronchodilators Dialysis per nephrology undergoing hemodialysis today Continue supportive care and monitor his fluid status May ultimately need a bronchoscopy for inspection of the upper airway checking for tracheal stenosis. I suspect the patient is a broken cartilage which is causing some compromise a subglottic trachea related to his previous tracheostomy tube insertion/removal. Tolerating diet Hemodynamically stable Patient received IV vancomycin regarding gram-positive cocci in the peritoneal fluid Condition is significantly and the patient is improving. Postop chest x-ray was reviewed. We'll continue to follow. Critical care evaluation Time with Patient: Greater than 30
[2023-03-27] MEDS: IPRATROPIUM-ALBUTEROL 3 ML NEB INHALATION SCH ×2 (09:23→21:11)
--- NOTE | 2023-03-27 10:48 | P.PN ---
Subjective Patient is seen in follow-up for end-stage renal disease. PD catheter removed and permacath inserted 03/25/2023. Tolerating hemodialysis well. Now on nasal cannula. Vital signs are stable. General: No acute distress. HEENT: Head exam is unremarkable. On nasal cannula. LUNGS: No audible rhonchi or wheezes. HEART: Rate and Rhythm are regular. ABDOMEN: Nontender. EXTREMITITES: No edema. Objective - Vital Signs Vital signs: Vital Signs Temp 98 F 03/27/23 08:00 Pulse 71 03/27/23 10:00 Resp 12 03/27/23 10:00 BP 172/78 03/27/23 10:00 Pulse Ox 99 03/27/23 10:00 FiO2 3 03/27/23 09:00 Intake & Output 03/26/23 03/27/23 03/27/23 18:59 06:59 18:59 Intake Total 760 90 30 Output Total 875 400 Balance -115 -310 30 Weight 112.3 kg 109.8 kg Intake: IV 40 30 Lactated Ringers 1,000 ml 40 30 @ 20 mls/hr IV .Q24H [facility] Rx#:[id number] Intake, IV Titration 520 Amount Lactated Ringers 1,000 ml 20 @ 20 mls/hr IV .Q24H [facility] Rx#:[id number] Vancomycin 1,500 mg In 500 Sodium Chloride 0.9% 500 ml 500 ml @ 167 mls/hr IVPB ONCE ONE Rx#: [id number] Oral 240 50 Output: Urine 875 400 Other: Voiding Method Urinal Urinal Urinal # Bowel Movements 1 - Labs CBC & Chem 7: 03/27/23 03:06 03/27/23 04:39 Labs: Abnormal Lab Results - Last 24 Hours (Table) 03/27/23 03/27/23 Range/Units 03:06 04:39 WBC 12.6 H (3.8-10.6) k/uL RBC 3.22 L (4.30-5.90) m/uL Hgb 10.1 L (13.0-17.5) gm/dL Hct 29.9 L (39.0-53.0) % Sodium 136 L (137-145) mmol/L Chloride 108 H (98-107) mmol/L BUN 30 H (9-20) mg/dL Creatinine 3.64 H (0.66-1.25) mg/dL Glucose 175 H (74-99) mg/dL Microbiology - Last 24 Hours (Table) 03/21/23 21:40 Blood Culture - Final Blood 03/21/23 21:48 Blood Culture - Final Blood Assessment and Plan Plan: Assessment: 1. End-stage renal disease maintained on peritoneal dialysis. 2. Recurrent peritonitis status post PD catheter removal 03/25/2023. 3. Hypokalemia from PD losses and diuretics. Replaced. Better. 4. Anemia of chronic kidney disease. On Aranesp. 5. Hypertension with chronic kidney disease. 6. Chronic kidney disease mineral bone disease. On Renvela. Phosphorus level 4.1 dated 03/22/2023. Plan: Currently seen while undergoing hemodialysis. He will be maintained on Saturday schedule outpatient. Antibiotics per infectious disease. Monitor vancomycin levels. Dose to be adjusted for renal function.
[2023-03-27] MEDS ORDERED: DEXAMETHASONE SOD PHOSPHATE 10 MG/ML 1 ML VIAL IVP STA (11:12)
[2023-03-27] MEDS ORDERED: DESMOPRESSIN ACETATE 26 MCG in SODIUM CHLORIDE 0.9% 50 ML IVPB ONE (12:00)
--- NOTE | 2023-03-27 12:00 | P.PN ---
Subjective Progress Note Date: 03/27/23 * 67-year-old patient who follows with Dr. Sebas Alejandre. Extensive medical history with chronic medical conditions including atrial fibrillation, CHF, hypertension, hyperlipidemia, kidney disease, seizure disorder, sleep apnea, stroke with some left-sided weakness, did receive hemodialysis in 2019. Uses BiPAP. Peripheral neuropathy does use a walker. She does undergo peritoneal dialysis. Follows with retail [facility] receptionist Dr. Reyes. Patient can only see shadows from the right eye. * Patient was sent into the ER after patient's peritoneal fluid showed gram- positive cocci and a white count of 32. On March 18. Plan is to have the peritoneal catheter removed and temporary dialysis catheter placed. Patient denies any fever and chills. Appetite is fair. at the bedside. Patient dialysis fluid otherwise has been clear. Patient recently finished a course of antibiotic with vancomycin and cefepime. 4 peritonitis. Patient has slight fluid overload. * 03/23/2023: Patient seen and evaluated bedside, potassium replacement ordered nephrology following, patient receiving peritoneal dialysis. Patient has infected peritoneal dialysis catheter which will be removed, infectious disease consulted continue on IV vancomycin. Continue to monitor on electrolyte panel. Follow-up on electrolyte panel for tomorrow * 03/24/2023: Patient seen and evaluated bedside patient is sleeping easily arousable, blood work reviewed CBC remained stable, electrolyte panel shows sodium 133 potassium 3.3 blood glucose 144 patient receiving paratonia dialysis. Patient did complain of episode of shortness of breath chest x-ray ordered year-old coordinate with nursing staff. Requested nephrology to evaluate for adjustment of diuresis * 03/25/2023: Patient seen and evaluated bedside, patient does complain of shor tness of breath, per family patient does have history of predicted trach, chest x-ray does show concern for tracheal stenosis we will consult pulmonary medicine as well plan is. PD catheter removal today. Nephrology following * 03/26/2023: Patient seen and evaluated bedside, patient is alert and oriented person, on BiPAP, at bedside, followed by pulmonary medicine, receiving dexamethasone. Nephrology following hemodialysis catheter in place * 03/27/2023: Patient seen and evaluated bedside, patient is alert on noninvasive ventilation, receiving hemodialysis. Does complain of generalized body pain continue patient on current antibiotic regimen continued toward in ICU patient on steroids for stridor from critical stenosis PHYSICAL EXAMINATION: GENERAL: The patient is alert and oriented x3 ill appearance pale appearance, facemask in place for right anterior chest wall hemodialysis catheter in place HEENT: Pupils are round and equally reacting to light. EOMI. CARDIOVASCULAR: S1 and S2 present. Lower extremity edema noted PULMONARY: Decreased breath sounds bilaterally, rhonchi audible ABDOMEN: Soft, nontender, nondistended, normoactive bowel sounds. No palpable organomegaly. MUSCULOSKELETAL: No joint swelling or deformity. EXTREMITIES: Lower extremity edema noted NEUROLOGICAL: Gross neurological examination did not reveal any new focal deficit Left arm and left leg chronically weak Objective - Vital Signs Vital signs: Vital Signs Temp 98 F 03/27/23 08:00 Pulse 81 03/27/23 11:00 Resp 16 03/27/23 11:00 BP 153/90 03/27/23 11:00 Pulse Ox 99 03/27/23 11:00 FiO2 50 03/27/23 11:54 Intake & Output 03/26/23 03/27/23 03/27/23 18:59 06:59 18:59 Intake Total 760 90 40 Output Total 875 400 Balance -115 -310 40 Weight 112.3 kg 109.8 kg Intake: IV 40 40 Lactated Ringers 1,000 ml 40 40 @ 20 mls/hr IV .Q24H [facility] Rx#:[id number] Intake, IV Titration 520 Amount Lactated Ringers 1,000 ml 20 @ 20 mls/hr IV .Q24H [facility] Rx#:[id number] Vancomycin 1,500 mg In 500 Sodium Chloride 0.9% 500 ml 500 ml @ 167 mls/hr IVPB ONCE ONE Rx#: [id number] Oral 240 50 Output: Urine 875 400 Other: Voiding Method Urinal Urinal Urinal # Bowel Movements 1 - Labs CBC & Chem 7: 03/27/23 03:06 03/27/23 04:39 Labs: Abnormal Lab Results - Last 24 Hours (Table) 03/27/23 03/27/23 Range/Units 03:06 04:39 WBC 12.6 H (3.8-10.6) k/uL RBC 3.22 L (4.30-5.90) m/uL Hgb 10.1 L (13.0-17.5) gm/dL Hct 29.9 L (39.0-53.0) % Sodium 136 L (137-145) mmol/L Chloride 108 H (98-107) mmol/L BUN 30 H (9-20) mg/dL Creatinine 3.64 H (0.66-1.25) mg/dL Glucose 175 H (74-99) mg/dL Microbiology - Last 24 Hours (Table) 03/21/23 21:40 Blood Culture - Final Blood 03/21/23 21:48 Blood Culture - Final Blood Assessment and Plan Assessment: Assessment and plan * Infected peritoneal dialysis catheter with fluid positive for gram-positive cocci * History of end-stage renal disease on PD * Hypervolemic hyponatremia * Tracheal stenosis with previous history of tracheostomy * History of CVA with left-sided hemiparesis * History of BPH * Hyperlipidemia * Hyperuricemia * Essential hypertension * History of seizure disorder * In regards to end-stage renal disease, continue dialysis per nephrology, vascular surgery consulted hemodialysis catheter placement. removal of infected peritoneal dialysis catheter * In regards to peritonitis, infectious disease consulted continue patient on IV vancomycin * In regards to history of CVA continue current medical regimen * In regards to history of depression continue Effexor * In regards to fluid overload, continue patient on diuresis * In regards to hypertension continue amlodipine, Aldactone, Lasix, metoprolol * In regards to new finding of tracheal stenosis and difficulty in breathing , continue steroids, appreciate input from pulmonary medicine * Continue to monitor in ICU
--- NOTE | 2023-03-27 12:02 | P.PN ---
Subjective Progress Note Date: 03/27/23 Principal diagnosis: Reason for follow up is PD catheter associated peritonitis Patient is a 67-year-old male with a past medical history of clinical hypertension hyperlipidemia seizure disorder did have end-stage renal disease on peritoneal dialysis apparently the patient seem to have a problem with the PD catheter associated peritonitis over the last 4 to 6 weeks secondary to gram- positive culture, admit to the hospital for removal of the dialysis catheter and start the patient on hemodialysis. Patient is status post dialysis catheter removal and hemodialysis catheter placement on 03/25/2023 On today's evaluation that is 03/27/2023, the patient continues to be afebrile patient is requiring BiPAP for management of his respiratory status currently on 30% FiO2, patient denies any chest pain or cough no nausea no vomiting and no diarrhea has been reported, did have some bleeding from his permacath site currently undergoing dialysis Patient did have a white count is down to 12.6, creatinine 3.64 Objective - Vital Signs Vital signs: Vital Signs Temp 98 F 03/27/23 08:00 Pulse 81 03/27/23 11:00 Resp 16 03/27/23 11:00 BP 153/90 03/27/23 11:00 Pulse Ox 99 03/27/23 11:00 FiO2 50 03/27/23 11:54 Intake & Output 03/26/23 03/27/23 03/27/23 18:59 06:59 18:59 Intake Total 760 90 40 Output Total 875 400 Balance -115 -310 40 Weight 112.3 kg 109.8 kg Intake: IV 40 40 Lactated Ringers 1,000 ml 40 40 @ 20 mls/hr IV .Q24H [facility] Rx#:[id number] Intake, IV Titration 520 Amount Lactated Ringers 1,000 ml 20 @ 20 mls/hr IV .Q24H [facility] Rx#:[id number] Vancomycin 1,500 mg In 500 Sodium Chloride 0.9% 500 ml 500 ml @ 167 mls/hr IVPB ONCE ONE Rx#: [id number] Oral 240 50 Output: Urine 875 400 Other: Voiding Method Urinal Urinal Urinal # Bowel Movements 1 - Exam GENERAL DESCRIPTION: An elderly male lying in bed in no distress RESPIRATORY SYSTEM: Unlabored breathing , decreased breath sounds at bases HEART: S1 S2 regular rate and rhythm , ABDOMEN: Soft , no tenderness EXTREMITIES: No edema feet - Labs CBC & Chem 7: 03/27/23 03:06 03/27/23 04:39 Labs: Abnormal Lab Results - Last 24 Hours (Table) 03/27/23 03/27/23 Range/Units 03:06 04:39 WBC 12.6 H (3.8-10.6) k/uL RBC 3.22 L (4.30-5.90) m/uL Hgb 10.1 L (13.0-17.5) gm/dL Hct 29.9 L (39.0-53.0) % Sodium 136 L (137-145) mmol/L Chloride 108 H (98-107) mmol/L BUN 30 H (9-20) mg/dL Creatinine 3.64 H (0.66-1.25) mg/dL Glucose 175 H (74-99) mg/dL Microbiology - Last 24 Hours (Table) 03/21/23 21:40 Blood Culture - Final Blood 03/21/23 21:48 Blood Culture - Final Blood Assessment and Plan (1) Leukocytosis Current Visit: Yes Status: Acute Code(s): D72.829 - ELEVATED WHITE BLOOD CELL COUNT, UNSPECIFIED SNOMED Code(s): 450479940 (2) Peritonitis Current Visit: Yes Status: Acute Code(s): K65.9 - PERITONITIS, UNSPECIFIED SNOMED Code(s): 54899345 Plan: 1patient presented to hospital abdominal pain in this patient seem to have a problem with the PD catheter associated peritonitis that has been treated with vancomycin and Fortaz without improvement subsequently admitted to hospital for removal of the dialysis catheter and did have elevated white count but no fever 2--patient is s/p removal of the dialysis catheter and placement of hemodialysis catheter completed on 03/25/2023 3-blood and peritoneal fluid cultures are currently pending 4-patient to continue vancomycin And will monitor clinical course closely Dictation was produced using [employer] software. please excuse any grammatical, word or spelling errors. Time with Patient: Less than 30
[2023-03-27] MEDS: TAMSULOSIN 0.4 MG CAP.ER.24H PO SCH (14:41)
[2023-03-27] MEDS: SPIRONOLACTONE 25 MG TAB PO SCH (14:42)
[2023-03-27] MEDS: FUROSEMIDE 20 MG TAB PO SCH (14:42)
[2023-03-27] MEDS: APIXABAN 2.5 MG TABLET PO SCH ×2 (14:43→20:06)
[2023-03-27] MEDS: levETIRAcetam 500 MG TAB PO SCH ×2 (14:43→20:06)
[2023-03-27] MEDS: allopurinoL 100 MG TAB PO SCH (14:43)
[2023-03-27] MEDS: amLODIPine 5 MG TAB PO SCH ×2 (14:43→20:06)
[2023-03-27] MEDS: guaiFENesin 600 MG TABLET.ER PO SCH ×2 (14:44→20:06)
[2023-03-27] MEDS: METOPROLOL SUCCINATE (ER) 25 MG TAB.ER.24H PO SCH ×3 (14:44→21:46)
[2023-03-27] MEDS: DOCUSATE 100 MG CAP PO SCH (14:46)
[2023-03-27] MEDS: FOLIC ACID-VIT B COMPLEX-VIT C 1 CAP PO SCH (15:33)
[2023-03-27] MEDS: FINASTERIDE 5 MG TAB PO SCH (15:33)
[2023-03-27] MEDS: GENTAMICIN 0.1% CREAM 15 GM TUBE TOPICAL SCH (15:33)
[2023-03-27] MEDS: LACTATED RINGERS 1,000 ML IV SCH (15:33)
[2023-03-27] MEDS: SIMBRINZA BOTH EYES SCH ×2 (16:19→21:04)
[2023-03-27] MEDS: polyethylene glycoL 3350 17 GM POWD.PACK PO SCH (16:22)
[2023-03-27] MEDS: VENLAFAXINE HCL ER 75 MG CAP PO SCH (20:06)
[2023-03-27] MEDS: MELATONIN 5 MG TABLET PO SCH (20:06)
[2023-03-27] MEDS: ATORVASTATIN 10 MG TAB PO SCH (20:06)
[2023-03-28 04:33] LABS: Basophils % (A) 0 %; Eosinophils # (A) 0.1 k/uL (0-0.7); Eosinophils % (A) 1 %; HCT 25.4 % (39.0-53.0); Lymphocytes # (A) 0.9 k/uL (1.0-4.8); Lymphocytes % (A) 8 %; MCH 31.4 pg (25.0-35.0); MCHC 33.6 g/dL (31.0-37.0); MCV 93.4 fL (80.0-100.0); Mean Platelet Volume 8.6; Monocytes # (A) 0.8 k/uL (0-1.0); Monocytes % (A) 7 %; Neutrophils # (A) 9.3 k/uL (1.3-7.7); Neutrophils % (A) 83 %; Platelet Count 190 k/uL (150-450); RBC 2.72 m/uL (4.30-5.90); RDW 14.3 % (11.5-15.5); WBC 11.2 k/uL (3.8-10.6)
[2023-03-28 04:37] LABS: HGB 8.5 gm/dL (13.0-17.5)
[2023-03-28 05:23] LABS: Potassium 3.2 mmol/L (3.5-5.1)
[2023-03-28 05:24] LABS: African American GFR (CKD) 24 (>60 ml/min/1.73 sqM); Anion Gap 5 mmol/L; Blood Urea Nitrogen 24 mg/dL (9-20); Calcium 8.3 mg/dL (8.4-10.2); Carbon Dioxide 26 mmol/L (22-30); Chloride 103 mmol/L (98-107); Glucose 174 mg/dL (74-99); Non-African American GFR(CKD) 21 (>60 ml/min/1.73 sqM); Sodium 134 mmol/L (137-145)
[2023-03-28] MEDS ORDERED: POTASSIUM CHLORIDE ER 20 MEQ TAB.ER PO STA ×2 (06:39→12:00)
[2023-03-28] MEDS: SEVELAMER 800 MG TAB PO SCH ×3 (06:52→18:08)
[2023-03-28] MEDS ORDERED: MIDAZOLAM 1 MG/ML 5 ML VIAL IV STA (09:02)
[2023-03-28] MEDS: GENTAMICIN 0.1% CREAM 15 GM TUBE TOPICAL SCH (09:16)
[2023-03-28] MEDS: IPRATROPIUM-ALBUTEROL 3 ML NEB INHALATION SCH ×2 (09:23→20:52)
--- NOTE | 2023-03-28 09:38 | P.PN ---
Subjective Progress Note Date: 03/28/23 67-year-old male patient is being seen in recovery after his ICU transfer as the patient was extubated and the patient had difficulties in breathing postextubation and he was having active stridor. At that point, he was being considered for intubation. He was given a trial of BiPAP and he gradually imp roved and his stridor has subsided this point in time. The patient is more awake and alert and communicating. He is currently on a BiPAP at a pressure of 12 was 6 with an FiO2 of 60%. Is exchanging at least 450 mL of tidal volume on the BiPAP machine. He does have a tracheostomy. I noted that the patient had a previous history of tracheostomy tube insertion following a CVA and as part of post CVA treatment, the patient required a tracheostomy and PEG tube insertion and he was in a extended care facility for long period of time. He was ultimately be cannulated. I was also able to review a CAT scan of the chest that was done this patient on 08/26/2018. I noted that there is some narrowing in the subglottic trachea, probably a broken cartilage causing some narrowing following insertion and removal of a previously inserted tracheostomy tube. The patient also admits to have obstructive sleep apnea and he has been maintained on CPAP therapy on an outpatient basis. His current procedure was 2 removal a peritoneal catheter and inserted a hemodialysis catheter. This was done succes sfully and his respiratory issues started following the extubation process. The patient currently has a permacath in his right IJ. Note that he has history of chronic A. fib, CHF, hypertension, hyperlipidemia, end-stage renal disease, seizure disorder, previous history of CVA and he does have some residual left- sided weakness. As also peripheral neuropathy. He does use a walker for mobility. He was undergoing peritoneal dialysis. He developed peritonitis. Was told that his peritoneal dialysis catheter was infected. Based on that, the catheter was removed and the patient was given a hemodialysis catheter. The cultures from the peritoneal fluid is still pending. Told by the anesthesi ologist of intubation process was not traumatic. In fact, this was an easy intubation according to him. He was given a 7.5 ETT On today's evaluation of 03/26/2023, the patient is being seen for a follow-up. I saw this patient in consultation yesterday. There was concern of a stridor and compromise of his upper airway. The patient as mentioned may have an underlying tracheal stenosis related to a previous tracheostomy tube insertion. He also has obstructive sleep apnea. He did encounter some respiratory difficulties postextubation. Based on that, he was treated with a BiPAP and he was treated with Decadron and bronchodilators and he was also given racemic epinephrine. He stated on BiPAP at a pressure of 12/6 the night and this morning he is on room air oxygen. No active stridor. Is able to speak. AsI is of any respiratory distress. Blood gas was done yesterday while on the BiPAP and the patient had no significant hypercapnic respiratory failure and his pH was at 7.36 with a pCO2 of 45 and a pO2 of 121. He also underwent hemodialysis yesterday with ultrafiltration of 1100 mL of fluid. He remains hemodynamically stable. Peritoneal catheter has been removed. The lymph node and 16.4 with a hemoglobin of 9.3. Sodium is at 135, BUN is at 20 with a creatinine of 3.1. No other significant issues overnight. The peritoneal fluid is showing no microbial growth at this point. The patient remains on vancomycin. On 03/27/2023, the patient is awake and alert and is undergoing dialysis. He was on BiPAP throughout the night and I took him off the BiPAP this morning and put him on a nasal cannula. He does have some minimal end inspiratory stridor probably related to tracheal stenosis. His breathing is nonlabored. On 2 L of oxygen, his pulse ox is 99%. He is undergoing hemodialysis. He will be ALSO treated for a total of 1.8 L. His BUN is at 30 with a creatinine of 3.6. Sodiums of 136. Denies having any significant respiratory distress. Is able to speak. Is able to swallow. He is afebrile. He is still covered with vancomycin. Peritoneal catheter has been removed and the patient has a permacath in his right IJ. His most recent chest x-ray was from yesterday and it was showing cardiomegaly and mild pulmonary vascular congestion. Hemodynamically stable. In fact is slightly hypertensive. He is on amlodipine 5 mg by mouth twice a day and metoprolol 25 mg 3 times a day. He remains on anticoagulation with Eliquis 2.5 mg twice a day. I switched him to oral Lasix 60 mg by mouth daily. Urine output is quite diminished at this point in time. On 03/28/2023, the patient slept the night on a BiPAP at a pressure of 12/6 with an FiO2 of 30%. Currently is on room air oxygen. He continues to have some end inspiratory stridor. Based on that, a bedside bronchoscopy will be done to evaluate for tracheal stenosis. The patient otherwise doing well. Hemodynamically stable. Pulse ox on room air is in order of 96%. Blood pressure is stable. He underwent hemodialysis yesterday and he underwent ultrafiltration, a total of 1.8 L. The patient otherwise is doing well. His cardiac rhythm is sinus. Resident of medication remains unchanged. Blood work from today shows a hemoglobin of 8.5, the mediastinal 11.2, sodium is 134, potassium is at 3.2, BUN is at 24 with a creatinine of 3.0. He is still on bronchodilators with DuoNeb. No steroids for now. Objective - Vital Signs Vital signs: Vital Signs Temp 98.3 F 03/28/23 04:00 Pulse 73 03/28/23 07:00 Resp 14 03/28/23 07:00 BP 156/77 03/28/23 07:00 Pulse Ox 99 03/28/23 07:00 FiO2 30 03/28/23 04:00 Intake & Output 03/27/23 03/28/23 03/28/23 18:59 06:59 18:59 Intake Total 980 Output Total 2825 0 Balance -1845 0 Weight 108 kg Intake: IV 80 Lactated Ringers 1,000 ml 80 @ 20 mls/hr IV .Q24H [facility] Rx#:[id number] Oral 500 Hemodialysis 400 Output: Chest Tube Drainage 50 Pleural Catheter Left 50 Urine 475 0 Hemodialysis 2300 Other: Voiding Method Urinal Urinal # Bowel Movements 1 - Exam GENERAL: The patient is alert and oriented x3, patient is currently on room air oxygen. minimal stridor. HEENT: Pupils are round and equally reacting to light. EOMI. Neck examination shows a scar of a previous tracheostomy over the anterior neck area. No active stridor was appreciated. He has significant cardiovascular posterior oropharynx and he has a Mallampati class IV. CARDIOVASCULAR: Cardiac exam revealed the PMI to be normally situated and sized. The rhythm was regular and no extrasystoles were noted during several minutes of auscultation. The first and second heart sounds were normal and physiologic splitting of the second heart sound was noted. There were no murmurs, rubs, clicks, or gallops. PULMONARY: Decreased breath sounds bilaterally, rhonchi audible ABDOMEN: Soft, nontender, nondistended, normoactive bowel sounds. No palpable organomegaly. The peritoneal dialysis catheter has been removed MUSCULOSKELETAL: No joint swelling or deformity. EXTREMITIES: Lower extremity edema noted NEUROLOGICAL: Gross neurological examination did not reveal any new focal deficit Left arm and left leg chronically weak Skin examination reveals a permacath over the right anterior chest area exit sites. - Labs CBC & Chem 7: 03/28/23 04:16 03/28/23 04:16 Labs: Abnormal Lab Results - Last 24 Hours (Table) 03/28/23 03/28/23 Range/Units 04:16 04:16 WBC 11.2 H (3.8-10.6) k/uL RBC 2.72 L (4.30-5.90) m/uL Hgb 8.5 L D (13.0-17.5) gm/dL Hct 25.4 L (39.0-53.0) % Neutrophils # 9.3 H (1.3-7.7) k/uL Lymphocytes # 0.9 L (1.0-4.8) k/uL Sodium 134 L (137-145) mmol/L Potassium 3.2 L (3.5-5.1) mmol/L BUN 24 H (9-20) mg/dL Creatinine 3.00 H (0.66-1.25) mg/dL Glucose 174 H (74-99) mg/dL Calcium 8.3 L (8.4-10.2) mg/dL Microbiology - Last 24 Hours (Table) 03/21/23 21:40 Blood Culture - Final Blood 03/21/23 21:48 Blood Culture - Final Blood Assessment and Plan Plan: Acute respiratory distress/stridor postextubation. The patient most likely has a narrowed subglottic trachea probably related to her previous insertion and removal of the tracheostomy tube. Bronchoscopy will be done for upper airway and tracheal evaluation today. This will be a bedside flexible bronchoscopy. 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 The PD catheter was removed due to concern of an infection and the patient was given a permacath, underwent hemodialysis yesterday Previous history of CVA and residual left-sided weakness Previous history of tracheostomy tube and a PEG tube insertion post CVA and subsequently both of those catheters were removed as the patient recovered from his underlying stroke Obstructive sleep apnea maintained on a VPAP auto with an EPAP minimum of 6 and a maximum pressure of 15 and a pressure support of 4 Hyperlipidemia Hypertension Seizure disorder Anemia of chronic disease Plan Discontinue the BiPAP during the day and utilizes only at nighttime Flexible bronchoscopy today to evaluate for tracheal stenosis. The patient has some and inspiratory stridor. Otherwise, is breathing comfortably at this point in time. Continue the bronchodilators Dialysis per nephrology undergoing hemodialysis , last hemodialysis yesterday with a total of 2 L of fluid removal Continue supportive care and monitor his fluid status Tolerating diet Hemodynamically stable Patient received IV vancomycin regarding gram-positive cocci in the peritoneal fluid Condition is significantly and the patient is improving. We'll continue to follow.
--- NOTE | 2023-03-28 10:04 | P.PCN ---
Date of Procedure: 03/28/23 Preoperative Diagnosis: Tracheal stenosis Postoperative Diagnosis: Tracheal stenosis Procedure(s) Performed: Flexible bronchoscopy, inspection of the upper and lower airways. Anesthesia: MAC Surgeon: Charleen Sanderson Estimated Blood Loss (ml): 0 Pathology: other Condition: stable Disposition: ICU Operative Findings: The flexible bronchoscopy was done in the intensive care unit. The patient was placed on a nasal cannula. Following that, the patient was given a total of 4 mg of IV Versed. The flexible bronchoscope was easily passed through the right nostril and then into the posterior oropharynx and into the larynx. The patient had dynamic collapsibility of the upper airway consistent with his history of obstructive sleep apnea. There was significant amount of adipose tissue causing dynamic obstruction of the laryngeal airway. No other anatomic abnormality is identified in the upper airway. Following that, the bronchoscope was advanced further and epiglottis was seen and it was within normal limits. The vallecula and the arytenoids were also within normal limits. The vocal cords had normal abduction and adduction. No vocal cord polyps or lesions. A total of 2 mL of 1% lidocaine was applied to the vocal cord and following that, the flexible bronchoscope was advanced into the subglottic trachea. Immediately, an area of stenosis was identified and the subglottic trachea and it was clear to me that this was a result of a previous tracheostomy tube insertion. The patient has a damaged to his first tracheal ring anteriorly and the cartilage is doing is obviously not intact and is causing significant tracheal stenosis. Careful observation and inspection of the area revealed that the patient's tracheal stenosis was causing significant obstruction of the subglottic trachea with near complete occlusion of the airway. However, with deep breathing, he would be established and airway and the estimated airway patency is in order of 8 mm in size. I was able to pass the bronchoscope through this stenotic area] section of the medicine the lower trachea was done and the findings were essentially within normal limits. Examination of the right mainstem bronchus, left mainstem bronchus, right upper lobe bronchus, bronchus intermedius, right middle lobe and right lower lobe bronchus and inspection of the left upper and left lower lobe bronchi were all intact and within normal limits. No significant respiratory secretions identified. Bronchoscope was removed. The patient encounter some stridor following the procedure and he was placed back on BiPAP. He is currently in the intensive care unit and recuperating from the procedure. Patient will need an ENT and thoracic surgery evaluation regarding this tracheal stenosis. Obviously, based on his comorbidities, is not a candidate for any surgical repair/surgical resection of the stenotic segment of the trachea. The appropriate photographs and videos were taken for future reference.
[2023-03-28] MEDS: FUROSEMIDE 20 MG TAB PO SCH (11:27)
[2023-03-28] MEDS: guaiFENesin 600 MG TABLET.ER PO SCH ×2 (11:29→20:04)
[2023-03-28] MEDS: levETIRAcetam 500 MG TAB PO SCH ×2 (11:29→20:03)
[2023-03-28] MEDS: FOLIC ACID-VIT B COMPLEX-VIT C 1 CAP PO SCH (11:29)
[2023-03-28] MEDS: TAMSULOSIN 0.4 MG CAP.ER.24H PO SCH (11:30)
[2023-03-28] MEDS: DOCUSATE 100 MG CAP PO SCH (11:30)
[2023-03-28] MEDS: SPIRONOLACTONE 25 MG TAB PO SCH (11:30)
[2023-03-28] MEDS: METOPROLOL SUCCINATE (ER) 25 MG TAB.ER.24H PO SCH ×3 (11:31→21:28)
[2023-03-28] MEDS: amLODIPine 5 MG TAB PO SCH ×2 (11:31→20:04)
[2023-03-28] MEDS: APIXABAN 2.5 MG TABLET PO SCH (11:31)
[2023-03-28] MEDS: SIMBRINZA BOTH EYES SCH ×2 (11:33→20:24)
[2023-03-28] MEDS: FINASTERIDE 5 MG TAB PO SCH (11:33)
--- NOTE | 2023-03-28 12:02 | P.PN ---
Subjective Patient is seen in follow-up for end-stage renal disease. PD catheter removed and permacath inserted 03/25/2023. No problems with dialysis yesterday. On BiPAP. Potassium replaced. Vital signs are stable. General: No acute distress. HEENT: Head exam is unremarkable. On BiPAP. LUNGS: No audible rhonchi or wheezes. HEART: Rate and Rhythm are regular. ABDOMEN: Nontender. EXTREMITITES: No edema. Objective - Vital Signs Vital signs: Vital Signs Temp 98.1 F 03/28/23 08:00 Pulse 53 L 03/28/23 11:00 Resp 15 03/28/23 11:00 BP 111/56 03/28/23 11:00 Pulse Ox 99 03/28/23 11:00 FiO2 30 03/28/23 10:35 Intake & Output 03/27/23 03/28/23 03/28/23 18:59 06:59 18:59 Intake Total 980 0 Output Total 2825 0 0 Balance -1845 0 0 Weight 108 kg Intake: IV 80 Lactated Ringers 1,000 ml 80 @ 20 mls/hr IV .Q24H [facility] Rx#:[id number] Oral 500 0 Hemodialysis 400 Output: Chest Tube Drainage 50 Pleural Catheter Left 50 Urine 475 0 0 Hemodialysis 2300 Other: Voiding Method Urinal Urinal Urinal # Bowel Movements 1 - Labs CBC & Chem 7: 03/28/23 04:16 03/28/23 10:34 Labs: Abnormal Lab Results - Last 24 Hours (Table) 03/28/23 03/28/23 Range/Units 04:16 04:16 WBC 11.2 H (3.8-10.6) k/uL RBC 2.72 L (4.30-5.90) m/uL Hgb 8.5 L D (13.0-17.5) gm/dL Hct 25.4 L (39.0-53.0) % Neutrophils # 9.3 H (1.3-7.7) k/uL Lymphocytes # 0.9 L (1.0-4.8) k/uL Sodium 134 L (137-145) mmol/L Potassium 3.2 L (3.5-5.1) mmol/L BUN 24 H (9-20) mg/dL Creatinine 3.00 H (0.66-1.25) mg/dL Glucose 174 H (74-99) mg/dL Calcium 8.3 L (8.4-10.2) mg/dL Assessment and Plan Plan: Assessment: 1. End-stage renal disease maintained on peritoneal dialysis. 2. Recurrent peritonitis status post PD catheter removal 03/25/2023. 3. Hypokalemia from PD losses and diuretics. Replaced. Better. 4. Anemia of chronic kidney disease. On Aranesp. 5. Hypertension with chronic kidney disease. 6. Chronic kidney disease mineral bone disease. On Renvela. Phosphorus level 4.1 dated 03/22/2023. 7. Tracheal stenosis. Underwent bronchoscopy this morning. Plan: Hemodialysis tomorrow. He will be maintained on Saturday schedule outpatient. Antibiotics per infectious disease. Monitor vancomycin levels. Dose to be adjusted for renal function.
--- NOTE | 2023-03-28 12:19 | P.PN ---
Subjective Progress Note Date: 03/28/23 * 67-year-old patient who follows with Dr. Sebas Alejandre. Extensive medical history with chronic medical conditions including atrial fibrillation, CHF, hypertension, hyperlipidemia, kidney disease, seizure disorder, sleep apnea, stroke with some left-sided weakness, did receive hemodialysis in 2019. Uses BiPAP. Peripheral neuropathy does use a walker. She does undergo peritoneal dialysis. Follows with negative stripper Dr. Reyes. Patient can only see shadows from the right eye. * Patient was sent into the ER after patient's peritoneal fluid showed gram- positive cocci and a white count of 32. On March 18. Plan is to have the peritoneal catheter removed and temporary dialysis catheter placed. Patient denies any fever and chills. Appetite is fair. at the bedside. Patient dialysis fluid otherwise has been clear. Patient recently finished a course of antibiotic with vancomycin and cefepime. 4 peritonitis. Patient has slight fluid overload. * 03/23/2023: Patient seen and evaluated bedside, potassium replacement ordered nephrology following, patient receiving peritoneal dialysis. Patient has infected peritoneal dialysis catheter which will be removed, infectious disease consulted continue on IV vancomycin. Continue to monitor on electrolyte panel. Follow-up on electrolyte panel for tomorrow * 03/24/2023: Patient seen and evaluated bedside patient is sleeping easily arousable, blood work reviewed CBC remained stable, electrolyte panel shows sodium 133 potassium 3.3 blood glucose 144 patient receiving paratonia dialysis. Patient did complain of episode of shortness of breath chest x-ray ordered year-old coordinate with nursing staff. Requested nephrology to evaluate for adjustment of diuresis * 03/25/2023: Patient seen and evaluated bedside, patient does complain of shor tness of breath, per family patient does have history of predicted trach, chest x-ray does show concern for tracheal stenosis we will consult pulmonary medicine as well plan is. PD catheter removal today. Nephrology following * 03/26/2023: Patient seen and evaluated bedside, patient is alert and oriented person, on BiPAP, at bedside, followed by pulmonary medicine, receiving dexamethasone. Nephrology following hemodialysis catheter in place * 03/27/2023: Patient seen and evaluated bedside, patient is alert on noninvasive ventilation, receiving hemodialysis. Does complain of generalized body pain continue patient on current antibiotic regimen continued toward in ICU patient on steroids for stridor from critical stenosis * 03/28/2023: Patient was seen and evaluated bedside, patient had flexible fiberoptic bronchoscopy completed today does show tracheostenosis, subglottic stenosis with complain for airway occlusion patient receiving oxygen supplementation as well as noninvasive ventilation. Will coordinate with pulmonary medicine will need ENT evaluation. Continue to follow up on CBC and basic metabolic panel PHYSICAL EXAMINATION: GENERAL: The patient is alert and oriented x3 ill appearance pale appearance, nasal cannula in place right anterior chest wall hemodialysis catheter in place HEENT: Pupils are round and equally reacting to light. EOMI. CARDIOVASCULAR: S1 and S2 present. Lower extremity edema noted PULMONARY: Decreased breath sounds bilaterally, rhonchi audible ABDOMEN: Soft, nontender, nondistended, normoactive bowel sounds. No palpable organomegaly. MUSCULOSKELETAL: No joint swelling or deformity. EXTREMITIES: Lower extremity edema noted NEUROLOGICAL: Gross neurological examination did not reveal any new focal deficit Left arm and left leg chronically weak Objective - Vital Signs Vital signs: Vital Signs Temp 98.1 F 03/28/23 08:00 Pulse 53 L 03/28/23 11:00 Resp 15 03/28/23 11:00 BP 111/56 03/28/23 11:00 Pulse Ox 99 03/28/23 11:00 FiO2 30 03/28/23 10:35 Intake & Output 03/27/23 03/28/23 03/28/23 18:59 06:59 18:59 Intake Total 980 0 Output Total 2825 0 0 Balance -1845 0 0 Weight 108 kg Intake: IV 80 Lactated Ringers 1,000 ml 80 @ 20 mls/hr IV .Q24H [facility] Rx#:[id number] Oral 500 0 Hemodialysis 400 Output: Chest Tube Drainage 50 Pleural Catheter Left 50 Urine 475 0 0 Hemodialysis 2300 Other: Voiding Method Urinal Urinal Urinal # Bowel Movements 1 - Labs CBC & Chem 7: 03/28/23 04:16 03/28/23 10:34 Labs: Abnormal Lab Results - Last 24 Hours (Table) 03/28/23 03/28/23 Range/Units 04:16 04:16 WBC 11.2 H (3.8-10.6) k/uL RBC 2.72 L (4.30-5.90) m/uL Hgb 8.5 L D (13.0-17.5) gm/dL Hct 25.4 L (39.0-53.0) % Neutrophils # 9.3 H (1.3-7.7) k/uL Lymphocytes # 0.9 L (1.0-4.8) k/uL Sodium 134 L (137-145) mmol/L Potassium 3.2 L (3.5-5.1) mmol/L BUN 24 H (9-20) mg/dL Creatinine 3.00 H (0.66-1.25) mg/dL Glucose 174 H (74-99) mg/dL Calcium 8.3 L (8.4-10.2) mg/dL Assessment and Plan Assessment: Assessment and plan * Infected peritoneal dialysis catheter with fluid positive for gram-positive cocci * History of end-stage renal disease on PD * Hypervolemic hyponatremia * Tracheal stenosis with previous history of tracheostomy * History of CVA with left-sided hemiparesis * History of BPH * Hyperlipidemia * Hyperuricemia * Essential hypertension * History of seizure disorder * In regards to end-stage renal disease, continue dialysis per nephrology, vascular surgery consulted hemodialysis catheter placement. removal of infected peritoneal dialysis catheter * In regards to peritonitis, infectious disease consulted continue patient on IV vancomycin * In regards to history of CVA continue current medical regimen * In regards to history of depression continue Effexor * In regards to fluid overload, continue patient on diuresis * In regards to hypertension continue amlodipine, Aldactone, Lasix, metoprolol * In regards to new finding of tracheal stenosis and difficulty in breathing , continue steroids, appreciate input from pulmonary medicine, status post fiberoptic bronchoscopy * Continue to monitor in ICU Time with Patient: Greater than 30
--- NOTE | 2023-03-28 14:55 | P.PN ---
Subjective Progress Note Date: 03/28/23 Principal diagnosis: Reason for follow up is PD catheter associated peritonitis Patient is a 67-year-old male with a past medical history of clinical hypertension hyperlipidemia seizure disorder did have end-stage renal disease on peritoneal dialysis apparently the patient seem to have a problem with the PD catheter associated peritonitis over the last 4 to 6 weeks secondary to gram- positive culture, admit to the hospital for removal of the dialysis catheter and start the patient on hemodialysis. Patient is status post dialysis catheter removal and hemodialysis catheter placement on 03/25/2023, the patient is status post bronchoscopy 03/28/2023 concerning for tracheal stenosis On today's evaluation that is 03/28/2023 the patient is afebrile , the patient has been complaining of shortness of breath however currently on room air and no need for supplemental oxygen denies any chest pain occasional cough patient has been tolerating his diet no vomiting or diarrhea has been reported Patient did have a white count is down to 11.2, creatinine 3.0 Objective - Vital Signs Vital signs: Vital Signs Temp 98.2 F 03/28/23 12:15 Pulse 77 03/28/23 12:15 Resp 23 03/28/23 12:15 BP 147/79 03/28/23 12:15 Pulse Ox 96 03/28/23 12:15 FiO2 30 03/28/23 10:35 Intake & Output 03/27/23 03/28/23 03/28/23 18:59 06:59 18:59 Intake Total 980 0 Output Total 2825 0 0 Balance -1845 0 0 Weight 108 kg Intake: IV 80 Lactated Ringers 1,000 ml 80 @ 20 mls/hr IV .Q24H [facility] Rx#:[id number] Oral 500 0 Hemodialysis 400 Output: Chest Tube Drainage 50 Pleural Catheter Left 50 Urine 475 0 0 Hemodialysis 2300 Other: Voiding Method Urinal Urinal Urinal # Bowel Movements 1 - Exam GENERAL DESCRIPTION: An elderly male lying in bed in no distress RESPIRATORY SYSTEM: Unlabored breathing , decreased breath sounds at bases HEART: S1 S2 regular rate and rhythm , ABDOMEN: Soft , no tenderness EXTREMITIES: No edema feet - Labs CBC & Chem 7: 03/28/23 04:16 03/28/23 10:34 Labs: Abnormal Lab Results - Last 24 Hours (Table) 03/28/23 03/28/23 Range/Units 04:16 04:16 WBC 11.2 H (3.8-10.6) k/uL RBC 2.72 L (4.30-5.90) m/uL Hgb 8.5 L D (13.0-17.5) gm/dL Hct 25.4 L (39.0-53.0) % Neutrophils # 9.3 H (1.3-7.7) k/uL Lymphocytes # 0.9 L (1.0-4.8) k/uL Sodium 134 L (137-145) mmol/L Potassium 3.2 L (3.5-5.1) mmol/L BUN 24 H (9-20) mg/dL Creatinine 3.00 H (0.66-1.25) mg/dL Glucose 174 H (74-99) mg/dL Calcium 8.3 L (8.4-10.2) mg/dL Assessment and Plan (1) Leukocytosis Current Visit: Yes Status: Acute Code(s): D72.829 - ELEVATED WHITE BLOOD CELL COUNT, UNSPECIFIED SNOMED Code(s): 525955093 (2) Peritonitis Current Visit: Yes Status: Acute Code(s): K65.9 - PERITONITIS, UNSPECIFIED SNOMED Code(s): 35440198 Plan: 1patient presented to hospital abdominal pain in this patient seem to have a problem with the PD catheter associated peritonitis that has been treated with vancomycin and Fortaz without improvement subsequently admitted to hospital for removal of the dialysis catheter and did have elevated white count but no fever 2--patient is s/p removal of the dialysis catheter and placement of hemodialysis catheter completed on 03/25/2023 3-blood culture has been negative and peritoneal fluid cultures are currently pending 4-patient to continue vancomycin, possible transfer to tertiary care for his tracheal stenosis as per discussion with the nursing staff Dictation was produced using [employer] software. please excuse any grammatical, word or spelling errors. Time with Patient: Less than 30
[2023-03-28] MEDS: LACTATED RINGERS 1,000 ML IV SCH (17:19)
[2023-03-28] MEDS: polyethylene glycoL 3350 17 GM POWD.PACK PO SCH (18:07)
[2023-03-28] MEDS: LATANOPROSTENE BUNOD BOTH EYES SCH (18:08)
[2023-03-28] MEDS: ATORVASTATIN 10 MG TAB PO SCH (20:03)
[2023-03-28] MEDS: VENLAFAXINE HCL ER 75 MG CAP PO SCH (20:04)
[2023-03-28] MEDS: MELATONIN 5 MG TABLET PO SCH (20:04)
[2023-03-29 05:32] LABS: HCT 24.9 % (39.0-53.0); HGB 8.4 gm/dL (13.0-17.5); MCH 31.9 pg (25.0-35.0); MCHC 33.7 g/dL (31.0-37.0); MCV 94.6 fL (80.0-100.0); Mean Platelet Volume 7.9; Platelet Count 185 k/uL (150-450); RBC 2.64 m/uL (4.30-5.90); WBC 9.3 k/uL (3.8-10.6)
[2023-03-29 05:41] LABS: African American GFR (CKD) 19 (>60 ml/min/1.73 sqM); Anion Gap 2 mmol/L; Blood Urea Nitrogen 32 mg/dL (9-20); Calcium 8.1 mg/dL (8.4-10.2); Carbon Dioxide 27 mmol/L (22-30); Chloride 107 mmol/L (98-107); Glucose 129 mg/dL (74-99); Non-African American GFR(CKD) 16 (>60 ml/min/1.73 sqM); Potassium 3.6 mmol/L (3.5-5.1); Sodium 136 mmol/L (137-145)
[2023-03-29] MEDS: SEVELAMER 800 MG TAB PO SCH ×3 (06:35→16:22)
[2023-03-29] MEDS: IPRATROPIUM-ALBUTEROL 3 ML NEB INHALATION SCH ×2 (09:27→20:41)
[2023-03-29] MEDS: GENTAMICIN 0.1% CREAM 15 GM TUBE TOPICAL SCH (09:34)
[2023-03-29] MEDS: SIMBRINZA BOTH EYES SCH ×2 (09:34→21:31)
[2023-03-29] MEDS: SPIRONOLACTONE 25 MG TAB PO SCH (09:35)
[2023-03-29] MEDS: FUROSEMIDE 20 MG TAB PO SCH (09:35)
[2023-03-29] MEDS: TAMSULOSIN 0.4 MG CAP.ER.24H PO SCH (09:35)
[2023-03-29] MEDS: amLODIPine 5 MG TAB PO SCH ×2 (09:35→20:29)
[2023-03-29] MEDS: FOLIC ACID-VIT B COMPLEX-VIT C 1 CAP PO SCH (09:35)
[2023-03-29] MEDS: allopurinoL 100 MG TAB PO SCH (09:35)
[2023-03-29] MEDS: FINASTERIDE 5 MG TAB PO SCH (09:36)
[2023-03-29] MEDS: METOPROLOL SUCCINATE (ER) 25 MG TAB.ER.24H PO SCH ×3 (09:38→21:31)
[2023-03-29] MEDS: levETIRAcetam 500 MG TAB PO SCH ×2 (09:38→20:30)
[2023-03-29] MEDS: guaiFENesin 600 MG TABLET.ER PO SCH ×2 (09:38→20:29)
--- NOTE | 2023-03-29 10:24 | P.PN ---
Subjective Progress Note Date: 03/29/23 Principal diagnosis: Reason for follow up is PD catheter associated peritonitis Patient is a 67-year-old male with a past medical history of clinical hypertension hyperlipidemia seizure disorder did have end-stage renal disease on peritoneal dialysis apparently the patient seem to have a problem with the PD catheter associated peritonitis over the last 4 to 6 weeks secondary to gram- positive culture, admit to the hospital for removal of the dialysis catheter and start the patient on hemodialysis. Patient is status post dialysis catheter removal and hemodialysis catheter placement on 03/25/2023, the patient is status post bronchoscopy 03/28/2023 concerning for tracheal stenosis On today's evaluation that is 03/29/2023, the patient remains to be afebrile, the patient is still complaining of shortness of breath and is currently on a 30% FiO2, the patient denies any chest pain did have occasional dry cough, patient denies having any nausea no vomiting did not have any abdominal pain no diarrhea has been reported Patient did have a white count is normalized to 9.3, creatinine 3.60 Objective - Vital Signs Vital signs: Vital Signs Temp 98 F 03/29/23 04:00 Pulse 80 03/29/23 09:49 Resp 16 03/29/23 07:00 BP 141/68 03/29/23 07:00 Pulse Ox 99 03/29/23 07:00 FiO2 30 03/29/23 09:24 Intake & Output 03/28/23 03/29/23 03/29/23 18:59 06:59 18:59 Intake Total 360 0 Output Total 600 0 0 Balance -240 0 0 Weight 110.4 kg Intake: Oral 360 0 Output: Urine 600 0 0 Other: Voiding Method Urinal Urinal - Exam GENERAL DESCRIPTION: An elderly male lying in bed in no distress RESPIRATORY SYSTEM: Unlabored breathing , decreased breath sounds at bases HEART: S1 S2 regular rate and rhythm , ABDOMEN: Soft , no tenderness EXTREMITIES: No edema feet - Labs CBC & Chem 7: 03/29/23 05:20 03/29/23 05:20 Labs: Abnormal Lab Results - Last 24 Hours (Table) 03/29/23 03/29/23 Range/Units 05:20 05:20 RBC 2.64 L (4.30-5.90) m/uL Hgb 8.4 L (13.0-17.5) gm/dL Hct 24.9 L (39.0-53.0) % Sodium 136 L (137-145) mmol/L BUN 32 H (9-20) mg/dL Creatinine 3.60 H (0.66-1.25) mg/dL Glucose 129 H (74-99) mg/dL Calcium 8.1 L (8.4-10.2) mg/dL Microbiology - Last 24 Hours (Table) 03/23/23 01:11 Gram Stain - Final Dialysate Body Fluid Culture - Final Assessment and Plan (1) Leukocytosis Current Visit: Yes Status: Acute Code(s): D72.829 - ELEVATED WHITE BLOOD CELL COUNT, UNSPECIFIED SNOMED Code(s): 162010558 (2) Peritonitis Current Visit: Yes Status: Acute Code(s): K65.9 - PERITONITIS, UNSPECIFIED SNOMED Code(s): 69377048 Plan: 1patient presented to hospital abdominal pain in this patient seem to have a problem with the PD catheter associated peritonitis that has been treated with vancomycin and Fortaz without improvement subsequently admitted to hospital for removal of the dialysis catheter and did have elevated white count but no fever 2--patient is s/p removal of the dialysis catheter and placement of hemodialysis catheter completed on 03/25/2023 3-blood culture has been negative and peritoneal fluid cultures are so far negative 4-patient is afebrile and the patient white count is normal, patient to continue vancomycin, patient is currently waiting for transfer to tertiary care for his tracheal stenosis Dictation was produced using [employer] dictation software. please excuse any grammatical, word or spelling errors. Time with Patient: Less than 30
--- NOTE | 2023-03-29 11:22 | P.PN ---
Subjective Patient is seen in follow-up for end-stage renal disease. PD catheter removed and permacath inserted 03/25/2023. Tolerating dialysis well. Remains on BiPAP. Vital signs are stable. General: No acute distress. HEENT: Head exam is unremarkable. On BiPAP. LUNGS: No audible rhonchi or wheezes. HEART: Rate and Rhythm are regular. ABDOMEN: Nontender. EXTREMITITES: No edema. Objective - Vital Signs Vital signs: Vital Signs Temp 98 F 03/29/23 04:00 Pulse 80 03/29/23 09:49 Resp 16 03/29/23 07:00 BP 141/68 03/29/23 07:00 Pulse Ox 99 03/29/23 07:00 FiO2 30 03/29/23 09:24 Intake & Output 03/28/23 03/29/23 03/29/23 18:59 06:59 18:59 Intake Total 360 0 Output Total 600 0 0 Balance -240 0 0 Weight 110.4 kg Intake: Oral 360 0 Output: Urine 600 0 0 Other: Voiding Method Urinal Urinal - Labs CBC & Chem 7: 03/29/23 05:20 03/29/23 05:20 Labs: Abnormal Lab Results - Last 24 Hours (Table) 03/29/23 03/29/23 Range/Units 05:20 05:20 RBC 2.64 L (4.30-5.90) m/uL Hgb 8.4 L (13.0-17.5) gm/dL Hct 24.9 L (39.0-53.0) % Sodium 136 L (137-145) mmol/L BUN 32 H (9-20) mg/dL Creatinine 3.60 H (0.66-1.25) mg/dL Glucose 129 H (74-99) mg/dL Calcium 8.1 L (8.4-10.2) mg/dL Microbiology - Last 24 Hours (Table) 03/23/23 01:11 Gram Stain - Final Dialysate Body Fluid Culture - Final Assessment and Plan Plan: Assessment: 1. End-stage renal disease maintained on peritoneal dialysis. 2. Recurrent peritonitis status post PD catheter removal 03/25/2023. 3. Hypokalemia from PD losses and diuretics. Replaced. Better. 4. Anemia of chronic kidney disease. On Aranesp. 5. Hypertension with chronic kidney disease. 6. Chronic kidney disease mineral bone disease. On Renvela. Phosphorus level 4.1 dated 03/22/2023. 7. Tracheal stenosis. Underwent bronchoscopy this admission. Plan: Currently seen while undergoing hemodialysis - will use 4k bath. He will be maintained on Saturday schedule outpatient. Antibiotics per infectious disease. Monitor vancomycin levels. Dose to be adjusted for renal function. Awaits transfer to [facility] for ENT evaluation. Case discussed with patient's .
--- NOTE | 2023-03-29 12:04 | P.PN ---
Subjective Progress Note Date: 03/29/23 * 67-year-old patient who follows with Dr. Sebas Alejandre. Extensive medical history with chronic medical conditions including atrial fibrillation, CHF, hypertension, hyperlipidemia, kidney disease, seizure disorder, sleep apnea, stroke with some left-sided weakness, did receive hemodialysis in 2019. Uses BiPAP. Peripheral neuropathy does use a walker. She does undergo peritoneal dialysis. Follows with vice president of marketing Dr. Reyes. Patient can only see shadows from the right eye. * Patient was sent into the ER after patient's peritoneal fluid showed gram- positive cocci and a white count of 32. On March 18. Plan is to have the peritoneal catheter removed and temporary dialysis catheter placed. Patient denies any fever and chills. Appetite is fair. at the bedside. Patient dialysis fluid otherwise has been clear. Patient recently finished a course of antibiotic with vancomycin and cefepime. 4 peritonitis. Patient has slight fluid overload. * 03/23/2023: Patient seen and evaluated bedside, potassium replacement ordered nephrology following, patient receiving peritoneal dialysis. Patient has infected peritoneal dialysis catheter which will be removed, infectious disease consulted continue on IV vancomycin. Continue to monitor on electrolyte panel. Follow-up on electrolyte panel for tomorrow * 03/24/2023: Patient seen and evaluated bedside patient is sleeping easily arousable, blood work reviewed CBC remained stable, electrolyte panel shows sodium 133 potassium 3.3 blood glucose 144 patient receiving paratonia dialysis. Patient did complain of episode of shortness of breath chest x-ray ordered year-old coordinate with nursing staff. Requested nephrology to evaluate for adjustment of diuresis * 03/25/2023: Patient seen and evaluated bedside, patient does complain of shor tness of breath, per family patient does have history of predicted trach, chest x-ray does show concern for tracheal stenosis we will consult pulmonary medicine as well plan is. PD catheter removal today. Nephrology following * 03/26/2023: Patient seen and evaluated bedside, patient is alert and oriented person, on BiPAP, at bedside, followed by pulmonary medicine, receiving dexamethasone. Nephrology following hemodialysis catheter in place * 03/27/2023: Patient seen and evaluated bedside, patient is alert on noninvasive ventilation, receiving hemodialysis. Does complain of generalized body pain continue patient on current antibiotic regimen continued toward in ICU patient on steroids for stridor from critical stenosis * 03/28/2023: Patient was seen and evaluated bedside, patient had flexible fiberoptic bronchoscopy completed today does show tracheostenosis, subglottic stenosis with complain for airway occlusion patient receiving oxygen supplementation as well as noninvasive ventilation. Will coordinate with pulmonary medicine will need ENT evaluation. Continue to follow up on CBC and basic metabolic panel * 03/29/2023: Patient seen and evaluated bedside, patient undergoing hemo dialysis, patient on BiPAP nonlabored breathing, blood pressure stable on 30% FiO2. CBC reviewed WBC 9.3 hemoglobin 8.4 serum chemistry reviewed. Waiting for bed at [facility] patient has been accepted at [facility] ICU. Transfer paperwork completed patient Maurizio was placed on hold in anticipation of any surgical intervention/interventional pulmonology evaluation at [facility] for tracheal stenosis PHYSICAL EXAMINATION: GENERAL: The patient is alert and oriented x3 ill appearance pale appearance, nasal cannula in place right anterior chest wall hemodialysis catheter in place HEENT: Pupils are round and equally reacting to light. EOMI. CARDIOVASCULAR: S1 and S2 present. Lower extremity edema noted PULMONARY: Decreased breath sounds bilaterally ABDOMEN: Soft, nontender, nondistended, normoactive bowel sounds. No palpable organomegaly. MUSCULOSKELETAL: No joint swelling or deformity. EXTREMITIES: Lower extremity edema noted NEUROLOGICAL: Gross neurological examination did not reveal any new focal deficit Left arm and left leg chronically weak Objective - Vital Signs Vital signs: Vital Signs Temp 98.3 F 03/29/23 08:00 Pulse 62 03/29/23 11:00 Resp 14 03/29/23 11:00 BP 141/81 03/29/23 11:00 Pulse Ox 98 03/29/23 11:00 FiO2 30 03/29/23 09:24 Intake & Output 03/28/23 03/29/23 03/29/23 18:59 06:59 18:59 Intake Total 360 0 0 Output Total 600 0 425 Balance -240 0 -425 Weight 110.4 kg Intake: Oral 360 0 0 Output: Urine 600 0 425 Other: Voiding Method Urinal Urinal Urinal - Labs CBC & Chem 7: 03/29/23 05:20 03/29/23 05:20 Labs: Abnormal Lab Results - Last 24 Hours (Table) 03/29/23 03/29/23 Range/Units 05:20 05:20 RBC 2.64 L (4.30-5.90) m/uL Hgb 8.4 L (13.0-17.5) gm/dL Hct 24.9 L (39.0-53.0) % Sodium 136 L (137-145) mmol/L BUN 32 H (9-20) mg/dL Creatinine 3.60 H (0.66-1.25) mg/dL Glucose 129 H (74-99) mg/dL Calcium 8.1 L (8.4-10.2) mg/dL Microbiology - Last 24 Hours (Table) 03/23/23 01:11 Gram Stain - Final Dialysate Body Fluid Culture - Final Assessment and Plan Assessment: Assessment and plan * Infected peritoneal dialysis catheter with fluid positive for gram-positive cocci * History of end-stage renal disease on PD * Tracheal stenosis with previous history of tracheostomy * Hypervolemic hyponatremia * History of atrial fibrillation * History of CVA with left-sided hemiparesis * History of BPH * Hyperlipidemia * Hyperuricemia * Essential hypertension * History of seizure disorder * In regards to end-stage renal disease, continue dialysis per nephrology, vascular surgery consulted hemodialysis catheter placement. removal of infected peritoneal dialysis catheter, undergoing hemodialysis * In regards to peritonitis, infectious disease consulted continue patient on IV vancomycin * In regards to history of CVA continue current medical regimen * In regards to history of depression continue Effexor * In regards to fluid overload, continue patient on diuresis * In regards to history of atrial fibrillation continue rate control with metoprolol, Eliquis placed on hold secondary to concern for tracheal stenosis * In regards to hypertension continue amlodipine, Aldactone, Lasix, metoprolol * In regards to new finding of tracheal stenosis and difficulty in breathing , appreciate input from pulmonary medicine, status post fiberoptic bronchoscopy, patient would not take to have subglottic stenosis requiring transfer to tertiary care center patient already accepted at [facility] on 03/28/23 waiting for bed transfer paperwork completed. IV dexamethasone discontinued by ICU team * Continue to monitor in ICU
--- NOTE | 2023-03-29 13:52 | P.PN ---
Subjective Progress Note Date: 03/29/23 67-year-old male patient is being seen in recovery after his ICU transfer as the patient was extubated and the patient had difficulties in breathing postextubation and he was having active stridor. At that point, he was being considered for intubation. He was given a trial of BiPAP and he gradually imp roved and his stridor has subsided this point in time. The patient is more awake and alert and communicating. He is currently on a BiPAP at a pressure of 12 was 6 with an FiO2 of 60%. Is exchanging at least 450 mL of tidal volume on the BiPAP machine. He does have a tracheostomy. I noted that the patient had a previous history of tracheostomy tube insertion following a CVA and as part of post CVA treatment, the patient required a tracheostomy and PEG tube insertion and he was in a extended care facility for long period of time. He was ultimately be cannulated. I was also able to review a CAT scan of the chest that was done this patient on 08/26/2018. I noted that there is some narrowing in the subglottic trachea, probably a broken cartilage causing some narrowing following insertion and removal of a previously inserted tracheostomy tube. The patient also admits to have obstructive sleep apnea and he has been maintained on CPAP therapy on an outpatient basis. His current procedure was 2 removal a peritoneal catheter and inserted a hemodialysis catheter. This was done succes sfully and his respiratory issues started following the extubation process. The patient currently has a permacath in his right IJ. Note that he has history of chronic A. fib, CHF, hypertension, hyperlipidemia, end-stage renal disease, seizure disorder, previous history of CVA and he does have some residual left- sided weakness. As also peripheral neuropathy. He does use a walker for mobility. He was undergoing peritoneal dialysis. He developed peritonitis. Was told that his peritoneal dialysis catheter was infected. Based on that, the catheter was removed and the patient was given a hemodialysis catheter. The cultures from the peritoneal fluid is still pending. Told by the anesthesi ologist of intubation process was not traumatic. In fact, this was an easy intubation according to him. He was given a 7.5 ETT On today's evaluation of 03/26/2023, the patient is being seen for a follow-up. I saw this patient in consultation yesterday. There was concern of a stridor and compromise of his upper airway. The patient as mentioned may have an underlying tracheal stenosis related to a previous tracheostomy tube insertion. He also has obstructive sleep apnea. He did encounter some respiratory difficulties postextubation. Based on that, he was treated with a BiPAP and he was treated with Decadron and bronchodilators and he was also given racemic epinephrine. He stated on BiPAP at a pressure of 12/6 the night and this morning he is on room air oxygen. No active stridor. Is able to speak. AsI is of any respiratory distress. Blood gas was done yesterday while on the BiPAP and the patient had no significant hypercapnic respiratory failure and his pH was at 7.36 with a pCO2 of 45 and a pO2 of 121. He also underwent hemodialysis yesterday with ultrafiltration of 1100 mL of fluid. He remains hemodynamically stable. Peritoneal catheter has been removed. The lymph node and 16.4 with a hemoglobin of 9.3. Sodium is at 135, BUN is at 20 with a creatinine of 3.1. No other significant issues overnight. The peritoneal fluid is showing no microbial growth at this point. The patient remains on vancomycin. On 03/27/2023, the patient is awake and alert and is undergoing dialysis. He was on BiPAP throughout the night and I took him off the BiPAP this morning and put him on a nasal cannula. He does have some minimal end inspiratory stridor probably related to tracheal stenosis. His breathing is nonlabored. On 2 L of oxygen, his pulse ox is 99%. He is undergoing hemodialysis. He will be ALSO treated for a total of 1.8 L. His BUN is at 30 with a creatinine of 3.6. Sodiums of 136. Denies having any significant respiratory distress. Is able to speak. Is able to swallow. He is afebrile. He is still covered with vancomycin. Peritoneal catheter has been removed and the patient has a permacath in his right IJ. His most recent chest x-ray was from yesterday and it was showing cardiomegaly and mild pulmonary vascular congestion. Hemodynamically stable. In fact is slightly hypertensive. He is on amlodipine 5 mg by mouth twice a day and metoprolol 25 mg 3 times a day. He remains on anticoagulation with Eliquis 2.5 mg twice a day. I switched him to oral Lasix 60 mg by mouth daily. Urine output is quite diminished at this point in time. On 03/28/2023, the patient slept the night on a BiPAP at a pressure of 12/6 with an FiO2 of 30%. Currently is on room air oxygen. He continues to have some end inspiratory stridor. Based on that, a bedside bronchoscopy will be done to evaluate for tracheal stenosis. The patient otherwise doing well. Hemodynamically stable. Pulse ox on room air is in order of 96%. Blood pressure is stable. He underwent hemodialysis yesterday and he underwent ultrafiltration, a total of 1.8 L. The patient otherwise is doing well. His cardiac rhythm is sinus. Resident of medication remains unchanged. Blood work from today shows a hemoglobin of 8.5, the mediastinal 11.2, sodium is 134, potassium is at 3.2, BUN is at 24 with a creatinine of 3.0. He is still on bronchodilators with DuoNeb. No steroids for now. On 03/29/2023, the patient is using on and off the BiPAP at a pressure of 12/6 cm of water and FiO2 of 30%. Bronchoscopy was done and the patient has tracheal stenosis discussed earlier. I made recommendations for this patient to go to [facility] and the patient is a process of being transferred. He is going to undergo hemodialysis today. Has no specific complaints. He is communicating. He continues to have a stridor. Lab work was noted and the patient has a white cell count of 9.3, hemoglobin of 8.4, BUN is at 32 with a creatinine of 3.6 and a sodium level is at 136. Covid 19 testing was negative. The patient remains on vancomycin. Objective - Vital Signs Vital signs: Vital Signs Temp 97.8 F 03/29/23 13:32 Pulse 56 L 03/29/23 13:00 Resp 19 03/29/23 13:32 BP 155/79 03/29/23 13:32 Pulse Ox 100 03/29/23 13:00 FiO2 30 03/29/23 12:57 Intake & Output 03/28/23 03/29/23 03/29/23 18:59 06:59 18:59 Intake Total 360 0 400 Output Total 600 0 2225 Balance -240 0 -1825 Weight 110.4 kg Intake: Oral 360 0 0 Hemodialysis 400 Output: Urine 600 0 425 Hemodialysis 1800 Other: Voiding Method Urinal Urinal Urinal - Exam GENERAL: The patient is alert and oriented x3, patient is currently on room air oxygen. minimal stridor. HEENT: Pupils are round and equally reacting to light. EOMI. Neck examination shows a scar of a previous tracheostomy over the anterior neck area. No active stridor was appreciated. He has significant cardiovascular posterior oropharynx and he has a Mallampati class IV. CARDIOVASCULAR: Cardiac exam revealed the PMI to be normally situated and sized. The rhythm was regular and no extrasystoles were noted during several minutes of auscultation. The first and second heart sounds were normal and physiologic splitting of the second heart sound was noted. There were no murmurs, rubs, clicks, or gallops. PULMONARY: Decreased breath sounds bilaterally, rhonchi audible ABDOMEN: Soft, nontender, nondistended, normoactive bowel sounds. No palpable organomegaly. The peritoneal dialysis catheter has been removed MUSCULOSKELETAL: No joint swelling or deformity. EXTREMITIES: Lower extremity edema noted NEUROLOGICAL: Gross neurological examination did not reveal any new focal deficit Left arm and left leg chronically weak Skin examination reveals a permacath over the right anterior chest area exit sites. - Labs CBC & Chem 7: 03/29/23 05:20 03/29/23 05:20 Labs: Abnormal Lab Results - Last 24 Hours (Table) 03/29/23 03/29/23 Range/Units 05:20 05:20 RBC 2.64 L (4.30-5.90) m/uL Hgb 8.4 L (13.0-17.5) gm/dL Hct 24.9 L (39.0-53.0) % Sodium 136 L (137-145) mmol/L BUN 32 H (9-20) mg/dL Creatinine 3.60 H (0.66-1.25) mg/dL Glucose 129 H (74-99) mg/dL Calcium 8.1 L (8.4-10.2) mg/dL Microbiology - Last 24 Hours (Table) 03/23/23 01:11 Gram Stain - Final Dialysate Body Fluid Culture - Final Assessment and Plan Plan: Acute respiratory distress/stridor postextubation. The patient most likely has a narrowed subglottic trachea probably related to her previous insertion and removal of the tracheostomy tube. As discussed in the bronchoscopy, the first cartilaginous ring of the trachea is fractured and the patient has a significant degree of tracheal stenosis with a stable stridor. No shortness of breath at rest. History of tracheal stenosis probably related to tracheostomy tube insertion and subsequent removal Altered mentation, probably related to a combination of use of anesthetics and CO2 , recovered and the blood gas showed normal acid-base status, mental status improved and the patient is back to his normal mentation this point in time. End-stage renal disease on peritoneal dialysis. The PD catheter was removed due to concern of an infection and the patient was given a permacath, is going to undergo hemodialysis today Previous history of CVA and residual left-sided weakness Previous history of tracheostomy tube and a PEG tube insertion post CVA and subsequently both of those catheters were removed as the patient recovered from his underlying stroke Obstructive sleep apnea maintained on a VPAP auto with an EPAP minimum of 6 and a maximum pressure of 15 and a pressure support of 4 Hyperlipidemia Hypertension Seizure disorder Anemia of chronic disease Obstructive sleep apnea Plan BiPAP on and off during the day depending is interested status and continuously overnight Flexible bronchoscopy today to evaluate for tracheal stenosis. The patient has a stable inspiratory stridor. Otherwise, is breathing comf ortably at this point in time. Continue the bronchodilators Dialysis per nephrology undergoing hemodialysis Continue supportive care and monitor his fluid status Tolerating diet Hemodynamically stable Patient received IV vancomycin regarding gram-positive cocci in the peritoneal fluid The patient is going to be transferred to [facility] regarding his ongoing tracheal stenosis for further recommendations. As mentioned, he is having is stable inspiratory stridor.
[2023-03-29] MEDS: DOCUSATE 100 MG CAP PO SCH (14:04)
[2023-03-29] MEDS: LACTATED RINGERS 1,000 ML IV SCH (16:16)
[2023-03-29] MEDS: polyethylene glycoL 3350 17 GM POWD.PACK PO SCH (16:22)
[2023-03-29] MEDS: LATANOPROSTENE BUNOD BOTH EYES SCH (16:22)
[2023-03-29] MEDS: MELATONIN 5 MG TABLET PO SCH (20:29)
[2023-03-29] MEDS: VENLAFAXINE HCL ER 75 MG CAP PO SCH (20:30)
[2023-03-29] MEDS: ATORVASTATIN 10 MG TAB PO SCH (20:30)
[2023-03-30 05:42] LABS: HCT 28.1 % (39.0-53.0); HGB 9.3 gm/dL (13.0-17.5); MCH 31.8 pg (25.0-35.0); MCHC 33.2 g/dL (31.0-37.0); MCV 95.5 fL (80.0-100.0); Mean Platelet Volume 8.6; Platelet Count 186 k/uL (150-450); RBC 2.94 m/uL (4.30-5.90); RDW 14.2 % (11.5-15.5)
[2023-03-30 06:29] LABS: African American GFR (CKD) 25 (>60 ml/min/1.73 sqM); Anion Gap 5 mmol/L; Blood Urea Nitrogen 21 mg/dL (9-20); Calcium 8.2 mg/dL (8.4-10.2); Carbon Dioxide 29 mmol/L (22-30); Chloride 103 mmol/L (98-107); Glucose 127 mg/dL (74-99); Non-African American GFR(CKD) 22 (>60 ml/min/1.73 sqM); Potassium 4.3 mmol/L (3.5-5.1); Sodium 137 mmol/L (137-145)
[2023-03-30 06:35] LABS: Vancomycin,Random 19.2 ug/mL
[2023-03-30] MEDS: SEVELAMER 800 MG TAB PO SCH ×3 (07:39→17:22)
[2023-03-30] MEDS: IPRATROPIUM-ALBUTEROL 3 ML NEB INHALATION SCH ×2 (08:49→20:44)
[2023-03-30] MEDS: levETIRAcetam 500 MG TAB PO SCH ×2 (09:22→20:40)
[2023-03-30] MEDS: TAMSULOSIN 0.4 MG CAP.ER.24H PO SCH (09:22)
[2023-03-30] MEDS: amLODIPine 5 MG TAB PO SCH ×2 (09:22→20:40)
[2023-03-30] MEDS: SPIRONOLACTONE 25 MG TAB PO SCH (09:22)
[2023-03-30] MEDS: guaiFENesin 600 MG TABLET.ER PO SCH ×2 (09:22→20:40)
[2023-03-30] MEDS: GENTAMICIN 0.1% CREAM 15 GM TUBE TOPICAL SCH (09:23)
[2023-03-30] MEDS: FINASTERIDE 5 MG TAB PO SCH (09:23)
[2023-03-30] MEDS: METOPROLOL SUCCINATE (ER) 25 MG TAB.ER.24H PO SCH ×3 (09:23→21:10)
[2023-03-30] MEDS: SIMBRINZA BOTH EYES SCH ×2 (09:23→20:42)
[2023-03-30] MEDS: FUROSEMIDE 20 MG TAB PO SCH (09:23)
[2023-03-30] MEDS: FOLIC ACID-VIT B COMPLEX-VIT C 1 CAP PO SCH (09:31)
--- NOTE | 2023-03-30 10:17 | P.PN ---
Subjective Patient is seen in follow-up for end-stage renal disease. PD catheter removed and permacath inserted 03/25/2023. No problems with dialysis yesterday. Currently on nasal cannula. Vital signs are stable. General: No acute distress. HEENT: Head exam is unremarkable. On nasal cannula. LUNGS: Stridor noted. HEART: Rate and Rhythm are regular. ABDOMEN: Nontender. EXTREMITITES: No edema. Objective - Vital Signs Vital signs: Vital Signs Temp 98.6 F 03/30/23 04:00 Pulse 67 03/30/23 09:00 Resp 22 03/30/23 09:00 BP 130/70 03/30/23 07:00 Pulse Ox 98 03/30/23 07:00 FiO2 30 03/30/23 08:49 Intake & Output 03/29/23 03/30/23 03/30/23 18:59 06:59 18:59 Intake Total 640 Output Total 2625 0 Balance -1984 0 Weight 108.8 kg Intake: Oral 240 Hemodialysis 400 Output: Urine 825 0 Hemodialysis 1800 Other: Voiding Method Urinal Urinal - Labs CBC & Chem 7: 03/30/23 04:45 03/30/23 04:45 Labs: Abnormal Lab Results - Last 24 Hours (Table) 03/30/23 03/30/23 Range/Units 04:45 04:45 WBC 12.0 H (3.8-10.6) k/uL RBC 2.94 L (4.30-5.90) m/uL Hgb 9.3 L (13.0-17.5) gm/dL Hct 28.1 L (39.0-53.0) % BUN 21 H (9-20) mg/dL Creatinine 2.86 H (0.66-1.25) mg/dL Glucose 127 H (74-99) mg/dL Calcium 8.2 L (8.4-10.2) mg/dL Microbiology - Last 24 Hours (Table) 03/23/23 01:11 Gram Stain - Final Dialysate Body Fluid Culture - Final Assessment and Plan Plan: Assessment: 1. End-stage renal disease maintained on peritoneal dialysis. 2. Recurrent peritonitis status post PD catheter removal 03/25/2023. 3. Hypokalemia from PD losses and diuretics. Improved. 4. Anemia of chronic kidney disease. On Aranesp. 5. Hypertension with chronic kidney disease. 6. Chronic kidney disease mineral bone disease. On Renvela. Phosphorus level 4.1 dated 03/22/2023. 7. Tracheal stenosis. Underwent bronchoscopy this admission. Plan: Hemodialysis Saturday. He will be maintained on Saturday schedule outpatient. Antibiotics per infectious disease. Monitor vancomycin levels. Dose to be adjusted for renal function. Awaits transfer to [facility] for ENT evaluation.
--- NOTE | 2023-03-30 12:00 | P.PN ---
Subjective Progress Note Date: 03/30/23 67-year-old male patient is being seen in recovery after his ICU transfer as the patient was extubated and the patient had difficulties in breathing postextubation and he was having active stridor. At that point, he was being considered for intubation. He was given a trial of BiPAP and he gradually imp roved and his stridor has subsided this point in time. The patient is more awake and alert and communicating. He is currently on a BiPAP at a pressure of 12 was 6 with an FiO2 of 60%. Is exchanging at least 450 mL of tidal volume on the BiPAP machine. He does have a tracheostomy. I noted that the patient had a previous history of tracheostomy tube insertion following a CVA and as part of post CVA treatment, the patient required a tracheostomy and PEG tube insertion and he was in a extended care facility for long period of time. He was ultimately be cannulated. I was also able to review a CAT scan of the chest that was done this patient on 08/26/2018. I noted that there is some narrowing in the subglottic trachea, probably a broken cartilage causing some narrowing following insertion and removal of a previously inserted tracheostomy tube. The patient also admits to have obstructive sleep apnea and he has been maintained on CPAP therapy on an outpatient basis. His current procedure was 2 removal a peritoneal catheter and inserted a hemodialysis catheter. This was done succes sfully and his respiratory issues started following the extubation process. The patient currently has a permacath in his right IJ. Note that he has history of chronic A. fib, CHF, hypertension, hyperlipidemia, end-stage renal disease, seizure disorder, previous history of CVA and he does have some residual left- sided weakness. As also peripheral neuropathy. He does use a walker for mobility. He was undergoing peritoneal dialysis. He developed peritonitis. Was told that his peritoneal dialysis catheter was infected. Based on that, the catheter was removed and the patient was given a hemodialysis catheter. The cultures from the peritoneal fluid is still pending. Told by the anesthesi ologist of intubation process was not traumatic. In fact, this was an easy intubation according to him. He was given a 7.5 ETT On today's evaluation of 03/26/2023, the patient is being seen for a follow-up. I saw this patient in consultation yesterday. There was concern of a stridor and compromise of his upper airway. The patient as mentioned may have an underlying tracheal stenosis related to a previous tracheostomy tube insertion. He also has obstructive sleep apnea. He did encounter some respiratory difficulties postextubation. Based on that, he was treated with a BiPAP and he was treated with Decadron and bronchodilators and he was also given racemic epinephrine. He stated on BiPAP at a pressure of 12/6 the night and this morning he is on room air oxygen. No active stridor. Is able to speak. AsI is of any respiratory distress. Blood gas was done yesterday while on the BiPAP and the patient had no significant hypercapnic respiratory failure and his pH was at 7.36 with a pCO2 of 45 and a pO2 of 121. He also underwent hemodialysis yesterday with ultrafiltration of 1100 mL of fluid. He remains hemodynamically stable. Peritoneal catheter has been removed. The lymph node and 16.4 with a hemoglobin of 9.3. Sodium is at 135, BUN is at 20 with a creatinine of 3.1. No other significant issues overnight. The peritoneal fluid is showing no microbial growth at this point. The patient remains on vancomycin. On 03/27/2023, the patient is awake and alert and is undergoing dialysis. He was on BiPAP throughout the night and I took him off the BiPAP this morning and put him on a nasal cannula. He does have some minimal end inspiratory stridor probably related to tracheal stenosis. His breathing is nonlabored. On 2 L of oxygen, his pulse ox is 99%. He is undergoing hemodialysis. He will be ALSO treated for a total of 1.8 L. His BUN is at 30 with a creatinine of 3.6. Sodiums of 136. Denies having any significant respiratory distress. Is able to speak. Is able to swallow. He is afebrile. He is still covered with vancomycin. Peritoneal catheter has been removed and the patient has a permacath in his right IJ. His most recent chest x-ray was from yesterday and it was showing cardiomegaly and mild pulmonary vascular congestion. Hemodynamically stable. In fact is slightly hypertensive. He is on amlodipine 5 mg by mouth twice a day and metoprolol 25 mg 3 times a day. He remains on anticoagulation with Eliquis 2.5 mg twice a day. I switched him to oral Lasix 60 mg by mouth daily. Urine output is quite diminished at this point in time. On 03/28/2023, the patient slept the night on a BiPAP at a pressure of 12/6 with an FiO2 of 30%. Currently is on room air oxygen. He continues to have some end inspiratory stridor. Based on that, a bedside bronchoscopy will be done to evaluate for tracheal stenosis. The patient otherwise doing well. Hemodynamically stable. Pulse ox on room air is in order of 96%. Blood pressure is stable. He underwent hemodialysis yesterday and he underwent ultrafiltration, a total of 1.8 L. The patient otherwise is doing well. His cardiac rhythm is sinus. Resident of medication remains unchanged. Blood work from today shows a hemoglobin of 8.5, the mediastinal 11.2, sodium is 134, potassium is at 3.2, BUN is at 24 with a creatinine of 3.0. He is still on bronchodilators with DuoNeb. No steroids for now. On 03/29/2023, the patient is using on and off the BiPAP at a pressure of 12/6 cm of water and FiO2 of 30%. Bronchoscopy was done and the patient has tracheal stenosis discussed earlier. I made recommendations for this patient to go to [facility] and the patient is a process of being transferred. He is going to undergo hemodialysis today. Has no specific complaints. He is communicating. He continues to have a stridor. Lab work was noted and the patient has a white cell count of 9.3, hemoglobin of 8.4, BUN is at 32 with a creatinine of 3.6 and a sodium level is at 136. Covid 19 testing was negative. The patient remains on vancomycin. On 03/30/2023, the patient is still awaiting to be transferred to [facility]. Tracheal stenosis. Overnight is going on a BiPAP. This morning, the stridor is noted well appreciated. He was taken off the BiPAP and he was placed on nasal cannula. His hemodialysis was done yesterday with a total of 1.4 L of ultrafiltration. On and off, is using the BiPAP at a pressure of 12/6 cm of water. He is awake and alert and communicating. The echoes at 4 with a hemoglobin 11.3, BUN is at 21 with a creatinine of 2.8 and a sodium levels of 137. He remains on vancomycin. Vanco trough is at 19.2. Objective - Vital Signs Vital signs: Vital Signs Temp 98.6 F 03/30/23 04:00 Pulse 67 03/30/23 08:49 Resp 22 03/30/23 08:49 BP 130/70 03/30/23 07:00 Pulse Ox 98 03/30/23 07:00 FiO2 30 03/30/23 08:49 Intake & Output 03/29/23 03/30/23 03/30/23 18:59 06:59 18:59 Intake Total 640 Output Total 2625 0 Balance -1984 0 Weight 108.8 kg Intake: Oral 240 Hemodialysis 400 Output: Urine 825 0 Hemodialysis 1800 Other: Voiding Method Urinal Urinal - Exam GENERAL: The patient is alert and oriented x3, patient is currently on room air oxygen. minimal stridor. HEENT: Pupils are round and equally reacting to light. EOMI. Neck examination shows a scar of a previous tracheostomy over the anterior neck area. No active stridor was appreciated. He has significant cardiovascular posterior oropharynx and he has a Mallampati class IV. CARDIOVASCULAR: Cardiac exam revealed the PMI to be normally situated and sized. The rhythm was regular and no extrasystoles were noted during several minutes of auscultation. The first and second heart sounds were normal and physiologic splitting of the second heart sound was noted. There were no murmurs, rubs, clicks, or gallops. PULMONARY: Decreased breath sounds bilaterally, rhonchi audible ABDOMEN: Soft, nontender, nondistended, normoactive bowel sounds. No palpable organomegaly. The peritoneal dialysis catheter has been removed MUSCULOSKELETAL: No joint swelling or deformity. EXTREMITIES: Lower extremity edema noted NEUROLOGICAL: Gross neurological examination did not reveal any new focal deficit Left arm and left leg chronically weak Skin examination reveals a permacath over the right anterior chest area exit sites. - Labs CBC & Chem 7: 03/30/23 04:45 03/30/23 04:45 Labs: Abnormal Lab Results - Last 24 Hours (Table) 03/30/23 03/30/23 Range/Units 04:45 04:45 WBC 12.0 H (3.8-10.6) k/uL RBC 2.94 L (4.30-5.90) m/uL Hgb 9.3 L (13.0-17.5) gm/dL Hct 28.1 L (39.0-53.0) % BUN 21 H (9-20) mg/dL Creatinine 2.86 H (0.66-1.25) mg/dL Glucose 127 H (74-99) mg/dL Calcium 8.2 L (8.4-10.2) mg/dL Microbiology - Last 24 Hours (Table) 03/23/23 01:11 Gram Stain - Final Dialysate Body Fluid Culture - Final Assessment and Plan Plan: Acute respiratory distress/stridor postextubation. The patient most likely has a narrowed subglottic trachea probably related to her previous insertion and removal of the tracheostomy tube. As discussed in the bronchoscopy, the first cartilaginous ring of the trachea is fractured and the patient has a significant degree of tracheal stenosis with a stable stridor. No shortness of breath at rest. History of tracheal stenosis probably related to tracheostomy tube insertion and subsequent removal Altered mentation, probably related to a combination of use of anesthetics and CO2 , recovered and the blood gas showed normal acid-base status, mental status improved and the patient is back to his normal mentation this point in time. End-stage renal disease on peritoneal dialysis. The PD catheter was removed due to concern of an infection and the patient was given a permacath, is going to undergo hemodialysis today Previous history of CVA and residual left-sided weakness Previous history of tracheostomy tube and a PEG tube insertion post CVA and subsequently both of those catheters were removed as the patient recovered from his underlying stroke Obstructive sleep apnea maintained on a VPAP auto with an EPAP minimum of 6 and a maximum pressure of 15 and a pressure support of 4 Hyperlipidemia Hypertension Seizure disorder Anemia of chronic disease Obstructive sleep apnea Plan Overall respiratory status is stable BiPAP on and off during the day depending is interested status and continuously overnight The patient has a stable inspiratory stridor. Otherwise, is breathing comfortably at this point in time. Continue the bronchodilators Dialysis per nephrology undergoing hemodialysis , last hemodialysis session was yesterday with a 1.4 L of ultrafiltration Continue supportive care and monitor his fluid status Tolerating diet Hemodynamically stable Patient received IV vancomycin regarding gram-positive cocci in the peritoneal fluid The patient is going to be transferred to [facility] regarding his marichuy oing tracheal stenosis for further recommendations. As mentioned, he is having is stable inspiratory stridor.
[2023-03-30] MEDS: DOCUSATE 100 MG CAP PO SCH (12:51)
[2023-03-30] MEDS: LACTATED RINGERS 1,000 ML IV SCH (16:50)
[2023-03-30] MEDS: polyethylene glycoL 3350 17 GM POWD.PACK PO SCH (16:50)
[2023-03-30] MEDS: LATANOPROSTENE BUNOD BOTH EYES SCH (17:22)
[2023-03-30] MEDS ORDERED: VANCOMYCIN 1,250 MG in SODIUM CHLORIDE 0.9% 250 ML IVPB ONE (18:00)
[2023-03-30] MEDS: MELATONIN 5 MG TABLET PO SCH (20:40)
[2023-03-30] MEDS: ATORVASTATIN 10 MG TAB PO SCH (20:40)
[2023-03-30] MEDS: VENLAFAXINE HCL ER 75 MG CAP PO SCH (20:41)
--- NOTE | 2023-03-31 01:25 | P.PN ---
Progress Note - Text Progress Note Date: 03/30/23 67-year-old patient who follows with Dr. Sebas Alejandre. Extensive medical history with chronic medical conditions including atrial fibrillation, CHF, hypertension, hyperlipidemia, kidney disease, seizure disorder, sleep apnea, stroke with some left-sided weakness, did receive hemodialysis in 2019. Uses BiPAP. Peripheral neuropathy does use a walker. She does undergo peritoneal dialysis. 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 Patient can only see shadows from the right eye. * Patient was sent into the ER after patient's peritoneal fluid showed gram- positive cocci and a white count of 32. On March 18. Plan is to have the peritoneal catheter removed and temporary dialysis catheter placed. Patient denies any fever and chills. Appetite is fair. at the bedside. Patient dialysis fluid otherwise has been clear. Patient recently finished a course of antibiotic with vancomycin and cefepime. 4 peritonitis. Patient has slight fluid overload. * 03/23/2023: Patient seen and evaluated bedside, potassium replacement ordered nephrology following, patient receiving peritoneal dialysis. Patient has infected peritoneal dialysis catheter which will be removed, infectious disease consulted continue on IV vancomycin. Continue to monitor on electrolyte panel. Follow-up on electrolyte panel for tomorrow * 03/24/2023: Patient seen and evaluated bedside patient is sleeping easily arousable, blood work reviewed CBC remained stable, electrolyte panel shows sodium 133 potassium 3.3 blood glucose 144 patient receiving paratonia dialysis. Patient did complain of episode of shortness of breath chest x-ray ordered year-old coordinate with nursing staff. Requested nephrology to eval uate for adjustment of diuresis * 03/25/2023: Patient seen and evaluated bedside, patient does complain of shortness of breath, per family patient does have history of predicted trach, chest x-ray does show concern for tracheal stenosis we will consult pulmonary medicine as well plan is. PD catheter removal today. Nephrology following * 03/26/2023: Patient seen and evaluated bedside, patient is alert and oriented person, on BiPAP, at bedside, followed by pulmonary medicine, receiving dexamethasone. Nephrology following hemodialysis catheter in place * 03/27/2023: Patient seen and evaluated bedside, patient is alert on noninvasive ventilation, receiving hemodialysis. Does complain of generalized body pain continue patient on current antibiotic regimen continued toward in ICU patient on steroids for stridor from critical stenosis * 03/28/2023: Patient was seen and evaluated bedside, patient had flexible fiberoptic bronchoscopy completed today does show tracheostenosis, subglottic stenosis with complain for airway occlusion patient receiving oxygen supplementation as well as noninvasive ventilation. Will coordinate with pulmonary medicine will need ENT evaluation. Continue to follow up on CBC and basic metabolic panel * 03/29/2023: Patient seen and evaluated bedside, patient undergoing hemodialysis, patient on BiPAP nonlabored breathing, blood pressure stable on 30% FiO2. CBC reviewed WBC 9.3 hemoglobin 8.4 serum chemistry reviewed. Waiting for bed at [facility] patient has been accepted at [facility] ICU. Transfer paperwork completed patient Maurizio was placed on hold in anticipation of any surgical intervention/interventional pulmonology evaluation at [facility] for tracheal stenosis 03/30/2023: ICU. Patient continues to stridor. at the bedside. Use BiPAP overnight. Off any drips. On room air. Tolerating diet. I spoke to Dr. Abdul ICU fellow at [facility]. Given update. Patient has been accepted. Pending beds. Active Medications Acetaminophen (Acetaminophen Tab 325 Mg Tab) 650 mg PO Q6HR PRN PRN Reason: Mild Pain or Fever > 100.5 Albuterol/Ipratropium (Ipratropium-Albuterol 3 Ml Neb) 3 ml INHALATION RT-BID [facility] Last Admin: 03/30/23 20:44 Dose: 3 ml Albuterol/Ipratropium (Ipratropium-Albuterol 3 Ml Neb) 3 ml INHALATION RT-Q6H PRN PRN Reason: Shortness Of Breath Last Admin: 03/24/23 14:25 Dose: 3 ml Allopurinol (Allopurinol 100 Mg Tab) 100 mg PO Q48H [facility] Last Admin: 03/29/23 09:35 Dose: 100 mg Amlodipine Besylate (Amlodipine 5 Mg Tab) 5 mg PO BID [facility] Last Admin: 03/30/23 20:40 Dose: 5 mg Atorvastatin Calcium (Atorvastatin 10 Mg Tab) 10 mg PO HS [facility] Last Admin: 03/30/23 20:40 Dose: 10 mg Darbepoetin Nicko (Darbepoetin Nicko 40 Mcg/0.4 Ml Syringe) 40 mcg SQ Q7D [facility] Last Admin: 03/25/23 20:39 Dose: Not Given Docusate Sodium (Docusate 100 Mg Cap) 100 mg PO DAILY@1200 [facility] Last Admin: 03/30/23 12:51 Dose: 100 mg Ergocalciferol (Ergocalciferol 1,250 Mcg (50,000 Iu) Capsule) 1,250 mcg PO Q30D [facility] Finasteride (Finasteride 5 Mg Tab) 5 mg PO DAILY [facility] Last Admin: 03/30/23 09:23 Dose: 5 mg Fluticasone Propionate (Fluticasone 50mcg/[place] Nasal 16gm) 1 spray EA NOSTRIL DAILY PRN PRN Reason: Allergy Symptoms Furosemide (Furosemide 20 Mg Tab) 60 mg PO DAILY [facility] Last Admin: 03/30/23 09:23 Dose: 60 mg Gentamicin Sulfate (Gentamicin 0.1% Cream 15 Gm Tube) 1 applic TOPICAL DAILY [facility] Last Admin: 03/30/23 09:23 Dose: 1 applic Guaifenesin (Guaifenesin 600 Mg Tablet.Er) 1,200 mg PO BID [facility] Last Admin: 03/30/23 20:40 Dose: 1,200 mg Lactated Ringer's (Lactated Ringers) 1,000 mls @ 20 mls/hr IV .Q24H [facility] Last Admin: 03/30/23 16:50 Dose: Not Given Levetiracetam (Levetiracetam 500 Mg Tab) 500 mg PO BID [facility] Last Admin: 03/30/23 20:40 Dose: 500 mg Melatonin (Melatonin 5 Mg Tablet) 5 mg PO HS [facility] Last Admin: 03/30/23 20:40 Dose: 5 mg Metoprolol Succinate (Metoprolol Succinate (Er) 25 Mg Tab.Er.24h) 25 mg PO TID [facility] Last Admin: 03/30/23 21:10 Dose: 25 mg Miscellaneous Information (Vancomycin Iv Per Pharmacy 1 Each Misc) 0 each MISCELLANE DIRECTED PRN PRN Reason: PER PROTOCOL Multivit/Ca Carb/B Cmplx/FA/Prenat (Folic Acid-Vit B Complex-Vit C 1 Cap) 1 each PO DAILY [facility] Last Admin: 03/30/23 09:31 Dose: 1 each Naloxone HCl (Naloxone 0.4 Mg/Ml 1 Ml Vial) 0.2 mg IV Q2M PRN PRN Reason: Opioid Reversal Non-Formulary Medication (Mircera (Unknown Dose)) 1 dose INJ Q30D [facility] Patient Home Med-( Latanoprostene Bunod [Vyzulta] 5 Ml Ml) 1 drop BOTH EYES DAILY@1800 [facility] Last Admin: 03/30/23 17:22 Dose: 1 drop Simbrinza 1%/0.2% 1 each BOTH EYES BID [facility] Last Admin: 03/30/23 20:42 Dose: 1 each Ondansetron HCl (Ondansetron 4 Mg/2 Ml Vial) 4 mg IVP Q8HR PRN PRN Reason: Nausea And Vomiting Polyethylene Glycol (Polyethylene Glycol 3350 17 Gm Powd.Pack) 17 gm PO DAILY@1800 [facility] Last Admin: 03/30/23 16:50 Dose: Not Given Sevelamer Carbonate (Sevelamer 800 Mg Tab) 1,600 mg PO TID-W/MEALS [facility] Last Admin: 03/30/23 17:22 Dose: 1,600 mg Spironolactone (Spironolactone 25 Mg Tab) 12.5 mg PO DAILY [facility] Last Admin: 03/30/23 09:22 Dose: 12.5 mg Tamsulosin HCl (Tamsulosin 0.4 Mg Cap.Er.24h) 0.4 mg PO DAILY [facility] Last Admin: 03/30/23 09:22 Dose: 0.4 mg Venlafaxine HCl (Venlafaxine Hcl Er 75 Mg Cap) 75 mg PO HS [facility] Last Admin: 03/30/23 20:41 Dose: 75 mg On examination: VITAL SIGNS: [98.6, 69, 13, 136.35, 100% room air] GENERAL APPEARANCE: Sitting up in chair, was eating lunch, stridor HEENT: Normal external appearance of nose and ear. Oral cavity normal EYES: Pupils equal. Conjunctiva normal. NECK: JVD not raised. Mass not palpable. RESPIRATORY: Respiratory effort increased. Lungs diminished breath sounds CARDIOVASCULAR: First and second sounds normal. No edema. ABDOMEN: Soft. Liver and spleen not palpable. No tenderness. No mass palpable. PSYCHIATRY: Alert and oriented x3. Mood and affect anxious NEUROLOGY: Left-sided weakness Assessment and plan * Infected peritoneal dialysis catheter with fluid positive for gram-positive cocci * end-stage renal disease on PD * Tracheal stenosis with previous history of tracheostomy * Hypervolemic hyponatremia * Paroxysmal atrial fibrillation-currently sinus rhythm * left-sided hemiparesis, from a prior CVA * BPH * Hyperlipidemia * Hyperuricemia * Essential hypertension * C epilepsy disorder * In regards to end-stage renal disease, continue dialysis per nephrology, vascular surgery consulted hemodialysis catheter placement. removal of infected peritoneal dialysis catheter, undergoing hemodialysis * In regards to peritonitis, infectious disease consulted continue patient on IV vancomycin * In regards to history of CVA continue current medical regimen * In regards to history of depression continue Effexor * In regards to fluid overload, continue patient on diuresis * In regards to history of atrial fibrillation continue rate control with meto prolol, Eliquis placed on hold secondary to concern for tracheal stenosis * In regards to hypertension continue amlodipine, Aldactone, Lasix, metoprolol * In regards to new finding of tracheal stenosis and difficulty in breathing , appreciate input from pulmonary medicine, status post fiberoptic bronchoscopy, patient would not take to have subglottic stenosis requiring transfer to tertiary care center patient already accepted at [facility] on 03/28/23 waiting for bed transfer paperwork completed. [facility] ICU fellow Dr. Abdul was updated today. * Continue to monitor in ICU Patient and updated.
--- NOTE | 2023-03-31 02:04 | P.PN ---
Subjective Progress Note Date: 03/30/23 Principal diagnosis: Reason for follow up is PD catheter associated peritonitis Patient is a 67-year-old male with a past medical history of clinical hypertension hyperlipidemia seizure disorder did have end-stage renal disease on peritoneal dialysis apparently the patient seem to have a problem with the PD catheter associated peritonitis over the last 4 to 6 weeks secondary to gram- positive culture, admit to the hospital for removal of the dialysis catheter and start the patient on hemodialysis. Patient is status post dialysis catheter removal and hemodialysis catheter placement on 03/25/2023, the patient is status post bronchoscopy 03/28/2023 concerning for tracheal stenosis On today's evaluation that is 03/30/2023, the patient denies having any fever or any chills, the patient is breathing comfortably currently on 30% FiO2, the patient denies having any chest pain still complaining of difficulty with breathing denies any nausea vomiting no abdominal pain and no diarrhea has been reported. Patient white count is slightly up to 12,000 today, creatinine is 2.86 cultures has been negative Objective - Vital Signs Vital signs: Vital Signs Temp 98.2 F 03/30/23 16:00 Pulse 75 03/30/23 16:00 Resp 22 03/30/23 16:00 BP 135/71 03/30/23 16:00 Pulse Ox 100 03/30/23 16:00 FiO2 30 03/30/23 08:49 Intake & Output 03/29/23 03/30/23 03/30/23 18:59 06:59 18:59 Intake Total 640 250 Output Total 2625 0 200 Balance -1984 0 50 Weight 108.8 kg Intake: Oral 240 250 Hemodialysis 400 Output: Urine 825 0 200 Hemodialysis 1800 Other: Voiding Method Urinal Urinal Urinal - Exam GENERAL DESCRIPTION: An elderly male lying in bed in no distress RESPIRATORY SYSTEM: Unlabored breathing , decreased breath sounds at bases HEART: S1 S2 regular rate and rhythm , ABDOMEN: Soft , no tenderness EXTREMITIES: No edema feet - Labs CBC & Chem 7: 03/30/23 04:45 03/30/23 04:45 Labs: Abnormal Lab Results - Last 24 Hours (Table) 03/30/23 03/30/23 Range/Units 04:45 04:45 WBC 12.0 H (3.8-10.6) k/uL RBC 2.94 L (4.30-5.90) m/uL Hgb 9.3 L (13.0-17.5) gm/dL Hct 28.1 L (39.0-53.0) % BUN 21 H (9-20) mg/dL Creatinine 2.86 H (0.66-1.25) mg/dL Glucose 127 H (74-99) mg/dL Calcium 8.2 L (8.4-10.2) mg/dL Assessment and Plan (1) Leukocytosis Current Visit: Yes Status: Acute Code(s): D72.829 - ELEVATED WHITE BLOOD CELL COUNT, UNSPECIFIED SNOMED Code(s): 372911829 (2) Peritonitis Current Visit: Yes Status: Acute Code(s): K65.9 - PERITONITIS, UNSPECIFIED SNOMED Code(s): 19127070 Plan: 1patient presented to hospital abdominal pain in this patient seem to have a problem with the PD catheter associated peritonitis that has been treated with vancomycin and Fortaz without improvement subsequently admitted to hospital for removal of the dialysis catheter and did have elevated white count but no fever 2--patient is s/p removal of the dialysis catheter and placement of hemodialysis catheter completed on 03/25/2023 3-blood culture has been negative and peritoneal fluid cultures are so far negative 4-patient is afebrile and the patient white count is normal 5- patient to continue vancomycin, patient is currently waiting for transfer to tertiary care for his tracheal stenosis possibly this evening per the nursing staff Dictation was produced using [employer] dictation software. please excuse any grammatical, word or spelling errors. Time with Patient: Less than 30
[2023-03-31 05:35] LABS: African American GFR (CKD) 19 (>60 ml/min/1.73 sqM); Non-African American GFR(CKD) 16 (>60 ml/min/1.73 sqM)
[2023-03-31 06:31] LABS: Basophils # (A) 0.1 k/uL (0-0.2); Basophils % (A) 0 %; Eosinophils # (A) 0.4 k/uL (0-0.7); Eosinophils % (A) 4 %; HCT 26.4 % (39.0-53.0); HGB 8.8 gm/dL (13.0-17.5); Lymphocytes % (A) 8 %; MCH 31.9 pg (25.0-35.0); MCHC 33.3 g/dL (31.0-37.0); MCV 95.8 fL (80.0-100.0); Mean Platelet Volume 8.4; Monocytes # (A) 0.5 k/uL (0-1.0); Monocytes % (A) 5 %; Neutrophils # (A) 9.3 k/uL (1.3-7.7); Neutrophils % (A) 82 %; Platelet Count 175 k/uL (150-450); RBC 2.75 m/uL (4.30-5.90); WBC 11.4 k/uL (3.8-10.6)
[2023-03-31 06:41] LABS: Anion Gap 6 mmol/L; Blood Urea Nitrogen 32 mg/dL (9-20); Calcium 8.3 mg/dL (8.4-10.2); Carbon Dioxide 25 mmol/L (22-30); Chloride 106 mmol/L (98-107); Glucose 141 mg/dL (74-99); Sodium 137 mmol/L (137-145)
[2023-03-31] MEDS: SEVELAMER 800 MG TAB PO SCH (06:45)
[2023-03-31] MEDS: IPRATROPIUM-ALBUTEROL 3 ML NEB INHALATION SCH (07:53)
[2023-03-31] MEDS: FUROSEMIDE 20 MG TAB PO SCH (08:17)
[2023-03-31] MEDS: TAMSULOSIN 0.4 MG CAP.ER.24H PO SCH (08:17)
[2023-03-31] MEDS: allopurinoL 100 MG TAB PO SCH (08:17)
[2023-03-31] MEDS: amLODIPine 5 MG TAB PO SCH (08:17)
[2023-03-31] MEDS: METOPROLOL SUCCINATE (ER) 25 MG TAB.ER.24H PO SCH (08:17)
[2023-03-31] MEDS: guaiFENesin 600 MG TABLET.ER PO SCH (08:17)
[2023-03-31] MEDS: SPIRONOLACTONE 25 MG TAB PO SCH (08:18)
[2023-03-31] MEDS: FOLIC ACID-VIT B COMPLEX-VIT C 1 CAP PO SCH (08:18)
[2023-03-31] MEDS: levETIRAcetam 500 MG TAB PO SCH (08:18)
[2023-03-31] MEDS: SIMBRINZA BOTH EYES SCH (08:18)
[2023-03-31] MEDS: FINASTERIDE 5 MG TAB PO SCH (08:18)
[2023-03-31] MEDS: GENTAMICIN 0.1% CREAM 15 GM TUBE TOPICAL SCH (08:19)
[2023-03-31] MEDS ORDERED: [UNRECOGNIZED DRUG - OTHER] INJ SCH (09:00)
--- NOTE | 2023-03-31 10:06 | P.PN ---
Subjective Patient is seen in follow-up for end-stage renal disease. PD catheter removed and permacath inserted 03/25/2023. Currently on room air. Awaits transfer 204. Vital signs are stable. General: No acute distress. HEENT: Head exam is unremarkable. LUNGS: Stridor noted. HEART: Rate and Rhythm are regular. ABDOMEN: Nontender. EXTREMITITES: No edema. Objective - Vital Signs Vital signs: Vital Signs Temp 98.1 F 03/31/23 05:00 Pulse 70 03/31/23 08:02 Resp 16 03/31/23 08:02 BP 126/58 03/31/23 07:00 Pulse Ox 100 03/31/23 07:54 FiO2 30 03/31/23 07:54 Intake & Output 03/30/23 03/31/23 03/31/23 18:59 06:59 18:59 Intake Total 250 50 Output Total 400 200 Balance -150 -150 Weight 109.5 kg Intake: Oral 250 50 Output: Urine 400 200 Other: Voiding Method Urinal Urinal # Bowel Movements 2 0 0 - Labs CBC & Chem 7: 03/31/23 04:51 03/31/23 04:51 Labs: Abnormal Lab Results - Last 24 Hours (Table) 03/31/23 03/31/23 Range/Units 04:51 04:51 WBC 11.4 H (3.8-10.6) k/uL RBC 2.75 L (4.30-5.90) m/uL Hgb 8.8 L (13.0-17.5) gm/dL Hct 26.4 L (39.0-53.0) % Neutrophils # 9.3 H (1.3-7.7) k/uL BUN 32 H (9-20) mg/dL Creatinine 3.62 H (0.66-1.25) mg/dL Glucose 141 H (74-99) mg/dL Calcium 8.3 L (8.4-10.2) mg/dL Assessment and Plan Plan: Assessment: 1. End-stage renal disease maintained on peritoneal dialysis. 2. Recurrent peritonitis status post PD catheter removal 03/25/2023. 3. Hypokalemia from PD losses and diuretics. Improved. 4. Anemia of chronic kidney disease. On Aranesp. 5. Hypertension with chronic kidney disease. 6. Chronic kidney disease mineral bone disease. On Renvela. Phosphorus level 4.1 dated 03/22/2023. 7. Tracheal stenosis. Underwent bronchoscopy this admission. Plan: Hemodialysis Saturday. He will be maintained on Saturday schedule outpatient. Antibiotics per infectious disease. Monitor vancomycin levels. Dose to be adjusted for renal function. Awaits transfer to [facility] for ENT evaluation.
[2023-03-31 10:19] VITALS: BP 146/71; PULSE 80; RESP 20; TEMP 98.6
--- NOTE | 2023-03-31 12:36 | P.PN ---
Subjective Progress Note Date: 03/31/23 67-year-old male patient is being seen in recovery after his ICU transfer as the patient was extubated and the patient had difficulties in breathing postextubation and he was having active stridor. At that point, he was being considered for intubation. He was given a trial of BiPAP and he gradually imp roved and his stridor has subsided this point in time. The patient is more awake and alert and communicating. He is currently on a BiPAP at a pressure of 12 was 6 with an FiO2 of 60%. Is exchanging at least 450 mL of tidal volume on the BiPAP machine. He does have a tracheostomy. I noted that the patient had a previous history of tracheostomy tube insertion following a CVA and as part of post CVA treatment, the patient required a tracheostomy and PEG tube insertion and he was in a extended care facility for long period of time. He was ultimately be cannulated. I was also able to review a CAT scan of the chest that was done this patient on 08/26/2018. I noted that there is some narrowing in the subglottic trachea, probably a broken cartilage causing some narrowing following insertion and removal of a previously inserted tracheostomy tube. The patient also admits to have obstructive sleep apnea and he has been maintained on CPAP therapy on an outpatient basis. His current procedure was 2 removal a peritoneal catheter and inserted a hemodialysis catheter. This was done succes sfully and his respiratory issues started following the extubation process. The patient currently has a permacath in his right IJ. Note that he has history of chronic A. fib, CHF, hypertension, hyperlipidemia, end-stage renal disease, seizure disorder, previous history of CVA and he does have some residual left- sided weakness. As also peripheral neuropathy. He does use a walker for mobility. He was undergoing peritoneal dialysis. He developed peritonitis. Was told that his peritoneal dialysis catheter was infected. Based on that, the catheter was removed and the patient was given a hemodialysis catheter. The cultures from the peritoneal fluid is still pending. Told by the anesthesi ologist of intubation process was not traumatic. In fact, this was an easy intubation according to him. He was given a 7.5 ETT On today's evaluation of 03/26/2023, the patient is being seen for a follow-up. I saw this patient in consultation yesterday. There was concern of a stridor and compromise of his upper airway. The patient as mentioned may have an underlying tracheal stenosis related to a previous tracheostomy tube insertion. He also has obstructive sleep apnea. He did encounter some respiratory difficulties postextubation. Based on that, he was treated with a BiPAP and he was treated with Decadron and bronchodilators and he was also given racemic epinephrine. He stated on BiPAP at a pressure of 12/6 the night and this morning he is on room air oxygen. No active stridor. Is able to speak. AsI is of any respiratory distress. Blood gas was done yesterday while on the BiPAP and the patient had no significant hypercapnic respiratory failure and his pH was at 7.36 with a pCO2 of 45 and a pO2 of 121. He also underwent hemodialysis yesterday with ultrafiltration of 1100 mL of fluid. He remains hemodynamically stable. Peritoneal catheter has been removed. The lymph node and 16.4 with a hemoglobin of 9.3. Sodium is at 135, BUN is at 20 with a creatinine of 3.1. No other significant issues overnight. The peritoneal fluid is showing no microbial growth at this point. The patient remains on vancomycin. On 03/27/2023, the patient is awake and alert and is undergoing dialysis. He was on BiPAP throughout the night and I took him off the BiPAP this morning and put him on a nasal cannula. He does have some minimal end inspiratory stridor probably related to tracheal stenosis. His breathing is nonlabored. On 2 L of oxygen, his pulse ox is 99%. He is undergoing hemodialysis. He will be ALSO treated for a total of 1.8 L. His BUN is at 30 with a creatinine of 3.6. Sodiums of 136. Denies having any significant respiratory distress. Is able to speak. Is able to swallow. He is afebrile. He is still covered with vancomycin. Peritoneal catheter has been removed and the patient has a permacath in his right IJ. His most recent chest x-ray was from yesterday and it was showing cardiomegaly and mild pulmonary vascular congestion. Hemodynamically stable. In fact is slightly hypertensive. He is on amlodipine 5 mg by mouth twice a day and metoprolol 25 mg 3 times a day. He remains on anticoagulation with Eliquis 2.5 mg twice a day. I switched him to oral Lasix 60 mg by mouth daily. Urine output is quite diminished at this point in time. On 03/28/2023, the patient slept the night on a BiPAP at a pressure of 12/6 with an FiO2 of 30%. Currently is on room air oxygen. He continues to have some end inspiratory stridor. Based on that, a bedside bronchoscopy will be done to evaluate for tracheal stenosis. The patient otherwise doing well. Hemodynamically stable. Pulse ox on room air is in order of 96%. Blood pressure is stable. He underwent hemodialysis yesterday and he underwent ultrafiltration, a total of 1.8 L. The patient otherwise is doing well. His cardiac rhythm is sinus. Resident of medication remains unchanged. Blood work from today shows a hemoglobin of 8.5, the mediastinal 11.2, sodium is 134, potassium is at 3.2, BUN is at 24 with a creatinine of 3.0. He is still on bronchodilators with DuoNeb. No steroids for now. On 03/29/2023, the patient is using on and off the BiPAP at a pressure of 12/6 cm of water and FiO2 of 30%. Bronchoscopy was done and the patient has tracheal stenosis discussed earlier. I made recommendations for this patient to go to [facility] and the patient is a process of being transferred. He is going to undergo hemodialysis today. Has no specific complaints. He is communicating. He continues to have a stridor. Lab work was noted and the patient has a white cell count of 9.3, hemoglobin of 8.4, BUN is at 32 with a creatinine of 3.6 and a sodium level is at 136. Covid 19 testing was negative. The patient remains on vancomycin. On 03/30/2023, the patient is still awaiting to be transferred to [facility]. Tracheal stenosis. Overnight is going on a BiPAP. This morning, the stridor is noted well appreciated. He was taken off the BiPAP and he was placed on nasal cannula. His hemodialysis was done yesterday with a total of 1.4 L of ultrafiltration. On and off, is using the BiPAP at a pressure of 12/6 cm of water. He is awake and alert and communicating. The echoes at 4 with a hemoglobin 11.3, BUN is at 21 with a creatinine of 2.8 and a sodium levels of 137. He remains on vancomycin. Vanco trough is at 19.2. On 03/31/2023, the patient is resting comfortably in bed. Rest or status is stable and he has no active respiratory difficulties at this point. The concern remains the tracheal stenosis and for that reason the patient is being transferred to [facility] within next few hours. Labs showed the skin of 11.4, hemoglobin of 8.8, BUN is at 32 with a creatinine of 3.6 and his sodium level is at 137. No other significant respiratory issues overnight. Objective - Vital Signs Vital signs: Vital Signs Temp 98.1 F 03/31/23 05:00 Pulse 70 03/31/23 08:02 Resp 16 03/31/23 08:02 BP 126/58 03/31/23 07:00 Pulse Ox 100 03/31/23 07:54 FiO2 30 03/31/23 07:54 Intake & Output 03/30/23 03/31/23 03/31/23 18:59 06:59 18:59 Intake Total 250 50 Output Total 400 Balance -150 50 Weight 109.5 kg Intake: Oral 250 50 Output: Urine 400 Other: Voiding Method Urinal Urinal # Bowel Movements 2 0 0 - Exam GENERAL: The patient is alert and oriented x3, patient is currently on room air oxygen. minimal stridor. HEENT: Pupils are round and equally reacting to light. EOMI. Neck examination shows a scar of a previous tracheostomy over the anterior neck area. No active stridor was appreciated. He has significant cardiovascular posterior oropharynx and he has a Mallampati class IV. CARDIOVASCULAR: Cardiac exam revealed the PMI to be normally situated and sized. The rhythm was regular and no extrasystoles were noted during several minutes of auscultation. The first and second heart sounds were normal and physiologic splitting of the second heart sound was noted. There were no murmurs, rubs, clicks, or gallops. PULMONARY: Decreased breath sounds bilaterally, rhonchi audible ABDOMEN: Soft, nontender, nondistended, normoactive bowel sounds. No palpable organomegaly. The peritoneal dialysis catheter has been removed MUSCULOSKELETAL: No joint swelling or deformity. EXTREMITIES: Lower extremity edema noted NEUROLOGICAL: Gross neurological examination did not reveal any new focal deficit Left arm and left leg chronically weak Skin examination reveals a permacath over the right anterior chest area exit sites. - Labs CBC & Chem 7: 03/31/23 04:51 03/31/23 04:51 Labs: Abnormal Lab Results - Last 24 Hours (Table) 03/31/23 03/31/23 Range/Units 04:51 04:51 WBC 11.4 H (3.8-10.6) k/uL RBC 2.75 L (4.30-5.90) m/uL Hgb 8.8 L (13.0-17.5) gm/dL Hct 26.4 L (39.0-53.0) % Neutrophils # 9.3 H (1.3-7.7) k/uL BUN 32 H (9-20) mg/dL Creatinine 3.62 H (0.66-1.25) mg/dL Glucose 141 H (74-99) mg/dL Calcium 8.3 L (8.4-10.2) mg/dL Assessment and Plan Plan: Acute respiratory distress/stridor postextubation. The patient most likely has a narrowed subglottic trachea probably related to her previous insertion and removal of the tracheostomy tube. As discussed in the bronchoscopy, the first cartilaginous ring of the trachea is fractured and the patient has a significant degree of tracheal stenosis with a stable stridor. No shortness of breath at rest. History of tracheal stenosis probably related to tracheostomy tube insertion and subsequent removal Altered mentation, probably related to a combination of use of anesthetics and CO2 , recovered and the blood gas showed normal acid-base status, mental status improved and the patient is back to his normal mentation this point in time. End-stage renal disease on peritoneal dialysis. The PD catheter was removed due to concern of an infection and the patient was given a permacath, is going to undergo hemodialysis today Previous history of CVA and residual left-sided weakness Previous history of tracheostomy tube and a PEG tube insertion post CVA and subsequently both of those catheters were removed as the patient recovered from his underlying stroke Obstructive sleep apnea maintained on a VPAP auto with an EPAP minimum of 6 and a maximum pressure of 15 and a pressure support of 4 Hyperlipidemia Hypertension Seizure disorder Anemia of chronic disease Obstructive sleep apnea Plan Clinically stable, hemodynamically stable Patient is being transferred to [facility] to be limits for tracheal stenosis Overall respiratory status is stable BiPAP on and off during the day depending is interested status and continuously overnight The patient has a stable inspiratory stridor. Otherwise, is breathing comfortably at this point in time. Continue the bronchodilators Dialysis per nephrology undergoing hemodialysis , last hemodialysis session with a 1.4 L of ultrafiltration Continue supportive care and monitor his fluid status Tolerating diet Hemodynamically stable Patient received IV vancomycin regarding gram-positive cocci in the peritoneal fluid The patient is going to be transferred to [facility] regarding his ongoing tracheal stenosis for further recommendations. As mentioned, he is having is stable inspiratory stridor. The chest is being done today. Stable for transfer
--- NOTE | 2023-04-01 17:43 | P.DS ---
Providers Date of admission: 03/21/23 21:07 Expected date of discharge: 03/31/23 Attending physician: Coy Rivera Consults: 03/21/23 21:07 Consult Physician Routine Consulting Provider: Kan Reyes Consult Reason/Comments: ESRF Do you want consulting provider notified?: Yes 03/23/23 11:00 Consult Physician Routine Consulting Provider: Joni York Consult Reason/Comments: Peritonitis, on peritoneal dialysis Do you want consulting provider notified?: Yes 03/25/23 13:20 Consult Physician Routine Consulting Provider: Charleen Sanderosn Consult Reason/Comments: History of tracheostomy, tracheal stenosis upper airway stridor Do you want consulting provider notified?: Yes Primary care physician: Sebas Alejandre [facility] Course: 67-year-old patient who follows with Dr. Sebas Alejandre. Extensive medical history with chronic medical conditions including atrial fibrillation, CHF, hypertension, hyperlipidemia, kidney disease, seizure disorder, sleep apnea, stroke with some left-sided weakness, did receive hemodialysis in 2019. Uses BiPAP. Peripheral neuropathy does use a walker. She does undergo peritoneal dialysis. Follows with breakfast hostess Dr. Reyes. Patient can only see shadows from the right eye. * Patient was sent into the ER after patient's peritoneal fluid showed gram- positive cocci and a white count of 32. On March 18. Plan is to have the peritoneal catheter removed and temporary dialysis catheter placed. Patient denies any fever and chills. Appetite is fair. at the bedside. Patient dialysis fluid otherwise has been clear. Patient recently finished a course of antibiotic with vancomycin and cefepime. 4 peritonitis. Patient has slight fluid overload. * 03/23/2023: Patient seen and evaluated bedside, potassium replacement ordered nephrology following, patient receiving peritoneal dialysis. Patient has infected peritoneal dialysis catheter which will be removed, infectious disease consulted continue on IV vancomycin. Continue to monitor on electrolyte panel. Follow-up on electrolyte panel for tomorrow * 03/24/2023: Patient seen and evaluated bedside patient is sleeping easily arousable, blood work reviewed CBC remained stable, electrolyte panel shows sodium 133 potassium 3.3 blood glucose 144 patient receiving paratonia dialysis. Patient did complain of episode of shortness of breath chest x-ray ordered year-old coordinate with nursing staff. Requested nephrology to evaluate for adjustment of diuresis * 03/25/2023: Patient seen and evaluated bedside, patient does complain of shortness of breath, per family patient does have history of predicted trach, chest x-ray does show concern for tracheal stenosis we will consult pulmonary medicine as well plan is. PD catheter removal today. Nephrology following * 03/26/2023: Patient seen and evaluated bedside, patient is alert and oriented person, on BiPAP, at bedside, followed by pulmonary medicine, receiving dexamethasone. Nephrology following hemodialysis catheter in place * 03/27/2023: Patient seen and evaluated bedside, patient is alert on noninvasive ventilation, receiving hemodialysis. Does complain of generalized body pain continue patient on current antibiotic regimen continued toward in ICU patient on steroids for stridor from critical stenosis * 03/28/2023: Patient was seen and evaluated bedside, patient had flexible fiberoptic bronchoscopy completed today does show tracheostenosis, subglottic stenosis with complain for airway occlusion patient receiving oxygen supplementation as well as noninvasive ventilation. Will coordinate with pul monary medicine will need ENT evaluation. Continue to follow up on CBC and basic metabolic panel * 03/29/2023: Patient seen and evaluated bedside, patient undergoing hemodialysis, patient on BiPAP nonlabored breathing, blood pressure stable on 30% FiO2. CBC reviewed WBC 9.3 hemoglobin 8.4 serum chemistry reviewed. Waiting for bed at [facility] patient has been accepted at [facility] ICU. Transfer paperwork completed patient Maurizio was placed on hold in anticipation of any surgical intervention/interventional pulmonology evaluation at [facility] for tracheal stenosis 03/30/2023: ICU. Patient continues to stridor. at the bedside. Use BiPAP overnight. Off any drips. On room air. Tolerating diet. I spoke to Dr. Abdul ICU fellow at [facility]. Given update. Patient has been accepted. Pending beds. 03/31/2023: Patient was transferred to [facility] in the morning. On examination: Previous day VITAL SIGNS: [98.6, 69, 13, 136.35, 100% room air] GENERAL APPEARANCE: Sitting up in chair, was eating lunch, stridor HEENT: Normal external appearance of nose and ear. Oral cavity normal EYES: Pupils equal. Conjunctiva normal. NECK: JVD not raised. Mass not palpable. RESPIRATORY: Respiratory effort increased. Lungs diminished breath sounds CARDIOVASCULAR: First and second sounds normal. No edema. ABDOMEN: Soft. Liver and spleen not palpable. No tenderness. No mass palpable. PSYCHIATRY: Alert and oriented x3. Mood and affect anxious NEUROLOGY: Left-sided weakness Assessment and plan * Infected peritoneal dialysis catheter with fluid positive for gram-positive cocci * end-stage renal disease on PD * Tracheal stenosis with previous history of tracheostomy * Hypervolemic hyponatremia * Paroxysmal atrial fibrillation-currently sinus rhythm * left-sided hemiparesis, from a prior CVA * BPH * Hyperlipidemia * Hyperuricemia * Essential hypertension * C epilepsy disorder * In regards to end-stage renal disease, continue dialysis per nephrology, vascular surgery consulted hemodialysis catheter placement. removal of infected peritoneal dialysis catheter, undergoing hemodialysis * In regards to peritonitis, infectious disease consulted continue patient on IV vancomycin * In regards to history of CVA continue current medical regimen * In regards to history of depression continue Effexor * In regards to fluid overload, continue patient on diuresis * In regards to history of atrial fibrillation continue rate control with metoprolol, Eliquis placed on hold secondary to concern for tracheal stenosis * In regards to hypertension continue amlodipine, Aldactone, Lasix, metoprolol * In regards to new finding of tracheal stenosis and difficulty in breathing , appreciate input from pulmonary medicine, status post fiberoptic bronchoscopy, patient would not take to have subglottic stenosis requiring transfer to tertiary care center patient already accepted at [facility] on 03/28/23 waiting for bed transfer paperwork completed. [facility] ICU fellow Dr. Abdul was updated today. * Continue to monitor in ICU Disposition: Transferred to [facility], [facility]. For higher level of care Plan - Discharge Summary Discharge Rx Participant: Yes New Discharge Prescriptions: Continue polyethylene glycoL 3350 [Miralax] 17 gm PO DAILY@1800 Docusate [Colace] 100 mg PO DAILY@1200 levETIRAcetam [Keppra] 500 mg PO BID@1200,1800 Tamsulosin [Flomax] 0.4 mg PO DAILY@0600 Finasteride [Proscar] 5 mg PO DAILY@0600 Venlafaxine HCl [Effexor XR] 75 mg PO DAILY@1700 guaiFENesin [Mucinex] 1,200 mg PO BID@0600,1800 Metoprolol Succinate (ER) [Toprol XL] 25 mg PO TID@0600,1200,1800 allopurinoL [Zyloprim] 100 mg PO Q48H Melatonin 5 mg PO HS@1800 amLODIPine [Norvasc] 5 mg PO BID@1200,1800 Spironolactone 12.5 mg PO DAILY@0600 Fluticasone Nasal [place] [Flonase Nasal [place]] 1 spray EA NOSTRIL DAILY PRN PRN Reason: Allergy Symptoms Ipratropium-Albuterol Nebulize [Duoneb 0.5 mg-3 mg/3 ml Soln] 3 ml INHALATION RT-BID Folic Acid/Vit B Complex and C [Nephro-Michael Tablet] 0.8 mg PO DAILY@1200 Ergocalciferol (Vitamin D2) [Drisdol (50,000 Iu)] 1,250 mcg PO Q30D Simvastatin 10 mg PO DAILY@1800 Sevelamer [Renvela] 1,600 mg PO TID-W/MEALS Brinzolamide/Brimonidine Tart [Simbrinza 1%-0.2% Eye Drops] 1 drop BOTH EYES BID@0600,1800 Furosemide [Lasix] 60 mg PO DAILY@0600 Gentamicin Sulfate [Gentamicin Sulfate 0.1%] 1 applic TOPICAL DAILY Albuterol Inhaler [Ventolin Hfa Inhaler] 1 - 2 puff INHALATION RT-Q6H PRN PRN Reason: Shortness Of Breath Ipratropium-Albuterol Nebulize [Duoneb 0.5 mg-3 mg/3 ml Soln] 3 ml INHALATION RT-Q6H PRN PRN Reason: Shortness Of Breath Latanoprostene Bunod [Vyzulta] 1 drop BOTH EYES DAILY@1800 Mircera (Unknown Dose) 1 dose INJ Q30D Discontinued Apixaban [Eliquis] 2.5 mg PO BID@0600,1800 Discharge Medication List Docusate [Colace] 100 mg PO DAILY@1200 08/25/18 [History] Finasteride [Proscar] 5 mg PO DAILY@0600 08/25/18 [History] Tamsulosin [Flomax] 0.4 mg PO DAILY@0600 08/25/18 [History] levETIRAcetam [Keppra] 500 mg PO BID@1200,1800 08/25/18 [History] polyethylene glycoL 3350 [Miralax] 17 gm PO DAILY@1800 08/25/18 [History] Venlafaxine HCl [Effexor XR] 75 mg PO DAILY@1700 12/30/18 [History] guaiFENesin [Mucinex] 1,200 mg PO BID@0600,1800 12/30/18 [History] Melatonin 5 mg PO HS@1800 04/02/19 [History] Metoprolol Succinate (ER) [Toprol XL] 25 mg PO TID@0600,1200,1800 04/02/19 [History] allopurinoL [Zyloprim] 100 mg PO Q48H 04/02/19 [History] Fluticasone Nasal [place] [Flonase Nasal [place]] 1 spray EA NOSTRIL DAILY PRN 11/20/19 [History] Ipratropium-Albuterol Nebulize [Duoneb 0.5 mg-3 mg/3 ml Soln] 3 ml INHALATION RT-BID 11/20/19 [History] Spironolactone 12.5 mg PO DAILY@0600 11/20/19 [History] amLODIPine [Norvasc] 5 mg PO BID@1200,1800 11/20/19 [History] Brinzolamide/Brimonidine Tart [Simbrinza 1%-0.2% Eye Drops] 1 drop BOTH EYES BID@0600,1800 07/28/21 [History] Sevelamer [Renvela] 1,600 mg PO TID-W/MEALS 07/28/21 [History] Simvastatin 10 mg PO DAILY@1800 07/28/21 [History] Furosemide [Lasix] 60 mg PO DAILY@0600 08/09/21 [History] Albuterol Inhaler [Ventolin Hfa Inhaler] 1 - 2 puff INHALATION RT-Q6H PRN 03/21/23 [History] Ergocalciferol (Vitamin D2) [Drisdol (50,000 Iu)] 1,250 mcg PO Q30D 03/21/23 [History] Folic Acid/Vit B Complex and C [Nephro-Michael Tablet] 0.8 mg PO DAILY@1200 03/21/23 [History] Gentamicin Sulfate [Gentamicin Sulfate 0.1%] 1 applic TOPICAL DAILY 03/21/23 [History] Ipratropium-Albuterol Nebulize [Duoneb 0.5 mg-3 mg/3 ml Soln] 3 ml INHALATION RT-Q6H PRN 03/21/23 [History] Latanoprostene Bunod [Vyzulta] 1 drop BOTH EYES DAILY@1800 03/21/23 [History] Mircera (Unknown Dose) 1 dose INJ Q30D 03/21/23 [History] Activity/Diet/Wound Care/Special Instructions: Patient will need an rx at discharge stating that he is clear to begin working with physical and occupational therapy again. Discharge Disposition: TRANSFER TO SHORT TERM HOSP
[2023-04-04] MEDS ORDERED: ERGOCALCIFEROL 1,250 MCG (50,000 IU) CAPSULE PO SCH (09:00)
== END 2023-03-31 10:30 | disposition short-term general hospital (02) | DRG 907 ==
LOC: EC 16:44 → 4SSUR 21:07 → 2SICU 03-25 18:43
PROVIDERS: ADMIT Hospitalist; ATTEND Hospitalist
PROC: 3E1M39Z Irrigation of Peritoneal Cavity using Dialysate, Percutaneous Approach (ICD-10-PCS; 2023-03-22 12:15)
PROC: 5A1D70Z Performance of Urinary Filtration, Intermittent, Less than 6 Hours Per Day (ICD-10-PCS; 2023-03-25)
PROC: 0WPG03Z Removal of Infusion Device from Peritoneal Cavity, Open Approach (ICD-10-PCS; principal; 2023-03-25 13:00)
PROC: 02HV33Z Insertion of Infusion Device into Superior Vena Cava, Percutaneous Approach (ICD-10-PCS; principal; 2023-03-25 13:00)
PROC: 0JH63XZ Insertion of Tunneled Vascular Access Device into Chest Subcutaneous Tissue and Fascia, Percutaneous Approach (ICD-10-PCS; principal; 2023-03-25 13:00)
PROC: 0BJ08ZZ Inspection of Tracheobronchial Tree, Via Natural or Artificial Opening Endoscopic (ICD-10-PCS; 2023-03-28)
DX: T85.71XA Infection and inflammatory reaction due to peritoneal dialysis catheter, initial encounter (principal); K65.9 Peritonitis, unspecified; N18.6 End stage renal disease; I13.2 Hypertensive heart and chronic kidney disease with heart failure and with stage 5 chronic kidney disease, or end stage renal disease; E87.1 Hypo-osmolality and hyponatremia; J95.03 Malfunction of tracheostomy stoma; I69.354 Hemiplegia and hemiparesis following cerebral infarction affecting left non-dominant side; D63.1 Anemia in chronic kidney disease; E83.51 Hypocalcemia; E11.22 Type 2 diabetes mellitus with diabetic chronic kidney disease; E11.42 Type 2 diabetes mellitus with diabetic polyneuropathy; Z99.2 Dependence on renal dialysis; F32.A Depression, unspecified; E78.5 Hyperlipidemia, unspecified; E86.1 Hypovolemia; E87.6 Hypokalemia; Y84.1 Kidney dialysis as the cause of abnormal reaction of the patient, or of later complication, without mention of misadventure at the time of the procedure; Z79.899 Other long term (current) drug therapy; N40.0 Benign prostatic hyperplasia without lower urinary tract symptoms; G40.909 Epilepsy, unspecified, not intractable, without status epilepticus; G47.33 Obstructive sleep apnea (adult) (pediatric); I48.0 Paroxysmal atrial fibrillation; I50.9 Heart failure, unspecified; R06.03 Acute respiratory distress; K21.9 Gastro-esophageal reflux disease without esophagitis; E83.9 Disorder of mineral metabolism, unspecified; E87.8 Other disorders of electrolyte and fluid balance, not elsewhere classified; G47.30 Sleep apnea, unspecified; H40.9 Unspecified glaucoma; E79.0 Hyperuricemia without signs of inflammatory arthritis and tophaceous disease; Z88.8 Allergy status to other drugs, medicaments and biological substances
CPT/HCPCS: 31624; 36410; 36415; 36600; 71045; 76937; 77001; 80048; 80053; 80202; 82805; 83605; 83735; 84100; 84132; 85025; 85027; 85610; 85730; 86140; 86704; 86706; 87040; 87070; 87205; 87340; 87635; 89050; 90935; 93005; 94640; 94660; 96365; 99285

== ENCOUNTER 2023-08-08 11:49 | Day surgery (SDC) | payer MEDICARE, OTHER ==
[2023-08-06 11:46] VITALS: BMI 30.8
[~2023-08-08 11:49] MED LIST changes: -DEXAMETHASONE SOD PHOSPHATE 4 MG/ML 1 ML VIAL IV ONE; -HEPARIN SODIUM,PORCINE/PF 5,000 UNIT/0.5 ML SYRINGE SQ PRN; +MIDAZOLAM 2 MG/2 ML VIAL IV PRN; -ONDANSETRON 4 MG/2 ML VIAL IVP ONE
[2023-08-08] MEDS: SODIUM CHLORIDE 0.9% 500 ML 500 ML IV ONE (13:22)
[2023-08-08 13:25] LABS: Basophils # (A) 0.1 k/uL (0-0.2); Basophils % (A) 1 %; Eosinophils # (A) 0.4 k/uL (0-0.7); Eosinophils % (A) 4 %; Lymphocytes # (A) 1.1 k/uL (1.0-4.8); Lymphocytes % (A) 11 %; MCH 29.9 pg (25.0-35.0); MCHC 32.3 g/dL (31.0-37.0); MCV 92.4 fL (80.0-100.0); Mean Platelet Volume 7.6; Monocytes # (A) 0.5 k/uL (0-1.0); Monocytes % (A) 5 %; Neutrophils # (A) 8.2 k/uL (1.3-7.7); Neutrophils % (A) 78 %; Platelet Count 311 k/uL (150-450); RBC 3.68 m/uL (4.30-5.90); RDW 14.9 % (11.5-15.5); WBC 10.4 k/uL (3.8-10.6)
[2023-08-08] MEDS: ONDANSETRON 4 MG/2 ML VIAL IVP ONE (13:32)
[2023-08-08] MEDS: DEXAMETHASONE SOD PHOSPHATE 4 MG/ML 1 ML VIAL IV ONE (13:33)
[2023-08-08 13:34] LABS: ALT 16 U/L (4-49); AST 20 U/L (17-59); African American GFR (CKD) 20 (>60 ml/min/1.73 sqM); Alkaline Phosphatase 149 U/L (38-126); Anion Gap 9 mmol/L; Blood Urea Nitrogen 18 mg/dL (9-20); Calcium 9.3 mg/dL (8.4-10.2); Carbon Dioxide 29 mmol/L (22-30); Chloride 100 mmol/L (98-107); Glucose 118 mg/dL (74-99); Non-African American GFR(CKD) 17 (>60 ml/min/1.73 sqM); Potassium 4.2 mmol/L (3.5-5.1); Sodium 138 mmol/L (137-145); Total Bilirubin 0.7 mg/dL (0.2-1.3); Total Protein 6.9 g/dL (6.3-8.2)
[2023-08-08] MEDS: HEPARIN SODIUM,PORCINE 5,000 UNIT/ML 1 ML VIAL SQ PRN (13:34)
[2023-08-08] MEDS ORDERED: fentaNYL (PF) 50 MCG/ML 2 ML AMP ONE (14:03)
[2023-08-08] MEDS ORDERED: PROPOFOL 10 MG/ML 20 ML VIAL IV ONE (14:03)
[2023-08-08] MEDS ORDERED: PHENYLEPHRINE 10 MG/ML VIAL ONE (14:03)
[2023-08-08] MEDS ORDERED: MIDAZOLAM 2 MG/2 ML VIAL ONE (14:03)
[2023-08-08] MEDS ORDERED: LIDOCAINE 1% INJ 10MG/ML (20 ML MDV) ONE (14:03)
[2023-08-08] MEDS: BUPIVACAINE (PF) 0.25% 30 ML VIAL SQ ONE ×2 (14:30)
[2023-08-08] MEDS: MINERAL OIL 1 APPLIC/ML OIL TOPICAL ONE (14:36)
[2023-08-08] MEDS ORDERED: HYDROcodone/APAP 5-325MG 1 EACH TAB PO PRN (14:59)
[2023-08-08] MEDS ORDERED: NALOXONE 0.4 MG/ML 1 ML VIAL IV PRN (14:59)
--- NOTE | 2023-08-08 15:05 | P.OP ---
Date of Procedure: 08/08/23 Procedure(s) Performed: PREOPERATIVE DIAGNOSIS: Renal failure POSTOPERATIVE DIAGNOSIS: Same PROCEDURE: Peritoneal dialysis catheter insertion SURGEON: Cony EBL: 10 cc ANESTHESIA: Sedation plus local COMPLICATIONS: None OPERATIVE PROCEDURE: The patient was placed in the operative table in the supine position. The abdomen was prepped and draped in usual sterile fashion. A small vertical incision was made in the left periumbilical location. Dissection down through the subcutaneous tissues took place using electrocautery. The anterior rectus was divided vertically using the scalpel. The rectus was bluntly. The posterior rectus was visualized. An 0 Vicryl pursestring was placed. A small opening in the posterior rectus fascia and peritoneum took place using a Metzenbaum scissors. There were no adhesions to the suture that was placed. The pigtail catheter was advanced into the pelvis over a stylette. No resistance was met. The inner cuff was secured to the fascia using the 0 Vicryl pursestring that was placed. The catheter was tunneled to an exit site in the left lateral lower quadrant. The catheter was connected to the 1 L bag of saline and approximated 800 mL of saline was easily introduced into the peritoneal cavity. The fluid was then allowed to evacuate. The majority of the fluid was returned. The anterior rectus fascia was then reapproximated using a running 0 Vicryl stitch. The subcutaneous tissues reprepped using 3-0 Vicryl sutures and the skin using 4-0 Monocryl sutures. The outpatient dialysis adapter was applied to the end of the catheter. Sterile dressings were then applied after skin glue was placed over the incision. DISPOSITION: Stable to recovery room
[2023-08-08 15:25] LABS: Glucose,Whole Blood 136 mg/dL (70-110)
[2023-08-08 15:43] VITALS: TEMP 97.1
[2023-08-08 16:32] VITALS: RESP 20
[2023-08-08] MEDS: ACETAMINOPHEN TAB 325 MG TAB PO PRN (16:33)
[2023-08-08 17:18] VITALS: BP 138/74; PULSE 86
== END 2023-08-08 17:52 | disposition home or self-care (01) ==
LOC: OR 11:49
PROVIDERS: ATTEND Surgery
DX: I13.0 Hypertensive heart and chronic kidney disease with heart failure and stage 1 through stage 4 chronic kidney disease, or unspecified chronic kidney disease (principal); N18.9 Chronic kidney disease, unspecified; I50.9 Heart failure, unspecified; I48.91 Unspecified atrial fibrillation; E78.5 Hyperlipidemia, unspecified; G83.9 Paralytic syndrome, unspecified; G47.33 Obstructive sleep apnea (adult) (pediatric); F41.9 Anxiety disorder, unspecified; N40.0 Benign prostatic hyperplasia without lower urinary tract symptoms; Z86.73 Personal history of transient ischemic attack (TIA), and cerebral infarction without residual deficits; Z79.01 Long term (current) use of anticoagulants; Z79.51 Long term (current) use of inhaled steroids; Z79.899 Other long term (current) drug therapy
CPT/HCPCS: 80053; 85025; 49421; C1752; J2250; J1644; J1100; J0690; J2405; J2001; J3010; J2704; J2371; J0665